=== PATIENT | female | born 1965 | race Caucasian/White ===

== ENCOUNTER → 2016-06-27 | Outpatient (CLI) | payer OTHER ==
--- NOTE | 2016-06-28 11:50 | MM ---
Reason for exam: screening (asymptomatic). Last mammogram was performed 2 years and 4 months ago. History: Patient is postmenopausal. Physical Findings: A clinical breast exam by your physician is recommended on an annual basis and results should be correlated with mammographic findings. MG Screening Mammo w CAD Bilateral CC and MLO view(s) were taken. Prior study comparison: February 18, 2014, left breast MG diagnostic mammo LT w CAD. July 28, 2013, CAD bilateral diagnostic mammogram. There are scattered fibroglandular densities. There is chronic nodularity bilaterally. No significant changes when compared with prior studies. ASSESSMENT: Benign, BI-RAD 2 RECOMMENDATION: Routine screening mammogram of both breasts in 1 year. Manage patient on a clinical basis.
== END | disposition home or self-care (01) ==
LOC: RADMAMWWP 13:27
PROVIDERS: ATTEND Family Medicine
DX: Z12.31 Encounter for screening mammogram for malignant neoplasm of breast (principal)

== ENCOUNTER → 2016-08-14 | Outpatient (CLI) | payer OTHER ==
--- NOTE | 2016-08-16 09:49 | P.ARTDOP ---
Arterial Doppler LOWER EXTREMITY ARTERIAL DOPPLER: DATE OF SERVICE: 08/14/2016 Reason for study: Suspected PVD. Doppler waveforms: Multiphasic bilaterally throughout. Pulse volume recording: Normal configuration. Pressure gradients: None. Ankle-brachial indices: Greater 1 on the right. 0.97 on the left. Toe pressures: 91 on the right, 91 on the left Impression: Normal study.
== END | disposition home or self-care (01) ==
LOC: RADUSWWP 13:19
PROVIDERS: ATTEND Podiatrist Foot & Ankle Surgery
DX: I73.9 Peripheral vascular disease, unspecified (principal)
CPT/HCPCS: 93923

== ENCOUNTER → 2016-08-29 | Outpatient (CLI) | payer OTHER ==
--- NOTE | 2016-08-29 14:10 | MR ---
EXAMINATION TYPE: MR brain wo con DATE OF EXAM: 08/29/2016 2:02 PM COMPARISON: NONE HISTORY: MS per order. TECHNIQUE: Multiplanar, multisequence imaging of the brain and brainstem is performed without IV cont rast. IV contrast could not be given due to inability to obtain venous access despite several attempt s. FINDINGS: Exam is suboptimal due to patient struggling to hold still, communication is also limited due to patient being calf. Motion artifact is noted. Diffusion weighted images demonstrate no evidence of a recent infarct or other diffusion abnormality. There is no worrisome extra-axial fluid collection. There is ventricular prominence out of degree to degree of sulcal effacement and a normal pressure hydrocephalus should be considered. There are nonsp ecific confluent areas of T2 hyperintensity in the periventricular white matter. Exact count of lesio ns is suboptimal due to confluent appearance. Midline structures demonstrate thinning or atrophy of the corpus callosum. The craniocervical junctio n appears within normal limits. Normal vascular flow voids are present. There is mild to moderate muc osal thickening involving ethmoid sinuses bilaterally. Mild mucosal thickening is seen involving fron oralia sinuses. Globes are distorted by motion artifact. Some patchy increased fluid bilateral mastoid a ir cells is present. IMPRESSION: Suboptimal study with suggestion of mild to moderate diffuse hydrocephalus. Comparison wi th old outside studies would be beneficial to assess for interval change. Nonspecific periventricular white matter lesions are present.
== END | disposition home or self-care (01) ==
LOC: RADMRIMAIN 13:23
PROVIDERS: ATTEND Psychiatry & Neurology Neurology
DX: G35 Multiple sclerosis (principal); G91.9 Hydrocephalus, unspecified; R90.82 White matter disease, unspecified
CPT/HCPCS: 70551

== ENCOUNTER 2017-10-03 09:44 | Inpatient (IN) | payer OTHER ==
[2017-10-03] MEDS ORDERED: SODIUM CHLORIDE 0.9% 1,000 ML IV ONE (10:31)
--- NOTE | 2017-10-03 10:58 | ED ---
General Adult HPI - General Chief complaint: Nausea/Vomiting/Diarrhea Stated complaint: Nausea and vomiting Time Seen by Provider: 10/03/17 10:26 Source: family, EMS Mode of arrival: EMS Limitations: altered mental status - History of Present Illness Initial comments: This a 52-year-old female presents to the ER via EMS for altered mental status. Information is initially limited as patient is deaf and cannot provide any information and she is developmentally delayed and has MS. Daughter who is her guardian does provide information stating that she woke up with feces, emesis all over her urine. She states that over the last 3-4 days she's been having worsening weakness primarily lower extremities having more difficulty and bleeding. She states that this time she cannot ambulate at all. She does have MS and a concern for possible MS exacerbation. Patient currently sees Dr. Hernandez for neurology. There has not been any recent changes medication. Daughter reports no recent fever or sick contacts or cold-like symptoms. She does state on a normal basis that she is able to ambulate and somewhat take care of herself. - Related Data Home Medications Medication Instructions Recorded Confirmed Cholecalciferol [Vitamin D3] 5,000 unit PO DAILY 10/03/17 10/03/17 Divalproex ER [Depakote ER] 500 mg PO HS 10/03/17 10/03/17 Escitalopram Oxalate [Lexapro] 20 mg PO DAILY 10/03/17 10/03/17 LORazepam [Ativan] 1 mg PO BID 10/03/17 10/03/17 Magnesium Oxide [Mag-Ox] 400 mg PO DAILY 10/03/17 10/03/17 Previous Rx's Medication Instructions Recorded Potassium Chloride ER [K-Dur 10] 10 meq PO BID tab.er.prt 02/22/16 Allergies Allergy/AdvReac Type Severity Reaction Status Date / Time No Known Allergies Allergy Verified 10/03/17 10:35 Review of Systems ROS Statement: Those systems with pertinent positive or pertinent negative responses have been documented in the HPI. ROS Other: All systems not noted in ROS Statement are negative. Past Medical History Past Medical History: COPD, GERD/Reflux, GI Bleed Additional Past Medical History / Comment(s): MS, hearing impaired, migraines, peptic ulcer disease, developmentally delayed. History of Any Multi-Drug Resistant Organisms: None Reported Past Surgical History: Ear Surgery Additional Past Surgical History / Comment(s): cyst removed from coccyx Past Anesthesia/Blood Transfusion Reactions: No Reported Reaction Past Psychological History: Anxiety, Bipolar, Depression, Schizophrenia Smoking Status: Heavy tobacco smoker Past Alcohol Use History: None Reported Past Drug Use History: None Reported - Past Family History Father Additional Family Medical History / Comment(s): Father at age 70 from myocardial infarction. Mother Additional Family Medical History / Comment(s): Patient's mother is alive at age 70. Patient does not know her medical history. Brother(s) Additional Family Medical History / Comment(s): Patient has 1 brother committed suicide at 48. Sister(s) Additional Family Medical History / Comment(s): Patient has 2 sisters with no major medical problems. General Exam Limitations: altered mental status General appearance: alert, in no apparent distress Head exam: Present: atraumatic, normocephalic, normal inspection Eye exam: Present: normal appearance, PERRL, EOMI. Absent: scleral icterus, conjunctival injection, periorbital swelling ENT exam: Present: mucous membranes moist, TM's normal bilaterally, normal external ear exam. Absent: normal oropharynx (Edentulous) Neck exam: Present: normal inspection, full ROM. Absent: tenderness, meningismus, lymphadenopathy Respiratory exam: Present: normal lung sounds bilaterally. Absent: respiratory distress, wheezes, rales, rhonchi, stridor Cardiovascular Exam: Present: regular rate, normal rhythm, normal heart sounds. Absent: systolic murmur, diastolic murmur, rubs, gallop, clicks GI/Abdominal exam: Present: soft, normal bowel sounds. Absent: distended, tenderness, guarding, rebound, rigid Neurological exam: Present: alert, CN II-XII intact. Absent: oriented X3 Skin exam: Present: warm, dry, intact, normal color. Absent: rash Course Vital Signs 10/03/17 10/03/17 09:46 11:03 Temperature 98.2 F Pulse Rate 89 83 Respiratory 16 16 Rate Blood Pressure 138/75 119/82 O2 Sat by Pulse 98 98 Oximetry Medical Decision Making - Medical Decision Making 52-year-old female presented emergency for altered mental status, weakness nausea vomiting diarrhea. Patient is found to be hyponatremic, hypokalemic, having duration of her MS. Patient be admitted for IV steroids, IV hydration. - Lab Data Result diagrams: 10/03/17 10:09 10/03/17 10:09 Lab Results 10/03/17 10/03/17 10/03/17 Range/Units 10:09 10:09 10:09 WBC (3.8-10.6) k/uL RBC (3.80-5.40) m/uL Hgb (11.4-16.0) gm/dL Hct (34.0-46.0) % MCV (80.0-100.0) fL MCH (25.0-35.0) pg MCHC (31.0-37.0) g/dL RDW (11.5-15.5) % Plt Count (150-450) k/uL Neutrophils % % Lymphocytes % % Monocytes % % Eosinophils % % Basophils % % Neutrophils # (1.3-7.7) k/uL Lymphocytes # (1.0-4.8) k/uL Monocytes # (0-1.0) k/uL Eosinophils # (0-0.7) k/uL Basophils # (0-0.2) k/uL PT (9.0-12.0) sec INR (<1.2) APTT (22.0-30.0) sec Sodium 123 L (137-145) mmol/L Potassium 4.0 (3.5-5.1) mmol/L Chloride 87 L (98-107) mmol/L Carbon Dioxide 23 (22-30) mmol/L Anion Gap 13 mmol/L BUN 3 L (7-17) mg/dL Creatinine 0.40 L (0.52-1.04) mg/dL Est GFR (CKD-EPI)AfAm >90 (>60 ml/min/1.73 sqM) Est GFR (CKD-EPI)NonAf >90 (>60 ml/min/1.73 sqM) Glucose 119 H (74-99) mg/dL POC Glucose (mg/dL) (75-99) mg/dL POC Glu Career Services Director ID Plasma Lactic Acid David 1.2 (0.7-2.0) mmol/L Calcium 8.8 (8.4-10.2) mg/dL Total Bilirubin 0.5 (0.2-1.3) mg/dL AST 15 (14-36) U/L ALT 23 (9-52) U/L Alkaline Phosphatase 70 (38-126) U/L Ammonia 30 H (<30) umol/L Total Creatine Kinase 98 (30-135) U/L CK-MB (CK-2) 1.0 (0.0-2.4) ng/mL CK-MB (CK-2) Rel Index 1.0 Troponin I <0.012 (0.000-0.034) ng/mL Total Protein 6.1 L (6.3-8.2) g/dL Albumin 3.5 (3.5-5.0) g/dL Urine Color Urine Appearance (Clear) Urine pH (5.0-8.0) Ur Specific [place] (1.001-1.035) Urine Protein (Negative) Urine Glucose (UA) (Negative) Urine Ketones (Negative) Urine Blood (Negative) Urine Nitrite (Negative) Urine Bilirubin (Negative) Urine Urobilinogen (<2.0) mg/dL Ur Leukocyte Esterase (Negative) Urine WBC (0-5) /hpf Ur Squamous Epith Cells (0-4) /hpf Amorphous Sediment (None) /hpf Urine Opiates Screen (NotDetected) Ur Oxycodone Screen (NotDetected) Urine Methadone Screen (NotDetected) Ur Propoxyphene Screen (NotDetected) Ur Barbiturates Screen (NotDetected) Valproic Acid 43.6 ug/mL U Tricyclic Antidepress (NotDetected) Ur Phencyclidine Scrn (NotDetected) Ur Amphetamines Screen (NotDetected) U Methamphetamines Scrn (NotDetected) U Benzodiazepines Scrn (NotDetected) Urine Cocaine Screen (NotDetected) U Marijuana (THC) Screen (NotDetected) 10/03/17 10/03/17 10/03/17 Range/Units 10:09 10:09 10:50 WBC 7.6 (3.8-10.6) k/uL RBC 4.04 (3.80-5.40) m/uL Hgb 12.6 (11.4-16.0) gm/dL Hct 35.8 (34.0-46.0) % MCV 88.6 (80.0-100.0) fL MCH 31.1 (25.0-35.0) pg MCHC 35.1 (31.0-37.0) g/dL RDW 12.5 (11.5-15.5) % Plt Count 440 (150-450) k/uL Neutrophils % 83 % Lymphocytes % 9 % Monocytes % 6 % Eosinophils % 0 % Basophils % 0 % Neutrophils # 6.3 (1.3-7.7) k/uL Lymphocytes # 0.7 L (1.0-4.8) k/uL Monocytes # 0.5 (0-1.0) k/uL Eosinophils # 0.0 (0-0.7) k/uL Basophils # 0.0 (0-0.2) k/uL PT 11.1 (9.0-12.0) sec INR 1.1 (<1.2) APTT 26.0 (22.0-30.0) sec Sodium (137-145) mmol/L Potassium (3.5-5.1) mmol/L Chloride (98-107) mmol/L Carbon Dioxide (22-30) mmol/L Anion Gap mmol/L BUN (7-17) mg/dL Creatinine (0.52-1.04) mg/dL Est GFR (CKD-EPI)AfAm (>60 ml/min/1.73 sqM) Est GFR (CKD-EPI)NonAf (>60 ml/min/1.73 sqM) Glucose (74-99) mg/dL POC Glucose (mg/dL) (75-99) mg/dL POC Glu Career Services Director ID Plasma Lactic Acid David (0.7-2.0) mmol/L Calcium (8.4-10.2) mg/dL Total Bilirubin (0.2-1.3) mg/dL AST (14-36) U/L ALT (9-52) U/L Alkaline Phosphatase (38-126) U/L Ammonia (<30) umol/L Total Creatine Kinase (30-135) U/L CK-MB (CK-2) (0.0-2.4) ng/mL CK-MB (CK-2) Rel Index Troponin I (0.000-0.034) ng/mL Total Protein (6.3-8.2) g/dL Albumin (3.5-5.0) g/dL Urine Color Light Yellow Urine Appearance Clear (Clear) Urine pH 7.5 (5.0-8.0) Ur Specific [place] 1.006 (1.001-1.035) Urine Protein Negative (Negative) Urine Glucose (UA) Negative (Negative) Urine Ketones 1+ H (Negative) Urine Blood Negative (Negative) Urine Nitrite Negative (Negative) Urine Bilirubin Negative (Negative) Urine Urobilinogen <2.0 (<2.0) mg/dL Ur Leukocyte Esterase Small H (Negative) Urine WBC 3 (0-5) /hpf Ur Squamous Epith Cells 4 (0-4) /hpf Amorphous Sediment Rare H (None) /hpf Urine Opiates Screen Not Detected (NotDetected) Ur Oxycodone Screen Not Detected (NotDetected) Urine Methadone Screen Not Detected (NotDetected) Ur Propoxyphene Screen Not Detected (NotDetected) Ur Barbiturates Screen Not Detected (NotDetected) Valproic Acid ug/mL U Tricyclic Antidepress Not Detected (NotDetected) Ur Phencyclidine Scrn Not Detected (NotDetected) Ur Amphetamines Screen Not Detected (NotDetected) U Methamphetamines Scrn Not Detected (NotDetected) U Benzodiazepines Scrn Detected H (NotDetected) Urine Cocaine Screen Not Detected (NotDetected) U Marijuana (THC) Screen Detected H (NotDetected) 10/03/17 Range/Units 11:00 WBC (3.8-10.6) k/uL RBC (3.80-5.40) m/uL Hgb (11.4-16.0) gm/dL Hct (34.0-46.0) % MCV (80.0-100.0) fL MCH (25.0-35.0) pg MCHC (31.0-37.0) g/dL RDW (11.5-15.5) % Plt Count (150-450) k/uL Neutrophils % % Lymphocytes % % Monocytes % % Eosinophils % % Basophils % % Neutrophils # (1.3-7.7) k/uL Lymphocytes # (1.0-4.8) k/uL Monocytes # (0-1.0) k/uL Eosinophils # (0-0.7) k/uL Basophils # (0-0.2) k/uL PT (9.0-12.0) sec INR (<1.2) APTT (22.0-30.0) sec Sodium (137-145) mmol/L Potassium (3.5-5.1) mmol/L Chloride (98-107) mmol/L Carbon Dioxide (22-30) mmol/L Anion Gap mmol/L BUN (7-17) mg/dL Creatinine (0.52-1.04) mg/dL Est GFR (CKD-EPI)AfAm (>60 ml/min/1.73 sqM) Est GFR (CKD-EPI)NonAf (>60 ml/min/1.73 sqM) Glucose (74-99) mg/dL POC Glucose (mg/dL) 110 H (75-99) mg/dL POC Glu Career Services Director ID Kemi Denny Plasma Lactic Acid David (0.7-2.0) mmol/L Calcium (8.4-10.2) mg/dL Total Bilirubin (0.2-1.3) mg/dL AST (14-36) U/L ALT (9-52) U/L Alkaline Phosphatase (38-126) U/L Ammonia (<30) umol/L Total Creatine Kinase (30-135) U/L CK-MB (CK-2) (0.0-2.4) ng/mL CK-MB (CK-2) Rel Index Troponin I (0.000-0.034) ng/mL Total Protein (6.3-8.2) g/dL Albumin (3.5-5.0) g/dL Urine Color Urine Appearance (Clear) Urine pH (5.0-8.0) Ur Specific [place] (1.001-1.035) Urine Protein (Negative) Urine Glucose (UA) (Negative) Urine Ketones (Negative) Urine Blood (Negative) Urine Nitrite (Negative) Urine Bilirubin (Negative) Urine Urobilinogen (<2.0) mg/dL Ur Leukocyte Esterase (Negative) Urine WBC (0-5) /hpf Ur Squamous Epith Cells (0-4) /hpf Amorphous Sediment (None) /hpf Urine Opiates Screen (NotDetected) Ur Oxycodone Screen (NotDetected) Urine Methadone Screen (NotDetected) Ur Propoxyphene Screen (NotDetected) Ur Barbiturates Screen (NotDetected) Valproic Acid ug/mL U Tricyclic Antidepress (NotDetected) Ur Phencyclidine Scrn (NotDetected) Ur Amphetamines Screen (NotDetected) U Methamphetamines Scrn (NotDetected) U Benzodiazepines Scrn (NotDetected) Urine Cocaine Screen (NotDetected) U Marijuana (THC) Screen (NotDetected) Disposition Clinical Impression: Hyponatremia, Hyperchloremia, Dehydration, Nausea & vomiting, Exacerbation of multiple sclerosis Disposition: ADMITTED IP TO THIS HOSP Condition: Fair Referrals: None,Stated [Primary Care Provider] - 1-2 days
[2017-10-03 11:09] LABS: Basophils % (A) 0 %; Eosinophils % (A) 0 %; HCT 35.8 % (34.0-46.0); HGB 12.6 gm/dL (11.4-16.0); Lymphocytes # (A) 0.7 k/uL (1.0-4.8); Lymphocytes % (A) 9 %; MCH 31.1 pg (25.0-35.0); MCHC 35.1 g/dL (31.0-37.0); MCV 88.6 fL (80.0-100.0); Mean Platelet Volume 6.4; Monocytes # (A) 0.5 k/uL (0-1.0); Monocytes % (A) 6 %; Neutrophils # (A) 6.3 k/uL (1.3-7.7); Neutrophils % (A) 83 %; Platelet Count 440 k/uL (150-450); RBC 4.04 m/uL (3.80-5.40); RDW 12.5 % (11.5-15.5); WBC 7.6 k/uL (3.8-10.6)
[2017-10-03 11:17] LABS: Lactic Acid, Venous 1.2 mmol/L (0.7-2.0)
[2017-10-03 11:17] LABS: Amorphous Sediment,Urine Rare /hpf; Appearance,Urine Clear (Clear); Bilirubin,Urine Negative (Negative); Blood,Urine Negative (Negative); Color,Urine Light Yellow; Glucose,Urine (UA) Negative (Negative); Ketones,Urine 1+ (Negative); Leukocyte Esterase,Urine Small (Negative); Nitrite,Urine Negative (Negative); PH, Urine 7.5 (5.0-8.0); Protein,Urine Negative (Negative); Specific Gravity,Urine 1.006 (1.001-1.035); Squamous Epithelial Cell,Urine 4 /hpf (0-4); Urobilinogen,Urine <2.0 mg/dL (<2.0); WBC,Urine 3 /hpf (0-5)
[2017-10-03 11:19] LABS: ALT 23 U/L (9-52); AST 15 U/L (14-36); Albumin 3.5 g/dL (3.5-5.0); Alkaline Phosphatase 70 U/L (38-126); Anion Gap 13 mmol/L; Blood Urea Nitrogen 3 mg/dL (7-17); Calcium 8.8 mg/dL (8.4-10.2); Carbon Dioxide 23 mmol/L (22-30); Chloride 87 mmol/L (98-107); Glucose 119 mg/dL (74-99); Sodium 123 mmol/L (137-145); Total Bilirubin 0.5 mg/dL (0.2-1.3); Total Protein 6.1 g/dL (6.3-8.2)
[2017-10-03 11:20] LABS: Amphetamine Screen,Urine Not Detected (NotDetected); Barbiturate Screen,Urine Not Detected (NotDetected); Benzodiazepines Screen,Urine Detected (NotDetected); Cocaine Screen,Urine Not Detected (NotDetected); Methadone Screen, Urine Not Detected (NotDetected); Opiate Screen,Urine Not Detected (NotDetected); Phencyclidine Screen,Urine Not Detected (NotDetected); Tricyclic Antidepressant,Urine Not Detected (NotDetected); Urn Cannabinoid Scrn Detected (NotDetected)
[2017-10-03 11:21] LABS: Oxycodone Screen, Urine Not Detected (NotDetected)
[2017-10-03 11:21] LABS: Glucose,Whole Blood 110 mg/dL (75-99)
[2017-10-03 11:24] LABS: Valproic Acid (Depakene) 43.6 ug/mL
[2017-10-03 11:29] LABS: Creatine Kinase 98 U/L (30-135)
[2017-10-03 11:37] LABS: INR 1.1 (<1.2); Prothrombin Time 11.1 sec (9.0-12.0)
--- NOTE | 2017-10-03 11:37 | CT ---
EXAMINATION TYPE: CT brain wo con DATE OF EXAM: 10/03/2017 COMPARISON: MRI brain 08/29/2016 HISTORY: altered mental changes CT DLP: 1027.2 mGycm Automated exposure control for dose reduction was used. FINDINGS: There again appears to be moderate prominence of the central ventricular system. Differential diagnos is would include hydrocephalus or normal pressure hydrocephalus Diffuse and focal areas of abnormal attenuation the white matter are nonspecific. No midline shift. No acute hemorrhage or mass effect. Previous surgery involving the right mastoid air cells noted correlate for mastoidectomy. Changes of chronic sinusitis noted. Osteoma within the right frontal sinus noted. IMPRESSION: 1. FINDINGS ARE COMPATIBLE WITH MODERATE HYDROCEPHALUS WHICH IS SIMILAR APPEARANCE TO THE PREVIOUS M RI. NONSPECIFIC WHITE MATTER CHANGES MAY BEEN THE BASIS OF SUBEPENDYMOMA EDEMA OR REMOTE ISCHEMIA. DE MYELINATING PROCESS NOT ENTIRELY EXCLUDED. 2. NO ACUTE HEMORRHAGE OR MIDLINE SHIFT..
[2017-10-03 11:43] LABS: Troponin I <0.012 ng/mL (0.000-0.034)
--- NOTE | 2017-10-03 11:49 | XR ---
EXAMINATION TYPE: XR chest 2V DATE OF EXAM: 10/03/2017 COMPARISON: NONE HISTORY: Chest pain TECHNIQUE: Frontal and lateral views of the chest are obtained. FINDINGS: There is no focal air space opacity. No evidence for pneumothorax. No pleural effusion. The cardiac silhouette size is within normal limits. The osseous structures are grossly intact. IMPRESSION: 1. No acute cardiopulmonary process.
[2017-10-03] MEDS ORDERED: methylPREDNISolone SOD SUCCI 250 MG in SODIUM CHLORIDE 0.9% 100 ML IVPB STA (12:12)
[2017-10-03] MEDS ORDERED: SODIUM CHLORIDE 0.9% 1,000 ML IV SCH (12:15)
--- NOTE | 2017-10-03 17:04 | P.HPIM ---
History of Present Illness This is a pleasant 52 years old female with past medical history of MS, are not schizophrenia, mental developmental problem, seizure disorders on no seizure medication for many years as per Daughter , hearing impairment, upper GI bleed, peptic ulcer disease, most of the information is provided by her daughter and guardian Miss Madelyn Vazquez per Drs. patient's woke up this morning and she was covered with feces and urine and generalized weakness and the daughter has to take her to the shower room and then admitted to [facility] and during that time she was feeling very weak and trying to puke herself but nothing came up except last few phlegm Patient has history of MS and she has been daughter she has mental issues she was mentality getting up and down but over the last 2 days was growing weaker and weaker and she was falling all the time She sees a psychiatrist Dr. José The doctors think that's one of her medication has been change recently but not sure what Her baseline she is usually functioning only inside the house she uses a walker and move around the house, she has history of severe paranoid ideation and she don't trust people and to think people trying to hurt her so she doesn't talk to them, her mentality was opened down over the last 3 years as per . Patient usually stays in house and she doesn't currently follows only for appointment about once a month As per Madonna. patient is full code Review of Systems 14 point systemic review were negative except was mentioned in the HPI Past Medical History Past Medical History: COPD, GERD/Reflux, GI Bleed, Seizure Disorder Additional Past Medical History / Comment(s): MS, hearing impaired, seizures when in her 30s, migraines, Upper GI bleed, peptic ulcer disease, developmentally delayed. History of Any Multi-Drug Resistant Organisms: None Reported Past Surgical History: Ear Surgery Additional Past Surgical History / Comment(s): cyst removed from coccyx, multiple bilateral ear surgeries. Past Anesthesia/Blood Transfusion Reactions: No Reported Reaction Smoking Status: Current every day smoker - Past Family History Father Additional Family Medical History / Comment(s): Father at age 70 from myocardial infarction. Mother Additional Family Medical History / Comment(s): Patient's mother is alive at age 70. Patient does not know her medical history. Brother(s) Additional Family Medical History / Comment(s): Patient has 1 brother committed suicide at 48. Sister(s) Additional Family Medical History / Comment(s): Patient has 2 sisters with no major medical problems. Medications and Allergies Home Medications Medication Instructions Recorded Confirmed Type Potassium Chloride ER [K-Dur 10] 10 meq PO BID tab.er.prt 02/22/16 10/03/17 Rx Cholecalciferol [Vitamin D3] 5,000 unit PO DAILY 10/03/17 10/03/17 History Divalproex ER [Depakote ER] 500 mg PO HS 10/03/17 10/03/17 History Escitalopram Oxalate [Lexapro] 20 mg PO DAILY 10/03/17 10/03/17 History LORazepam [Ativan] 1 mg PO BID 10/03/17 10/03/17 History Magnesium Oxide [Mag-Ox] 400 mg PO DAILY 10/03/17 10/03/17 History Allergies Allergy/AdvReac Type Severity Reaction Status Date / Time No Known Allergies Allergy Verified 10/03/17 10:35 Physical Exam Vitals: Vital Signs Temp Pulse Pulse Resp BP BP Pulse Ox 10/03/17 13:37 98.7 F 80 16 112/71 97 10/03/17 12:18 98.2 F 89 18 116/74 96 10/03/17 11:03 83 16 119/82 98 10/03/17 09:46 98.2 F 89 16 138/75 98 Intake and Output 10/03/17 10/03/17 10/03/17 06:59 14:59 22:59 Intake Total 240 Balance 240 Intake: Oral 240 Other: # Voids 800 Weight 63.503 kg Constitutional: One episode patient she knows that she is in the hospital , she did provide me her name, but then she did not cooperate further Eyes: Anicteric sclerae, moist conjunctiva, no lid-lag PERRLA ENMT: NC/AT Oropharynx clear, no erythema, exudates Neck: Supple, FROM, no masses, or JVD No carotid bruits No thyromegaly Lungs: Clear to auscultation Clear to percussion Normal respiratory effort, no accessory muscle use Cardiovascular: Heart regular in rate and rhythm, No murmurs, gallops, or rubs No peripheral edema Abdominal: Soft Nontender, no guarding, rebound or rigidity Abdomen moving with respiration Normoactive bowel sounds No hepatomegaly, No splenomegaly No palpable mass No abdominal wall hernia noted Skin: Normal temperature, tone, texture, turgor No induration No subcutaneous nodules No rash, lesions No ulcers Extremities: No digital cyanosis No clubbing Pedal pulses intact and symmetrical Radial pulses intact and symmetrical Normal gait and station No calf tenderness Psychiatric: defer to psychiatric service NeuroPatient didn't allow the full examination, however she was moving her legs in IN the ear because she wanted to go to the bathroom for urinate and her bowel movements were brisk and symmetrical, Cranial nerves II-XII grossly intact No focal sensory deficits Results CBC & Chem 7: 10/03/17 10:09 10/03/17 10:09 Labs: Abnormal Lab Results - Last 24 Hours (Table) 10/03/17 10/03/17 10/03/17 Range/Units 10:09 10:09 10:09 Lymphocytes # 0.7 L (1.0-4.8) k/uL Sodium 123 L (137-145) mmol/L Chloride 87 L (98-107) mmol/L BUN 3 L (7-17) mg/dL Creatinine 0.40 L (0.52-1.04) mg/dL Glucose 119 H (74-99) mg/dL POC Glucose (mg/dL) (75-99) mg/dL Ammonia 30 H (<30) umol/L Total Protein 6.1 L (6.3-8.2) g/dL Urine Ketones (Negative) Ur Leukocyte Esterase (Negative) Amorphous Sediment (None) /hpf U Benzodiazepines Scrn (NotDetected) U Marijuana (THC) Screen (NotDetected) 10/03/17 10/03/17 Range/Units 10:50 11:00 Lymphocytes # (1.0-4.8) k/uL Sodium (137-145) mmol/L Chloride (98-107) mmol/L BUN (7-17) mg/dL Creatinine (0.52-1.04) mg/dL Glucose (74-99) mg/dL POC Glucose (mg/dL) 110 H (75-99) mg/dL Ammonia (<30) umol/L Total Protein (6.3-8.2) g/dL Urine Ketones 1+ H (Negative) Ur Leukocyte Esterase Small H (Negative) Amorphous Sediment Rare H (None) /hpf U Benzodiazepines Scrn Detected H (NotDetected) U Marijuana (THC) Screen Detected H (NotDetected) Thrombosis Risk Factor Assmnt - Choose All That Apply Any of the Below Risk Factors Present?: Yes Each Factor Represents 1 point: Age 41-60 years Other Risk Factors: No Other congenital or acquired thrombophilia - If yes, enter type in comment: No Thrombosis Risk Factor Assessment Total Risk Factor Score: 1 Thrombosis Risk Factor Assessment Level: Low Risk Assessment and Plan Assessment: Operative mental status and MS Hyponatremia Generalized weakness, Plan: This is a pleasant 52 years old lady with past medical history of MS and severe paranoid schizophrenia on various psychiatric medication presents with generalized weakness and hyponatremia When I saw the patient she was already taking IV normal saline at 75 mL/h and I asked the nurse electric frying pan repairer to stop the fluid, because patient does not look dehydrated for me CT of the head is negative Monitor electrolytes, called transverse abdominal muscle surgeon Patient on steroids for MS, not sure about her baseline, called her neurologist for further evaluation Also last for psychiatric evaluation for her schizophrenia and mental illness full Code as per her daughter which is her guardian DVT prophylaxis SCD Prognosis is guarded given her various comorbidities and severity of her illnesses
--- NOTE | 2017-10-03 19:09 | P.CNNES ---
History of Present Illness Consult date: 10/03/17 History of Present Illness: The patient is a 52-year-old woman with history of MS, epilepsy, and hydrocephalus. She was last seen in the neurology clinic in October 2016. At that time it was felt the patient may have NPH she walked with a wide-based gait which she's had for almost 10 years. And she had an MRI which was suggestive of possible underlying hydrocephalus. She had been referred to [facility] neurosurgery for further evaluation of possible NPH. The patient and her daughter did go to the clinic at [facility]. Apparently the NPH team recommended that the patient be seen by an MS specialist. The patient was seen by an MS specialist and it was felt that the patient should be seen by the NPH team. The patient's daughter reports that this morning her mother was found in urine and feces and vomit. She has been complaining of abdominal pain. The patient normally is able to get up and walk to the bathroom and has been incontinent occasionally of bladder but not feces. The patient's daughter reports that she heard her mother have some a verbal sounds during the night that made her feel she might have had a seizure. The patient is a poor historian. She has multiple of medical problems including schizophrenia. Upper coat 500 mg a day for seizures. There is been no change in her mental status. The primary change his been in her increased a gait disturbance which she's had chronically but recently worsening with some type of apraxia in her legs. At a CAT scan of the brain in the emergency room and there was moderate hydrocephalus which was unchanged compared to MRI done on August 2016. No hemorrhage was seen. Review of Systems ROS unobtainable: due to mental status Past Medical History Past Medical History: COPD, GERD/Reflux, GI Bleed, Seizure Disorder Additional Past Medical History / Comment(s): MS, hearing impaired, seizures when in her 30s, migraines, Upper GI bleed, peptic ulcer disease, developmentally delayed. History of Any Multi-Drug Resistant Organisms: None Reported Past Surgical History: Ear Surgery Additional Past Surgical History / Comment(s): cyst removed from coccyx, multiple bilateral ear surgeries. Past Anesthesia/Blood Transfusion Reactions: No Reported Reaction Smoking Status: Current every day smoker - Past Family History Father Additional Family Medical History / Comment(s): Father at age 70 from myocardial infarction. Mother Additional Family Medical History / Comment(s): Patient's mother is alive at age 70. Patient does not know her medical history. Brother(s) Additional Family Medical History / Comment(s): Patient has 1 brother committed suicide at 48. Sister(s) Additional Family Medical History / Comment(s): Patient has 2 sisters with no major medical problems. Medications and Allergies Home Medications Medication Instructions Recorded Confirmed Type Potassium Chloride ER [K-Dur 10] 10 meq PO BID tab.er.prt 02/22/16 10/03/17 Rx Cholecalciferol [Vitamin D3] 5,000 unit PO DAILY 10/03/17 10/03/17 History Divalproex ER [Depakote ER] 500 mg PO HS 10/03/17 10/03/17 History Escitalopram Oxalate [Lexapro] 20 mg PO DAILY 10/03/17 10/03/17 History LORazepam [Ativan] 1 mg PO BID 10/03/17 10/03/17 History Magnesium Oxide [Mag-Ox] 400 mg PO DAILY 10/03/17 10/03/17 History Allergies Allergy/AdvReac Type Severity Reaction Status Date / Time No Known Allergies Allergy Verified 10/03/17 10:35 Physical Examination - Vital Signs Vital Signs: Vital Signs Temp Pulse Pulse Resp BP BP Pulse Ox 10/03/17 13:37 98.7 F 80 16 112/71 97 10/03/17 12:18 98.2 F 89 18 116/74 96 10/03/17 11:03 83 16 119/82 98 10/03/17 09:46 98.2 F 89 16 138/75 98 Intake and Output 10/03/17 10/03/17 10/03/17 06:59 14:59 22:59 Intake Total 240 Balance 240 Intake: Oral 240 Other: # Voids 800 Weight 63.503 kg - Constitutional General appearance: disheveled - EENT EENT: PERRL, hearing diminished - Respiratory Respiratory: lungs clear - Cardiovascular Cardiovascular: regular rate - Neurologic Neurologic examination mental status: She was awake. She was oriented to person and place. She had moderate cognitive impairment. She has a speech impediment. Next Cranial nerve examination pupils were 2 mm and equal there was no ptosis and no facial asymmetry next Motor examination she moved all 4 extremities Gait was not tested Reflexes: 2+: bicep - Psychiatric Psychiatric: depressed Results - Laboratory Findings CBC and BMP: 10/03/17 10:09 10/03/17 10:09 Abnormal Lab Findings: Abnormal Labs 10/03/17 10/03/17 10/03/17 10:09 10:09 10:09 Lymphocytes # 0.7 L Sodium 123 L Chloride 87 L BUN 3 L Creatinine 0.40 L Glucose 119 H POC Glucose (mg/dL) Ammonia 30 H Total Protein 6.1 L Urine Ketones Ur Leukocyte Esterase Amorphous Sediment U Benzodiazepines Scrn U Marijuana (THC) Screen 10/03/17 10/03/17 10:50 11:00 Lymphocytes # Sodium Chloride BUN Creatinine Glucose POC Glucose (mg/dL) 110 H Ammonia Total Protein Urine Ketones 1+ H Ur Leukocyte Esterase Small H Amorphous Sediment Rare H U Benzodiazepines Scrn Detected H U Marijuana (THC) Screen Detected H Assessment and Plan (1) Hydrocephalus Current Visit: Yes Status: Acute SNOMED Code(s): 357015753 (2) Dehydration Current Visit: Yes Status: Acute SNOMED Code(s): 79500172 (3) Seizure disorder Current Visit: Yes Status: Chronic SNOMED Code(s): 123326516 (4) Abdominal pain Current Visit: Yes Status: Acute SNOMED Code(s): 71501126 Plan: The patient is a 52-year-old woman with history of MS. She was last seen in the neurology clinic outpatient in October 2016. She does have history of wide- based gait and is recently had more trouble difficulty with ambulation. Her CAT scan does show hydrocephalus which is unchanged compared to prior study done about one year ago. She has become increasingly incontinent according to the daughter. Also she is complaining of abdominal pain of unclear etiology. She reports that her psychiatrist's and made some changes in her medications recently. Her daughter reports that she heard some sounds yesterday evening which could've been a seizure. Recommend EEG and check Depakote level. This patient has some difficulty ambulating possibly due to underlying NPH. Also the episode of incontinence today may be related to a seizure occurring yesterday evening. Recommend physical therapy and rehab. outpatient neurosurgical referral will be made possible NPH Abdominal pain is of unclear etiology
[2017-10-03] MEDS: POTASSIUM CHLORIDE ER 10 MEQ TAB.ER.PRT PO SCH (22:19)
[2017-10-03] MEDS: LORazepam 1 MG TAB PO SCH (22:19)
[2017-10-03] MEDS: DIVALPROEX ER 500 MG TAB.ER.24H PO SCH (22:19)
[2017-10-03 23:21] LABS: Anion Gap 12 mmol/L; Blood Urea Nitrogen 8 mg/dL (7-17); Calcium 9.2 mg/dL (8.4-10.2); Carbon Dioxide 23 mmol/L (22-30); Chloride 96 mmol/L (98-107); Glucose 134 mg/dL (74-99); Potassium 4.1 mmol/L (3.5-5.1); Sodium 131 mmol/L (137-145)
[2017-10-04] MEDS: MAGNESIUM OXIDE 400 MG TAB PO SCH (07:50)
[2017-10-04] MEDS: POTASSIUM CHLORIDE ER 10 MEQ TAB.ER.PRT PO SCH (07:50)
[2017-10-04] MEDS: ESCITALOPRAM 20 MG TAB PO SCH (07:50)
[2017-10-04] MEDS: CHOLECALCIFEROL 1,000 UNIT TAB PO SCH (07:50)
[2017-10-04] MEDS: LORazepam 1 MG TAB PO SCH ×2 (07:55→20:41)
[2017-10-04 08:34] LABS: Basophils % (A) 0 %; Eosinophils # (A) 0.1 k/uL (0-0.7); Eosinophils % (A) 0 %; HCT 34.7 % (34.0-46.0); HGB 12.2 gm/dL (11.4-16.0); Lymphocytes # (A) 1.2 k/uL (1.0-4.8); Lymphocytes % (A) 8 %; MCH 31.6 pg (25.0-35.0); MCHC 35.1 g/dL (31.0-37.0); Monocytes # (A) 0.9 k/uL (0-1.0); Monocytes % (A) 6 %; Neutrophils % (A) 85 %; Platelet Count 461 k/uL (150-450); RBC 3.86 m/uL (3.80-5.40); RDW 12.9 % (11.5-15.5); WBC 15.3 k/uL (3.8-10.6)
[2017-10-04 09:49] LABS: Anion Gap 12 mmol/L; Blood Urea Nitrogen 9 mg/dL (7-17); Calcium 9.6 mg/dL (8.4-10.2); Carbon Dioxide 23 mmol/L (22-30); Chloride 98 mmol/L (98-107); Glucose 87 mg/dL (74-99); Potassium 4.1 mmol/L (3.5-5.1); Sodium 133 mmol/L (137-145)
[2017-10-04 11:31] VITALS: BMI 24.0
--- NOTE | 2017-10-04 11:43 | P.CN ---
Psychiatric Consult - . Consult date: 10/04/17 Consult:: 10/04/17 11:23 Identification: Patient is a 52-year-old female who was brought to the emergency room by her daughter after she was found covered in feces and urine and suspected a seizure. Reason for Consult: Depression History of Present Illness: Patient's chart was reviewed, patient was seen and interviewed in her room no family members were present. Patient has a fair to poor historian. Patient states he came to the hospital because she wasn't feeling well, referring to not physically doing well. Patient reports seeing Dr. Hinds at [facility]. Patient reports that she received her last injection of medication last week sometime, patient reports doing well on her current medications. Patient denies that she is hearing voices, no paranoid thoughts, no suicidal thoughts and states she slept fairly well last evening here and is eating. Patient was admitted to this hospital to the psychiatric unit in 2016 and was treated for schizophrenia, complicated bereavement. Patient was unable to tell me if she is been admitted to a psychiatric hospital since that time but thinks that the answer is no. Patient reports that she is doing quite well on her current medications. Patient is seen at [facility] and is currently maintained on Prolixin decanoate 25 mg every 2 weeks, Lexapro 20 mg daily, as well as Ativan 1 mg twice. Patient was unable to give me any other history or information regarding her prior psychiatric treatment. Patient's daughter is her guardian. Past Psychiatric History:Patient was admitted here in 2016 and has a history of paranoid ideation and a diagnosis of schizophrenia. Patient has been tried on the past on Risperdal, Invega, Zyprexa and Seroquel was begun during her admission in 2016. Patient is currently receiving Prolixin long-acting injectable. Patient has also been on Prozac and Pristiq and Remeron in the past and is currently taking Lexapro. Patient's current medications are stated above, she has a diagnosis of schizophrenia and complicated bereavement, secondary to the of her 3 years ago. There is no record or information or history of any developmental disorder. Past Medical/Surgical History:Per the chart the patient has a history of COPD, GERD, seizure disorder, multiple sclerosis and she is hearing impaired. Patient has been evaluated for normal pressure hydrocephalus Family History Unable to obtain from the patient Social History: Patient states she was born and raised in [place], she is currently living with her daughter and her daughter's boyfriend and her 3 grandchildren. She states that she also has a son. Patient was in the past and her 3 years ago. Patient states she did not complete high school. Substance Use History: Patient denied any use of alcohol, the patient does use marijuana she was unable to tell me how frequently and there is no other history of any other drug use. Mental status:Appearance/Attitude: Patient is lying in a hospital bed in no acute distress and makes good eye contact, I needed to sit next to the patient and speak into her ear as she is hard of hearing and she was cooperative. Behavior: Patient did not display any psychomotor agitation or retardation. Speech/Language: Patient responded to questions with brief sentences, she spoke in a normal volume and rhythm and was coherent Thought Process: Patient's responses were brief and non-elaborative, at times she would repeat my question is no evidence of loose association or flight of ideas Thought Content: Patient denied auditory or visual hallucinations and she denied any paranoid or delusional ideation at this time. Patient has per the record had paranoid ideation. Patient states that she was sleeping well and her appetite is good. Suicidal/Homicidal Ideation: Patient denied any current suicidal or homicidal ideation. Sensorium/Cognition: Patient is alert and oriented to person, situation and further cognitive testing was not performed Mood/Affect: Patient's mood was pleasant and her affect was slightly blunted Insight/Judgment: Patient's insight and judgment are limited Assessment:Patient is brought to the emergency room after having had a possible seizure at home, she has been seen at [facility] and was last seen for a medication review on August 28 of this year and has been continued on Prolixin long-acting injectable 25 mg every 2 weeks as well as Lexapro 20 mg daily and Ativan 1 mg twice a day. Patient is currently not expressing any suicidal or homicidal ideation, she denies any auditory or visual hallucinations and is not expressing any paranoid ideation. Patient states that she was not feeling well when she came to the hospital, stating that she felt physically ill. She states that she's feeling better today and has been trying to eat and slept well last evening. Patient is not expressing any complaints of depression at this time. On admission the patient was hyponatremic, she also has been seen for normal pressure hydrocephalus and on her CAT scan this was unchanged from a prior one last year. Diagnosis: Schizophrenia by history Plan: Patient is followed by [facility] and is currently on Lexapro 20 mg daily, Ativan 1 mg twice a day and is receiving long-acting Prolixin decanoate injectable medication 25mg every 2 weeks and she feels that she received her last injection last week. Patient is not expressing any suicidal or homicidal ideation and there is no evidence of any psychotic symptoms or depressive symptoms and I do not see a need for inpatient psychiatric admission. I see no need to adjust the patient's medications, I will sign off the case and the patient should continue to follow up with [facility] after discharge.
--- NOTE | 2017-10-04 12:08 | P.NPCON ---
History of Present Illness - Reason for Consult hyponatremia - History of Present Illness reason for consultation: Hyponatremia History of present illness: Patient is a 52-year-old female seen in renal consultation for hyponatremia. Her sodium level was 123 on admission. She was initially started on normal saline at 75 mL an hour which she received for a few hours and was subsequently discontinued. Her sodium level came up to 131 last night and was 133 this morning. Her oral intake is good. Patient presented with altered mental status. She was found by her daughter covered in feces and urine. She does have history of MS as well as schizophrenia. Patient is not a reliable historian and history was obtained mostly from the chart. Currently she is off all IV fluids. Hemodynamically stable. Creatinine is 0.58.she denies any nausea vomiting or diarrhea. She has been voiding. I do see that she is on Depakote as well as Lexapro as part of her home meds which can cause hyponatremia. I don't see any diuretics. CT of the head revealed no acute abnormalities. Vital signs are stable. General: The patient appeared well nourished and normally developed. HEENT: Head exam is unremarkable. Neck is without jugular venous distension. LUNGS: Lungs are clear to auscultation and percussion. Breath sounds decreased. HEART: Rate and Rhythm are regular. First and second heart sounds normal. No murmurs, rubs or gallops. ABDOMEN: Abdominal exam reveals normal bowel sounds. Non-tender and non- distended. No evidence of peritonitis. EXTREMITITES: No clubbing, cyanosis, or edema. Past Medical History Past Medical History: COPD, GERD/Reflux, GI Bleed, Seizure Disorder Additional Past Medical History / Comment(s): MS, hearing impaired, seizures when in her 30s, migraines, Upper GI bleed, peptic ulcer disease, developmentally delayed. History of Any Multi-Drug Resistant Organisms: None Reported Past Surgical History: Ear Surgery Additional Past Surgical History / Comment(s): cyst removed from coccyx, multiple bilateral ear surgeries. Past Anesthesia/Blood Transfusion Reactions: No Reported Reaction Smoking Status: Current every day smoker - Past Family History Father Additional Family Medical History / Comment(s): Father at age 70 from myocardial infarction. Mother Additional Family Medical History / Comment(s): Patient's mother is alive at age 70. Patient does not know her medical history. Brother(s) Additional Family Medical History / Comment(s): Patient has 1 brother committed suicide at 48. Sister(s) Additional Family Medical History / Comment(s): Patient has 2 sisters with no major medical problems. Medications and Allergies Home Medications Medication Instructions Recorded Confirmed Type Potassium Chloride ER [K-Dur 10] 10 meq PO BID tab.er.prt 02/22/16 10/03/17 Rx Cholecalciferol [Vitamin D3] 5,000 unit PO DAILY 10/03/17 10/03/17 History Divalproex ER [Depakote ER] 500 mg PO HS 10/03/17 10/03/17 History Escitalopram Oxalate [Lexapro] 20 mg PO DAILY 10/03/17 10/03/17 History LORazepam [Ativan] 1 mg PO BID 10/03/17 10/03/17 History Magnesium Oxide [Mag-Ox] 400 mg PO DAILY 10/03/17 10/03/17 History Allergies Allergy/AdvReac Type Severity Reaction Status Date / Time No Known Allergies Allergy Verified 10/03/17 10:35 Physical Exam Vitals: Vital Signs Temp Pulse Pulse Resp BP BP Pulse Ox 10/04/17 07:47 98.7 F 99 16 105/72 95 10/03/17 22:31 98.5 F 10/03/17 21:28 94 L 10/03/17 21:07 99.6 F 80 16 107/58 94 L 10/03/17 13:37 98.7 F 80 16 112/71 97 10/03/17 12:18 98.2 F 89 18 116/74 96 Intake and Output 10/03/17 10/04/17 10/04/17 22:59 06:59 14:59 Other: Voiding Method Toilet Toilet Diaper Diaper # Voids 1 1 Weight 63.503 kg Results - Lab Results Most recent lab results Calcium 9.6 mg/dL (8.4-10.2) 10/04/17 07:31 10/04/17 07:31 10/04/17 07:31 Assessment and Plan Plan: assessment: #1. Hypovolemic hyponatremia improved with IV hydration. Sodium level was 123 on admission and is 133 this morning. #2. History of paranoid schizophrenia. Psychiatry following. #3. Questionable seizure. Plan: Encouraged oral intake. Remains off all IV fluids. Depakote and Lexapro can cause hyponatremia. This will need to be monitored closely outpatient. Thank you for the consultation. I will continue to follow patient with you during her hospital stay.
[2017-10-04 12:24] LABS: Valproic Acid (Depakene) 37.6 ug/mL
[2017-10-04] MEDS: IOPAMIDOL-300 CONTRAST 30 ML VIAL (ORAL USE) PO PRN ×2 (14:53→15:56)
--- NOTE | 2017-10-04 16:41 | CT ---
EXAMINATION TYPE: CT abdomen pelvis wo con DATE OF EXAM: 10/04/2017 COMPARISON: NONE HISTORY: Patient poor historian. Patient complains of abdominal pain and nausea. CT DLP: 247.9 mGycm Automated exposure control for dose reduction was used. TECHNIQUE: Helical acquisition of images was performed from the lung bases through the pelvis. FINDINGS: Exam is limited due to motion artifact and lack of IV contrast. LUNG BASES: No significant abnormality is appreciated. LIVER/GB: No significant abnormality is appreciated. PANCREAS: No significant abnormality is seen. SPLEEN: No significant abnormality is seen. ADRENALS: No significant abnormality is seen. KIDNEYS: No significant abnormality is seen. URINARY BLADDER: No significant abnormality is seen. ADENOPATHY: None visualized. OSSEOUS STRUCTURES: Hypertrophic and degenerative change of the spine. BOWEL: Bowel gas pattern nonspecific.. Small hiatal hernia noted. OTHER: Aorta of normal caliber. IMPRESSION: LIMITED EXAM DUE TO MOTION AND LACK OF IV CONTRAST DEMONSTRATES A NONSPECIFIC ABDOMEN.
[2017-10-04] MEDS: HEPARIN SODIUM,PORCINE 5,000 UNIT/ML 1 ML VIAL SQ SCH ×2 (17:15→20:41)
--- NOTE | 2017-10-04 17:43 | US ---
EXAMINATION TYPE: US venous doppler duplex LE BI DATE OF EXAM: 10/04/2017 4:46 PM COMPARISON: NONE CLINICAL HISTORY: pain at night. Very difficult and limited exam due to patient's mental status. Shannan ent shaking her legs and moving up and down during exam. SIDE PERFORMED: Bilateral TECHNIQUE: The lower extremity deep venous system is examined utilizing real time linear array sonog bandar with graded compression, doppler sonography and color-flow sonography. VESSELS IMAGED: External Iliac Vein (EIV) Common Femoral Vein Deep Femoral Vein Greater Saphenous Vein * Femoral Vein Popliteal Vein Small Saphenous Vein * Proximal Calf Veins (* superficial vessels) Grayscale, color doppler, spectral doppler imaging performed of the deep veins of the lower extremiti es. There is normal flow, compressibility, vascular waveforms. Right Leg: Appears negative for DVT as visualized Left Leg: Appears negative for DVT as visualized IMPRESSION: No sonographic evidence of deep venous thrombosis within either lower extremity.
[2017-10-04] MEDS: DIVALPROEX ER 500 MG TAB.ER.24H PO SCH (20:42)
--- NOTE | 2017-10-04 20:47 | P.PN ---
Subjective Progress Note Date: 10/04/17 The patient is a 52-year-old woman with history of MS, epilepsy, and hydrocephalus. She also has schizophrenia. The patient is a poor historian. The patient had a presumed seizure at home. Her level on admission was 43.6 on the Depakote and today was 37.6. We will adjust Depakote to 750 mg at bedtime. She is admitted with dehydration and abdominal pain. The patient's complains of abdominal pain as well as leg pains. She denies headache. Objective - Vital Signs Vital signs: Vital Signs Temp 97.7 F 10/04/17 15:00 Pulse 73 10/04/17 15:00 Resp 16 10/04/17 15:32 BP 142/69 10/04/17 15:00 Pulse Ox 95 10/04/17 15:59 Intake & Output 10/04/17 10/04/17 10/05/17 06:59 18:59 06:59 Intake Total 690 Output Total 1 Balance 689 Weight 63.503 kg Intake: Oral 690 Output: Stool 1 Other: Voiding Method Toilet Toilet Diaper Diaper # Voids 1 3 - Constitutional General appearance: Present: average body habitus - EENT ENT: Present: hard of hearing, hearing grossly normal - Respiratory Respiratory: bilateral: CTA - Cardiovascular Rhythm: regular - Neurologic Neurologic Comment(s): Neurologic examination: Mental status: She was awake she had moderate cognitive impairment and speech impediment. Next Cranial nerve examination patient does have hearing loss. There was no obvious facial asymmetry pupils were equal and reactive Motor examination she moved all 4 extremities without any focal weakness detected - Labs CBC & Chem 7: 10/04/17 07:31 10/04/17 16:57 Labs: Abnormal Lab Results - Last 24 Hours (Table) 10/03/17 10/04/17 10/04/17 Range/Units 22:18 07:31 07:31 WBC 15.3 H (3.8-10.6) k/uL Plt Count 461 H (150-450) k/uL Neutrophils # 13.0 H (1.3-7.7) k/uL Sodium 131 L 133 L (137-145) mmol/L Chloride 96 L (98-107) mmol/L Glucose 134 H (74-99) mg/dL 10/04/17 Range/Units 16:57 WBC (3.8-10.6) k/uL Plt Count (150-450) k/uL Neutrophils # (1.3-7.7) k/uL Sodium 131 L (137-145) mmol/L Chloride (98-107) mmol/L Glucose (74-99) mg/dL Assessment and Plan (1) Hydrocephalus Current Visit: Yes Status: Acute SNOMED Code(s): 837504348 (2) Dehydration Current Visit: Yes Status: Acute SNOMED Code(s): 12524183 (3) Seizure disorder Current Visit: Yes Status: Chronic SNOMED Code(s): 747215695 (4) Abdominal pain Current Visit: Yes Status: Acute SNOMED Code(s): 62828537 Plan: The patient is a 52-year-old woman with history of MS, epilepsy, and hydrocephalus and schizophrenia. She is admitted to the hospital with presumed breakthrough seizure. She has been on Depakote. Her level was subtherapeutic. We'll increase Depakote to 750 mg at bedtime.
[2017-10-05 07:43] LABS: Basophils % (A) 0 %; Eosinophils # (A) 0.1 k/uL (0-0.7); Eosinophils % (A) 1 %; HCT 37.1 % (34.0-46.0); HGB 12.5 gm/dL (11.4-16.0); Lymphocytes # (A) 3.2 k/uL (1.0-4.8); Lymphocytes % (A) 30 %; MCH 30.8 pg (25.0-35.0); MCHC 33.8 g/dL (31.0-37.0); MCV 91.2 fL (80.0-100.0); Mean Platelet Volume 6.9; Monocytes # (A) 0.6 k/uL (0-1.0); Monocytes % (A) 6 %; Neutrophils # (A) 6.8 k/uL (1.3-7.7); Neutrophils % (A) 63 %; Platelet Count 417 k/uL (150-450); RBC 4.07 m/uL (3.80-5.40); RDW 12.8 % (11.5-15.5); WBC 10.9 k/uL (3.8-10.6)
[2017-10-05 07:52] LABS: Anion Gap 12 mmol/L; Blood Urea Nitrogen 10 mg/dL (7-17); Calcium 9.5 mg/dL (8.4-10.2); Carbon Dioxide 26 mmol/L (22-30); Chloride 94 mmol/L (98-107); Glucose 76 mg/dL (74-99); Potassium 4.3 mmol/L (3.5-5.1); Sodium 132 mmol/L (137-145)
[2017-10-05] MEDS: LORazepam 1 MG TAB PO SCH ×3 (11:02→20:46)
[2017-10-05] MEDS: ESCITALOPRAM 20 MG TAB PO SCH (12:43)
[2017-10-05] MEDS: HEPARIN SODIUM,PORCINE 5,000 UNIT/ML 1 ML VIAL SQ SCH ×2 (12:43→20:46)
[2017-10-05] MEDS: CHOLECALCIFEROL 1,000 UNIT TAB PO SCH (12:44)
[2017-10-05] MEDS: POTASSIUM CHLORIDE ER 10 MEQ TAB.ER.PRT PO SCH ×2 (12:44→20:46)
[2017-10-05] MEDS: MAGNESIUM OXIDE 400 MG TAB PO SCH (12:44)
--- NOTE | 2017-10-05 20:41 | EEG ---
ELECTROENCEPHALOGRAM REPORT DATE OF EE10/05/2017. REFERRING PHYSICIAN: Dr. Walker. INTERPRETING PHYSICIAN: Dr. Andrew Hernandez. INDICATION FOR EXAMINATION: This patient is a 52-year-old female with history of multiple sclerosis and epilepsy. Patient also has underlying history of schizophrenia. The patient admitted with possible seizure at home. AGE: 52. EEG FINDINGS: A routine 21 channel awake digital EEG recording was accomplished utilizing the 10-20 international system with bipolar and referential montages. The background activity in the most alert resting state consists of a low to medium amplitude, fairly well- developed and well-sustained 7-8 Hz activity over the posterior head regions. This posterior rhythm attenuates to eye opening. There is a moderate amount of low amplitude 18-20 Hz beta activity seen in a generalized fashion. There was an excessive amount of muscle and movement artifact seen throughout the entire tracing. Hyperventilation was not performed. Photic stimulation at flash frequencies of 2-30 Hz produced a minimal occipital driving response. No epileptiform discharges were seen. IMPRESSION: This EEG is within normal limits for the patient's age. The EEG failed to reveal any focal, lateralized or epileptiform abnormalities. Clinical correlation is recommended. MMODL / IJN: [id number] /
[2017-10-05] MEDS: DIVALPROEX ER 250 MG TAB.ER.24H PO SCH (20:46)
[2017-10-06 07:53] LABS: Basophils % (A) 1 %; Eosinophils # (A) 0.2 k/uL (0-0.7); Eosinophils % (A) 2 %; HGB 13.7 gm/dL (11.4-16.0); Lymphocytes # (A) 2.2 k/uL (1.0-4.8); Lymphocytes % (A) 28 %; MCH 30.6 pg (25.0-35.0); MCHC 33.3 g/dL (31.0-37.0); MCV 91.8 fL (80.0-100.0); Mean Platelet Volume 6.6; Monocytes # (A) 0.5 k/uL (0-1.0); Monocytes % (A) 7 %; Neutrophils # (A) 4.7 k/uL (1.3-7.7); Neutrophils % (A) 61 %; Platelet Count 431 k/uL (150-450); RBC 4.47 m/uL (3.80-5.40); RDW 12.9 % (11.5-15.5); WBC 7.7 k/uL (3.8-10.6)
[2017-10-06 08:14] LABS: Anion Gap 13 mmol/L; Blood Urea Nitrogen 13 mg/dL (7-17); Calcium 9.7 mg/dL (8.4-10.2); Carbon Dioxide 24 mmol/L (22-30); Chloride 95 mmol/L (98-107); Glucose 77 mg/dL (74-99); Potassium 4.6 mmol/L (3.5-5.1); Sodium 132 mmol/L (137-145)
[2017-10-06] MEDS: HEPARIN SODIUM,PORCINE 5,000 UNIT/ML 1 ML VIAL SQ SCH ×2 (10:03→20:24)
[2017-10-06] MEDS: ESCITALOPRAM 20 MG TAB PO SCH (10:04)
[2017-10-06] MEDS: POTASSIUM CHLORIDE ER 10 MEQ TAB.ER.PRT PO SCH ×2 (10:04→20:24)
[2017-10-06] MEDS: LORazepam 1 MG TAB PO SCH ×2 (10:04→20:24)
[2017-10-06] MEDS: MAGNESIUM OXIDE 400 MG TAB PO SCH (10:04)
[2017-10-06] MEDS: CHOLECALCIFEROL 1,000 UNIT TAB PO SCH (10:05)
--- NOTE | 2017-10-06 16:30 | PN ---
PROGRESS NOTE Patient is seen for followup for hyponatremia. She was initially at 123, serum sodium increased to 131 and has been staying at 131 to 132 for the last 3 to 4 days. Patient is currently not on any IV fluids or diuretics. She is lying in bed comfortably. She is not in any acute distress. Blood pressure this morning was 108/68, heart rate is 72 per minute, patient is afebrile. Examination of the heart, S1, S2. Examination of the lungs, bilateral breath sounds are heard. Abdomen is soft, nontender. Examination of the lower extremities shows no evidence of edema. COAL LOADER exam is grossly intact. LABS: Show serum sodium 132, potassium 4.6, chloride 95, serum creatinine 0.6 mg/dL. ASSESSMENT: 1. Hyponatremia, hypovolemic, improved with IV hydration. Serum sodium staying at about 131 to 132. She is maintained on Depakote and patient is not on any IV fluids, currently. She will have a tendency towards hyponatremia with the use of Depakote. However, at this time, we can continue with it and maintain patient on some degree of fluid restriction. 2. History of paranoid schizophrenia, being followed by Psych. 3. Hypokalemia. Maintained on supplementation. PLAN: Maintain patient on fluid restriction and recommend increased protein intake. May continue with the Depakote for now. MMODL / IJN: [id number] /
--- NOTE | 2017-10-06 17:38 | P.PN ---
Subjective Progress Note Date: 10/05/17 Principal diagnosis: Breakthrough seizures Hypovolemic hyponatremia Schizophrenia The patient is a 52-year-old woman with history of MS, epilepsy, and hydrocephalus. She was last seen in the neurology clinic in October 2016. At that time it was felt the patient may have NPH she walked with a wide-based gait which she's had for almost 10 years. And she had an MRI which was suggestive of possible underlying hydrocephalus. She had been referred to [facility] neurosurgery for further evaluation of possible NPH. The patient and her daughter did go to the clinic at [facility]. Apparently the NPH team recommended that the patient be seen by an MS specialist. The patient was seen by an MS specialist and it was felt that the patient should be seen by the NPH team. The patient's daughter reports that this morning her mother was found in urine and feces and vomit. She has been complaining of abdominal pain. The patient normally is able to get up and walk to the bathroom and has been incontinent occasionally of bladder but not feces. The patient's daughter reports that she heard her mother have some a verbal sounds during the night that made her feel she might have had a seizure. The patient is a poor historian. She has multiple of medical problems including schizophrenia. Upper coat 500 mg a day for seizures. There is been no change in her mental status. The primary change his been in her increased a gait disturbance which she's had chronically but recently worsening with some type of apraxia in her legs. At a CAT scan of the brain in the emergency room and there was moderate hydrocephalus which was unchanged compared to MRI done on August 2016. No hemorrhage was seen. Objective - Vital Signs Vital signs: Vital Signs Temp 97.9 F 10/05/17 15:20 Pulse 64 10/05/17 15:20 Resp 16 10/05/17 15:20 BP 117/78 10/05/17 15:20 Pulse Ox 98 10/05/17 15:20 Intake & Output 10/04/17 10/05/17 10/05/17 18:59 06:59 18:59 Intake Total 690 800 Output Total 1 1 Balance 689 -1 800 Weight 63.503 kg Intake: Oral 690 800 Output: Stool 1 1 Other: Voiding Method Toilet Toilet Toilet Diaper Diaper Diaper # Voids 3 2 3 # Bowel Movements 1 - Exam - Constitutional General appearance: Present: average body habitus, cooperative, no acute distress - EENT Eyes: Present: anicteric sclerae, EOMI, PERRLA, normal appearance ENT: Present: hearing grossly normal, normal oropharynx Ears: bilateral: normal - Neck Neck: Present: normal ROM. Absent: lymphadenopathy, rigidity, thyromegaly Carotids: negative: bruit present Thyroid: bilateral: normal size, negative: enlarged, nodule - Respiratory Respiratory: bilateral: CTA, negative: rales, rhonchi, wheezing - Cardiovascular Rhythm: regular Heart sounds: normal: S1, S2 Abnormal Heart Sounds: Absent: systolic murmur, diastolic murmur - Gastrointestinal General gastrointestinal: Present: normal bowel sounds, soft. Absent: distended , organomegaly, tenderness - Genitourinary Genitourinary Comment(s): deferred - Integumentary Integumentary: Present: normal turgor. Absent: jaundiced, rash, ulcer - Neurologic Neurologic: Present: CNII-XII intact. Absent: focal deficits - Musculoskeletal Musculoskeletal: Present: gait normal, strength equal bilaterally - Psychiatric Psychiatric: Present: A&O x's 3, appropriate affect, intact judgment & insight - Labs CBC & Chem 7: 10/06/17 07:12 10/06/17 07:12 Labs: Abnormal Lab Results - Last 24 Hours (Table) 10/05/17 10/05/17 Range/Units 07:07 07:07 WBC 10.9 H (3.8-10.6) k/uL Sodium 132 L (137-145) mmol/L Chloride 94 L (98-107) mmol/L Assessment and Plan Assessment: 1. Hyponatremia - Patient remains on IV fluids normal saline; continues to have slow improvement in the sodium levels - We will continue to monitor electrolytes closely 2. Exacerbation MS - Patient follows up in neurology clinic as outpatient - Neurology is following; no recommendation for IV steroids 3. Generalized debility versus ambulation difficulties secondary to NPH - Patient does have a history of right based gait with recently worsening difficulty in ambulation possibly secondary to underlying NPH - CT of the head done in ED showed hydrocephalus which is unchanged compared to prior study about a year ago - Patient has been referred to [facility] for evaluation by NPH team 4. Seizure disorder/ possible breakthrough seizure - Patient had episode of incontinence possibly secondary to seizure activity - Neurology is following and recommendations are noted; patient uses Depakote at home and levels were subtherapeutic; Depakote has been increased to 750 mg at bedtime - Patient is recommended to have EEG and close monitoring of Depakote level 5. Paranoid schizophrenia 6. DVT prophylaxis; SCDs CODE STATUS; full code Time with Patient: Greater than 30
--- NOTE | 2017-10-06 17:41 | P.PN ---
Subjective Progress Note Date: 10/06/17 Principal diagnosis: Breakthrough seizures Hypovolemic hyponatremia Schizophrenia The patient is a 52-year-old woman with history of MS, epilepsy, and hydrocephalus. She was last seen in the neurology clinic in October 2016. At that time it was felt the patient may have NPH she walked with a wide-based gait which she's had for almost 10 years. And she had an MRI which was suggestive of possible underlying hydrocephalus. She had been referred to [facility] neurosurgery for further evaluation of possible NPH. The patient and her daughter did go to the clinic at [facility]. Apparently the NPH team recommended that the patient be seen by an MS specialist. The patient was seen by an MS specialist and it was felt that the patient should be seen by the NPH team. The patient's daughter reports that this morning her mother was found in urine and feces and vomit. She has been complaining of abdominal pain. The patient normally is able to get up and walk to the bathroom and has been incontinent occasionally of bladder but not feces. The patient's daughter reports that she heard her mother have some a verbal sounds during the night that made her feel she might have had a seizure. The patient is a poor historian. She has multiple of medical problems including schizophrenia. Upper coat 500 mg a day for seizures. There is been no change in her mental status. The primary change his been in her increased a gait disturbance which she's had chronically but recently worsening with some type of apraxia in her legs. At a CAT scan of the brain in the emergency room and there was moderate hydrocephalus which was unchanged compared to MRI done on August 2016. No hemorrhage was seen. 10/06/2017 Patient seen and evaluated in the room with her daughter at bedside; patient remains somewhat confused and restless; normal EEG results were discussed with daughter; noted does relate that she would be interested in possible discharge to skilled rehab. Objective - Vital Signs Vital signs: Vital Signs Temp 96.2 F L 10/06/17 14:22 Pulse 76 10/06/17 14:22 Resp 18 10/06/17 14:22 BP 105/68 10/06/17 14:22 Pulse Ox 99 10/06/17 14:22 Intake & Output 10/05/17 10/06/17 10/06/17 18:59 06:59 18:59 Intake Total 800 1360 Balance 800 1360 Weight 63.503 kg Intake: Oral 800 1360 Other: Voiding Method Toilet Toilet Toilet Diaper Diaper Diaper # Voids 3 1 2 # Bowel Movements 1 1 - Exam - Constitutional General appearance: Present: average body habitus, cooperative, no acute distress - EENT Eyes: Present: anicteric sclerae, EOMI, PERRLA, normal appearance ENT: Present: hearing grossly normal, normal oropharynx Ears: bilateral: normal - Neck Neck: Present: normal ROM. Absent: lymphadenopathy, rigidity, thyromegaly Carotids: negative: bruit present Thyroid: bilateral: normal size, negative: enlarged, nodule - Respiratory Respiratory: bilateral: CTA, negative: rales, rhonchi, wheezing - Cardiovascular Rhythm: regular Heart sounds: normal: S1, S2 Abnormal Heart Sounds: Absent: systolic murmur, diastolic murmur - Gastrointestinal General gastrointestinal: Present: normal bowel sounds, soft. Absent: distended , organomegaly, tenderness - Genitourinary Genitourinary Comment(s): deferred - Integumentary Integumentary: Present: normal turgor. Absent: jaundiced, rash, ulcer - Neurologic Neurologic: Present: CNII-XII intact. Absent: focal deficits - Musculoskeletal Musculoskeletal: Present: gait normal, strength equal bilaterally - Psychiatric Psychiatric: Present: A&O x's 3, appropriate affect, intact judgment & insight - Labs CBC & Chem 7: 10/06/17 07:12 10/06/17 07:12 Labs: Abnormal Lab Results - Last 24 Hours (Table) 10/06/17 Range/Units 07:12 Sodium 132 L (137-145) mmol/L Chloride 95 L (98-107) mmol/L Assessment and Plan Assessment: 1. Hyponatremia - Patient remains on IV fluids normal saline; continues to have slow improvement in the sodium levels - We will continue to monitor electrolytes closely 2. Exacerbation MS - Patient follows up in neurology clinic as outpatient - Neurology is following; no recommendation for IV steroids 3. Generalized debility versus ambulation difficulties secondary to NPH - Patient does have a history of right based gait with recently worsening difficulty in ambulation possibly secondary to underlying NPH - CT of the head done in ED showed hydrocephalus which is unchanged compared to prior study about a year ago - Patient has been referred to [facility] for evaluation by NPH team 4. Seizure disorder/ possible breakthrough seizure - Patient had episode of incontinence possibly secondary to seizure activity - Neurology is following and recommendations are noted; patient uses Depakote at home and levels were subtherapeutic; Depakote has been increased to 750 mg at bedtime -EEG is done and is negative 5. Paranoid schizophrenia 6. DVT prophylaxis; SCDs CODE STATUS; full code Time with Patient: Greater than 30
[2017-10-06] MEDS: DIVALPROEX ER 250 MG TAB.ER.24H PO SCH (20:24)
[2017-10-07 07:56] LABS: Basophils % (A) 0 %; Eosinophils # (A) 0.3 k/uL (0-0.7); Eosinophils % (A) 3 %; HCT 43.4 % (34.0-46.0); HGB 14.6 gm/dL (11.4-16.0); Lymphocytes # (A) 2.4 k/uL (1.0-4.8); Lymphocytes % (A) 29 %; MCH 30.8 pg (25.0-35.0); MCHC 33.7 g/dL (31.0-37.0); MCV 91.4 fL (80.0-100.0); Mean Platelet Volume 6.8; Monocytes # (A) 0.5 k/uL (0-1.0); Monocytes % (A) 6 %; Neutrophils # (A) 4.9 k/uL (1.3-7.7); Neutrophils % (A) 60 %; Platelet Count 436 k/uL (150-450); RBC 4.74 m/uL (3.80-5.40); RDW 12.9 % (11.5-15.5); WBC 8.2 k/uL (3.8-10.6)
[2017-10-07 08:08] LABS: Anion Gap 10 mmol/L; Blood Urea Nitrogen 17 mg/dL (7-17); Calcium 9.7 mg/dL (8.4-10.2); Carbon Dioxide 27 mmol/L (22-30); Chloride 91 mmol/L (98-107); Glucose 73 mg/dL (74-99); Potassium 4.7 mmol/L (3.5-5.1); Sodium 128 mmol/L (137-145)
[2017-10-07] MEDS: HEPARIN SODIUM,PORCINE 5,000 UNIT/ML 1 ML VIAL SQ SCH ×2 (09:40→20:59)
[2017-10-07] MEDS: LORazepam 1 MG TAB PO SCH ×2 (09:41→20:59)
[2017-10-07] MEDS: POTASSIUM CHLORIDE ER 10 MEQ TAB.ER.PRT PO SCH ×2 (09:41→21:00)
[2017-10-07] MEDS: ESCITALOPRAM 20 MG TAB PO SCH (09:41)
[2017-10-07] MEDS: MAGNESIUM OXIDE 400 MG TAB PO SCH (09:41)
[2017-10-07] MEDS: CHOLECALCIFEROL 1,000 UNIT TAB PO SCH (11:24)
--- NOTE | 2017-10-07 13:07 | PN ---
PROGRESS NOTE DATE OF SERVICE: 10/07/2017. HISTORY: The patient is seen for followup for hyponatremia. His serum sodium had been at about 132 mEq/L. This morning it has dropped down to 128. The patient is resting in bed. She is comfortable. She remains on Depakote. Patient is maintained on fluid restriction. Her blood pressure is not high, in fact it is slightly on the lower side. PHYSICAL EXAMINATION: Blood pressure is 116/65, heart rate 71 per minute, patient is afebrile. Examination of the heart S1, S2. Examination lungs bilateral breath sounds are heard. Abdomen is soft, nontender. Examination lower extremity shows no evidence of edema. PLUGMAN exam is grossly intact. LABS: Sodium 128, potassium 4.7, chloride 91, BUN 17, serum creatinine 0.67, hemoglobin 14.6 g/dL. ASSESSMENT: Hyponatremia, appears to be hypovolemic initially. Serum sodium had improved to 132, it dropped today to 128. The patient remains on fluid restriction. I will give her 1 g sodium chloride tablet twice a day today and she will need to continue with fluid restriction as long as she will continue with Depakote which can predispose hyponatremia. Urine osmolality and urine sodium will be ordered. PLAN: Continue fluid restriction and sodium chloride tablet 1 g twice a day for today and check random urine osmolality and urine sodium. MMODL / IJN: [id number] /
[2017-10-07] MEDS: SODIUM CHLORIDE TAB 1 GM TAB PO SCH ×2 (14:33→21:00)
--- NOTE | 2017-10-07 19:08 | P.PN ---
Subjective Progress Note Date: 10/07/17 Principal diagnosis: Breakthrough seizures Hypovolemic hyponatremia Schizophrenia The patient is a 52-year-old woman with history of MS, epilepsy, and hydrocephalus. She was last seen in the neurology clinic in October 2016. At that time it was felt the patient may have NPH she walked with a wide-based gait which she's had for almost 10 years. And she had an MRI which was suggestive of possible underlying hydrocephalus. She had been referred to [facility] neurosurgery for further evaluation of possible NPH. The patient and her daughter did go to the clinic at [facility]. Apparently the NPH team recommended that the patient be seen by an MS specialist. The patient was seen by an MS specialist and it was felt that the patient should be seen by the NPH team. The patient's daughter reports that this morning her mother was found in urine and feces and vomit. She has been complaining of abdominal pain. The patient normally is able to get up and walk to the bathroom and has been incontinent occasionally of bladder but not feces. The patient's daughter reports that she heard her mother have some a verbal sounds during the night that made her feel she might have had a seizure. The patient is a poor historian. She has multiple of medical problems including schizophrenia. Upper coat 500 mg a day for seizures. There is been no change in her mental status. The primary change his been in her increased a gait disturbance which she's had chronically but recently worsening with some type of apraxia in her legs. At a CAT scan of the brain in the emergency room and there was moderate hydrocephalus which was unchanged compared to MRI done on August 2016. No hemorrhage was seen. 10/06/2017 Patient seen and evaluated in the room with her daughter at bedside; patient remains somewhat confused and restless; normal EEG results were discussed with daughter; noted does relate that she would be interested in possible discharge to skilled rehab. 10/07/2017 Patient is seen and evaluated in the room; remains restless and somewhat confused; daughter remains at bedside; drop in sodium down to 128 was discussed ; nephrology recommendations of fluid restriction was also discussed; patient is started on 1 g of sodium chloride tablet twice daily with a plan to continue fluid restriction as long this patient remains on Depakote due to predisposition of Depakote to cause hyponatremia; urine and serum osmolality and urine sodium has been ordered; nephrology is following Objective - Vital Signs Vital signs: Vital Signs Temp 96.4 F L 10/07/17 14:00 Pulse 79 10/07/17 14:00 Resp 18 10/07/17 14:00 BP 112/61 10/07/17 14:00 Pulse Ox 98 10/07/17 14:00 Intake & Output 10/07/17 10/07/17 10/08/17 06:59 18:59 06:59 Intake Total 600 1251 Output Total 200 Balance 600 1051 Weight 63.503 kg Intake: Oral 600 1251 Output: Urine 200 Other: Voiding Method Toilet Toilet Diaper Diaper # Voids 2 4 - Labs CBC & Chem 7: 10/07/17 07:07 10/07/17 07:07 Labs: Abnormal Lab Results - Last 24 Hours (Table) 10/07/17 Range/Units 07:07 Sodium 128 L (137-145) mmol/L Chloride 91 L (98-107) mmol/L Glucose 73 L (74-99) mg/dL Assessment and Plan Assessment: 1. Hyponatremia -Sodium level has dropped down to 128 this morning; nephrology is following and patient has been started on sodium chloride tablet 1 g twice a day along with strict fluid restriction as long as patient remains on Depakote - We will continue to monitor electrolytes closely 2. Exacerbation MS - Patient follows up in neurology clinic as outpatient - Neurology is following; no recommendation for IV steroids 3. Generalized debility versus ambulation difficulties secondary to NPH - Patient does have a history of right based gait with recently worsening difficulty in ambulation possibly secondary to underlying NPH - CT of the head done in ED showed hydrocephalus which is unchanged compared to prior study about a year ago - Patient has been referred to [facility] for evaluation by NPH team 4. Seizure disorder/ possible breakthrough seizure - Patient had episode of incontinence possibly secondary to seizure activity - Neurology is following and recommendations are noted; patient uses Depakote at home and levels were subtherapeutic; Depakote has been increased to 750 mg at bedtime -EEG is done and is negative 5. Paranoid schizophrenia 6. DVT prophylaxis; SCDs CODE STATUS; full code Time with Patient: Greater than 30
[2017-10-07] MEDS ORDERED: MAGNESIUM HYDROXIDE 2,400 MG/10 ML CUP PO PRN (19:10)
[2017-10-07] MEDS: DOCUSATE 100 MG CAP PO SCH (20:59)
[2017-10-07] MEDS ORDERED: SODIUM CHLORIDE TAB 1 GM TAB PO SCH (21:00)
[2017-10-07] MEDS: DIVALPROEX ER 250 MG TAB.ER.24H PO SCH (21:23)
[2017-10-08 08:22] LABS: Anion Gap 12 mmol/L; Blood Urea Nitrogen 14 mg/dL (7-17); Calcium 9.7 mg/dL (8.4-10.2); Carbon Dioxide 25 mmol/L (22-30); Chloride 92 mmol/L (98-107); Glucose 73 mg/dL (74-99); Potassium 4.8 mmol/L (3.5-5.1); Sodium 129 mmol/L (137-145)
[2017-10-08] MEDS: HEPARIN SODIUM,PORCINE 5,000 UNIT/ML 1 ML VIAL SQ SCH ×2 (08:58→20:58)
[2017-10-08] MEDS: MAGNESIUM OXIDE 400 MG TAB PO SCH (08:59)
[2017-10-08] MEDS: CHOLECALCIFEROL 1,000 UNIT TAB PO SCH (08:59)
[2017-10-08] MEDS: DOCUSATE 100 MG CAP PO SCH ×2 (08:59→20:58)
[2017-10-08] MEDS: LORazepam 1 MG TAB PO SCH ×2 (08:59→20:58)
[2017-10-08] MEDS: SODIUM CHLORIDE TAB 1 GM TAB PO SCH ×2 (08:59→20:58)
[2017-10-08] MEDS: ESCITALOPRAM 20 MG TAB PO SCH (08:59)
[2017-10-08] MEDS: POTASSIUM CHLORIDE ER 10 MEQ TAB.ER.PRT PO SCH ×2 (08:59→20:58)
--- NOTE | 2017-10-08 15:35 | P.PN ---
Subjective Patient is seen and examined by me at bedside Patient complaining of from vague abdominal pain with some nausea, no vomiting, visceral bowel movements, also complains from bilateral lower extremity pain No CP/SOB, no change in urine or bowel habits, no fever Objective - Vital Signs Vital signs: Vital Signs Temp 97.5 F L 10/08/17 14:10 Pulse 82 10/08/17 14:10 Resp 18 10/08/17 14:10 BP 98/60 10/08/17 14:10 Pulse Ox 97 10/08/17 14:10 Intake & Output 10/07/17 10/08/17 10/08/17 18:59 06:59 18:59 Intake Total 1251 540 Output Total 200 Balance 1051 540 Intake: Oral 1251 540 Output: Urine 200 Other: Voiding Method Toilet Toilet Toilet Diaper Diaper Diaper # Voids 4 1 2 - Exam Constitutional: No acute distress, conversant, pleasant Eyes: Anicteric sclerae, moist conjunctiva, no lid-lag PERRLA ENMT: NC/AT Oropharynx clear, no erythema, exudates Neck: Supple, FROM, no masses, or JVD No carotid bruits No thyromegaly Lungs: Clear to auscultation Clear to percussion Normal respiratory effort, no accessory muscle use Cardiovascular: Heart regular in rate and rhythm, No murmurs, gallops, or rubs No peripheral edema Abdominal: Soft Nontender, no guarding, rebound or rigidity Abdomen moving with respiration Normoactive bowel sounds No hepatomegaly, No splenomegaly No palpable mass No abdominal wall hernia noted Skin: Normal temperature, tone, texture, turgor No induration No subcutaneous nodules No rash, lesions No ulcers Extremities: No digital cyanosis No clubbing Pedal pulses intact and symmetrical Radial pulses intact and symmetrical Normal gait and station No calf tenderness Psychiatric: Alert and oriented to person, place and time Appropriate affect Intact judgement Neuro: Muscles Strength 5/5 in all 4 extremities Sensation to light touch grossly present throughout Cranial nerves II-XII grossly intact No focal sensory deficits - Labs CBC & Chem 7: 10/07/17 07:07 10/08/17 06:49 Labs: Abnormal Lab Results - Last 24 Hours (Table) 10/08/17 Range/Units 06:49 Sodium 129 L (137-145) mmol/L Chloride 92 L (98-107) mmol/L Glucose 73 L (74-99) mg/dL Assessment and Plan Assessment: Operative mental status and MS Hyponatremia polydepsia Generalized weakness abd pain r/o NPH Plan: This is a pleasant 52 years old lady with past medical history of MS and severe paranoid schizophrenia on various psychiatric medication presents with generalized weakness and hyponatremia her Na is up to 133, nephrology consult is appreciated , pt and daughter are counseled about fluid restriction to 2L/ days ( as per daughter pt was drinking a lot amount of pepsi and water) -Sodium level has dropped down to 128 this morning; nephrology is following and patient has been started on sodium chloride tablet 1 g twice a day along with strict fluid restriction as long as patient remains on Depakote CT of the head is negative, however as per neurologist pt may have some elements of NPH, recommend Neurosurgical evaluation as outpt. EEG is pending and depakote level: 49 Patient on steroids for MS, not sure about her baseline, neurologist input is appreciated Also last for psychiatric evaluation for her schizophrenia and mental illness and they recommendation no change in her medication and to f/u as outpt pt is complaining from vague abdominal pain , in the view of her leukocytosis , we will do CT abd/pelvis with oral contrast only , f/u WBC pt has b/o LE pain , do US to r/u DVT, CXR is negative from yesterday , UA is unremarkable for infection PT/OT: pt may benefit from short physical rehab, however her daughter wants her to go home full Code as per her daughter who is her guardian DVT prophylaxis heparin Prognosis is guarded given her various comorbidities and severity of her illnesses
[2017-10-08 16:36] LABS: Appearance,Urine Cloudy (Clear); Bacteria,Urine Few /hpf; Bilirubin,Urine Negative (Negative); Blood,Urine Negative (Negative); Color,Urine Yellow; Glucose,Urine (UA) Negative (Negative); Ketones,Urine 1+ (Negative); Leukocyte Esterase,Urine Large (Negative); Mucus,Urine Rare /hpf; Nitrite,Urine Negative (Negative); Protein,Urine Negative (Negative); RBC,Urine 1 /hpf (0-5); Specific Gravity,Urine 1.017 (1.001-1.035); Squamous Epithelial Cell,Urine 7 /hpf (0-4); WBC,Urine 5 /hpf (0-5)
--- NOTE | 2017-10-08 19:56 | PN ---
PROGRESS NOTE Patient is seen for followup for hyponatremia, which appears to be secondary to SIADH. Patient is currently maintained on sodium chloride tablets. Her sodium has improved to 129 from 128 yesterday. Previously, she was at 132. The patient was not on fluid restriction, which was started yesterday. PHYSICAL EXAMINATION: On examination today, patient is comfortable. She is not in any acute distress. Blood pressure is 98/60, heart rate 82 per minute. She is afebrile. Examination of the heart: S1, S2. Examination lungs: Bilateral breath sounds are heard. Abdomen is soft, nontender. Examination lower extremity shows no evidence of edema. PROJECT MANAGER/TEAM COACH exam is grossly intact. LAB: Show sodium 129, potassium 4.8, CO2 is 25, chloride 92. ASSESSMENT: 1. Hyponatremia appears to be secondary to SIADH. The patient is currently maintained on fluid restriction. She was also started on sodium chloride tabs. Her urine osmolality was high at 560. The patient is noted to be drinking multiple cans of pop. She is advised to cut down her intake of fluids. 2. Multiple sclerosis with exacerbation being followed by Neurology. 3. History of paranoid schizophrenia. PLAN: Continue with fluid restriction. Continue with sodium chloride tabs. Repeat sodium in a.m. MMODL / IJN: [id number] /
[2017-10-08 20:40] VITALS: RESP 16
[2017-10-08] MEDS: DIVALPROEX ER 250 MG TAB.ER.24H PO SCH (20:58)
[2017-10-09 07:37] VITALS: BP 113/72; PULSE 69; TEMP 97.9
[2017-10-09] MEDS: HEPARIN SODIUM,PORCINE 5,000 UNIT/ML 1 ML VIAL SQ SCH (08:03)
[2017-10-09] MEDS: LORazepam 1 MG TAB PO SCH (08:04)
[2017-10-09] MEDS: CHOLECALCIFEROL 1,000 UNIT TAB PO SCH (08:04)
[2017-10-09] MEDS: ESCITALOPRAM 20 MG TAB PO SCH (08:04)
[2017-10-09] MEDS: DOCUSATE 100 MG CAP PO SCH (08:04)
[2017-10-09] MEDS: SODIUM CHLORIDE TAB 1 GM TAB PO SCH (08:04)
[2017-10-09] MEDS: MAGNESIUM OXIDE 400 MG TAB PO SCH (08:04)
[2017-10-09] MEDS: POTASSIUM CHLORIDE ER 10 MEQ TAB.ER.PRT PO SCH (08:04)
[2017-10-09] MEDS ORDERED: CEPHALEXIN 500 MG CAP PO SCH (16:00)
--- NOTE | 2017-10-09 17:30 | PN ---
PROGRESS NOTE The patient is seen for followup for hyponatremia. She is started on sodium chloride tabs and her sodium was improved to 134 today. PHYSICAL EXAMINATION: Blood pressure is 113/72, heart rate 69 per minute. Patient is afebrile. She is euvolemic with no evidence of edema bilateral lower extremities. Abdomen is soft, nontender. LABS: Sodium of 134. ASSESSMENT: 1. Hyponatremia, secondary to SIADH versus tea and toast syndrome. Started on sodium chloride tabs. Serum sodium is up to 134 today. 2. Multiple sclerosis. 3. History of paranoid schizophrenia. PLAN: Continue with fluid restriction. Continue with the sodium chloride tabs. The patient will need followup as outpatient. MMODL / IJN: [id number] /
--- NOTE | 2017-10-10 01:55 | P.DS ---
Providers Date of admission: 10/03/17 12:21 Attending physician: Urbano Walker Consults: 10/03/17 12:05 Consult Physician Stat Consulting Provider: Carla Hernandez Consult Reason/Comments: MS exacerbation Do you want consulting provider notified?: Yes 10/03/17 16:25 Consult Physician Routine Consulting Provider: Cortney Dumont Consult Reason/Comments: IV FLUIDS Do you want consulting provider notified?: Yes 10/03/17 16:38 Consult Physician Routine Consulting Provider: Vera Jacobs Consult Reason/Comments: depression Do you want consulting provider notified?: Yes Primary care physician: Stated None Hospital Course: This is a pleasant 52 years old female with past medical history of MS, schizophrenia, mental developmental problem, seizure disorders on depakote, hearing impairment, upper GI bleed, peptic ulcer disease, most of the information is provided by her daughter who is the guardian Miss Joshi , as per Daughter patient's woke covered with feces and urine , she had generalized weakness, pt is suspected to have seizure and she was evaluated by neurologist , he Depakote level was low and her Depakote dose is increased from 500 to 750 mg HS, EEG was normal , however there was suspicion for NPH based on wide ventricle of the brain, possible incontinent of urine and weakness in the legs, no neurosurgeon in the hospital and pt was referred to neurosurgery clinic upon pt request, and appointment is made on 10/18/17 in [place] upon pt daughter request and she agrees to the appointment , pt had lower abd pain,ct of abd/pelvis was unremarkable , it is non specific and mild ( pt will complain only if asked specifically : do you have abd pain?) abd exam was benign and abd was soft , we monitored pt over several days with no worsening in her pain , she complains from dysuria too, pt denies diarrhea, no n/v, UA was suspicious for UTI and pt was started on Keflex and f/u as outpt pt is 52 yo and daughter agree to refer her to GI clinic on admission her Na was 123 and went up to 134 on the day of discharge, pt was seen by value stream coach while in house, pt is discharge on NaCL tab, and fluid restriction to 1500 ml/day ( pt drinks a lot of pepsi and water) and gave prescription with recommendation to recheck her BMP and Na level, pt daughter told me she is going to talk to the clinic and make appointment in one week rehab has been recommended for the pt but pt and daughter did not want to go to [facility] and preferred to go back home, risks including but not limited to risk of fall and/or are explained for the pt and daughter and she verbalized understanding but still refused RENEE pt was evaluated by psychiatry for her psych illness: no change in medication problem list and management plan was discussed with the pt daughter and she verbalized understanding and acceptance pt is found stable and can be discharged but needs f/u as outpt, pt daughter agrees to all appointment made for her except for the pcp she wants to make it by herself prescription is provided for the pt including to check for Na Level (BMP) and asked pt to take it to her doctor to check blood tests and she verbalized understanding and she agrees General: The patient appeared well nourished and smiling (i want to go home ) HEENT: Head exam is unremarkable. Neck is without jugular venous distension. LUNGS: Lungs are clear to auscultation and percussion. no wheezing HEART: s1s2, RRR. No murmurs, rubs or gallops. ABDOMEN: soft ,no tenderness, no distension , positive bowel sounds EXTREMITITES: No clubbing, cyanosis, or edema. Patient Condition at Discharge: Fair Plan - Discharge Summary Discharge Rx Participant: No New Discharge Prescriptions: New Divalproex ER [Depakote ER] 750 mg PO HS #30 tab.er.24h Sodium Chloride Tab 1 gm PO BID #20 tab Cephalexin [Keflex] 500 mg PO TID #15 cap Continue Potassium Chloride ER [K-Dur 10] 10 meq PO BID tab.er.prt Magnesium Oxide [Mag-Ox] 400 mg PO DAILY LORazepam [Ativan] 1 mg PO BID Cholecalciferol [Vitamin D3] 5,000 unit PO DAILY Escitalopram Oxalate [Lexapro] 20 mg PO DAILY Discontinued Divalproex ER [Depakote ER] 500 mg PO HS Discharge Medication List Potassium Chloride ER [K-Dur 10] 10 meq PO BID tab.er.prt 02/22/16 [Rx] Cholecalciferol [Vitamin D3] 5,000 unit PO DAILY 10/03/17 [History] Escitalopram Oxalate [Lexapro] 20 mg PO DAILY 10/03/17 [History] LORazepam [Ativan] 1 mg PO BID 10/03/17 [History] Magnesium Oxide [Mag-Ox] 400 mg PO DAILY 10/03/17 [History] Cephalexin [Keflex] 500 mg PO TID #15 cap 10/09/17 [Rx] Divalproex ER [Depakote ER] 750 mg PO HS #30 tab.er.24h 10/09/17 [Rx] Sodium Chloride Tab 1 gm PO BID #20 tab 10/09/17 [Rx] Follow up Appointment(s)/Referral(s): Ivan Hall MD [STAFF PHYSICIAN] - 10/25/17 5:00 pm (abdominal pain and screening colonscopy ) None,Stated [Primary Care Provider] - 1-2 days ([place] at [facility] in one week. ) Carla Hernandez MD [STAFF PHYSICIAN] - 10/24/17 2:20 pm Ashlee Gilmore MD [REFERRING] - 10/18/17 2:15 pm (for your (Normal Pressure Hydrocephalus) address: [address] [place] [address] phone: [phone] ) Ambulatory/Diagnostic Orders: Complete Blood Count w/diff [LAB.AMB] Location: Determined By Patient Patient Instructions/Handouts: Divalproex (By mouth), Sodium Chloride (By mouth ), Dehydration (DC), Acute Nausea and Vomiting (DC) Activity/Diet/Wound Care/Special Instructions: Diet regular Activity Limited to follow-up. Discharge Disposition: HOME SELF-CARE
== END 2017-10-09 15:40 | disposition home or self-care (01) | DRG 59 ==
LOC: EC 09:44 → EEVIPCON 09:44 → 5MS5E 12:21
PROVIDERS: ADMIT Internal Medicine; ATTEND Internal Medicine
DX: G35 Multiple sclerosis (principal); E22.2 Syndrome of inappropriate secretion of antidiuretic hormone; F20.0 Paranoid schizophrenia; G91.9 Hydrocephalus, unspecified; E87.8 Other disorders of electrolyte and fluid balance, not elsewhere classified; E86.0 Dehydration; E87.6 Hypokalemia; F17.210 Nicotine dependence, cigarettes, uncomplicated; F32.9 Major depressive disorder, single episode, unspecified; G40.909 Epilepsy, unspecified, not intractable, without status epilepticus; H91.90 Unspecified hearing loss, unspecified ear; J44.9 Chronic obstructive pulmonary disease, unspecified; K21.9 Gastro-esophageal reflux disease without esophagitis; F41.9 Anxiety disorder, unspecified; G43.909 Migraine, unspecified, not intractable, without status migrainosus; R10.9 Unspecified abdominal pain; R62.50 Unspecified lack of expected normal physiological development in childhood; R19.7 Diarrhea, unspecified; R32 Unspecified urinary incontinence; R26.9 Unspecified abnormalities of gait and mobility; Z79.899 Other long term (current) drug therapy; Z87.11 Personal history of peptic ulcer disease; Z82.49 Family history of ischemic heart disease and other diseases of the circulatory system
CPT/HCPCS: 36415; 70450; 71046; 74176; 80048; 80053; 80164; 80306; 81001; 82140; 82550; 82553; 83605; 83935; 84295; 84484; 85025; 85610; 85730; 87086; 87502; 93005; 93970; 94760; 95819; 96360; 99285

== ENCOUNTER → 2017-11-19 | Outpatient (CLI) | payer OTHER ==
--- NOTE | 2017-11-19 14:31 | MR ---
EXAMINATION TYPE: MR brain/cspine wo DATE OF EXAM: 11/19/2017 COMPARISON: MRI brain August 29, 2016 HISTORY: MS TECHNIQUE: Multiplanar, multisequence imaging of the cervical spine, brain, and brainstem are all per formed without IV contrast. Postcontrast imaging was not performed as patient refused. FINDINGS: Exam is noted suboptimal as patient follow sleep and upon wakening did not want to complet e entire ordered study. BRAIN: Suboptimal study in dedicated demyelinating disease sequences were not performed as well as ax ial FLAIR sequence is not acquired Diffusion weighted images demonstrate no evidence of a recent infarct or other diffusion abnormality. There is no worrisome fluid collection. There is persistent ventricular and sulcal prominence. There are persistent foci T2 hyperintensity seen throughout the deep and periventricular white matter. No o bvious change from prior suboptimal brain MRI. Midline structures demonstrate normal morphology. There is fairly marked atrophy of the corpus callos um redemonstrated . The craniocervical junction appears within normal limits. Normal vascular flow vo ids are present. The visualized sinuses are clear and the globes are intact. Increased fluid signal b ilateral mastoid air cells remains present. IMPRESSION: Suboptimal study with fairly moderate diffuse cerebral atrophy and nonspecific moderate [place] park matter changes redemonstrated. No significant change from prior. C-SPINE: Motion artifact degradation is present making evaluation suboptimal. FINDINGS: Sagittal images of the cervical spine show the craniocervical junction to appear within nor mal limits. The cervical and upper thoracic spinal cord is normal in course, caliber, and signal. V ertebral alignment is anatomic. The vertebral body and intravertebral disk heights are normal. Small posterior disc herniations are seen at C3-C4, C5-C6, and C6-C7 levels effacing anterior thecal sac o n sagittal images. The bone marrow signal intensity is within normal limits. Axial images are degraded by artifact likely related to patient motion making evaluation suboptimal. Axial images show the C2-C3 level to appear within normal limits. Axial images at C3-C4 level show broad-based right paracentral disc protrusion effacing anterior thec al sac, bilateral neural foramina are patent. Axial images at C4-C5 level are felt to appear within normal limits. Axial images at C5-C6 level show broad-based right paracentral disc protrusion effacing anterolateral thecal sac, bilateral neural foramina are patent. Axial images at C6-C7 level show central broad-based disc protrusion effacing anterior thecal sac and causing [id number] bilateral neural foraminal narrowing. Axial images at C7-T1 level are felt within normal limits. IMPRESSION: Suboptimal study, multilevel degenerative changes in the cervical spine at C3-C4, C5-C6 a nd C6-C7 level are noted. No convincing evidence for demyelinating disease involvement in the cervica l spinal cord.
== END ==
LOC: RADMRIMAIN 12:56
PROVIDERS: ATTEND Psychiatry & Neurology Neurology
DX: M47.812 Spondylosis without myelopathy or radiculopathy, cervical region (principal)
CPT/HCPCS: 70551; 72141

== ENCOUNTER 2018-01-02 18:22 | Inpatient (IN) | payer OTHER ==
--- NOTE | 2018-01-02 20:01 | ED ---
General Adult HPI - General Source: patient Mode of arrival: wheelchair Limitations: no limitations <Carolyne Rebolledo - Last Filed: 01/02/18 23:40> <Pati Knapp - Last Filed: 01/13/18 22:26> - General Chief complaint: Recheck/Abnormal Lab/Rx Stated complaint: poss low sodium Time Seen by Provider: 01/02/18 19:42 - History of Present Illness Initial comments: 52-year-old female patient with past medical history significant for multiple sclerosis, developmental delay, and hyponatremia presents to the emergency department today for evaluation of increased dizziness, frequent falls, and complaints of chest pain. Patient was told recently that her serum sodium level was below which she does have a history of however was not low enough to admit to the hospital, tests were performed at [facility]. Worker from [facility] [employer] is present and provides most of history. She states that she seems to be going downhill. States that she seems more confused than normal and has been falling frequently. States that she generally uses a walker. States that she does not currently receive treatment for multiple sclerosis. Patient denies any recent rash, fever, chills, abdominal pain, nausea, vomiting, diarrhea, constipation, back pain, numbness, tingling, hematuria, dysuria, urinary urgency, urinary frequency, visual changes , or any other complaints. (Carolyne Rebolledo) - Related Data Home Medications Medication Instructions Recorded Confirmed Cholecalciferol [Vitamin D3] 5,000 unit PO MOWEFR 10/03/17 01/02/18 Escitalopram Oxalate [Lexapro] 20 mg PO DAILY 10/03/17 01/02/18 Magnesium Oxide [Mag-Ox] 400 mg PO DAILY 10/03/17 01/02/18 Budesonide/Formoterol Fumarate 2 puff INHALATION RT-BID 01/02/18 01/02/18 [Symbicort 160-4.5 Mcg Inhaler] Potassium Chloride ER [K-Dur 10] 10 meq PO DAILY 01/02/18 01/02/18 fluPHENAZine DECANOATE [Prolixin 25 mg IM Q28D 01/02/18 01/02/18 Decanoate] Previous Rx's Medication Instructions Recorded Divalproex ER [Depakote ER] 750 mg PO HS #30 tab.er.24h 10/09/17 Sodium Chloride Tab 1 gm PO BID #20 tab 10/09/17 Acetaminophen Tab [Tylenol] 650 mg PO Q6HR PRN tab 01/09/18 LORazepam [Ativan] 1 mg PO BID PRN #6 tab 01/09/18 predniSONE 10 mg PO DIRECTED #21 tab 01/09/18 Allergies Allergy/AdvReac Type Severity Reaction Status Date / Time No Known Allergies Allergy Verified 01/02/18 19:44 Review of Systems ROS Other: All systems not noted in ROS Statement are negative. <Carolyne Rebolledo - Last Filed: 01/02/18 23:40> ROS Other: All systems not noted in ROS Statement are negative. <Pati Knapp - Last Filed: 01/13/18 22:26> ROS Statement: Those systems with pertinent positive or pertinent negative responses have been documented in the HPI. Past Medical History Past Medical History: COPD, GERD/Reflux, GI Bleed, Seizure Disorder Additional Past Medical History / Comment(s): MS, hearing impaired, seizures when in her 30s, migraines, Upper GI bleed, peptic ulcer disease, developmentally delayed, hypotension History of Any Multi-Drug Resistant Organisms: None Reported Past Surgical History: Ear Surgery Additional Past Surgical History / Comment(s): cyst removed from coccyx, multiple bilateral ear surgeries. Past Anesthesia/Blood Transfusion Reactions: No Reported Reaction Past Psychological History: Anxiety, Bipolar, Depression, Schizophrenia Smoking Status: Current every day smoker Past Alcohol Use History: None Reported Past Drug Use History: None Reported - Past Family History Father Additional Family Medical History / Comment(s): Father at age 70 from myocardial infarction. Mother Additional Family Medical History / Comment(s): Patient's mother is alive at age 70. Patient does not know her medical history. Brother(s) Additional Family Medical History / Comment(s): Patient has 1 brother committed suicide at 48. Sister(s) Additional Family Medical History / Comment(s): Patient has 2 sisters with no major medical problems. <Carolyne Rebolledo - Last Filed: 01/02/18 23:40> General Exam Limitations: no limitations General appearance: alert, in no apparent distress, other (This is a well- developed, thin appearing adult female patient in no acute distress. Vital signs upon presentation are temperature 98.2F, pulse 94, respirations 20, blood pressure 91/61, pulse ox 99% on room air.) Eye exam: Present: normal appearance, PERRL, EOMI. Absent: scleral icterus, conjunctival injection, periorbital swelling ENT exam: Present: normal exam, normal oropharynx, mucous membranes moist Respiratory exam: Present: normal lung sounds bilaterally. Absent: respiratory distress, wheezes, rales, rhonchi, stridor Cardiovascular Exam: Present: regular rate, normal rhythm, normal heart sounds. Absent: systolic murmur, diastolic murmur, rubs, gallop, clicks Neurological exam: Present: alert, oriented X3, CN II-XII intact Psychiatric exam: Present: normal affect, normal mood Skin exam: Present: warm, dry, intact, normal color. Absent: rash <Carolyne Rebolledo - Last Filed: 01/02/18 23:40> Vital Signs 01/02/18 01/02/18 01/02/18 18:28 21:00 22:48 Temperature 98.0 F 97.5 F L Pulse Rate 94 56 L Respiratory 20 18 18 Rate Blood Pressure 91/61 142/62 O2 Sat by Pulse 99 99 Oximetry EKG Findings - EKG Comments: EKG Findings:: EKG obtained at 2024 shows normal sinus rhythm with ventricular rate of 62, MT interval 184, QRS duration 84, QTC 436, QTc 442. No evidence of ST elevation or depression. <Carolyne Rebolledo - Last Filed: 01/02/18 23:40> Medical Decision Making - Lab Data Result diagrams: 01/02/18 20:34 01/02/18 20:34 - Radiology Data Radiology results: report reviewed, image reviewed <Carolyne Rebolledo - Last Filed: 01/02/18 23:40> - Lab Data Result diagrams: 01/10/18 07:39 01/10/18 07:39 <Pati Knapp - Last Filed: 01/13/18 22:26> - Medical Decision Making 52-year-old female patient presented to the emergency department today for evaluation of 52-year-old female patient with past medical history significant for developmental delay, hearing impairment, MS, and hyponatremia presented today for evaluation of worsening dizziness, increased falls, and weakness. Physical examination was relatively unremarkable. Patient did report some chest pain. Labs reviewed and showed a sodium of 125, initial cardiac labs were negative. Given patient's history of MS and with a low sodium we will admit to hospital for neurologic evaluation. There is concern for MS exacerbation. She'll be admitted to Dr. Walker, neurology will be consulted. (Carolyne Rebolledo) I personally saw and examined the patient. I reviewed and agree with the mid- level provider findings including all diagnostic interpretations and treatment plans as written unless otherwise stated. I was present for mayberry portions of any procedures performed. She care was discussed with the admitting team who agree with plan for admission and a consult to neurology. (Pati Knapp) - Lab Data Lab Results 01/02/18 01/02/18 01/02/18 Range/Units 20:34 20:34 20:34 WBC 4.9 (3.8-10.6) k/uL RBC 4.16 (3.80-5.40) m/uL Hgb 12.6 (11.4-16.0) gm/dL Hct 37.8 (34.0-46.0) % MCV 90.9 (80.0-100.0) fL MCH 30.4 (25.0-35.0) pg MCHC 33.4 (31.0-37.0) g/dL RDW 13.7 (11.5-15.5) % Plt Count 305 (150-450) k/uL Neutrophils % 57 % Lymphocytes % 26 % Monocytes % 11 % Eosinophils % 3 % Basophils % 0 % Neutrophils # 2.8 (1.3-7.7) k/uL Lymphocytes # 1.3 (1.0-4.8) k/uL Monocytes # 0.5 (0-1.0) k/uL Eosinophils # 0.1 (0-0.7) k/uL Basophils # 0.0 (0-0.2) k/uL PT (9.0-12.0) sec INR (<1.2) APTT (22.0-30.0) sec Sodium 125 L (137-145) mmol/L Potassium 4.2 (3.5-5.1) mmol/L Chloride 90 L (98-107) mmol/L Carbon Dioxide 26 (22-30) mmol/L Anion Gap 9 mmol/L BUN 7 (7-17) mg/dL Creatinine 0.66 (0.52-1.04) mg/dL Est GFR (CKD-EPI)AfAm >90 (>60 ml/min/1.73 sqM) Est GFR (CKD-EPI)NonAf >90 (>60 ml/min/1.73 sqM) Glucose 86 (74-99) mg/dL Osmolality 259 L (280-301) mosm/kg Calcium 8.9 (8.4-10.2) mg/dL Total Bilirubin 0.2 (0.2-1.3) mg/dL AST 25 (14-36) U/L ALT 33 (9-52) U/L Alkaline Phosphatase 58 (38-126) U/L Total Creatine Kinase 78 (30-135) U/L CK-MB (CK-2) 0.9 (0.0-2.4) ng/mL CK-MB (CK-2) Rel Index 1.2 Total Protein 6.2 L (6.3-8.2) g/dL Albumin 3.6 (3.5-5.0) g/dL Urine Color Urine Appearance (Clear) Urine pH (5.0-8.0) Ur Specific [place] (1.001-1.035) Urine Protein (Negative) Urine Glucose (UA) (Negative) Urine Ketones (Negative) Urine Blood (Negative) Urine Nitrite (Negative) Urine Bilirubin (Negative) Urine Urobilinogen (<2.0) mg/dL Ur Leukocyte Esterase (Negative) Urine RBC (0-5) /hpf Urine WBC (0-5) /hpf Ur Squamous Epith Cells (0-4) /hpf Urine Mucus (None) /hpf 01/02/18 01/02/18 Range/Units 20:34 21:21 WBC (3.8-10.6) k/uL RBC (3.80-5.40) m/uL Hgb (11.4-16.0) gm/dL Hct (34.0-46.0) % MCV (80.0-100.0) fL MCH (25.0-35.0) pg MCHC (31.0-37.0) g/dL RDW (11.5-15.5) % Plt Count (150-450) k/uL Neutrophils % % Lymphocytes % % Monocytes % % Eosinophils % % Basophils % % Neutrophils # (1.3-7.7) k/uL Lymphocytes # (1.0-4.8) k/uL Monocytes # (0-1.0) k/uL Eosinophils # (0-0.7) k/uL Basophils # (0-0.2) k/uL PT 10.8 (9.0-12.0) sec INR 1.1 (<1.2) APTT 27.1 (22.0-30.0) sec Sodium (137-145) mmol/L Potassium (3.5-5.1) mmol/L Chloride (98-107) mmol/L Carbon Dioxide (22-30) mmol/L Anion Gap mmol/L BUN (7-17) mg/dL Creatinine (0.52-1.04) mg/dL Est GFR (CKD-EPI)AfAm (>60 ml/min/1.73 sqM) Est GFR (CKD-EPI)NonAf (>60 ml/min/1.73 sqM) Glucose (74-99) mg/dL Osmolality (280-301) mosm/kg Calcium (8.4-10.2) mg/dL Total Bilirubin (0.2-1.3) mg/dL AST (14-36) U/L ALT (9-52) U/L Alkaline Phosphatase (38-126) U/L Total Creatine Kinase (30-135) U/L CK-MB (CK-2) (0.0-2.4) ng/mL CK-MB (CK-2) Rel Index Total Protein (6.3-8.2) g/dL Albumin (3.5-5.0) g/dL Urine Color Colorless Urine Appearance Cloudy H (Clear) Urine pH 7.5 (5.0-8.0) Ur Specific [place] 1.005 (1.001-1.035) Urine Protein Negative (Negative) Urine Glucose (UA) Negative (Negative) Urine Ketones Negative (Negative) Urine Blood Negative (Negative) Urine Nitrite Negative (Negative) Urine Bilirubin Negative (Negative) Urine Urobilinogen <2.0 (<2.0) mg/dL Ur Leukocyte Esterase Small H (Negative) Urine RBC 1 (0-5) /hpf Urine WBC 9 H (0-5) /hpf Ur Squamous Epith Cells 17 H (0-4) /hpf Urine Mucus Rare H (None) /hpf - Radiology Data 2 view x-ray of the chest is obtained. Report was reviewed in its entirety. Impression by Dr. Anayeli Mckeon shows no acute process. (Carolyne Rebolledo) Disposition Decision to Admit Reason: Admit from EC Decision Date: 01/02/18 Decision Time: 22:30 <Carolyne Rebolledo - Last Filed: 01/02/18 23:40> <Pati Knapp - Last Filed: 01/13/18 22:26> Clinical Impression: Hyponatremia, Gait disturbance, Dizziness Narrative: Possible MS exacerbation (Carolyne Rebolledo) Disposition: ADMITTED IP TO THIS [facility] Condition: Stable
[2018-01-02 20:52] LABS: Basophils % (A) 0 %; Eosinophils # (A) 0.1 k/uL (0-0.7); Eosinophils % (A) 3 %; HCT 37.8 % (34.0-46.0); HGB 12.6 gm/dL (11.4-16.0); Lymphocytes # (A) 1.3 k/uL (1.0-4.8); Lymphocytes % (A) 26 %; MCH 30.4 pg (25.0-35.0); MCHC 33.4 g/dL (31.0-37.0); MCV 90.9 fL (80.0-100.0); Mean Platelet Volume 6.4; Monocytes # (A) 0.5 k/uL (0-1.0); Monocytes % (A) 11 %; Neutrophils # (A) 2.8 k/uL (1.3-7.7); Neutrophils % (A) 57 %; Platelet Count 305 k/uL (150-450); RBC 4.16 m/uL (3.80-5.40); RDW 13.7 % (11.5-15.5); WBC 4.9 k/uL (3.8-10.6)
[2018-01-02 21:04] LABS: INR 1.1 (<1.2); Partial Thromboplastin Time 27.1 sec (22.0-30.0); Prothrombin Time 10.8 sec (9.0-12.0)
[2018-01-02 21:05] LABS: ALT 33 U/L (9-52); AST 25 U/L (14-36); Albumin 3.6 g/dL (3.5-5.0); Alkaline Phosphatase 58 U/L (38-126); Anion Gap 9 mmol/L; Blood Urea Nitrogen 7 mg/dL (7-17); Calcium 8.9 mg/dL (8.4-10.2); Carbon Dioxide 26 mmol/L (22-30); Chloride 90 mmol/L (98-107); Glucose 86 mg/dL (74-99); Potassium 4.2 mmol/L (3.5-5.1); Sodium 125 mmol/L (137-145); Total Bilirubin 0.2 mg/dL (0.2-1.3); Total Protein 6.2 g/dL (6.3-8.2)
[2018-01-02 21:13] LABS: Creatine Kinase MB 0.9 ng/mL (0.0-2.4)
[2018-01-02 21:32] LABS: Appearance,Urine Cloudy (Clear); Bilirubin,Urine Negative (Negative); Blood,Urine Negative (Negative); Color,Urine Colorless; Glucose,Urine (UA) Negative (Negative); Ketones,Urine Negative (Negative); Leukocyte Esterase,Urine Small (Negative); Mucus,Urine Rare /hpf; Nitrite,Urine Negative (Negative); PH, Urine 7.5 (5.0-8.0); Protein,Urine Negative (Negative); RBC,Urine 1 /hpf (0-5); Specific Gravity,Urine 1.005 (1.001-1.035); Squamous Epithelial Cell,Urine 17 /hpf (0-4); Urobilinogen,Urine <2.0 mg/dL (<2.0); WBC,Urine 9 /hpf (0-5)
--- NOTE | 2018-01-02 21:39 | XR ---
EXAMINATION: XR chest 2V DATE AND TIME: 01/02/2018 8:57 PM ORDERING PROVIDER: Carolyne Rebolledo CLINICAL INDICATION: Pain TECHNIQUE: PA and lateral COMPARISON: 10/03/2017 DESCRIPTION: RPO rotated frontal radiograph. The lungs are clear. The pleural spaces are negative. The cardiac silhouette is not enlarged. The mediastinal and pleural silhouettes are unremarkable. The skeletal structures are intact without focal findings. The soft tissues are unremarkable. IMPRESSION: NO ACUTE PROCESS.
[2018-01-02] MEDS ORDERED: NALOXONE 0.4 MG/ML 1 ML VIAL IV PRN (22:25)
[2018-01-02] MEDS ORDERED: SODIUM CHLORIDE 0.9% 1,000 ML IV SCH (22:30)
[2018-01-02] MEDS ORDERED: fluPHENAZine DECANOATE 25 MG/ML 5ML MDV IM SCH (23:30)
[2018-01-03] MEDS ORDERED: LORazepam 1 MG TAB PO STA (00:46)
[2018-01-03] MEDS ORDERED: SODIUM CHLORIDE TAB 1 GM TAB PO STA (00:47)
[2018-01-03] MEDS: DIVALPROEX ER 250 MG TAB.ER.24H PO SCH ×2 (01:22→20:12)
[2018-01-03] MEDS: SYMBICORT 160-4.5 MCG INHALER INHALATION SCH ×2 (07:28→20:02)
[2018-01-03] MEDS: MAGNESIUM OXIDE 400 MG TAB PO SCH (08:10)
[2018-01-03] MEDS: SODIUM CHLORIDE TAB 1 GM TAB PO SCH ×2 (08:10→20:12)
[2018-01-03] MEDS: LORazepam 1 MG TAB PO SCH ×2 (08:10→20:12)
[2018-01-03] MEDS: POTASSIUM CHLORIDE ER 10 MEQ TAB.ER.PRT PO SCH (08:10)
[2018-01-03] MEDS: ESCITALOPRAM 20 MG TAB PO SCH (08:11)
[2018-01-03 08:12] LABS: Basophils % (A) 1 %; Eosinophils # (A) 0.2 k/uL (0-0.7); Eosinophils % (A) 5 %; HCT 40.6 % (34.0-46.0); HGB 12.9 gm/dL (11.4-16.0); Lymphocytes # (A) 1.1 k/uL (1.0-4.8); Lymphocytes % (A) 33 %; MCH 29.4 pg (25.0-35.0); MCHC 31.8 g/dL (31.0-37.0); MCV 92.5 fL (80.0-100.0); Mean Platelet Volume 6.3; Monocytes # (A) 0.4 k/uL (0-1.0); Monocytes % (A) 12 %; Neutrophils # (A) 1.6 k/uL (1.3-7.7); Neutrophils % (A) 46 %; Platelet Count 311 k/uL (150-450); RDW 13.5 % (11.5-15.5); WBC 3.4 k/uL (3.8-10.6)
[2018-01-03 08:21] LABS: Anion Gap 9 mmol/L; Blood Urea Nitrogen 5 mg/dL (7-17); Carbon Dioxide 22 mmol/L (22-30); Chloride 100 mmol/L (98-107); Glucose 67 mg/dL (74-99); Potassium 4.4 mmol/L (3.5-5.1); Sodium 131 mmol/L (137-145)
[2018-01-03] MEDS: SODIUM CHLORIDE 0.9% 1,000 ML IV SCH (15:49)
--- NOTE | 2018-01-03 16:16 | P.HPIM ---
History of Present Illness 52-year-old female patient with past medical history significant for multiple sclerosis, developmental delay, and hyponatremia presents to the emergency department today for evaluation of increased dizziness, frequent falls, and complaints of chest pain. Patient was told recently that her serum sodium level was below , patient in the past was treated for hypervolemic hyponatremia as well as a SIADH. Patient was on salt tablets. Patient here was given IV fluids gentle hydration with improvement in serum sodium. Patient's a syndromes underwent a from my 120-125. Patient does not have any significant focal weakness but does have generalized weakness. Considering her multiple sclerosis history, neurology was consulted. Patient is hypovolemic continue with IV fluids increase the rate to 100 mL per hour. Review of Systems All other review of systems are negative except for those mentioned above patient is a poor historian Past Medical History Past Medical History: COPD, GERD/Reflux, GI Bleed, Seizure Disorder Additional Past Medical History / Comment(s): MS, hearing impaired, seizures when in her 30s, migraines, Upper GI bleed, peptic ulcer disease, developmentally delayed, hypotension History of Any Multi-Drug Resistant Organisms: None Reported Past Surgical History: Ear Surgery Additional Past Surgical History / Comment(s): cyst removed from coccyx, multiple bilateral ear surgeries. Past Anesthesia/Blood Transfusion Reactions: No Reported Reaction Past Psychological History: Anxiety, Bipolar, Depression, Schizophrenia Additional Psychological History / Comment(s): Pt resides with her noemiMadelyn who is also her legal guardian. Pt lately has been ambulating with her walker all the time. She does not drive, Madelyn is her millwright supervisor and takes her to [employer] or they use a service for rides. She goes to [facility]. Smoking Status: Current every day smoker Past Alcohol Use History: None Reported Additional Past Alcohol Use History / Comment(s): Patient is a smoker of cigarettes 1 pack per day since she was 17 years of age. Past Drug Use History: None Reported Additional Drug Use History / Comment(s): Pt smokes marijuana on occasion. - Past Family History Father Additional Family Medical History / Comment(s): Father at age 70 from myocardial infarction. Mother Additional Family Medical History / Comment(s): Patient's mother is alive at age 70. Patient does not know her medical history. Brother(s) Additional Family Medical History / Comment(s): Patient has 1 brother committed suicide at 48. Sister(s) Additional Family Medical History / Comment(s): Patient has 2 sisters with no major medical problems. Medications and Allergies Home Medications Medication Instructions Recorded Confirmed Type Cholecalciferol [Vitamin D3] 5,000 unit PO MOWEFR 10/03/17 01/02/18 History Escitalopram Oxalate [Lexapro] 20 mg PO DAILY 10/03/17 01/02/18 History LORazepam [Ativan] 1 mg PO BID 10/03/17 01/02/18 History Magnesium Oxide [Mag-Ox] 400 mg PO DAILY 10/03/17 01/02/18 History Divalproex ER [Depakote ER] 750 mg PO HS #30 tab.er.24h 10/09/17 01/02/18 Rx Sodium Chloride Tab 1 gm PO BID #20 tab 10/09/17 01/02/18 Rx Budesonide/Formoterol Fumarate 2 puff INHALATION RT-BID 01/02/18 01/02/18 History [Symbicort 160-4.5 Mcg Inhaler] Potassium Chloride ER [K-Dur 10] 10 meq PO DAILY 01/02/18 01/02/18 History fluPHENAZine DECANOATE [Prolixin 25 mg IM Q28D 01/02/18 01/02/18 History Decanoate] Allergies Allergy/AdvReac Type Severity Reaction Status Date / Time No Known Allergies Allergy Verified 01/02/18 19:44 Physical Exam Vitals: Vital Signs Temp Pulse Pulse Resp BP BP Pulse Ox 01/03/18 15:00 97.4 F L 62 16 97/69 98 01/03/18 07:00 98.2 F 64 16 93/59 93 L 01/02/18 23:51 97.5 F L 64 16 108/74 98 01/02/18 22:48 97.5 F L 56 L 18 142/62 99 01/02/18 21:00 18 01/02/18 18:28 98.0 F 94 20 91/61 99 Intake and Output 01/03/18 01/03/18 01/03/18 06:59 14:59 22:59 Intake Total 100 800 Balance 100 800 Intake: Oral 100 800 Other: Voiding Method Diaper # Voids 2 3 # Bowel Movements 0 PHYSICAL EXAMINATION: GENERAL: The patient is alert and unable to assess her orientation patient appears tired and weak HEENT: Pupils are round and equally reacting to light. EOMI. No scleral icterus. No conjunctival pallor. Normocephalic, atraumatic. No pharyngeal erythema. No thyromegaly. CARDIOVASCULAR: S1 and S2 present. No murmurs, rubs, or gallops. PULMONARY: Chest is clear to auscultation, no wheezing or crackles. ABDOMEN: Soft, nontender, nondistended, normoactive bowel sounds. No palpable organomegaly. MUSCULOSKELETAL: No joint swelling or deformity. EXTREMITIES: No cyanosis, clubbing, or pedal edema. NEUROLOGICAL: Gross neurological examination did not reveal any focal deficits. But does have significant generalized weakness SKIN: No rashes. Results CBC & Chem 7: 01/03/18 07:34 01/03/18 07:34 Labs: Abnormal Lab Results - Last 24 Hours (Table) 01/02/18 01/02/18 01/03/18 Range/Units 20:34 21:21 07:34 WBC 3.4 L (3.8-10.6) k/uL Sodium 125 L (137-145) mmol/L Chloride 90 L (98-107) mmol/L BUN (7-17) mg/dL Glucose (74-99) mg/dL Osmolality 259 L (280-301) mosm/kg Total Protein 6.2 L (6.3-8.2) g/dL Urine Appearance Cloudy H (Clear) Ur Leukocyte Esterase Small H (Negative) Urine WBC 9 H (0-5) /hpf Ur Squamous Epith Cells 17 H (0-4) /hpf Urine Mucus Rare H (None) /hpf 01/03/18 Range/Units 07:34 WBC (3.8-10.6) k/uL Sodium 131 L (137-145) mmol/L Chloride (98-107) mmol/L BUN 5 L (7-17) mg/dL Glucose 67 L (74-99) mg/dL Osmolality (280-301) mosm/kg Total Protein (6.3-8.2) g/dL Urine Appearance (Clear) Ur Leukocyte Esterase (Negative) Urine WBC (0-5) /hpf Ur Squamous Epith Cells (0-4) /hpf Urine Mucus (None) /hpf Thrombosis Risk Factor Assmnt - Choose All That Apply Any of the Below Risk Factors Present?: Yes Each Factor Represents 1 point: Abnormal pulmonary function (COPD), Age 41-60 years Other Risk Factors: No Other congenital or acquired thrombophilia - If yes, enter type in comment: No Thrombosis Risk Factor Assessment Total Risk Factor Score: 2 Thrombosis Risk Factor Assessment Level: Low Risk Assessment and Plan Plan: -Generalized weakness, hyponatremia: Hypovolemic hyponatremia, secondary to severe intravascular well and the patient patient is hypotensive as well patient will be continued on IV normal saline. Repeat Avapro lites tomorrow continue with the sodium pills for her previously diagnosed SIADH. -Severe generalized deconditioning: PT or no to consultation -History of multiple sclerosis for which patient will undergo evaluation by neurology although my suspicion is low that patient has MS exacerbation -COPD without any acute exacerbation -Seizure disorder -Gastroesophageal reflux disease
--- NOTE | 2018-01-04 00:01 | CONS ---
CONSULTATION DATE OF CONSULTATION: 01/03/2018 CHIEF COMPLAINT: Weakness and history of multiple sclerosis. HISTORY OF PRESENT ILLNESS: The patient is a 52-year-old female who has been evaluated by the neurology service per the request of Dr. Walker for some weakness and recurrent falls. The patient was brought into [facility] Emergency Room with a complaint of recurrent falls and generalized weakness. The patient is a poor historian and has history of multiple psychiatric disorders. She does follow up with [facility] and one of the social insurance analyst mentions in the note that she seems to be more confused than normal. The patient has history of chronic severe hearing loss. The patient does have a history of multiple sclerosis, but she is not taking any of the disease modifying therapies. When asked about this, she states that she does not know why she is not on any medications. In the emergency room, her laboratory workup showed a normal CBC. Her comprehensive metabolic profile showed significant hyponatremia at 125. The patient has a previous history of hyponatremia, but she does not know if she has been worked up for this. Her urinalysis showed 9 WBCs with small leukocyte esterase. The patient was started on IV hydration and admitted for further workup and management. At the time of my evaluation, she is lying in her bed and appears to be in no acute distress. PAST MEDICAL HISTORY: Multiple sclerosis, bipolar disorder, chronic obstructive pulmonary disease, gastroesophageal reflux disease, seizure disorder, history of GI bleeding, hearing impairment, migraine headaches, developmental delay, history of ear surgeries, depression, schizophrenia, anxiety disorder, bipolar disorder. SOCIAL HISTORY: The patient is a current every day smoker. She denies any tobacco or drug use. FAMILY HISTORY: Positive for heart disease and psychiatric disorders. HOME MEDICATIONS: Reviewed in the chart. ALLERGIES: No known drug allergies. REVIEW OF SYSTEM: Difficult to obtain due to hearing loss. PHYSICAL EXAM: Vital signs show temperature of 98.2, pulse 64, respirations 16, blood pressure 93/59. GENERAL APPEARANCE: The patient is a well-developed female who appears to be in no acute distress. HEENT: Normocephalic, atraumatic. The patient has significant hearing loss. NECK: Supple with no masses felt. CARDIOVASCULAR: Regular rate and rhythm. ABDOMEN: Nontender, nondistended. Extremities showed no edema or clubbing. NEUROLOGICAL: The patient is awake and oriented to person and place. She could not recall the year. Strength is 4/5 on the right lower extremity and 5-/5 on the right upper extremity and left upper and lower extremities. Sensory was normal to light touch in all 4 extremities. No facial asymmetry is seen on cranial nerve testing. She does have significant hearing loss, as mentioned above. IMPRESSION: 1. Right lower extremity weakness. 2. Possible multiple sclerosis exacerbation. 3. Frequent falls. 4. Altered mental status. 5. Hyponatremia. 6. History of seizures. RECOMMENDATION: The patient continues to have weakness involving her right lower extremity which is likely contributing to her recurrent falls. As mentioned above, she does have history of multiple sclerosis and may have an exacerbation at this time. I will order an MRI of the brain with and without contrast. If her MRI does show any evidence of demyelinating disease, I would recommend IV Solu-Medrol therapy only if this is cleared by Psychiatry. Physical Therapy will be consulted. As for her altered mental status, this is likely secondary to her hyponatremia and urinary tract infection. I do recommend management and workup for this. Continue neuro checks. I will continue to follow with you. Further recommendations to follow. Thank you for allowing me to participate in the care of your patient. If you have any questions, please feel free to contact me. LALITA / CHRISTINA: [phone] /
[2018-01-04] MEDS: SODIUM CHLORIDE 0.9% 1,000 ML IV SCH ×2 (05:44→09:33)
[2018-01-04] MEDS: SYMBICORT 160-4.5 MCG INHALER INHALATION SCH ×2 (07:49→19:13)
[2018-01-04 08:44] LABS: Anion Gap 6 mmol/L; Blood Urea Nitrogen 9 mg/dL (7-17); Calcium 8.5 mg/dL (8.4-10.2); Carbon Dioxide 23 mmol/L (22-30); Chloride 100 mmol/L (98-107); Glucose 70 mg/dL (74-99); Potassium 4.5 mmol/L (3.5-5.1); Sodium 129 mmol/L (137-145)
--- NOTE | 2018-01-04 09:22 | MR ---
EXAMINATION TYPE: MR brain wo/w con DATE OF EXAM: 01/04/2018 COMPARISON: Recent MRI brain November 19, 2017 and older studies back to August 29, 2016 HISTORY: Right weakness, Hx of MS TECHNIQUE: Multiplanar, multisequence images of the brain and brainstem is performed without and with IV contras t, utilizing 5.5 mL intravenous Gadavist gadolinium contrast is administered intravenously. Demyelin ating disease protocol with additional Sagittal Flair sequence performed. FINDINGS: Current exam is suboptimal as degraded by motion artifact. T2 Lesions Present : Yes Approximate Number of Lesions: Difficult to accurately count due to confluent periventricular appeara nce. Locations Identified : Predominantly deep and periventricular lesions Size of Reference Lesion(s): 1. 1.4 x 0.9 x 0.6 cm right frontal parietal lesion axial image 18 and sagittal image 27 likely stabl e from August 29, 2016 axial image 20. Enhancing Lesion(s) Present: No T1 Hypointense Lesion(s) Present: Yes Change from Prior: Suboptimal but Likely stable. Diffusion weighted images demonstrate no evidence of a recent infarct or other diffusion abnormality. There is no worrisome extra-axial fluid collection. There is persistent ventricular and sulcal prom inence including prominent fourth ventricle. Degree of ventricular dilatation is out of proportion to degree of sulcal effacement but there is no significant change from prior studies. Midline structures demonstrate normal morphology. The craniocervical junction appears within normal limits. Post contrast images demonstrate no abnormal enhancement. The dural venous sinuses appear pa tent. Mild mucosal thickening bilateral ethmoid sinuses remains present. Increased signal right front al sinus correlates with osteoma on CT. There is evidence of prior surgery at level of mastoid air ce lls with some retained fluid remaining present. IMPRESSION: 1. Stable fairly moderate nonspecific white matter changes. No obvious enhancing lesions seen. Motion artifact degradation is noted. 2. Stable ventricular prominence worrisome for mild to moderate hydrocephalus.
[2018-01-04] MEDS: CHOLECALCIFEROL 1,000 UNIT TAB PO SCH (09:32)
[2018-01-04] MEDS: ESCITALOPRAM 20 MG TAB PO SCH (09:32)
[2018-01-04] MEDS: SODIUM CHLORIDE TAB 1 GM TAB PO SCH ×2 (09:32→22:20)
[2018-01-04] MEDS: POTASSIUM CHLORIDE ER 10 MEQ TAB.ER.PRT PO SCH (09:32)
[2018-01-04] MEDS: MAGNESIUM OXIDE 400 MG TAB PO SCH (09:32)
[2018-01-04] MEDS: LORazepam 1 MG TAB PO SCH ×2 (09:40→22:20)
--- NOTE | 2018-01-04 14:27 | P.DS ---
Providers Date of admission: 01/02/18 22:30 Attending physician: Urbano Walker Consults: 01/02/18 22:26 Consult Physician Routine Consulting Provider: Richie Bedoya Consult Reason/Comments: Disturbed gait; Dizziness; Possible MS exacerbation Do you want consulting provider notified?: Yes Primary care physician: [facility] Course: Patient is admitted for dizziness secondary to intravascular depletion received IV fluids hyponatremia improved patient's hyponatremia is multifactorial #1 initial hypovolemic hyponatremia number to SIADH because of which I discontinued IV fluids patient the will need to be on salt tablets and fluid restriction. Patient had an MRI which did not show any new lesions regarding her Multiple sclerosis and optic or any systemic steroids but may require immunomodulators agents accommodation of which will be left to neurology. PHYSICAL EXAMINATION: GENERAL: The patient is alert and unable to assess her orientation HEENT: Pupils are round and equally reacting to light. EOMI. No scleral icterus. No conjunctival pallor. Normocephalic, atraumatic. No pharyngeal erythema. No thyromegaly. CARDIOVASCULAR: S1 and S2 present. No murmurs, rubs, or gallops. PULMONARY: Chest is clear to auscultation, no wheezing or crackles. ABDOMEN: Soft, nontender, nondistended, normoactive bowel sounds. No palpable organomegaly. MUSCULOSKELETAL: No joint swelling or deformity. EXTREMITIES: No cyanosis, clubbing, or pedal edema. NEUROLOGICAL: Gross neurological examination did not reveal any focal deficits. But does have significant generalized weakness SKIN: No rashes. Assessment and Plan Plan: -Generalized weakness, hyponatremia: Hypovolemic hyponatremia, initially and then syndrome of inappropriate SIADH. Patient has chronic hyponatremia patient sodium presently is 129. -Severe generalized deconditioning: PT or no to consultation -History of multiple sclerosis for which patient will undergo evaluation by neurology although my suspicion is low that patient has MS exacerbation -COPD without any acute exacerbation -Seizure disorder -Gastroesophageal reflux disease Patient Condition at Discharge: Serious Plan - Discharge Summary Discharge Rx Participant: No New Discharge Prescriptions: Continue Magnesium Oxide [Mag-Ox] 400 mg PO DAILY LORazepam [Ativan] 1 mg PO BID Cholecalciferol [Vitamin D3] 5,000 unit PO MOWEFR Escitalopram Oxalate [Lexapro] 20 mg PO DAILY Divalproex ER [Depakote ER] 750 mg PO HS #30 tab.er.24h Sodium Chloride Tab 1 gm PO BID #20 tab Budesonide/Formoterol Fumarate [Symbicort 160-4.5 Mcg Inhaler] 2 puff INHALATION RT-BID fluPHENAZine DECANOATE [Prolixin Decanoate] 25 mg IM Q28D Potassium Chloride ER [K-Dur 10] 10 meq PO DAILY Discharge Medication List Cholecalciferol [Vitamin D3] 5,000 unit PO MOWEFR 10/03/17 [History] Escitalopram Oxalate [Lexapro] 20 mg PO DAILY 10/03/17 [History] LORazepam [Ativan] 1 mg PO BID 10/03/17 [History] Magnesium Oxide [Mag-Ox] 400 mg PO DAILY 10/03/17 [History] Divalproex ER [Depakote ER] 750 mg PO HS #30 tab.er.24h 10/09/17 [Rx] Sodium Chloride Tab 1 gm PO BID #20 tab 10/09/17 [Rx] Budesonide/Formoterol Fumarate [Symbicort 160-4.5 Mcg Inhaler] 2 puff INHALATION RT-BID 01/02/18 [History] Potassium Chloride ER [K-Dur 10] 10 meq PO DAILY 01/02/18 [History] fluPHENAZine DECANOATE [Prolixin Decanoate] 25 mg IM Q28D 01/02/18 [History] Follow up Appointment(s)/Referral(s): Shannan Montanez MD [Primary Care Provider] - 3 Days Ambulatory/Diagnostic Orders: Basic Metabolic Panel [LAB.AMB] Location: None Selected Patient Instructions/Handouts: Hyponatremia (DC) Activity/Diet/Wound Care/Special Instructions: Fluid restriction to 1500 cc/day Activity as tolerated, fall precautions. No smoker, cessation information provided. Discharge Disposition: TRANSFER TO SNF/ECF
--- NOTE | 2018-01-04 14:50 | P.PN ---
Subjective Progress Note Date: 01/04/18 Patient is a 52-year-old female who is being followed by the neurology service for weakness and recurrent falls. Patient lives with her daughter and is a poor historian. Reportedly, patient has history of multiple psychiatric disorders and developmental delay. Patient was brought to [facility] with recurrent falls and generalized weakness. Patient does have history of chronic severe hearing loss. Apparently, patient does have history of multiple sclerosis, but she is not taking any disease modifying therapies at this time. At the time of my evaluation, patient is resting comfortably in bed and appears to be in no acute distress. Objective - Vital Signs Vital signs: Vital Signs Temp 98.1 F 01/04/18 06:17 Pulse 97 01/04/18 06:17 Resp 15 01/04/18 06:17 BP 93/55 01/04/18 06:17 Pulse Ox 96 01/04/18 06:17 Intake & Output 01/03/18 01/04/18 01/04/18 18:59 06:59 18:59 Intake Total 800 240 Balance 800 240 Weight 53.524 kg Intake: Oral 800 240 Other: Voiding Method Bedpan Bedside Commode Bedside Commode Diaper Incontinent Incontinent # Voids 3 0 2 # Bowel Movements 0 - Exam PHYSICAL EXAM: GENERAL APPEARANCE: Patient is a well-developed, thin female who appears to be in no acute distress. HEENT: Normocephalic, atraumatic, no facial asymmetry is seen. Neck is supple with no masses felt. CARDIOVASCULAR: Regular rate and rhythm. ABDOMEN: Nontender, nondistended. EXTREMITIES: Show no edema or clubbing. NEUROLOGICAL EXAM: Patient is awake, alert, and oriented to person and place. Patient is hard of hearing. She states the year is 1917. Strength is 5-/5 in all 4 extremities. Sensory exam is normal to light touch in all 4 extremities. No facial asymmetry seen on cranial nerve testing. No tremors or seizure- like activity noted. - Labs CBC & Chem 7: 01/03/18 07:34 01/04/18 07:48 Labs: Abnormal Lab Results - Last 24 Hours (Table) 01/04/18 Range/Units 07:48 Sodium 129 L (137-145) mmol/L Glucose 70 L (74-99) mg/dL Assessment and Plan Plan: Impression: 1. Right lower extremity weakness, improved 2. Possible multiple sclerosis exacerbation 3. Frequent falls 4. Altered mental status 5. Hyponatremia 6. History of seizures Recommendations: The patient continues to have weakness of her right lower extremity, however, this is much improved. Patient does have history of multiple sclerosis and this may be exacerbation. MRI of the brain was done and compared to MRI of the brain done 08/29/2016. Patient does have white matter lesions in periventricular region and right frontal parietal region. MRI was read as suboptimal but likely stable as compared to previous. No enhancing lesions were noted. MRI did reveal stable ventricular prominence itches worrisome for mild to moderate hydrocephalus. Further workup for hydrocephalus can be done as an outpatient. As for her white matter changes on the MRI, I would recommend IV Solu-Medrol 250 mg every 8 hours with before meals and at bedtime Accu-Cheks with sliding scale insulin. If patient goes to rehab, I would switch to an oral taper of prednisone. I do recommend patient go to inpatient rehab for short stay. Continue physical therapy and occupational therapy. Continue neurological checks. I will continue to follow with you. Further recommendations to follow. I performed an examination of the patient and discussed the management with the BELLMAKER. I have reviewed the BELLMAKER notes and agree with the findings and plan of care.
[2018-01-04 17:30] LABS: Glucose,Whole Blood 89 mg/dL (75-99)
[2018-01-04] MEDS: INSULIN ASPART 100 UNIT/ML 1 ML 10 ML VIAL SQ SCH ×2 (17:40→22:20)
[2018-01-04 20:45] LABS: Hemoglobin A1C 5.3 % (4.0-6.0)
[2018-01-04 20:52] LABS: Glucose,Whole Blood 153 mg/dL (75-99)
[2018-01-04] MEDS: DIVALPROEX ER 250 MG TAB.ER.24H PO SCH (22:20)
[2018-01-05 06:59] LABS: Glucose,Whole Blood 146 mg/dL (75-99)
[2018-01-05] MEDS: SYMBICORT 160-4.5 MCG INHALER INHALATION SCH ×2 (07:25→19:50)
[2018-01-05] MEDS: LORazepam 1 MG TAB PO SCH (08:16)
[2018-01-05] MEDS: SODIUM CHLORIDE TAB 1 GM TAB PO SCH ×2 (08:16→21:34)
[2018-01-05] MEDS: POTASSIUM CHLORIDE ER 10 MEQ TAB.ER.PRT PO SCH (08:16)
[2018-01-05] MEDS: MAGNESIUM OXIDE 400 MG TAB PO SCH (08:16)
[2018-01-05] MEDS: INSULIN ASPART 100 UNIT/ML 1 ML 10 ML VIAL SQ SCH ×4 (08:16→21:35)
[2018-01-05] MEDS: ESCITALOPRAM 20 MG TAB PO SCH (08:16)
[2018-01-05 08:17] LABS: Anion Gap 11 mmol/L; Blood Urea Nitrogen 11 mg/dL (7-17); Calcium 9.6 mg/dL (8.4-10.2); Carbon Dioxide 23 mmol/L (22-30); Chloride 95 mmol/L (98-107); Glucose 145 mg/dL (74-99); Potassium 4.4 mmol/L (3.5-5.1); Sodium 129 mmol/L (137-145)
[2018-01-05 11:47] LABS: Glucose,Whole Blood 165 mg/dL (75-99)
--- NOTE | 2018-01-05 13:18 | P.PN ---
Subjective Patient is admitted for dizziness secondary to intravascular depletion received IV fluids hyponatremia improved patient's hyponatremia is multifactorial #1 initial hypovolemic hyponatremia number to SIADH because of which I discontinued IV fluids patient the will need to be on salt tablets and fluid restriction. Patient had an MRI which did not show any new lesions regarding her Multiple sclerosis and optic or any systemic steroids but may require immunomodulators agents accommodation of which will be left to neurology. 01/05/2018 Patient was started on systemic steroids by neurology, patient's sodium remains stable at 129 continue with fluid restriction. Objective - Vital Signs Vital signs: Vital Signs Temp 97.8 F 01/05/18 06:18 Pulse 69 01/05/18 06:18 Resp 17 01/05/18 06:18 BP 114/69 01/05/18 06:18 Pulse Ox 96 01/05/18 06:18 Intake & Output 01/04/18 01/05/18 01/05/18 18:59 06:59 18:59 Intake Total 1500 Balance 1500 Intake: Oral 1500 Other: Voiding Method Bedside Commode Bedside Commode Incontinent Incontinent # Voids 4 2 2 - Exam PHYSICAL EXAMINATION: GENERAL: The patient is alert and unable to assess her orientation HEENT: Pupils are round and equally reacting to light. EOMI. No scleral icterus. No conjunctival pallor. Normocephalic, atraumatic. No pharyngeal erythema. No thyromegaly. CARDIOVASCULAR: S1 and S2 present. No murmurs, rubs, or gallops. PULMONARY: Chest is clear to auscultation, no wheezing or crackles. ABDOMEN: Soft, nontender, nondistended, normoactive bowel sounds. No palpable organomegaly. MUSCULOSKELETAL: No joint swelling or deformity. EXTREMITIES: No cyanosis, clubbing, or pedal edema. NEUROLOGICAL: Gross neurological examination did not reveal any focal deficits. But does have significant generalized weakness SKIN: No rashes. - Labs CBC & Chem 7: 01/03/18 07:34 01/05/18 07:56 Labs: Abnormal Lab Results - Last 24 Hours (Table) 01/04/18 01/05/18 01/05/18 Range/Units 20:51 06:56 07:56 Sodium 129 L (137-145) mmol/L Chloride 95 L (98-107) mmol/L Glucose 145 H (74-99) mg/dL POC Glucose (mg/dL) 153 H 146 H (75-99) mg/dL 01/05/18 Range/Units 11:40 Sodium (137-145) mmol/L Chloride (98-107) mmol/L Glucose (74-99) mg/dL POC Glucose (mg/dL) 165 H (75-99) mg/dL Assessment and Plan Plan: Assessment and Plan Plan: -Generalized weakness, hyponatremia: Hypovolemic hyponatremia, initially and then syndrome of inappropriate SIADH. Patient has chronic hyponatremia patient sodium presently is 129. -Severe generalized deconditioning: PT or no to consultation -History of multiple sclerosis for which patient will undergo evaluation by neurology although my suspicion is low that patient has MS exacerbation patient was started on systemic steroids per neurology. -COPD without any acute exacerbation -Seizure disorder -Gastroesophageal reflux diseas
[2018-01-05] MEDS: predniSONE 20 MG TAB PO SCH (13:39)
[2018-01-05 17:06] LABS: Glucose,Whole Blood 169 mg/dL (75-99)
--- NOTE | 2018-01-05 17:16 | P.PN ---
Subjective Progress Note Date: 01/05/18 Patient is a 52-year-old female who is being followed by the neurology service for weakness and recurrent falls. Patient lives with her daughter and is a poor historian. Reportedly, patient has history of multiple psychiatric disorders and developmental delay. Patient was brought to [facility] with recurrent falls and generalized weakness. Patient does have history of chronic severe hearing loss. Apparently, patient does have history of multiple sclerosis, but she is not taking any disease modifying therapies at this time. At the time of my evaluation, patient is resting comfortably in bed and appears to be in no acute distress. 01/05/2018 Patient is a 52-year-old female who is being followed by the neurology service for gait disturbance and dizziness. Patient is more alert and conversant today. Patient does have history of developmental delay. She continues to be treated for hyponatremia. Patient had an MRI which showed white matter lesions consistent with history of MS. Patient was started on IV steroids to decrease inflammation should this be an exacerbation of MS. It is likely however dizziness is due to patient's hyponatremia and hypokalemia. Patient pulled her IV out and IV steroids were switched to an oral taper. Patient is awaiting placement for rehab. At the time of my evaluation patient is sitting up in the chair and appears to be in no acute distress. Objective - Vital Signs Vital signs: Vital Signs Temp 98.2 F 01/05/18 14:50 Pulse 81 01/05/18 14:50 Resp 16 01/05/18 14:50 BP 112/74 01/05/18 14:50 Pulse Ox 100 01/05/18 14:50 Intake & Output 01/04/18 01/05/18 01/05/18 18:59 06:59 18:59 Intake Total 1500 Balance 1500 Intake: Oral 1500 Other: Voiding Method Bedside Commode Bedside Commode Bedside Commode Incontinent Incontinent Incontinent # Voids 4 2 4 - Exam PHYSICAL EXAM: GENERAL APPEARANCE: Patient is a well-developed, thin female who appears to be in no acute distress. HEENT: Normocephalic, atraumatic, no facial asymmetry is seen. Neck is supple with no masses felt. CARDIOVASCULAR: Regular rate and rhythm. ABDOMEN: Nontender, nondistended. EXTREMITIES: Show no edema or clubbing. NEUROLOGICAL EXAM: Patient is awake, alert, and oriented to person and place. Patient is hard of hearing. Strength is 5-/5 in all 4 extremities. Sensory exam is normal to light touch in all 4 extremities. No facial asymmetry seen on cranial nerve testing. No tremors or seizure-like activity noted. - Labs CBC & Chem 7: 01/03/18 07:34 01/05/18 07:56 Labs: Abnormal Lab Results - Last 24 Hours (Table) 01/04/18 01/05/18 01/05/18 Range/Units 20:51 06:56 07:56 Sodium 129 L (137-145) mmol/L Chloride 95 L (98-107) mmol/L Glucose 145 H (74-99) mg/dL POC Glucose (mg/dL) 153 H 146 H (75-99) mg/dL 01/05/18 01/05/18 Range/Units 11:40 17:02 Sodium (137-145) mmol/L Chloride (98-107) mmol/L Glucose (74-99) mg/dL POC Glucose (mg/dL) 165 H 169 H (75-99) mg/dL Assessment and Plan Plan: Impression: 1. Right lower extremity weakness, improved 2. Possible multiple sclerosis exacerbation 3. Frequent falls 4. Altered mental status 5. Hyponatremia 6. History of seizures Recommendations: The patient continues to have weakness of her right lower extremity, however, this is much improved. Patient does have history of multiple sclerosis and this may be exacerbation, however, more likely due to hyponatremia and hypokalemia. MRI of the brain was done and compared to MRI of the brain done 08/29/2016. Patient does have white matter lesions in periventricular region and right frontal parietal region. MRI was read as suboptimal but likely stable as compared to previous. No enhancing lesions were noted. MRI did reveal stable ventricular prominence itches worrisome for mild to moderate hydrocephalus. Further workup for hydrocephalus can be done as an outpatient. As for her white matter changes on the MRI, this can be further addressed in the outpatient setting. If patient goes to rehab, she may continue oral taper of prednisone. I do recommend patient go to inpatient rehab for short stay. Continue physical therapy and occupational therapy. Continue neurological checks. No further neurological workup is needed at this time. I will continue to follow with you on an as-needed basis. Feel free to call with any questions or concerns. I performed an examination of the patient and discussed the management with the SCRAP SEPARATOR. I have reviewed the SCRAP SEPARATOR notes and agree with the findings and plan of care.
[2018-01-05] MEDS: ACETAMINOPHEN TAB 325 MG TAB PO PRN (20:38)
[2018-01-05 20:48] LABS: Glucose,Whole Blood 140 mg/dL (75-99)
[2018-01-05] MEDS: DIVALPROEX ER 250 MG TAB.ER.24H PO SCH (21:34)
[2018-01-05] MEDS: LORazepam 1 MG TAB PO PRN (21:35)
[2018-01-06 07:30] LABS: Glucose,Whole Blood 109 mg/dL (75-99)
[2018-01-06] MEDS: SYMBICORT 160-4.5 MCG INHALER INHALATION SCH ×2 (07:43→20:21)
[2018-01-06] MEDS: INSULIN ASPART 100 UNIT/ML 1 ML 10 ML VIAL SQ SCH ×4 (07:47→21:55)
[2018-01-06] MEDS: LORazepam 1 MG TAB PO PRN (08:06)
[2018-01-06] MEDS: predniSONE 20 MG TAB PO SCH (08:06)
[2018-01-06] MEDS: MAGNESIUM OXIDE 400 MG TAB PO SCH (08:07)
[2018-01-06] MEDS: ESCITALOPRAM 20 MG TAB PO SCH (08:07)
[2018-01-06] MEDS: POTASSIUM CHLORIDE ER 10 MEQ TAB.ER.PRT PO SCH (08:07)
[2018-01-06] MEDS: SODIUM CHLORIDE TAB 1 GM TAB PO SCH ×2 (08:07→20:22)
[2018-01-06 08:31] LABS: Anion Gap 10 mmol/L; Blood Urea Nitrogen 12 mg/dL (7-17); Calcium 9.6 mg/dL (8.4-10.2); Carbon Dioxide 26 mmol/L (22-30); Chloride 92 mmol/L (98-107); Glucose 90 mg/dL (74-99); Potassium 4.6 mmol/L (3.5-5.1); Sodium 128 mmol/L (137-145)
--- NOTE | 2018-01-06 12:27 | P.PN ---
Subjective Patient is admitted for dizziness secondary to intravascular depletion received IV fluids hyponatremia improved patient's hyponatremia is multifactorial #1 initial hypovolemic hyponatremia number to SIADH because of which I discontinued IV fluids patient the will need to be on salt tablets and fluid restriction. Patient had an MRI which did not show any new lesions regarding her Multiple sclerosis and optic or any systemic steroids but may require immunomodulators agents accommodation of which will be left to neurology. 01/05/2018 Patient was started on systemic steroids by neurology, patient's sodium remains stable at 129 continue with fluid restriction. 01/06/2018 Patient is on oral steroids now patient's sodium is 128 fairly stable will consult the nephrology for their opinion regarding hyponatremia Objective - Vital Signs Vital signs: Vital Signs Temp 98.0 F 01/06/18 06:22 Pulse 68 01/06/18 06:22 Resp 17 01/06/18 06:22 BP 113/71 01/06/18 06:22 Pulse Ox 97 01/06/18 06:22 Intake & Output 01/05/18 01/06/18 01/06/18 18:59 06:59 18:59 Other: Voiding Method Bedside Commode Bedside Commode Bedside Commode Incontinent Incontinent Incontinent # Voids 4 2 - Exam PHYSICAL EXAMINATION: GENERAL: The patient is alert and unable to assess her orientation HEENT: Pupils are round and equally reacting to light. EOMI. No scleral icterus. No conjunctival pallor. Normocephalic, atraumatic. No pharyngeal erythema. No thyromegaly. CARDIOVASCULAR: S1 and S2 present. No murmurs, rubs, or gallops. PULMONARY: Chest is clear to auscultation, no wheezing or crackles. ABDOMEN: Soft, nontender, nondistended, normoactive bowel sounds. No palpable organomegaly. MUSCULOSKELETAL: No joint swelling or deformity. EXTREMITIES: No cyanosis, clubbing, or pedal edema. NEUROLOGICAL: Gross neurological examination did not reveal any focal deficits. But does have significant generalized weakness SKIN: No rashes. 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 Patient has chronic hyponatremia patient sodium presently is 128. -Severe generalized deconditioning: PT or no to consultation -History of multiple sclerosis for which patient will undergo evaluation by neurology although my suspicion is low that patient has MS exacerbation patient was started on systemic steroids per neurology. -COPD without any acute exacerbation -Seizure disorder -Gastroesophageal reflux diseas
[2018-01-06 12:53] LABS: Glucose,Whole Blood 112 mg/dL (75-99)
[2018-01-06] MEDS: ACETAMINOPHEN TAB 325 MG TAB PO PRN ×2 (15:47→21:50)
[2018-01-06 17:07] LABS: Glucose,Whole Blood 165 mg/dL (75-99)
[2018-01-06] MEDS: DIVALPROEX ER 250 MG TAB.ER.24H PO SCH (20:22)
[2018-01-06 21:21] LABS: Glucose,Whole Blood 101 mg/dL (75-99)
[2018-01-07] MEDS: LORazepam 1 MG TAB PO PRN ×3 (00:28→21:25)
[2018-01-07] MEDS: SYMBICORT 160-4.5 MCG INHALER INHALATION SCH ×2 (07:48→19:41)
[2018-01-07 08:08] LABS: Glucose,Whole Blood 84 mg/dL (75-99)
[2018-01-07] MEDS: INSULIN ASPART 100 UNIT/ML 1 ML 10 ML VIAL SQ SCH ×4 (08:28→21:59)
[2018-01-07 08:31] LABS: Anion Gap 8 mmol/L; Blood Urea Nitrogen 11 mg/dL (7-17); Calcium 9.1 mg/dL (8.4-10.2); Carbon Dioxide 25 mmol/L (22-30); Chloride 91 mmol/L (98-107); Glucose 74 mg/dL (74-99); Potassium 4.2 mmol/L (3.5-5.1); Sodium 124 mmol/L (137-145)
[2018-01-07] MEDS: CHOLECALCIFEROL 1,000 UNIT TAB PO SCH (10:15)
[2018-01-07] MEDS: predniSONE 20 MG TAB PO SCH (10:16)
[2018-01-07] MEDS: POTASSIUM CHLORIDE ER 10 MEQ TAB.ER.PRT PO SCH (10:16)
[2018-01-07] MEDS: ESCITALOPRAM 20 MG TAB PO SCH (10:16)
[2018-01-07] MEDS: SODIUM CHLORIDE TAB 1 GM TAB PO SCH ×2 (10:16→21:25)
[2018-01-07] MEDS: MAGNESIUM OXIDE 400 MG TAB PO SCH (10:16)
[2018-01-07] MEDS: ACETAMINOPHEN TAB 325 MG TAB PO PRN (11:55)
--- NOTE | 2018-01-07 12:38 | PN ---
PROGRESS NOTE DATE OF SERVICE: 01/07/2018 This 52-year-old woman was admitted with generalized weakness also had significant hyponatremia also. The brain MRI showed stable changes. Neurology is following the patient closely. Sodium is 124. Nephrology is also being consulted. No chest pain. No palpitations. No fever. EXAM: Pulse 68, blood pressure 120/82, respirations 17, temperature 97.1, pulse ox 97% on room air. HEENT: Conjunctivae normal. NECK: No jugular venous distention. CARDIOVASCULAR: S1, S2. RESPIRATORY: Breath sounds diminished in the bases. No rhonchi, no crackles. ABDOMEN: Soft, nontender. LEGS: No edema. NERVOUS SYSTEM: Diffusely weak. LABS: Sodium 124, potassium 4.2. ASSESSMENT: 1. Generalized weakness and possibly hyponatremia. 2. Hypovolemic hyponatremia, rule out SIADH. 3. History of multiple sclerosis with no acute changes in the MRI. 4. Chronic obstructive pulmonary disease. 5. Seizure disorder. 6. Gastroesophageal reflux disease. 7. Gait dysfunction. 8. History of gastrointestinal bleed. 9. History of anxiety, bipolar, depression, schizophrenia. RECOMMENDATIONS AND DISCUSSION: In this 52-year-old woman who presented with multiple complex medical issues, will monitor the patient closely. Continue the current management and symptomatic treatment. I recommend follow the patient closely and repeat labs. I would also recommend PT, OT evaluation also. Nephrology evaluation noted. ECF rehab is also a possibility. The patient qualifies. Otherwise we will continue to monitor. Prognosis guarded because of multiple complex medical issues. Further recommendations to follow. MMODL / IJN: [id number] /
[2018-01-07 12:57] LABS: Glucose,Whole Blood 129 mg/dL (75-99)
[2018-01-07 17:23] LABS: Glucose,Whole Blood 139 mg/dL (75-99)
[2018-01-07] MEDS: Acetaminophen-Codeine 300-30mg TAB PO PRN (18:23)
[2018-01-07 20:40] LABS: Glucose,Whole Blood 142 mg/dL (75-99)
[2018-01-07] MEDS: DIVALPROEX ER 250 MG TAB.ER.24H PO SCH (21:25)
--- NOTE | 2018-01-08 02:17 | CONS ---
CONSULTATION DATE OF SERVICE: 01/07/2018. REASON FOR CONSULT: Hyponatremia. HISTORY OF PRESENT ILLNESS: The patient is a 52-year-old female who was admitted to the hospital on 01/02/2018 for low sodium. She has an underlying history of multiple sclerosis and developmental delay. Serum sodium was 125 on initial admission, on January 02. The patient was started on IV fluids. Next morning, her sodium was 131 and subsequently it started to drop to 129 and 128 and this morning it was down to 124 mEq/L. The patient was maintained on normal saline which was subsequently discontinued. Blood pressure had been slightly on the lower side with systolic in the 90s and patient was started on sodium chloride tabs yesterday. Mentation seems to be at baseline and review of previous labs did show a low sodium in October as well; however, the lowest reading was at 128 am. Currently, patient seems to be drinking large amounts of water and diet pop. PAST MEDICAL HISTORY: Significant for multiple sclerosis, seizure disorder, GI bleed, COPD, depression, schizophrenia, anxiety, bipolar disorder. SOCIAL HISTORY: Positive for smoking. No history of drug abuse or alcohol abuse. MEDICATIONS: Prior to admission include: 1. Sodium chloride tabs. 2. Potassium. 3. Depakote. 4. Magnesium. 5. Ativan. 6. Vitamin D3. 7. Lexapro. ALLERGIES: None. REVIEW OF SYSTEMS: As per HPI. Other systems negative. EXAMINATION: Patient is comfortable, awake. She is not in any acute distress. Blood pressure this morning 99/60, heart rate of 68 per minute. She is afebrile. Examination of the heart S1, S2. Examination lungs bilateral breath sounds are heard. Abdomen is soft, nontender. Examination of lower extremity shows no evidence of edema. TILESETTER exam shows patient is moving all 4 extremities. LABS: This morning, sodium 124, potassium 4.2, serum creatinine 0.5 mg/dL. ASSESSMENT: 1. Hyponatremia, possibly hypovolemic, initially improved with within normal saline. However, with continued saline, the serum sodium worsened significantly suggesting underlying component of low urine osmol. I will order urine osmolality. We will also check the cap cortisol level as blood pressure is on the lower side, along with TSH. The patient should be maintained on fluid restriction. I will continue with the sodium chloride tabs. We will repeat labs in a.m. We will repeat a serum sodium this evening. 2. Bipolar disorder. 3. History of multiple sclerosis. 4. Chronic obstructive pulmonary disease. PLAN: Maintain patient on fluid restriction. Continue with sodium chloride tabs. Follow up on the result of cortisol, TSH, and urine osmolality. Increase protein in her diet as well. Thank you for this consultation. We will continue to follow the patient with you during her hospitalization. MMODL / IJN: [id number] /
[2018-01-08 07:39] LABS: Glucose,Whole Blood 77 mg/dL (75-99)
[2018-01-08 07:50] LABS: Basophils % (A) 0 %; Eosinophils # (A) 0.1 k/uL (0-0.7); Eosinophils % (A) 1 %; HGB 12.2 gm/dL (11.4-16.0); Lymphocytes # (A) 2.6 k/uL (1.0-4.8); Lymphocytes % (A) 28 %; MCH 29.6 pg (25.0-35.0); MCV 89.9 fL (80.0-100.0); Mean Platelet Volume 6.3; Monocytes # (A) 0.5 k/uL (0-1.0); Monocytes % (A) 6 %; Neutrophils # (A) 5.9 k/uL (1.3-7.7); Neutrophils % (A) 64 %; Platelet Count 323 k/uL (150-450); RBC 4.12 m/uL (3.80-5.40); RDW 13.5 % (11.5-15.5); WBC 9.2 k/uL (3.8-10.6)
[2018-01-08] MEDS: INSULIN ASPART 100 UNIT/ML 1 ML 10 ML VIAL SQ SCH ×4 (08:15→21:47)
[2018-01-08 08:23] LABS: Anion Gap 7 mmol/L; Blood Urea Nitrogen 12 mg/dL (7-17); Calcium 9.3 mg/dL (8.4-10.2); Carbon Dioxide 28 mmol/L (22-30); Chloride 92 mmol/L (98-107); Glucose 75 mg/dL (74-99); Potassium 4.1 mmol/L (3.5-5.1); Sodium 127 mmol/L (137-145)
[2018-01-08] MEDS: SYMBICORT 160-4.5 MCG INHALER INHALATION SCH ×2 (08:56→19:22)
[2018-01-08] MEDS: SODIUM CHLORIDE TAB 1 GM TAB PO SCH ×2 (09:27→21:46)
[2018-01-08] MEDS: POTASSIUM CHLORIDE ER 10 MEQ TAB.ER.PRT PO SCH (09:27)
[2018-01-08] MEDS: predniSONE 20 MG TAB PO SCH (09:28)
[2018-01-08] MEDS: MAGNESIUM OXIDE 400 MG TAB PO SCH (09:28)
[2018-01-08] MEDS: ESCITALOPRAM 20 MG TAB PO SCH (09:28)
[2018-01-08] MEDS: Acetaminophen-Codeine 300-30mg TAB PO PRN ×2 (09:34→20:19)
[2018-01-08] MEDS: LORazepam 1 MG TAB PO PRN ×2 (09:34→21:46)
[2018-01-08 13:02] LABS: Glucose,Whole Blood 104 mg/dL (75-99)
--- NOTE | 2018-01-08 13:56 | P.PN ---
Subjective Progress Note Date: 01/08/18 Progress note being dictated for Dr. Lowe Interval history: Patient is admitted for dizziness secondary to intravascular depletion received IV fluids hyponatremia improved patient's hyponatremia is multifactorial #1 initial hypovolemic hyponatremia number to SIADH because of which I discontinued IV fluids patient the will need to be on salt tablets and fluid restriction. Patient had an MRI which did not show any new lesions regarding her Multiple sclerosis and optic or any systemic steroids but may require immunomodulators agents accommodation of which will be left to neurology. 01/05/2018 Patient was started on systemic steroids by neurology, patient's sodium remains stable at 129 continue with fluid restriction. 01/06/2018 Patient is on oral steroids now patient's sodium is 128 fairly stable will consult the nephrology for their opinion regarding hyponatremia 01/08/18 maintained on fluid restrictions, oral sodium chloride with sodium up to 127. Systolic blood pressure in the high 90s to 110s. Diet advanced to high protein as per nephrology. Gait dysfunction, one person assist.Evaluated by PT/ OT with subacute rehab recommended at discharge. Consumed 100% of lunch with no nausea vomiting or abdominal pain. Denies chest pain, palpitations. Afebrile. Objective - Vital Signs Vital signs: Vital Signs Temp 97.8 F 01/08/18 07:00 Pulse 59 L 01/08/18 07:00 Resp 16 01/08/18 07:00 BP 99/67 01/08/18 07:00 Pulse Ox 98 01/08/18 07:00 Intake & Output 01/07/18 01/08/18 01/08/18 18:59 06:59 18:59 Intake Total 480 Balance 480 Intake: Oral 480 Other: # Voids 3 1 # Bowel Movements 3 0 - Exam GENERAL: The patient is alert and oriented 2, slow to respond, no acute distress HEENT: Pupils are round and equally reacting to light. EOMI. No scleral icterus. No conjunctival pallor. Normocephalic, atraumatic. No pharyngeal erythema. No thyromegaly. CARDIOVASCULAR: S1 and S2 present. No murmurs, rubs, or gallops. PULMONARY: Chest is clear to auscultation, bilateral bases diminished, no rhonchi, wheezing or crackles. ABDOMEN: Soft, nontender, nondistended, normoactive bowel sounds. No palpable organomegaly. MUSCULOSKELETAL: No joint swelling or deformity. EXTREMITIES: No cyanosis, clubbing, or pedal edema. NEUROLOGICAL: Gross neurological examination did not reveal any focal deficits. But does have significant generalized weakness - Labs CBC & Chem 7: 01/08/18 07:29 01/08/18 07:29 Labs: Abnormal Lab Results - Last 24 Hours (Table) 01/07/18 01/07/18 01/07/18 Range/Units 17:09 19:44 20:35 Sodium 125 L (137-145) mmol/L Chloride (98-107) mmol/L POC Glucose (mg/dL) 139 H 142 H (75-99) mg/dL 01/08/18 01/08/18 Range/Units 07:29 12:45 Sodium 127 L (137-145) mmol/L Chloride 92 L (98-107) mmol/L POC Glucose (mg/dL) 104 H (75-99) mg/dL Assessment and Plan Assessment: -Generalized weakness, hyponatremia: Hypovolemic hyponatremia, rule out SIADH. -History of multiple sclerosis with no acute changes reported per MRI -COPD without any acute exacerbation -Seizure disorder -Gastroesophageal reflux diseas Plan: Continue on current medication regime ,monitoring and symptomatic treatment. Continue fluid restrictions, oral sodium. Close monitoring of sodium with repeat labs ordered in a.m. Discharge planning in progress for subacute rehab., tomorrow, pending nephrology clearance. The impression and plan of care has been dictated as directed. : I performed a history and examination of this patient, discussed the same with the dictator. I agree with the dictator's note ,documented as a scribe. Any additional findings or plans will be noted.
[2018-01-08 14:11] VITALS: BMI 21.5
[2018-01-08 17:01] LABS: Glucose,Whole Blood 147 mg/dL (75-99)
[2018-01-08 21:15] LABS: Glucose,Whole Blood 130 mg/dL (75-99)
[2018-01-08] MEDS: DIVALPROEX ER 250 MG TAB.ER.24H PO SCH (21:47)
--- NOTE | 2018-01-08 22:57 | PN ---
PROGRESS NOTE Patient is seen for followup for hyponatremia. Her sodium this morning was 127. Review of labs shows serum cortisol level to be only 1 suggesting underlying adrenal insufficiency. But this was drawn while pt was on prednisone. Therefore, it is inaccurately low. Blood pressure has been staying on the lower side as well. PHYSICAL EXAMINATION: Blood pressure was 99/67, heart rate 59 per minute. She is afebrile. Examination of the heart S1, S2. Examination of the lungs bilateral breath sounds are heard. Abdomen is soft, nontender. Examination of lower extremities shows no evidence of edema. SUPERVISOR ENGINE REPAIR exam is grossly intact. LAB: Show sodium 127, potassium 4.1, hemoglobin 12.2 g/dL. ASSESSMENT: 1. Hyponatremia with significantly low cortisol level suggesting possible underlying adrenal insufficiency. The patient is maintained on salt tablets, which I will continue. 2. Multiple sclerosis. 3. Chronic obstructive pulmonary disease with no exacerbation. 4. Seizure disorder. PLAN: Continue with salt tablets. Cortisol is low because of prednisone on board. MMODL / IJN: [id number] / [facility]
[2018-01-09 07:23] LABS: Glucose,Whole Blood 80 mg/dL (75-99)
[2018-01-09] MEDS: SYMBICORT 160-4.5 MCG INHALER INHALATION SCH ×2 (08:08→20:13)
[2018-01-09] MEDS: LORazepam 1 MG TAB PO PRN ×2 (08:10→21:18)
[2018-01-09] MEDS: INSULIN ASPART 100 UNIT/ML 1 ML 10 ML VIAL SQ SCH ×4 (08:10→21:18)
[2018-01-09] MEDS: CHOLECALCIFEROL 1,000 UNIT TAB PO SCH (08:10)
[2018-01-09] MEDS: MAGNESIUM OXIDE 400 MG TAB PO SCH (08:11)
[2018-01-09] MEDS: POTASSIUM CHLORIDE ER 10 MEQ TAB.ER.PRT PO SCH (08:11)
[2018-01-09] MEDS: ESCITALOPRAM 20 MG TAB PO SCH (08:11)
[2018-01-09] MEDS: predniSONE 20 MG TAB PO SCH (08:11)
[2018-01-09] MEDS: SODIUM CHLORIDE TAB 1 GM TAB PO SCH ×2 (08:11→21:18)
[2018-01-09 08:16] LABS: Basophils % (A) 0 %; Eosinophils # (A) 0.2 k/uL (0-0.7); Eosinophils % (A) 1 %; HGB 13.2 gm/dL (11.4-16.0); Lymphocytes % (A) 24 %; MCH 30.4 pg (25.0-35.0); MCV 91.9 fL (80.0-100.0); Monocytes # (A) 0.7 k/uL (0-1.0); Monocytes % (A) 5 %; Neutrophils # (A) 8.5 k/uL (1.3-7.7); Neutrophils % (A) 68 %; Platelet Count 314 k/uL (150-450); RBC 4.36 m/uL (3.80-5.40); RDW 13.4 % (11.5-15.5); WBC 12.5 k/uL (3.8-10.6)
[2018-01-09 08:43] LABS: Anion Gap 10 mmol/L; Blood Urea Nitrogen 17 mg/dL (7-17); Calcium 9.4 mg/dL (8.4-10.2); Carbon Dioxide 25 mmol/L (22-30); Chloride 94 mmol/L (98-107); Glucose 71 mg/dL (74-99); Potassium 4.4 mmol/L (3.5-5.1); Sodium 129 mmol/L (137-145)
--- NOTE | 2018-01-09 10:52 | P.DS ---
Providers Date of admission: 01/02/18 22:30 Expected date of discharge: 01/09/18 Attending physician: Ubrano Lowe Consults: 01/02/18 22:26 Consult Physician Routine Consulting Provider: Richie Bedoya Consult Reason/Comments: Disturbed gait; Dizziness; Possible MS exacerbation Do you want consulting provider notified?: Yes 01/06/18 10:36 Consult Physician Routine Consulting Provider: Cortney Dumont Consult Reason/Comments: hyponatremia Do you want consulting provider notified?: Yes Primary care physician: Shannan [place] Hospital Course: Final Diagnoses: -Generalized weakness, hyponatremia: Hypovolemic hyponatremia, rule out SIADH. POssible underlying adrenal insufficiency; inaccurate low cortisol level- drawn while patient on steroids. -History of multiple sclerosis with no acute changes reported per MRI. Stable ventricular prominence- possible mild to moderate hydrocephalus, further OP work up with neurology. -COPD without any acute exacerbation -Seizure disorder -Gastroesophageal reflux diseas Hospital Course:Patient is admitted for dizziness secondary to intravascular depletion received IV fluids hyponatremia improved patient's hyponatremia is multifactorial #1 initial hypovolemic hyponatremia number to SIADH because of which I discontinued IV fluids patient the will need to be on salt tablets and fluid restriction. Patient had an MRI which did not show any new lesions regarding her Multiple sclerosis and optic or any systemic steroids but may require immunomodulators agents accommodation of which will be left to neurology. 01/05/2018 Patient was started on systemic steroids by neurology, patient's sodium remains stable at 129 continue with fluid restriction. 01/06/2018 Patient is on oral steroids now patient's sodium is 128 fairly stable will consult the nephrology for their opinion regarding hyponatremia 01/08/18 maintained on fluid restrictions, oral sodium chloride with sodium up to 127. Systolic blood pressure in the high 90s to 110s. Diet advanced to high protein as per nephrology. Gait dysfunction, one person assist.Evaluated by PT/ OT with subacute rehab recommended at discharge. Consumed 100% of lunch with no nausea vomiting or abdominal pain. Denies chest pain, palpitations. Afebrile. Soium currently 129,Systolic blood pressure in the high 90s to 110s. Stable moderate nonspecific white matter changes, ventricular prominence- possible mild to moderate hydrocephalus, further OP work up with neurology.Significant clinical improvement. Per Neurology, CLeared by both nephrology and neurology for discharge.Patient is being discharged to [facility] acute rehab. in a stable condition with guarded prognosis. - Exam GENERAL: The patient is alert and oriented 2, no acute distress CARDIOVASCULAR: S1 and S2 present. No murmurs, rubs, or gallops. PULMONARY: Chest is clear to auscultation, bilateral bases diminished, no rhonchi, wheezing or crackles. ABDOMEN: Soft, nontender, nondistended, normoactive bowel sounds. No palpable organomegaly. NEUROLOGICAL: Gross neurological examination did not reveal any focal deficits. But does have significant generalized weakness The impression and plan of care has been dictated as directed. : I performed a history and examination of this patient, discussed the same with the dictator. I agree with the dictator's note ,documented as a scribe. Any additional findings or plans will be noted. Time taken: 35 min. Patient Condition at Discharge: Stable Plan - Discharge Summary Discharge Rx Participant: No New Discharge Prescriptions: New Acetaminophen Tab [Tylenol] 650 mg PO Q6HR PRN tab PRN Reason: Fever And/ Or Pain LORazepam [Ativan] 1 mg PO BID PRN #6 tab PRN Reason: Anxiety predniSONE 10 mg PO DIRECTED #21 tab Continue Magnesium Oxide [Mag-Ox] 400 mg PO DAILY Cholecalciferol [Vitamin D3] 5,000 unit PO MOWEFR Escitalopram Oxalate [Lexapro] 20 mg PO DAILY Divalproex ER [Depakote ER] 750 mg PO HS #30 tab.er.24h Sodium Chloride Tab 1 gm PO BID #20 tab Budesonide/Formoterol Fumarate [Symbicort 160-4.5 Mcg Inhaler] 2 puff INHALATION RT-BID fluPHENAZine DECANOATE [Prolixin Decanoate] 25 mg IM Q28D Potassium Chloride ER [K-Dur 10] 10 meq PO DAILY Discontinued LORazepam [Ativan] 1 mg PO BID Discharge Medication List Cholecalciferol [Vitamin D3] 5,000 unit PO MOWEFR 10/03/17 [History] Escitalopram Oxalate [Lexapro] 20 mg PO DAILY 10/03/17 [History] Magnesium Oxide [Mag-Ox] 400 mg PO DAILY 10/03/17 [History] Divalproex ER [Depakote ER] 750 mg PO HS #30 tab.er.24h 10/09/17 [Rx] Sodium Chloride Tab 1 gm PO BID #20 tab 10/09/17 [Rx] Budesonide/Formoterol Fumarate [Symbicort 160-4.5 Mcg Inhaler] 2 puff INHALATION RT-BID 01/02/18 [History] Potassium Chloride ER [K-Dur 10] 10 meq PO DAILY 01/02/18 [History] fluPHENAZine DECANOATE [Prolixin Decanoate] 25 mg IM Q28D 01/02/18 [History] Acetaminophen Tab [Tylenol] 650 mg PO Q6HR PRN tab 01/09/18 [Rx] LORazepam [Ativan] 1 mg PO BID PRN #6 tab 01/09/18 [Rx] predniSONE 10 mg PO DIRECTED #21 tab 01/09/18 [Rx] Follow up Appointment(s)/Referral(s): Richie Bedoya MD [STAFF PHYSICIAN] - 3 Weeks (Please call the office to set up follow up appt.) Shannan Montanez MD [Primary Care Provider] - 1 Week (after dc from ECF) Oswald Fonseca MD [STAFF PHYSICIAN] - 3 Days (while at [facility]) Ambulatory/Diagnostic Orders: Basic Metabolic Panel [LAB.AMB] Location: None Selected Patient Instructions/Handouts: Hyponatremia (DC) Activity/Diet/Wound Care/Special Instructions: Pending nephrology clearance/dc rec. Diet High Protein/Fluid restriction to 1200 cc/day Activity as tolerated, fall precautions. No smoker, cessation information provided. Discharge Disposition: TRANSFER TO SNF/ECF
[2018-01-09 12:28] LABS: Glucose,Whole Blood 177 mg/dL (75-99)
[2018-01-09 16:57] LABS: Glucose,Whole Blood 122 mg/dL (75-99)
[2018-01-09] MEDS: ACETAMINOPHEN TAB 325 MG TAB PO PRN (18:32)
[2018-01-09 20:54] LABS: Glucose,Whole Blood 157 mg/dL (75-99)
[2018-01-09] MEDS: DIVALPROEX ER 250 MG TAB.ER.24H PO SCH (21:18)
[2018-01-09 22:42] VITALS: RESP 17
[2018-01-10 06:09] VITALS: BP 123/80; PULSE 72; TEMP 96.1
[2018-01-10 07:24] LABS: Glucose,Whole Blood 85 mg/dL (75-99)
[2018-01-10] MEDS: SYMBICORT 160-4.5 MCG INHALER INHALATION SCH (07:26)
[2018-01-10] MEDS: INSULIN ASPART 100 UNIT/ML 1 ML 10 ML VIAL SQ SCH (07:49)
[2018-01-10 08:15] LABS: Anion Gap 9 mmol/L; Blood Urea Nitrogen 15 mg/dL (7-17); Calcium 9.3 mg/dL (8.4-10.2); Carbon Dioxide 25 mmol/L (22-30); Chloride 95 mmol/L (98-107); Glucose 76 mg/dL (74-99); Potassium 4.3 mmol/L (3.5-5.1); Sodium 129 mmol/L (137-145)
[2018-01-10 08:30] LABS: Basophils % (A) 0 %; Eosinophils % (A) 0 %; HCT 39.3 % (34.0-46.0); HGB 13.3 gm/dL (11.4-16.0); Lymphocytes % (A) 26 %; MCH 30.5 pg (25.0-35.0); MCHC 33.8 g/dL (31.0-37.0); MCV 90.2 fL (80.0-100.0); Mean Platelet Volume 6.5; Monocytes # (A) 0.5 k/uL (0-1.0); Monocytes % (A) 4 %; Neutrophils % (A) 69 %; Platelet Count 349 k/uL (150-450); RBC 4.36 m/uL (3.80-5.40); RDW 13.3 % (11.5-15.5); WBC 11.6 k/uL (3.8-10.6)
[2018-01-10] MEDS: ESCITALOPRAM 20 MG TAB PO SCH (09:03)
[2018-01-10] MEDS: MAGNESIUM OXIDE 400 MG TAB PO SCH (09:03)
[2018-01-10] MEDS: SODIUM CHLORIDE TAB 1 GM TAB PO SCH (09:03)
[2018-01-10] MEDS: POTASSIUM CHLORIDE ER 10 MEQ TAB.ER.PRT PO SCH (09:03)
[2018-01-10] MEDS: predniSONE 20 MG TAB PO SCH (09:03)
[2018-01-10] MEDS: LORazepam 1 MG TAB PO PRN (09:04)
--- NOTE | 2018-01-10 10:38 | P.PN ---
Subjective Progress Note Date: 01/09/18 Progress note being dictated for Dr. Lowe Interval history: Patient is admitted for dizziness secondary to intravascular depletion received IV fluids hyponatremia improved patient's hyponatremia is multifactorial #1 initial hypovolemic hyponatremia number to SIADH because of which I discontinued IV fluids patient the will need to be on salt tablets and fluid restriction. Patient had an MRI which did not show any new lesions regarding her Multiple sclerosis and optic or any systemic steroids but may require immunomodulators agents accommodation of which will be left to neurology. 01/05/2018 Patient was started on systemic steroids by neurology, patient's sodium remains stable at 129 continue with fluid restriction. 01/06/2018 Patient is on oral steroids now patient's sodium is 128 fairly stable will consult the nephrology for their opinion regarding hyponatremia 01/08/18 maintained on fluid restrictions, oral sodium chloride with sodium up to 127. Systolic blood pressure in the high 90s to 110s. Diet advanced to high protein as per nephrology. Gait dysfunction, one person assist.Evaluated by PT/ OT with subacute rehab recommended at discharge. Consumed 100% of lunch with no nausea vomiting or abdominal pain. Denies chest pain, palpitations. Afebrile. 01/09/18 Significant clinical improvement, Sodium 129. Good diet intake, no N/V. Denies chest pain, palpitations. No light headedness, no focal deficits. Awaiting authorization for sub acute rehab. Objective - Vital Signs Vital signs: Vital Signs Temp 96.1 F L 01/10/18 06:08 Pulse 72 01/10/18 06:08 Resp 17 01/10/18 06:08 BP 123/80 01/10/18 06:08 Pulse Ox 98 01/10/18 06:08 Intake & Output 01/09/18 01/10/18 01/10/18 18:59 06:59 18:59 Other: Voiding Method Bedside Commode Incontinent # Voids 1 2 01/09/19 T 96.8, HR 58,RR 16, BP 119/69, O2 Sat 94% on RA - Exam GENERAL: The patient is alert and oriented 2, no acute distress HEENT: Pupils are round and equally reacting to light. EOMI. No scleral icterus. No conjunctival pallor. Normocephalic, atraumatic. CARDIOVASCULAR: S1 and S2 present. No murmurs, rubs, or gallops. PULMONARY: Chest is clear to auscultation, bilateral bases diminished, no rhonchi, wheezing or crackles. ABDOMEN: Soft, nontender, nondistended, normoactive bowel sounds. No palpable organomegaly. MUSCULOSKELETAL: No joint swelling or deformity. EXTREMITIES: No cyanosis, clubbing, or pedal edema. NEUROLOGICAL: Gross neurological examination did not reveal any focal deficits. But does have significant generalized weakness - Labs CBC & Chem 7: 01/10/18 07:39 01/10/18 07:39 Labs: Abnormal Lab Results - Last 24 Hours (Table) 01/09/18 01/09/18 01/09/18 Range/Units 12:26 16:55 20:53 WBC (3.8-10.6) k/uL Neutrophils # (1.3-7.7) k/uL Sodium (137-145) mmol/L Chloride (98-107) mmol/L POC Glucose (mg/dL) 177 H 122 H 157 H (75-99) mg/dL 01/10/18 01/10/18 Range/Units 07:39 07:39 WBC 11.6 H (3.8-10.6) k/uL Neutrophils # 8.0 H (1.3-7.7) k/uL Sodium 129 L (137-145) mmol/L Chloride 95 L (98-107) mmol/L POC Glucose (mg/dL) (75-99) mg/dL Assessment and Plan Assessment: -Generalized weakness, hyponatremia: Hypovolemic hyponatremia, rule out SIADH. -History of multiple sclerosis with no acute changes reported per MRI -COPD without any acute exacerbation -Seizure disorder -Gastroesophageal reflux diseas Plan: Continue on current medication regime ,monitoring and symptomatic treatment. Maintain fluid restrictions, oral sodium tablets. Close monitoring of sodium with repeat labs ordered in a.m. Discharge planning in progress for subacute rehab., pending pre authorization. The impression and plan of care has been dictated as directed. : I performed a history and examination of this patient, discussed the same with the dictator. I agree with the dictator's note ,documented as a scribe. Any additional findings or plans will be noted.
[2018-01-10 12:17] LABS: Glucose,Whole Blood 119 mg/dL (75-99)
--- NOTE | 2018-01-10 18:35 | PN ---
PROGRESS NOTE The patient is seen for followup for hyponatremia which has improved with sodium chloride tablets. The patient is maintained on fluid restriction. Her sodium is up to 129. The workup was negative. The patient was on prednisone. Therefore, her cortisol was low, which was inaccurate. PHYSICAL EXAMINATION: On examination today, blood pressure was 123/80, heart rate is 72 per minute. She is afebrile. Examination of the heart: S1, S2. Examination of the lungs: Bilateral breath sounds are heard. Abdomen is soft, nontender. Examination lower extremity shows no evidence of edema. LEAF SORTER exam is grossly intact. LABS: Show serum sodium of 129 today, hemoglobin 13.3. ASSESSMENT: 1. Hypervolemic, hyponatremia initially initially improved with saline, however, subsequently, serum sodium had worsened. Therefore, saline was discontinued. She has underlying low urinary osmoles from decreased oral intake and the patient was started on sodium chloride tabs. Her sodium continues to improve. She is at 129. The patient is stable for discharge from Nephrology standpoint. 2. Bipolar disorder. 3. Hypokalemia, status post replacement. PLAN: Continue with sodium chloride tabs. Monitor sodium as outpatient. Patient is stable for discharge from Nephrology standpoint. MMODL / IJN: [id number] /
== END 2018-01-10 14:07 | DRG 645 ==
LOC: EC 18:22 → 4MS4W 22:30
PROVIDERS: ADMIT Internal Medicine; ATTEND Internal Medicine
DX: E22.2 Syndrome of inappropriate secretion of antidiuretic hormone (principal); E87.70 Fluid overload, unspecified; F20.9 Schizophrenia, unspecified; G35 Multiple sclerosis; E87.6 Hypokalemia; E86.1 Hypovolemia; J44.9 Chronic obstructive pulmonary disease, unspecified; G40.909 Epilepsy, unspecified, not intractable, without status epilepticus; H91.90 Unspecified hearing loss, unspecified ear; G43.909 Migraine, unspecified, not intractable, without status migrainosus; K21.9 Gastro-esophageal reflux disease without esophagitis; F41.9 Anxiety disorder, unspecified; R32 Unspecified urinary incontinence; F31.9 Bipolar disorder, unspecified; F89 Unspecified disorder of psychological development; R29.6 Repeated falls; F17.210 Nicotine dependence, cigarettes, uncomplicated; Z71.6 Tobacco abuse counseling; Z79.51 Long term (current) use of inhaled steroids; Z79.899 Other long term (current) drug therapy; Z87.11 Personal history of peptic ulcer disease; Z82.49 Family history of ischemic heart disease and other diseases of the circulatory system; Z81.8 Family history of other mental and behavioral disorders
CPT/HCPCS: 36415; 70553; 71046; 80048; 80053; 80164; 81001; 82533; 82550; 82553; 83036; 83930; 83935; 84295; 84300; 84443; 85025; 85610; 85730; 93005; 94640; 99284

== ENCOUNTER → 2018-02-07 | Outpatient (CLI) | payer OTHER ==
--- NOTE | 2018-02-07 17:33 | XR ---
EXAMINATION TYPE: XR humerus LT DATE OF EXAM: 02/07/2018 COMPARISON: NONE HISTORY: 52 year-old female left upper arm pain after fall one week ago TECHNIQUE: 2 views FINDINGS: No acute fracture is identified. The shoulder and elbow articulations appear grossly intact. IMPRESSION: No acute osseous abnormality seen.
== END | disposition home or self-care (01) ==
LOC: RADXRMAIN 13:09
PROVIDERS: ATTEND Internal Medicine
DX: M79.622 Pain in left upper arm (principal)

== ENCOUNTER → 2018-02-26 | Outpatient (CLI) | payer OTHER ==
[2018-02-26 15:10] LABS: Anion Gap 9 mmol/L; Blood Urea Nitrogen 10 mg/dL (7-17); Calcium 9.6 mg/dL (8.4-10.2); Carbon Dioxide 21 mmol/L (22-30); Chloride 105 mmol/L (98-107); Glucose 85 mg/dL (74-99); Potassium 4.6 mmol/L (3.5-5.1); Sodium 135 mmol/L (137-145)
== END | disposition home or self-care (01) ==
LOC: LABWHC1 13:19
PROVIDERS: ATTEND Physician Assistant Medical
DX: E87.1 Hypo-osmolality and hyponatremia (principal)
CPT/HCPCS: 36416; 80048

== ENCOUNTER 2019-04-04 11:51 | Inpatient (IN) | payer MEDICARE, OTHER ==
[2019-04-04] MEDS ORDERED: PANTOPRAZOLE 40 MG/10 ML VIAL IVP STA (12:21)
[2019-04-04] MEDS ORDERED: SODIUM CHLORIDE 0.9% 1,000 ML IV STA ×2 (12:21→13:51)
--- NOTE | 2019-04-04 12:28 | ED ---
General Adult HPI - General Chief complaint: GI Bleed Stated complaint: Vomiting blood Time Seen by Provider: 04/04/19 12:03 Source: family, RN notes reviewed Mode of arrival: wheelchair Limitations: no limitations - History of Present Illness Initial comments: Patient is a pleasant 53-year-old female presenting to the emergency department for an episode of vomiting blood. Emesis was black. Onset of symptoms was earlier this morning. Patient is less active than normal per care program resident. Patient does have history of ulcer. Patient has had some minimal vomiting the last couple of days however no blood was noticed. Patient has been less active than normal. Patient is less talkative. Patient does have history of schizophrenia as well as is deaf. Patient also has MS. Cloth Tearer states patient is somewhat more generally weak than normal. She is also noticed some blood in the urine. Patient has had some urinary incontinence however this has happened occasionally in the past related with her MS as well as her medications. Patient is not speaking much and history is provided by family/care program resident. Left small finger was caught in a door yesterday around 2 or 2:30. - Related Data Home Medications Medication Instructions Recorded Confirmed Cholecalciferol [Vitamin D3 (25 5,000 unit PO MOWEFR 10/03/17 01/02/18 Mcg = 1000 Iu)] Escitalopram Oxalate [Lexapro] 20 mg PO DAILY 10/03/17 01/02/18 Magnesium Oxide [Mag-Ox] 400 mg PO DAILY 10/03/17 01/02/18 Budesonide/Formoterol Fumarate 2 puff INHALATION RT-BID 01/02/18 01/02/18 [Symbicort 160-4.5 Mcg Inhaler] Potassium Chloride ER [K-Dur 10] 10 meq PO DAILY 01/02/18 01/02/18 fluPHENAZine DECANOATE [Prolixin 25 mg IM Q28D 01/02/18 01/02/18 Decanoate] Previous Rx's Medication Instructions Recorded Divalproex ER [Depakote ER] 750 mg PO HS #30 tab.er.24h 10/09/17 Sodium Chloride Tab 1 gm PO BID #20 tab 10/09/17 Acetaminophen Tab [Tylenol] 650 mg PO Q6HR PRN tab 01/09/18 LORazepam [Ativan] 1 mg PO BID PRN #6 tab 08/08/18 predniSONE 10 mg PO DIRECTED #21 tab 01/09/18 Allergies Allergy/AdvReac Type Severity Reaction Status Date / Time No Known Allergies Allergy Verified 04/04/19 12:00 Review of Systems ROS Statement: Those systems with pertinent positive or pertinent negative responses have been documented in the HPI. ROS Other: All systems not noted in ROS Statement are negative. Gastrointestinal: Reports: vomiting Genitourinary: Reports: as per HPI, hematuria Past Medical History Past Medical History: COPD, GERD/Reflux, GI Bleed, Seizure Disorder Additional Past Medical History / Comment(s): MS, hearing impaired, seizures when in her 30s, migraines, Upper GI bleed, peptic ulcer disease, developmentally delayed, hypotension History of Any Multi-Drug Resistant Organisms: None Reported Past Surgical History: Ear Surgery Additional Past Surgical History / Comment(s): cyst removed from coccyx, multiple bilateral ear surgeries. Past Anesthesia/Blood Transfusion Reactions: No Reported Reaction Past Psychological History: Anxiety, Bipolar, Depression, Schizophrenia Smoking Status: Current every day smoker Past Alcohol Use History: None Reported Past Drug Use History: None Reported - Past Family History Father Additional Family Medical History / Comment(s): Father at age 70 from myocardial infarction. Mother Additional Family Medical History / Comment(s): Patient's mother is alive at age 70. Patient does not know her medical history. Brother(s) Additional Family Medical History / Comment(s): Patient has 1 brother committed suicide at 48. Sister(s) Additional Family Medical History / Comment(s): Patient has 2 sisters with no major medical problems. General Exam Limitations: no limitations General appearance: alert, in no apparent distress Head exam: Present: normocephalic Eye exam: Present: normal appearance, PERRL ENT exam: Present: normal oropharynx Neck exam: Present: normal inspection Respiratory exam: Present: normal lung sounds bilaterally Cardiovascular Exam: Present: tachycardia GI/Abdominal exam: Present: soft. Absent: distended, tenderness Extremities exam: Present: normal inspection, other (Left small finger with laceration and swelling. Laceration approximate 1.5 cm.) Neurological exam: Present: alert. Absent: motor sensory deficit Expanded Motor strength exam: RUE: 5, LUE: 5, RLE: 5, LLE: 5 Psychiatric exam: Present: normal affect, normal mood Skin exam: Present: normal color Course Vital Signs 04/04/19 04/04/19 04/04/19 12:00 12:15 12:30 Temperature 97.9 F Pulse Rate 146 H 133 H Pulse Rate [ 131 H Lock Corner Machine Operator ] Respiratory 20 18 Rate Blood Pressure 85/77 106/88 106/88 O2 Sat by Pulse 99 Oximetry 04/04/19 04/04/19 13:00 13:30 Temperature Pulse Rate 128 H 125 H Pulse Rate [ Lock Corner Machine Operator ] Respiratory 15 16 Rate Blood Pressure 100/80 104/70 O2 Sat by Pulse Oximetry EKG Findings - EKG Comments: EKG Findings:: Sinus tachycardia 135. NJ 136. QRS 72. QT 294. QTC 441. Normal axis. Atrial enlargement. Normal QRS. No acute ST change. Medical Decision Making - Medical Decision Making Patient reevaluated. Heart rate has improved. Patient and family updated on results and plan. Dr. Lehman has been paged for admission. Secondary to injury occurring yesterday of the finger suturing will not be done at this time. Orthopedics will need to evaluate. Patient will be covered with antibiotics. - Lab Data Result diagrams: 04/04/19 12:30 04/04/19 12:30 Lab Results 04/04/19 04/04/19 04/04/19 Range/Units 12:30 12:30 12:30 WBC 18.2 H (3.8-10.6) k/uL RBC 4.35 (3.80-5.40) m/uL Hgb 13.4 (11.4-16.0) gm/dL Hct 38.8 (34.0-46.0) % MCV 89.3 (80.0-100.0) fL MCH 30.9 (25.0-35.0) pg MCHC 34.6 (31.0-37.0) g/dL RDW 12.9 (11.5-15.5) % Plt Count 750 H (150-450) k/uL Neutrophils % 91 % Lymphocytes % 2 % Monocytes % 4 % Eosinophils % 1 % Basophils % 2 % Neutrophils # 16.6 H (1.3-7.7) k/uL Lymphocytes # 0.3 L (1.0-4.8) k/uL Monocytes # 0.7 (0-1.0) k/uL Eosinophils # 0.2 (0-0.7) k/uL Basophils # 0.4 H (0-0.2) k/uL PT 11.0 (9.0-12.0) sec INR 1.0 (<1.2) APTT 22.8 (22.0-30.0) sec Sodium 129 L (137-145) mmol/L Potassium 3.6 (3.5-5.1) mmol/L Chloride 86 L (98-107) mmol/L Carbon Dioxide 30 (22-30) mmol/L Anion Gap 13 mmol/L BUN 17 (7-17) mg/dL Creatinine 0.66 (0.52-1.04) mg/dL Est GFR (CKD-EPI)AfAm >90 (>60 ml/min/1.73 sqM) Est GFR (CKD-EPI)NonAf >90 (>60 ml/min/1.73 sqM) Glucose 131 H (74-99) mg/dL Calcium 9.4 (8.4-10.2) mg/dL Total Bilirubin 0.7 (0.2-1.3) mg/dL AST 17 (14-36) U/L ALT 15 (9-52) U/L Alkaline Phosphatase 86 (38-126) U/L Total Protein 6.8 (6.3-8.2) g/dL Albumin 3.7 (3.5-5.0) g/dL Blood Type Blood Type Recheck Bld Type Recheck Status Antibody Screen Spec Expiration Date 04/04/19 Range/Units 12:30 WBC (3.8-10.6) k/uL RBC (3.80-5.40) m/uL Hgb (11.4-16.0) gm/dL Hct (34.0-46.0) % MCV (80.0-100.0) fL MCH (25.0-35.0) pg MCHC (31.0-37.0) g/dL RDW (11.5-15.5) % Plt Count (150-450) k/uL Neutrophils % % Lymphocytes % % Monocytes % % Eosinophils % % Basophils % % Neutrophils # (1.3-7.7) k/uL Lymphocytes # (1.0-4.8) k/uL Monocytes # (0-1.0) k/uL Eosinophils # (0-0.7) k/uL Basophils # (0-0.2) k/uL PT (9.0-12.0) sec INR (<1.2) APTT (22.0-30.0) sec Sodium (137-145) mmol/L Potassium (3.5-5.1) mmol/L Chloride (98-107) mmol/L Carbon Dioxide (22-30) mmol/L Anion Gap mmol/L BUN (7-17) mg/dL Creatinine (0.52-1.04) mg/dL Est GFR (CKD-EPI)AfAm (>60 ml/min/1.73 sqM) Est GFR (CKD-EPI)NonAf (>60 ml/min/1.73 sqM) Glucose (74-99) mg/dL Calcium (8.4-10.2) mg/dL Total Bilirubin (0.2-1.3) mg/dL AST (14-36) U/L ALT (9-52) U/L Alkaline Phosphatase (38-126) U/L Total Protein (6.3-8.2) g/dL Albumin (3.5-5.0) g/dL Blood Type A Positive Blood Type Recheck No Previous Record Bld Type Recheck Status CABO Indicated Antibody Screen POSITIVE Spec Expiration Date 04/07/2019 - 4449 - Radiology Data Radiology results: image reviewed (Chest x-ray shows no acute process. X-ray l eft hand does show fracture of the left distal phalanx.) Disposition Clinical Impression: Upper GI hemorrhage Disposition: ADMITTED IP TO THIS [facility] Condition: Serious Is patient prescribed a controlled substance at d/c from ED?: No Referrals: [facility] [Primary Care Provider] - 1-2 days Decision Time: 14:08
[2019-04-04 12:46] LABS: Basophils # (A) 0.4 k/uL (0-0.2); Basophils % (A) 2 %; Eosinophils # (A) 0.2 k/uL (0-0.7); Eosinophils % (A) 1 %; HCT 38.8 % (34.0-46.0); HGB 13.4 gm/dL (11.4-16.0); Lymphocytes # (A) 0.3 k/uL (1.0-4.8); Lymphocytes % (A) 2 %; MCH 30.9 pg (25.0-35.0); MCHC 34.6 g/dL (31.0-37.0); MCV 89.3 fL (80.0-100.0); Mean Platelet Volume 5.6; Monocytes # (A) 0.7 k/uL (0-1.0); Monocytes % (A) 4 %; Neutrophils # (A) 16.6 k/uL (1.3-7.7); Neutrophils % (A) 91 %; Platelet Count 750 k/uL (150-450); RBC 4.35 m/uL (3.80-5.40); RDW 12.9 % (11.5-15.5); WBC 18.2 k/uL (3.8-10.6)
--- NOTE | 2019-04-04 12:48 | XR ---
EXAMINATION TYPE: XR chest 2V DATE OF EXAM: 04/04/2019 COMPARISON: 01/21/2018 HISTORY: Weakness TECHNIQUE: Frontal and lateral views of the chest are obtained. FINDINGS: There is no focal air space opacity, pleural effusion, or pneumothorax seen. Pulmonary hyp erinflation and flattening of the diaphragms on the lateral view suggests underlying COPD. The cardia c silhouette size is within normal limits. The osseous structures are intact. Mild multilevel degen erative changes of the spine. IMPRESSION: No acute cardiopulmonary process. Findings suggesting underlying COPD, not prior.
--- NOTE | 2019-04-04 12:49 | XR ---
EXAMINATION TYPE: XR hand complete LT DATE OF EXAM: 04/04/2019 COMPARISON: NONE HISTORY: Pain TECHNIQUE: Three views are submitted. FINDINGS: There is a comminuted fracture with laceration distal margin distal phalanx fifth digit. Mild diffuse osteopenia. The joint spaces are preserved and there is no acute fracture or dislocation. Middle ph alanx fifth digit on the lateral view demonstrates a lucency through the volar plate. IMPRESSION: 1. Displaced fracture tuft distal phalanx fifth digit with soft tissue laceration. 2. There is a deformity along the volar plate of the middle phalanx fifth digit. Findings suggestive of a mildly displaced fracture.
[2019-04-04 12:53] LABS: Partial Thromboplastin Time 22.8 sec (22.0-30.0)
[2019-04-04 12:59] LABS: ALT 15 U/L (9-52); AST 17 U/L (14-36); African American GFR (CKD) >90 (>60 ml/min/1.73 sqM); Albumin 3.7 g/dL (3.5-5.0); Alkaline Phosphatase 86 U/L (38-126); Anion Gap 13 mmol/L; Blood Urea Nitrogen 17 mg/dL (7-17); Calcium 9.4 mg/dL (8.4-10.2); Carbon Dioxide 30 mmol/L (22-30); Chloride 86 mmol/L (98-107); Glucose 131 mg/dL (74-99); Sodium 129 mmol/L (137-145); Total Bilirubin 0.7 mg/dL (0.2-1.3); Total Protein 6.8 g/dL (6.3-8.2)
[2019-04-04 13:16] LABS: Potassium 3.6 mmol/L (3.5-5.1)
[2019-04-04] MEDS ORDERED: SODIUM CHLORIDE 0.9% 500 ML 500 ML IV STA (13:51)
[2019-04-04] MEDS ORDERED: NALOXONE 0.4 MG/ML 1 ML VIAL IV PRN (14:08)
[2019-04-04] MEDS ORDERED: DIPH,PERTUS(ACELL)TETVAC-LF 0.5 ML VIAL IM ONE (14:12)
[2019-04-04] MEDS ORDERED: SODIUM CHLORIDE 0.9% 1,000 ML IV SCH (14:15)
[2019-04-04] MEDS: PANTOPRAZOLE 40 MG/10 ML VIAL IV SCH (15:26)
[2019-04-04 15:34] LABS: Appearance,Urine Clear (Clear); Bilirubin,Urine Negative (Negative); Blood,Urine Negative (Negative); Color,Urine Yellow; Glucose,Urine (UA) Negative (Negative); Ketones,Urine 1+ (Negative); Leukocyte Esterase,Urine Negative (Negative); Nitrite,Urine Negative (Negative); Protein,Urine Trace (Negative); Specific Gravity,Urine 1.019 (1.001-1.035)
--- NOTE | 2019-04-04 16:51 | XR ---
EXAMINATION TYPE: XR abdomen 2V DATE OF EXAM: 04/04/2019 COMPARISON: None INDICATION: GI hemorrhage TECHNIQUE: Abdomen is examined in the upright and supine views. FINDINGS: There is a normal bowel gas pattern. No free air is evident. No suspicious differential air-fluid lev els are evident. No mass effect is evident. Psoas margins are normal. No organomegaly is present. IMPRESSION: 1. Unremarkable Abdomen
--- NOTE | 2019-04-04 18:00 | P.CNOR ---
History of Present Illness - [facility] Consult reason: fracture (Left fifth digit distal phalanx tuft fracture) History of present illness: Patient is a very pleasant female who is seen and examined at bedside for further evaluation of her left pinky finger. Patient states yesterday her gwen hernandez closed a door in which her finger got caught in a doorway. At that time she sustained an injury to her left pinky finger. She did not seek further evaluation at that time. She states she wrapped the finger up with a Band-Aid. She presented to the emergency department today after vomiting blood. While in the emergency department for evaluation, evaluation of her left pinky finger was also performed. X-rays of the left hand were taken which did show evidence of displaced tuft fracture at the distal phalanx of the fifth digit with soft tissue laceration. Consultation with orthopedics in place at that time. Patient does have a significant medical history which includes seizure disorder, multiple sclerosis, hearing impaired, and schizophrenia. Patient originally presented to the emergency bursa today with an episode of vomiting blood. The emesis was black. Multiple providers have been consulted including neurology, trauma, gastroenterology, and medicine. Past Medical History Past Medical History: COPD, GERD/Reflux, GI Bleed, Seizure Disorder Additional Past Medical History / Comment(s): MS, hearing impaired, seizures when in her 30s last 2yrs ago, migraines, Upper GI bleed, peptic ulcer disease, developmentally delayed, hypotension History of Any Multi-Drug Resistant Organisms: None Reported Past Surgical History: Ear Surgery Additional Past Surgical History / Comment(s): cyst removed from coccyx, multiple bilateral ear surgeries. Past Anesthesia/Blood Transfusion Reactions: No Reported Reaction Past Psychological History: Anxiety, Bipolar, Depression, Schizophrenia Additional Psychological History / Comment(s): Pt resides with her noemiMadelyn who is also her legal guardian. Pt lately has been ambulating with her walker all the time. She does not drive, Madelyn is her museum registrar and takes her to [employer] or they use a service for rides. She goes to [facility]. Smoking Status: Current every day smoker Past Alcohol Use History: None Reported Additional Past Alcohol Use History / Comment(s): Patient is a smoker of cigarettes 1 pack per day since she was 17 years of age. Past Drug Use History: None Reported Additional Drug Use History / Comment(s): Pt smokes marijuana on occasion. - Past Family History Father Additional Family Medical History / Comment(s): Father at age 70 from myocardial infarction. Mother Additional Family Medical History / Comment(s): Patient's mother is alive at age 70. Patient does not know her medical history. Brother(s) Additional Family Medical History / Comment(s): Patient has 1 brother committed suicide at 48. Sister(s) Additional Family Medical History / Comment(s): Patient has 2 sisters with no major medical problems. Medications and Allergies Home Medications Medication Instructions Recorded Confirmed Type Cholecalciferol [Vitamin D3 (25 5,000 unit PO MOWEFR 10/03/17 04/04/19 History Mcg = 1000 Iu)] Magnesium Oxide [Mag-Ox] 400 mg PO DAILY 10/03/17 04/04/19 History LORazepam [Ativan] 1 mg PO BID 04/04/19 04/04/19 History Mirtazapine [Remeron] 15 mg PO HS 04/04/19 04/04/19 History OLANZapine 20 mg PO HS 04/04/19 04/04/19 History Paliperidone [Paliperidone ER] 3 mg PO DAILY 04/04/19 04/04/19 History Allergies Allergy/AdvReac Type Severity Reaction Status Date / Time No Known Allergies Allergy Verified 04/04/19 14:50 Physical Examination Physical Exam: Patient is awake, alert, and oriented 3 Vital signs stable Good chest excursion with deep inspiration and expiration Dressing is removed over the left distal phalanx of the pinky finger Evidence of open wound over the padding of the distal phalanx of the pinky finger extending laterally towards the nail without extending into the nailbed Evidence of visible attched flap at the wound site Distal phalanx of the left finger remains neurovascularly intact while attached skin flap has some pallor Pain with palpation over the wound site of the left pinky distal phalanx No pain with palpation of the middle or proximal phalanx of the left pinky finger No active bleeding from the wound site of the left pinky finger Results Pertinent studies: X-rays of the left hand taken on 04/04/2019: Displaced tuft fracture at the distal phalanx of the fifth digit with soft tissue laceration; deformity along the volar plate of the middle phalanx fifth digit - Labs Labs: Abnormal Lab Results - Last 24 Hours (Table) 04/04/19 04/04/19 04/04/19 Range/Units 12:30 12:30 15:12 WBC 18.2 H (3.8-10.6) k/uL Plt Count 750 H (150-450) k/uL Neutrophils # 16.6 H (1.3-7.7) k/uL Lymphocytes # 0.3 L (1.0-4.8) k/uL Basophils # 0.4 H (0-0.2) k/uL Sodium 129 L (137-145) mmol/L Chloride 86 L (98-107) mmol/L Glucose 131 H (74-99) mg/dL Urine Protein Trace H (Negative) Urine Ketones 1+ H (Negative) H & H 04/04/19 Range/Units 12:30 Hgb 13.4 (11.4-16.0) gm/dL Hct 38.8 (34.0-46.0) % Coagulation 04/04/19 Range/Units 12:30 INR 1.0 (<1.2) Result Diagrams: 04/04/19 12:30 04/04/19 12:30 Assessment and Plan Assessment: Assessment: Displaced tuft fracture at the distal phalanx of the fifth digit Soft tissue laceration of the left fifth digit Left fifth digit finger pain Injury due to finger closed in door Hematemesis History of multiple sclerosis, seizure disorder, hearing loss and schizophrenia (1) Open fracture of distal phalangeal tuft with routine healing Current Visit: Yes Status: Acute Code(s): IJV6371 - SNOMED Code(s): 895273267 (2) Finger pain, left Current Visit: Yes Status: Acute Code(s): M79.645 - PAIN IN LEFT FINGER(S) SNOMED Code(s): 46239089 (3) Finger laceration Current Visit: Yes Status: Acute Code(s): S61.219A - LACERATION W/O FB OF UNSP FINGER W/O DAMAGE TO NAIL, INIT SNOMED Code(s): 658029662 (4) Hematemesis Current Visit: Yes Status: Acute Code(s): K92.0 - HEMATEMESIS SNOMED Code(s): 6762218 (5) History of schizophrenia Current Visit: Yes Status: Acute Code(s): Z86.59 - PERSONAL HISTORY OF OTHER MENTAL AND BEHAVIORAL DISORDERS SNOMED Code(s): 778805881 (6) History of multiple sclerosis Current Visit: Yes Status: Acute Code(s): Z86.69 - PERSONAL HISTORY OF DIS OF THE NERVOUS SYS AND SENSE ORGANS SNOMED Code(s): 759214545 (7) History of seizure disorder Current Visit: Yes Status: Acute Code(s): Z86.69 - PERSONAL HISTORY OF DIS OF THE NERVOUS SYS AND SENSE ORGANS SNOMED Code(s): 590303151 (8) Hearing loss Current Visit: Yes Status: Acute Code(s): H91.90 - UNSPECIFIED HEARING LOSS, UNSPECIFIED EAR SNOMED Code(s): 32986458 Plan: Plan: 1. Dressing was removed during physical examination and wound was irrigated with normal saline. Dressing was reapplied with Adaptic, 4 x 4's, and tape. Left pinky finger was anup taped to the left ring finger. Patient has been discussed in detail with Dr. Jeff Alfaro. We will plan for bedside digital block with irrigation and debridement and placement of suture for tomorrow, 04/05/2019. Dressing over the left pinky finger will remain clean, dry, and intact. We discussed avoiding excessive use of the left hand. We will continue to follow patient closely. 2. Patient will continue to be seen and examined by medicine other medical providers on consult for her other medical diagnoses Time with Patient: Greater than 30 (Including obtaining history, physical examination, reviewing of imaging, and dictation.)
[2019-04-04] MEDS ORDERED: LIDOCAINE 1% INJ 10MG/ML (20 ML MDV) SQ ONE (18:22)
[2019-04-04] MEDS: LORazepam 1 MG TAB PO SCH (20:03)
[2019-04-04] MEDS: OLANZapine 10 MG TAB PO SCH (20:03)
[2019-04-04] MEDS: MIRTAZAPINE 15 MG TAB PO SCH (20:03)
--- NOTE | 2019-04-04 20:41 | HP ---
HISTORY AND PHYSICAL CHIEF COMPLAINT: Upper GI bleed. HISTORY OF PRESENT ILLNESS: This lady's history is difficult to obtain because she is schizophrenic. She was brought to the emergency room because she was coughing up coffee-grounds emesis. The family gives a history that she has had ulcer disease in the past. She also apparently had her finger slammed in a door where she has a laceration to the left fifth finger. One x-ray revealed a fracture. Review of systems could not be obtained due to lack of cooperation and understanding. LABORATORY STUDIES: White count is 18,200, but her hemoglobin 13.4. PT and INR were normal. Platelet count was 750,000. Past medical history reveals that SHE IS NOT ALLERGIC TO ANY MEDICATION. MEDICATIONS: Her medications include: 1. Vitamin D. 2. Magnesium. 3. Ativan 1 mg b.i.d. 4. Mirtazapine 15 mg at bedtime. 5. Olanzapine 20 mg at bedtime. 6. Paliperidone 3 mg once a day. PHYSICAL EXAMINATION: Temperature 97.9 with a pulse of 146, blood pressure 85/77, respirations 20. In general, she appeared to be slightly tanned and somnolent. She did not answer questions readily. Head, ears, eyes, nose, mouth and throat were normal. Carotids were normal. Chest was clear to auscultation and percussion. Cardiac exam demonstrated sinus tachycardia. Abdomen was soft and nontender without any masses or visceromegaly. She complained of back pain, but there was no abnormality on back exam sitting in bed. Extremities were normal except for the left fifth finger which is dressed and has been seen by Orthopedics. Neurologically she seemed to be intact. IMPRESSION: 1. Upper gastrointestinal hemorrhage. 2. Crush injury to the end of the left fifth finger. 3. Schizophrenia. PLAN: 1. Bed rest. 2. IV fluids. 3. N.p.o. 4. Monitor vital signs and hemoglobin closely. 5. GI consult. 6. Continue her medication. 7. Orthopedic consult for the left fifth finger. MMODL / IJN: [id number] /
[2019-04-04 21:11] LABS: Basophils # (A) 0.1 k/uL (0-0.2); Basophils % (A) 1 %; Eosinophils % (A) 0 %; HCT 30.1 % (34.0-46.0); Lymphocytes # (A) 1.2 k/uL (1.0-4.8); Lymphocytes % (A) 10 %; MCH 31.4 pg (25.0-35.0); MCHC 34.6 g/dL (31.0-37.0); MCV 90.6 fL (80.0-100.0); Mean Platelet Volume 5.7; Monocytes # (A) 0.7 k/uL (0-1.0); Monocytes % (A) 6 %; Neutrophils # (A) 9.8 k/uL (1.3-7.7); Neutrophils % (A) 82 %; Platelet Count 586 k/uL (150-450); RBC 3.32 m/uL (3.80-5.40); RDW 13.1 % (11.5-15.5); WBC 11.9 k/uL (3.8-10.6)
[2019-04-04 21:12] LABS: HGB 10.4 gm/dL (11.4-16.0)
[2019-04-04] MEDS: SODIUM CHLORIDE 0.9% 1,000 ML IV SCH (22:22)
[2019-04-05] MEDS: SODIUM CHLORIDE 0.9% 1,000 ML IV SCH ×4 (03:03→20:20)
[2019-04-05 03:34] LABS: Basophils % (A) 1 %; Eosinophils # (A) 0.1 k/uL (0-0.7); Eosinophils % (A) 1 %; HCT 27.9 % (34.0-46.0); HGB 9.6 gm/dL (11.4-16.0); Lymphocytes # (A) 1.5 k/uL (1.0-4.8); Lymphocytes % (A) 16 %; MCHC 34.3 g/dL (31.0-37.0); MCV 90.4 fL (80.0-100.0); Mean Platelet Volume 5.2; Monocytes # (A) 0.5 k/uL (0-1.0); Monocytes % (A) 6 %; Neutrophils # (A) 6.9 k/uL (1.3-7.7); Neutrophils % (A) 75 %; Platelet Count 512 k/uL (150-450); RBC 3.08 m/uL (3.80-5.40); RDW 13.1 % (11.5-15.5); WBC 9.3 k/uL (3.8-10.6)
[2019-04-05 03:49] LABS: ALT 14 U/L (9-52); AST 12 U/L (14-36); African American GFR (CKD) >90 (>60 ml/min/1.73 sqM); Albumin 2.5 g/dL (3.5-5.0); Alkaline Phosphatase 58 U/L (38-126); Anion Gap 5 mmol/L; Blood Urea Nitrogen 10 mg/dL (7-17); Calcium 8.1 mg/dL (8.4-10.2); Carbon Dioxide 26 mmol/L (22-30); Chloride 99 mmol/L (98-107); Glucose 83 mg/dL (74-99); Potassium 3.3 mmol/L (3.5-5.1); Sodium 130 mmol/L (137-145); Total Bilirubin 0.5 mg/dL (0.2-1.3); Total Protein 4.9 g/dL (6.3-8.2)
[2019-04-05] MEDS: LORazepam 1 MG TAB PO SCH ×2 (09:38→20:20)
--- NOTE | 2019-04-05 10:19 | P.GSCN ---
History of Present Illness Consult date: 04/05/19 History of present illness: 53-year-old female presented to the emergency department by her family due to black-colored emesis. She lives with her daughter and grandson is noted to have multiple medical comorbidities including MS, schizophrenia and difficulty hearing. Her initial hemoglobin was noted to be 13. Incidentally, on her workup she was found to have an injury to the left pinky finger. She states that her hand was closed in door approximately 24 hours prior to arrival to the emergency department. She was not seeking medical attention for this. Curre ntly, the patient has not had any further emesis episodes. She has had a bowel movement that did not appear to have any bright red blood or dark blood. She denies abdominal pain at this time. GI consult and orthopedic consult has been placed. Review of Systems ROS unobtainable: due to mental status Past Medical History Past Medical History: COPD, GERD/Reflux, GI Bleed, Seizure Disorder Additional Past Medical History / Comment(s): MS, hearing impaired, seizures when in her 30s last 2yrs ago, migraines, Upper GI bleed, peptic ulcer disease, developmentally delayed, hypotension History of Any Multi-Drug Resistant Organisms: None Reported Past Surgical History: Ear Surgery Additional Past Surgical History / Comment(s): cyst removed from coccyx, multiple bilateral ear surgeries. Past Anesthesia/Blood Transfusion Reactions: No Reported Reaction Past Psychological History: Anxiety, Bipolar, Depression, Schizophrenia Additional Psychological History / Comment(s): Pt resides with her noemiMadelyn who is also her legal guardian. Pt lately has been ambulating with her walker all the time. She does not drive, Madelyn is her caterer helper and takes her to [employer] or they use a service for rides. She goes to [facility]. Smoking Status: Current every day smoker Past Alcohol Use History: None Reported Additional Past Alcohol Use History / Comment(s): Patient is a smoker of cigarettes 1 pack per day since she was 17 years of age. Past Drug Use History: None Reported Additional Drug Use History / Comment(s): Pt smokes marijuana on occasion. - Past Family History Father Additional Family Medical History / Comment(s): Father at age 70 from myocardial infarction. Mother Additional Family Medical History / Comment(s): Patient's mother is alive at age 70. Patient does not know her medical history. Brother(s) Additional Family Medical History / Comment(s): Patient has 1 brother committed suicide at 48. Sister(s) Additional Family Medical History / Comment(s): Patient has 2 sisters with no major medical problems. Medications and Allergies Home Medications Medication Instructions Recorded Confirmed Type Cholecalciferol [Vitamin D3 (25 5,000 unit PO MOWEFR 10/03/17 04/04/19 History Mcg = 1000 Iu)] Magnesium Oxide [Mag-Ox] 400 mg PO DAILY 10/03/17 04/04/19 History LORazepam [Ativan] 1 mg PO BID 04/04/19 04/04/19 History Mirtazapine [Remeron] 15 mg PO HS 04/04/19 04/04/19 History OLANZapine 20 mg PO HS 04/04/19 04/04/19 History Paliperidone [Paliperidone ER] 3 mg PO DAILY 04/04/19 04/04/19 History Allergies Allergy/AdvReac Type Severity Reaction Status Date / Time No Known Allergies Allergy Verified 04/04/19 14:50 Surgical - Exam Osteopathic Statement: *. No significant issues noted on an osteopathic struc tural exam other than those noted in the History and Physical/Consult. Vital Signs Temp Pulse Resp BP Pulse Ox 97.9 F 146 H 20 85/77 99 04/04/19 12:00 04/04/19 12:00 04/04/19 12:00 04/04/19 12:00 04/04/19 12:00 - General no distress - Eyes PERRL - ENT decreased hearing - Neck trachea midline - Respiratory No difficulty with respiration - Abdomen Soft, nontender, nondistended, no rebound, no guarding - Integumentary Open wound over the padding of the distal phalanx of the pinky finger extending laterally Results - Labs 04/05/19 03:08 04/05/19 03:08 Abnormal Lab Results - Last 24 Hours (Table) 04/04/19 04/04/19 04/04/19 Range/Units 12:30 12:30 12:30 WBC 18.2 H (3.8-10.6) k/uL RBC (3.80-5.40) m/uL Hgb (11.4-16.0) gm/dL Hct (34.0-46.0) % Plt Count 750 H (150-450) k/uL Neutrophils # 16.6 H (1.3-7.7) k/uL Lymphocytes # 0.3 L (1.0-4.8) k/uL Basophils # 0.4 H (0-0.2) k/uL Sodium 129 L (137-145) mmol/L Potassium (3.5-5.1) mmol/L Chloride 86 L (98-107) mmol/L Creatinine (0.52-1.04) mg/dL Glucose 131 H (74-99) mg/dL Plasma Lactic Acid David 2.7 H* (0.7-2.0) mmol/L Calcium (8.4-10.2) mg/dL AST (14-36) U/L Total Protein (6.3-8.2) g/dL Albumin (3.5-5.0) g/dL Urine Protein (Negative) Urine Ketones (Negative) 04/04/19 04/04/19 04/05/19 Range/Units 15:12 19:39 03:08 WBC 11.9 H (3.8-10.6) k/uL RBC 3.32 L 3.08 L (3.80-5.40) m/uL Hgb 10.4 L D 9.6 L (11.4-16.0) gm/dL Hct 30.1 L 27.9 L (34.0-46.0) % Plt Count 586 H 512 H (150-450) k/uL Neutrophils # 9.8 H (1.3-7.7) k/uL Lymphocytes # (1.0-4.8) k/uL Basophils # (0-0.2) k/uL Sodium (137-145) mmol/L Potassium (3.5-5.1) mmol/L Chloride (98-107) mmol/L Creatinine (0.52-1.04) mg/dL Glucose (74-99) mg/dL Plasma Lactic Acid David (0.7-2.0) mmol/L Calcium (8.4-10.2) mg/dL AST (14-36) U/L Total Protein (6.3-8.2) g/dL Albumin (3.5-5.0) g/dL Urine Protein Trace H (Negative) Urine Ketones 1+ H (Negative) 04/05/19 Range/Units 03:08 WBC (3.8-10.6) k/uL RBC (3.80-5.40) m/uL Hgb (11.4-16.0) gm/dL Hct (34.0-46.0) % Plt Count (150-450) k/uL Neutrophils # (1.3-7.7) k/uL Lymphocytes # (1.0-4.8) k/uL Basophils # (0-0.2) k/uL Sodium 130 L (137-145) mmol/L Potassium 3.3 L (3.5-5.1) mmol/L Chloride (98-107) mmol/L Creatinine 0.51 L (0.52-1.04) mg/dL Glucose (74-99) mg/dL Plasma Lactic Acid David (0.7-2.0) mmol/L Calcium 8.1 L (8.4-10.2) mg/dL AST 12 L (14-36) U/L Total Protein 4.9 L (6.3-8.2) g/dL Albumin 2.5 L (3.5-5.0) g/dL Urine Protein (Negative) Urine Ketones (Negative) Diabetes panel 04/04/19 04/05/19 Range/Units 12:30 03:08 Sodium 129 L 130 L (137-145) mmol/L Potassium 3.6 3.3 L (3.5-5.1) mmol/L Chloride 86 L 99 (98-107) mmol/L Carbon Dioxide 30 26 (22-30) mmol/L BUN 17 10 (7-17) mg/dL Creatinine 0.66 0.51 L (0.52-1.04) mg/dL Glucose 131 H 83 (74-99) mg/dL Calcium 9.4 8.1 L (8.4-10.2) mg/dL AST 17 12 L (14-36) U/L ALT 15 14 (9-52) U/L Alkaline Phosphatase 86 58 (38-126) U/L Total Protein 6.8 4.9 L (6.3-8.2) g/dL Albumin 3.7 2.5 L (3.5-5.0) g/dL Calcium panel 04/04/19 04/05/19 Range/Units 12:30 03:08 Calcium 9.4 8.1 L (8.4-10.2) mg/dL Albumin 3.7 2.5 L (3.5-5.0) g/dL Pituitary panel 04/04/19 04/05/19 Range/Units 12:30 03:08 Sodium 129 L 130 L (137-145) mmol/L Potassium 3.6 3.3 L (3.5-5.1) mmol/L Chloride 86 L 99 (98-107) mmol/L Carbon Dioxide 30 26 (22-30) mmol/L BUN 17 10 (7-17) mg/dL Creatinine 0.66 0.51 L (0.52-1.04) mg/dL Glucose 131 H 83 (74-99) mg/dL Calcium 9.4 8.1 L (8.4-10.2) mg/dL Adrenal panel 04/04/19 04/05/19 Range/Units 12:30 03:08 Sodium 129 L 130 L (137-145) mmol/L Potassium 3.6 3.3 L (3.5-5.1) mmol/L Chloride 86 L 99 (98-107) mmol/L Carbon Dioxide 30 26 (22-30) mmol/L BUN 17 10 (7-17) mg/dL Creatinine 0.66 0.51 L (0.52-1.04) mg/dL Glucose 131 H 83 (74-99) mg/dL Calcium 9.4 8.1 L (8.4-10.2) mg/dL Total Bilirubin 0.7 0.5 (0.2-1.3) mg/dL AST 17 12 L (14-36) U/L ALT 15 14 (9-52) U/L Alkaline Phosphatase 86 58 (38-126) U/L Total Protein 6.8 4.9 L (6.3-8.2) g/dL Albumin 3.7 2.5 L (3.5-5.0) g/dL Assessment and Plan (1) Upper GI hemorrhage Narrative/Plan: GI evaluation is tending for possible endoscopy. We will continue to monitor hemoglobin has has been a decrease of hemoglobin from 13 down to 9. Currently, there does not appear to be an active GI bleed. We'll also continue to monitor vital signs for signs of any hemorrhagic shock. Current Visit: Yes Status: Acute Code(s): K92.2 - GASTROINTESTINAL HEMORRHAGE, UNSPECIFIED SNOMED Code(s): 62563287 (2) Finger laceration Narrative/Plan: Incidental finding of finger laceration. Orthopedic consultation has been placed with plan for digital block and suture at bedside today. Current Visit: Yes Status: Acute Code(s): S61.219A - LACERATION W/O FB OF UNSP FINGER W/O DAMAGE TO NAIL, INIT SNOMED Code(s): 033256471
--- NOTE | 2019-04-05 12:11 | P.CNOR ---
History of Present Illness - [facility] Consult date: 04/05/19 Consult reason: other History of present illness: Left small finger distal tuft open fracture that happened 2 days ago when her finger slammed in a door Patient has been admitted in regards to upper GI bleed Review of Systems Patient is very hard of hearing and has history of mental illness. She is cooperative during the exam and in no acute distress in regards to her hand and fingers. Her daughter is with her bedside as is her sister. Apparently she never had any problems with her hands in the past. It had slammed the door and she had other issues with her upper GI bleed and presented and we're counseled in regard to her finger Past Medical History Past Medical History: COPD, GERD/Reflux, GI Bleed, Seizure Disorder Additional Past Medical History / Comment(s): MS, hearing impaired, seizures when in her 30s last 2yrs ago, migraines, Upper GI bleed, peptic ulcer disease, developmentally delayed, hypotension History of Any Multi-Drug Resistant Organisms: None Reported Past Surgical History: Ear Surgery Additional Past Surgical History / Comment(s): cyst removed from coccyx, multiple bilateral ear surgeries. Past Anesthesia/Blood Transfusion Reactions: No Reported Reaction Past Psychological History: Anxiety, Bipolar, Depression, Schizophrenia Additional Psychological History / Comment(s): Pt resides with her noemiMadelyn who is also her legal guardian. Pt lately has been ambulating with her walker all the time. She does not drive, Madelyn is her heel edge inker machine and takes her to appts or they use a service for rides. She goes to [facility]. Smoking Status: Current every day smoker Past Alcohol Use History: None Reported Additional Past Alcohol Use History / Comment(s): Patient is a smoker of cigarettes 1 pack per day since she was 17 years of age. Past Drug Use History: None Reported Additional Drug Use History / Comment(s): Pt smokes marijuana on occasion. - Past Family History Father Additional Family Medical History / Comment(s): Father at age 70 from myoca rdial infarction. Mother Additional Family Medical History / Comment(s): Patient's mother is alive at age 70. Patient does not know her medical history. Brother(s) Additional Family Medical History / Comment(s): Patient has 1 brother committed suicide at 48. Sister(s) Additional Family Medical History / Comment(s): Patient has 2 sisters with no major medical problems. Medications and Allergies Home Medications Medication Instructions Recorded Confirmed Type Cholecalciferol [Vitamin D3 (25 5,000 unit PO MOWEFR 10/03/17 04/04/19 History Mcg = 1000 Iu)] Magnesium Oxide [Mag-Ox] 400 mg PO DAILY 10/03/17 04/04/19 History LORazepam [Ativan] 1 mg PO BID 04/04/19 04/04/19 History Mirtazapine [Remeron] 15 mg PO HS 04/04/19 04/04/19 History OLANZapine 20 mg PO HS 04/04/19 04/04/19 History Paliperidone [Paliperidone ER] 3 mg PO DAILY 04/04/19 04/04/19 History Allergies Allergy/AdvReac Type Severity Reaction Status Date / Time No Known Allergies Allergy Verified 04/04/19 14:50 Physical Examination Osteopathic Statement: *. No significant issues noted on an osteopathic structural exam other than those noted in the History and Physical/Consult. Results X-rays of her left hand and finger reviewed that shows a distal tuft fracture or soft tissue injury there is no involvement in the joint at the DIP. - Labs Labs: Abnormal Lab Results - Last 24 Hours (Table) 04/04/19 04/04/19 04/04/19 Range/Units 12:30 12:30 12:30 WBC 18.2 H (3.8-10.6) k/uL RBC (3.80-5.40) m/uL Hgb (11.4-16.0) gm/dL Hct (34.0-46.0) % Plt Count 750 H (150-450) k/uL Neutrophils # 16.6 H (1.3-7.7) k/uL Lymphocytes # 0.3 L (1.0-4.8) k/uL Basophils # 0.4 H (0-0.2) k/uL Sodium 129 L (137-145) mmol/L Potassium (3.5-5.1) mmol/L Chloride 86 L (98-107) mmol/L Creatinine (0.52-1.04) mg/dL Glucose 131 H (74-99) mg/dL Plasma Lactic Acid David 2.7 H* (0.7-2.0) mmol/L Calcium (8.4-10.2) mg/dL AST (14-36) U/L Total Protein (6.3-8.2) g/dL Albumin (3.5-5.0) g/dL Urine Protein (Negative) Urine Ketones (Negative) 04/04/19 04/04/19 04/05/19 Range/Units 15:12 19:39 03:08 WBC 11.9 H (3.8-10.6) k/uL RBC 3.32 L 3.08 L (3.80-5.40) m/uL Hgb 10.4 L D 9.6 L (11.4-16.0) gm/dL Hct 30.1 L 27.9 L (34.0-46.0) % Plt Count 586 H 512 H (150-450) k/uL Neutrophils # 9.8 H (1.3-7.7) k/uL Lymphocytes # (1.0-4.8) k/uL Basophils # (0-0.2) k/uL Sodium (137-145) mmol/L Potassium (3.5-5.1) mmol/L Chloride (98-107) mmol/L Creatinine (0.52-1.04) mg/dL Glucose (74-99) mg/dL Plasma Lactic Acid David (0.7-2.0) mmol/L Calcium (8.4-10.2) mg/dL AST (14-36) U/L Total Protein (6.3-8.2) g/dL Albumin (3.5-5.0) g/dL Urine Protein Trace H (Negative) Urine Ketones 1+ H (Negative) 04/05/19 Range/Units 03:08 WBC (3.8-10.6) k/uL RBC (3.80-5.40) m/uL Hgb (11.4-16.0) gm/dL Hct (34.0-46.0) % Plt Count (150-450) k/uL Neutrophils # (1.3-7.7) k/uL Lymphocytes # (1.0-4.8) k/uL Basophils # (0-0.2) k/uL Sodium 130 L (137-145) mmol/L Potassium 3.3 L (3.5-5.1) mmol/L Chloride (98-107) mmol/L Creatinine 0.51 L (0.52-1.04) mg/dL Glucose (74-99) mg/dL Plasma Lactic Acid David (0.7-2.0) mmol/L Calcium 8.1 L (8.4-10.2) mg/dL AST 12 L (14-36) U/L Total Protein 4.9 L (6.3-8.2) g/dL Albumin 2.5 L (3.5-5.0) g/dL Urine Protein (Negative) Urine Ketones (Negative) H & H 04/04/19 04/04/19 04/05/19 Range/Units 12:30 19:39 03:08 Hgb 13.4 10.4 L D 9.6 L (11.4-16.0) gm/dL Hct 38.8 30.1 L 27.9 L (34.0-46.0) % Coagulation 04/04/19 Range/Units 12:30 INR 1.0 (<1.2) Result Diagrams: 04/05/19 03:08 04/05/19 03:08 Assessment and Plan Assessment: Distal tuff left small finger open fracture 2 days out. Upper GI bleed Plan: The patient has been receiving local wound care regards to her distal soft small finger fracture. There is a decent sized base at the soft tissue defect volarly and there appears to be adequate blood supply to allow the soft tissue heal adequately. It does not involve significant portion of the nailbed and the nail is intact. There is a margin of approximately 3 mm along the radial aspect of the injury that is pale with limited blood supply. There seems be adequate soft tissue underneath that area to allow healing. The flap itself has a decent base and does not appear to be overly loose. I think that this can continue to heal appropriately with expectant and conservative management with local wound care. I do not think it would place new stitches in the area today as it seems to be adhering adequately in reasonable approximation. There is no bony exposure and the soft tissue envelope should maintain adequate coverage as this continues to heal. It will likely take several weeks or even months for it to heal fully. The patient is a smoker and I tried to explain them that she does have increased risk because of her smoking. At this point I do not plan a specific revision amputation or alternate wound coverage. She should continue with local wound care with nonadherent dressing or antibiotic ointment and dressing. We will obtain a stack splint for her for some protection for her small finger as this continues to heal. I will place new stack splint on her finger tomorrow and then it'll be okay for her to be followed up from orthopedic standpoint on an outpatient basis.
[2019-04-05] MEDS: PANTOPRAZOLE 40 MG/10 ML VIAL IV SCH (12:29)
[2019-04-05] MEDS: PALIPERIDONE 3 MG TAB.ER.24 PO SCH (12:35)
[2019-04-05 12:43] VITALS: BMI 18.5
--- NOTE | 2019-04-05 15:56 | PN ---
PROGRESS NOTE CHIEF COMPLAINT: GI bleed and cirrhosis. HISTORY OF PRESENT ILLNESS: This lady seems to be doing fairly well. She seems a little bit more alert. There has been no further evidence of any hematemesis. PHYSICAL EXAMINATION: Chest is clear. Cardiac exam is normal. Abdomen is soft and nontender. Hematoma in the back of scalp seems to be going down. IMPRESSION: 1. Upper gastrointestinal hemorrhage. 2. Cirrhosis. 3. Occipital hematoma along with multiple other contusions and ecchymoses. PLAN: Continue to progress activity and follow labs. Assuming that nothing further will be required while she is in the hospital, she probably will be able to go home the first of the week. MMODL / IJN: [id number] /
--- NOTE | 2019-04-05 16:35 | PN ---
PROGRESS NOTE CHIEF COMPLAINT: Upper GI hemorrhage. HISTORY OF PRESENT ILLNESS: This lady seems to be stable and there has been no more reported vomiting, hematemesis, or melena. REVIEW OF SYSTEMS: She is not being communicative today. PHYSICAL EXAM: Chest is clear. Cardiac exam is normal. Abdomen is soft, nontender. IMPRESSION: 1. Upper gastrointestinal bleed. 2. Schizophrenia. PLAN: 1. Repeat labs. 2. She is being followed by Gastroenterology as well. MMODL / IJN: [id number] /
--- NOTE | 2019-04-05 17:03 | P.HP ---
Psychiatric H&P - . H&P Date: 04/05/19 History & Physical: Allergies Allergy/AdvReac Type Severity Reaction Status Date / Time No Known Allergies Allergy Verified 04/04/19 14:50 Vital Signs Temp 98.2 F 04/05/19 02:46 Pulse 107 H 04/05/19 12:00 Resp 19 04/05/19 12:00 BP 124/78 04/05/19 12:00 Pulse Ox 99 04/05/19 12:00 Intake & Output 04/04/19 04/05/19 04/05/19 18:59 06:59 18:59 Intake Total 1500 Output Total 25 1600 Balance -25 -100 Weight 52.163 kg 47.5 kg 47.5 kg Intake: Intake, IV Titration 1500 Amount Sodium Chloride 0.9% 1, 1500 000 ml @ 150 mls/hr IV . Q6H40M [facility] Rx#:[id number] Output: Urine 25 1600 Straight 25 800 Other: # Voids 0 Laboratory Last Values WBC 9.3 k/uL (3.8-10.6) 04/05/19 03:08 RBC 3.08 m/uL (3.80-5.40) L 04/05/19 03:08 Hgb 9.6 gm/dL (11.4-16.0) L 04/05/19 03:08 Hct 27.9 % (34.0-46.0) L 04/05/19 03:08 MCV 90.4 fL (80.0-100.0) 04/05/19 03:08 MCH 31.0 pg (25.0-35.0) 04/05/19 03:08 MCHC 34.3 g/dL (31.0-37.0) 04/05/19 03:08 RDW 13.1 % (11.5-15.5) 04/05/19 03:08 Plt Count 512 k/uL (150-450) H 04/05/19 03:08 Neutrophils % 75 % 04/05/19 03:08 Lymphocytes % 16 % 04/05/19 03:08 Monocytes % 6 % 04/05/19 03:08 Eosinophils % 1 % 04/05/19 03:08 Basophils % 1 % 04/05/19 03:08 Neutrophils # 6.9 k/uL (1.3-7.7) 04/05/19 03:08 Lymphocytes # 1.5 k/uL (1.0-4.8) 04/05/19 03:08 Monocytes # 0.5 k/uL (0-1.0) 04/05/19 03:08 Eosinophils # 0.1 k/uL (0-0.7) 04/05/19 03:08 Basophils # 0.0 k/uL (0-0.2) 04/05/19 03:08 PT 11.0 sec (9.0-12.0) 04/04/19 12:30 INR 1.0 (<1.2) 04/04/19 12:30 APTT 22.8 sec (22.0-30.0) 04/04/19 12:30 Sodium 130 mmol/L (137-145) L 04/05/19 03:08 Potassium 3.3 mmol/L (3.5-5.1) L 04/05/19 03:08 Chloride 99 mmol/L (98-107) 04/05/19 03:08 Carbon Dioxide 26 mmol/L (22-30) 04/05/19 03:08 Anion Gap 5 mmol/L 04/05/19 03:08 BUN 10 mg/dL (7-17) 04/05/19 03:08 Creatinine 0.51 mg/dL (0.52-1.04) L 04/05/19 03:08 Est GFR (CKD-EPI)AfAm >90 (>60 ml/min/1.73 sqM) 04/05/19 03:08 Est GFR (CKD-EPI)NonAf >90 (>60 ml/min/1.73 sqM) 04/05/19 03:08 Glucose 83 mg/dL (74-99) 04/05/19 03:08 Lactic Ac Sepsis Rflx Y 04/04/19 20:23 Plasma Lactic Acid David 0.8 mmol/L (0.7-2.0) 04/05/19 03:08 Calcium 8.1 mg/dL (8.4-10.2) L 04/05/19 03:08 Total Bilirubin 0.5 mg/dL (0.2-1.3) 04/05/19 03:08 AST 12 U/L (14-36) L 04/05/19 03:08 ALT 14 U/L (9-52) 04/05/19 03:08 Alkaline Phosphatase 58 U/L (38-126) 04/05/19 03:08 Total Protein 4.9 g/dL (6.3-8.2) L 04/05/19 03:08 Albumin 2.5 g/dL (3.5-5.0) L 04/05/19 03:08 Urine Color Yellow 04/04/19 15:12 Urine Appearance Clear (Clear) 04/04/19 15:12 Urine pH 8.0 (5.0-8.0) 04/04/19 15:12 Ur Specific [place] 1.019 (1.001-1.035) 04/04/19 15:12 Urine Protein Trace (Negative) H 04/04/19 15:12 Urine Glucose (UA) Negative (Negative) 04/04/19 15:12 Urine Ketones 1+ (Negative) H 04/04/19 15:12 Urine Blood Negative (Negative) 04/04/19 15:12 Urine Nitrite Negative (Negative) 04/04/19 15:12 Urine Bilirubin Negative (Negative) 04/04/19 15:12 Urine Urobilinogen 8.0 mg/dL (<2.0) 04/04/19 15:12 Ur Leukocyte Esterase Negative (Negative) 04/04/19 15:12 Blood Type A Positive 04/04/19 15:06 Blood Type Confirm A Positive 04/04/19 12:25 Blood Type Recheck A Pos 04/04/19 15:06 Bld Type Recheck Status No 04/04/19 15:06 Antibody Screen POSITIVE 04/04/19 15:06 Antibody Identification Anti-K 04/04/19 15:06 Direct Antiglob Test Negative 04/04/19 15:06 Spec Expiration Date 04/07/2019230504/04/19 15:06 04/05/19 17:01 Chief complaint My daughter brought me to the hospital, because I was throwing up blood. History of presenting illness Patient is deaf and is unable to answer questions due to not being able to hear well. Most of the information was obtained through written questions. Reportedly her daughter Madelyn ([phone]) is her guardian. Miss Joshi was contacted and left her voice mail to call back to get collateral information. Miss Joshi called back. Per Miss Joshi her mother has been living with her for the past four years. She says her mother was diagnosed with Schizophrenia in 1997 and has been hospitalized three times and her last admission was an year ago. She also stated her mother follows up with Dr. Vigil at [facility] who is presc ribing her remreon 15mg po qhs, zyprexa 20mg po qhs and says invega was added two months ago as her mother has been having sporadic episodes ove r the past one year where she becomes irate, angry, yelling, accusing her and her family of poisoning her. She says her mother will be perfectly fine one day and next she will be yelling and angry. Patient reports being diagnosed with Schizophrenia an year ago and claims ot have been taking medications for it. She does not know the names of the medications and the name of the doctor who diagnosed her. She denies current auditory or visual hallucinations. She denies denies paranoid ideations. She denies current symptoms of depression. She denies current suicidal or homicidal ideations. She is alert and oriented x 4. She knows she in the hospital and knows it is Novemebr 2018. She repeatedly stated she is hungry. Per nursing staff she is currently she is on liquid diet only due to her medical condition/vomiting blood. Patient was repeatedly saying she is hungry. Her speech was difficult to understand. Patients daughter says she is calm currently due to not being well. Past psychiatric history She reports being diagnosed with Schizophrenia an year ago but unable to give details of her treatment saying she doesnt know. Substance use history Paients daughter says patient smokes marijuana one joint a day and last smokes 2 days ago, Smokes pack of cigarettes /day. Medical history COPD, GERD/Reflux, GI Bleed, MS, hearing impaired, seizures when in her 30s, migraines, Upper GI bleed, peptic ulcer disease, developmentally delayed, hypotension Social history Patient lives with her daughter Madelyn who is also her guardian. Mental status exam She is 53 year old women. Very thin and poorly nourished. She was lying on her bed, and asking for food saying she is hungry. She has been coughing frequently and sits up when ever she coughs. She is deaf and is unable to answer questions due to her inability to hear. Most of the answers were obtained through written questions. Her speech was difficult to understand and per staff her speech has been garbled. She denies current auditory or visual hallucinations. She denies p aranoid ideations. She denies current suicidal or homicidal ideations. She is alert and oriented to time, place, person and situation. Diagnosis Schizophrenia diagnosed in 1997. Cannabis abuse and cannabis induced paranoia. Plan 53-year-old female admitted through emergency department to medical floor due to hemoptysis. Psychiatry was consulted to evaluate this patient. Continue her home medications remeron 15mg po qhs, zyprexa 20mg po qhs and invega 3mg po qday. Ranjith recommend haldol 0.5mg po qhs for her sporadic episodes of getting angry, paranoid Patient does not need psychiatric admission She should follow up with Dr. Vigil through her CM. Thank you for the psychiatry consult and psychiatry can be reached any time with any questions or concerns 04/05/19 17:02
[2019-04-05 17:06] LABS: Basophils # (A) 0.1 k/uL (0-0.2); Basophils % (A) 1 %; Eosinophils % (A) 0 %; HCT 28.8 % (34.0-46.0); HGB 9.9 gm/dL (11.4-16.0); Lymphocytes # (A) 1.7 k/uL (1.0-4.8); Lymphocytes % (A) 20 %; MCH 32.1 pg (25.0-35.0); MCHC 34.5 g/dL (31.0-37.0); MCV 93.2 fL (80.0-100.0); Mean Platelet Volume 5.1; Monocytes # (A) 0.3 k/uL (0-1.0); Monocytes % (A) 4 %; Neutrophils # (A) 6.4 k/uL (1.3-7.7); Neutrophils % (A) 74 %; Platelet Count 481 k/uL (150-450); RBC 3.09 m/uL (3.80-5.40); WBC 8.7 k/uL (3.8-10.6)
[2019-04-05 17:16] LABS: ALT 19 U/L (9-52); AST 16 U/L (14-36); African American GFR (CKD) >90 (>60 ml/min/1.73 sqM); Albumin 2.7 g/dL (3.5-5.0); Alkaline Phosphatase 67 U/L (38-126); Anion Gap 8 mmol/L; Blood Urea Nitrogen 10 mg/dL (7-17); Calcium 8.1 mg/dL (8.4-10.2); Carbon Dioxide 22 mmol/L (22-30); Chloride 97 mmol/L (98-107); Glucose 92 mg/dL (74-99); Potassium 3.2 mmol/L (3.5-5.1); Sodium 127 mmol/L (137-145); Total Bilirubin 0.4 mg/dL (0.2-1.3); Total Protein 5.3 g/dL (6.3-8.2)
[2019-04-05] MEDS: OLANZapine 10 MG TAB PO SCH (20:20)
[2019-04-05] MEDS: MIRTAZAPINE 15 MG TAB PO SCH (20:20)
--- NOTE | 2019-04-05 21:21 | P.CONS ---
History of Present Illness - Reason for Consult Consult date: 04/05/19 GI bleed Requesting physician: Wayne Lehman - Chief Complaint Nausea and vomiting, hematemesis - History of Present Illness 53-year-old patient with a medical history significant for schizophrenia, hearing impairment and multiple sclerosis who presented to the hospital due to complaints of nausea, vomiting and hematemesis. Of note history is been taking conversation with the patient as well as her daughter who is sitting bedside. The patient's daughter reports that over the past 3 weeks the patient has been vomiting intermittently. Prior to presentation she had a large dark vomitus. Patient's daughter had noticed her mother talking less with decreased activity and patient was brought to the hospital for further evaluation. The report a history of previous peptic ulcer disease diagnosed many years ago at which time they believe the patient underwent EGD. At that time the patient was using large amounts of Excedrin which she no longer takes. However she was so frequently take Motrin. No bowel movements or further vomiting since presentation to the hospital. Hemoglobin was found to be 9.6 today down from 13.4 on admission. Review of Systems REVIEW OF SYSTEMS: CONSTITUTIONAL: Denies any fevers, chills, weight change. CARDIOVASCULAR: Denies any chest pain, palpitations high or low blood pressures RESPIRATORY: Denies any shortness of breath, hemoptysis or cough. GENITOURINARY: No dysuria or hematuria. MUSCULOSKELETAL: No weakness reported. SKIN: Denies any new rashes or lesions, jaundice or pallor. PSYCHIATRIC: Patient has a history of schizophrenia. NEUROLOGY: Denies any new focal deficits. EARS/NOSE/THROAT: No recent hearing change, but does have a history of hearing impairment at baseline, congestion, nasal discharge or sore throat. EYES: No pain in eyes, discharge or change in vision. GASTROINTESTINAL: As per HPI. Past Medical History Past Medical History: COPD, GERD/Reflux, GI Bleed, Seizure Disorder Additional Past Medical History / Comment(s): MS, hearing impaired, seizures when in her 30s last 2yrs ago, migraines, Upper GI bleed, peptic ulcer disease, developmentally delayed, hypotension History of Any Multi-Drug Resistant Organisms: None Reported Past Surgical History: Ear Surgery Additional Past Surgical History / Comment(s): cyst removed from coccyx, multiple bilateral ear surgeries. Past Anesthesia/Blood Transfusion Reactions: No Reported Reaction Past Psychological History: Anxiety, Bipolar, Depression, Schizophrenia Additional Psychological History / Comment(s): Pt resides with her noemi, Madeyln who is also her legal guardian. Pt lately has been ambulating with her walker all the time. She does not drive, Madelyn is her can filler and takes her to [employer] or they use a service for rides. She goes to [facility]. Smoking Status: Current every day smoker Past Alcohol Use History: None Reported Additional Past Alcohol Use History / Comment(s): Patient is a smoker of cigarettes 1 pack per day since she was 17 years of age. Past Drug Use History: None Reported Additional Drug Use History / Comment(s): Pt smokes marijuana on occasion. - Past Family History Father Additional Family Medical History / Comment(s): Father at age 70 from danny cardial infarction. Mother Additional Family Medical History / Comment(s): Patient's mother is alive at age 70. Patient does not know her medical history. Brother(s) Additional Family Medical History / Comment(s): Patient has 1 brother committed suicide at 48. Sister(s) Additional Family Medical History / Comment(s): Patient has 2 sisters with no major medical problems. Medications and Allergies Home Medications Medication Instructions Recorded Confirmed Type Cholecalciferol [Vitamin D3 (25 5,000 unit PO MOWEFR 10/03/17 04/04/19 History Mcg = 1000 Iu)] Magnesium Oxide [Mag-Ox] 400 mg PO DAILY 10/03/17 04/04/19 History LORazepam [Ativan] 1 mg PO BID 04/04/19 04/04/19 History Mirtazapine [Remeron] 15 mg PO HS 04/04/19 04/04/19 History OLANZapine 20 mg PO HS 04/04/19 04/04/19 History Paliperidone [Paliperidone ER] 3 mg PO DAILY 04/04/19 04/04/19 History Allergies Allergy/AdvReac Type Severity Reaction Status Date / Time No Known Allergies Allergy Verified 04/04/19 14:50 Physical Exam Vitals: Vital Signs Temp Pulse Pulse Pulse Resp BP BP 04/05/19 08:00 101 H 14 95/62 04/05/19 02:46 98.2 F 100 19 101/69 04/04/19 22:59 98.1 F 89 18 88/61 04/04/19 20:00 99.3 F 115 H 19 108/70 04/04/19 15:45 98.8 F 114 H 16 110/76 04/04/19 15:30 114 H 16 04/04/19 15:20 98.0 F 109 H 18 118/87 04/04/19 15:00 116 H 18 120/79 04/04/19 14:30 129 H 20 112/85 04/04/19 14:00 124 H 15 107/84 04/04/19 13:30 125 H 16 104/70 04/04/19 13:00 128 H 15 100/80 04/04/19 12:30 133 H 18 106/88 04/04/19 12:15 131 H 106/88 04/04/19 12:00 97.9 F 146 H 20 85/77 Pulse Ox 04/05/19 08:00 97 04/05/19 02:46 96 04/04/19 22:59 90 L 04/04/19 20:00 98 04/04/19 15:45 98 04/04/19 15:30 04/04/19 15:20 98 04/04/19 15:00 04/04/19 14:30 04/04/19 14:00 04/04/19 13:30 04/04/19 13:00 04/04/19 12:30 04/04/19 12:15 04/04/19 12:00 99 Intake and Output 04/04/19 04/05/19 04/05/19 22:59 06:59 14:59 Intake Total 1500 Output Total 25 1600 Balance -25 -100 Intake: Intake, IV Titration 1500 Amount Sodium Chloride 0.9% 1, 1500 000 ml @ 150 mls/hr IV . Q6H40M [facility] Rx#:[id number] Output: Urine 25 1600 Straight 25 800 Other: # Voids 0 0 Weight 47.5 kg On physical examination, patient appears comfortable in no apparent distress. HEAD: Normocephalic, atraumatic. EYES: No scleral icterus. No conjunctival injection. MOUTH: No lesions, tongue midline. NECK: Trachea midline, no gross abnormalities. CHEST: Clear to auscultation with no wheezing or rhonchi appreciated. HEART: Regular rate and rhythm. ABDOMEN: Soft. Bowel sounds are positive. No organomegaly. No guarding or rigidity. EXTREMITIES: No pedal edema. SKIN: No rashes, no jaundice. NEUROLOGIC: Alert and oriented. Results CBC & Chem 7: 04/05/19 16:49 04/05/19 16:49 Labs: Abnormal Lab Results - Last 24 Hours (Table) 04/04/19 04/04/19 04/04/19 Range/Units 12:30 12:30 12:30 WBC 18.2 H (3.8-10.6) k/uL RBC (3.80-5.40) m/uL Hgb (11.4-16.0) gm/dL Hct (34.0-46.0) % Plt Count 750 H (150-450) k/uL Neutrophils # 16.6 H (1.3-7.7) k/uL Lymphocytes # 0.3 L (1.0-4.8) k/uL Basophils # 0.4 H (0-0.2) k/uL Sodium 129 L (137-145) mmol/L Potassium (3.5-5.1) mmol/L Chloride 86 L (98-107) mmol/L Creatinine (0.52-1.04) mg/dL Glucose 131 H (74-99) mg/dL Plasma Lactic Acid David 2.7 H* (0.7-2.0) mmol/L Calcium (8.4-10.2) mg/dL AST (14-36) U/L Total Protein (6.3-8.2) g/dL Albumin (3.5-5.0) g/dL Urine Protein (Negative) Urine Ketones (Negative) 04/04/19 04/04/19 04/05/19 Range/Units 15:12 19:39 03:08 WBC 11.9 H (3.8-10.6) k/uL RBC 3.32 L 3.08 L (3.80-5.40) m/uL Hgb 10.4 L D 9.6 L (11.4-16.0) gm/dL Hct 30.1 L 27.9 L (34.0-46.0) % Plt Count 586 H 512 H (150-450) k/uL Neutrophils # 9.8 H (1.3-7.7) k/uL Lymphocytes # (1.0-4.8) k/uL Basophils # (0-0.2) k/uL Sodium (137-145) mmol/L Potassium (3.5-5.1) mmol/L Chloride (98-107) mmol/L Creatinine (0.52-1.04) mg/dL Glucose (74-99) mg/dL Plasma Lactic Acid David (0.7-2.0) mmol/L Calcium (8.4-10.2) mg/dL AST (14-36) U/L Total Protein (6.3-8.2) g/dL Albumin (3.5-5.0) g/dL Urine Protein Trace H (Negative) Urine Ketones 1+ H (Negative) 04/05/19 Range/Units 03:08 WBC (3.8-10.6) k/uL RBC (3.80-5.40) m/uL Hgb (11.4-16.0) gm/dL Hct (34.0-46.0) % Plt Count (150-450) k/uL Neutrophils # (1.3-7.7) k/uL Lymphocytes # (1.0-4.8) k/uL Basophils # (0-0.2) k/uL Sodium 130 L (137-145) mmol/L Potassium 3.3 L (3.5-5.1) mmol/L Chloride (98-107) mmol/L Creatinine 0.51 L (0.52-1.04) mg/dL Glucose (74-99) mg/dL Plasma Lactic Acid David (0.7-2.0) mmol/L Calcium 8.1 L (8.4-10.2) mg/dL AST 12 L (14-36) U/L Total Protein 4.9 L (6.3-8.2) g/dL Albumin 2.5 L (3.5-5.0) g/dL Urine Protein (Negative) Urine Ketones (Negative) Abdominal x-ray: report reviewed (No acute findings on abdominal x-ray) Assessment and Plan (1) Hematemesis Narrative/Plan: 53-year-old female with multiple medical comorbidities including a reported past history of peptic ulcer disease who presented to the hospital due to evaluation of coffee-ground emesis/hematemesis. The patient is had intermittent nausea and vomiting over the past few weeks and presented for further evaluation after having a large dark emesis. Previously in the remote past patient has required EGD with findings of peptic ulcer disease per history from the patient's daughter which at that time was felt to be secondary to abuse of NSAID medications with the patient's daughter reporting she would take excessive amounts of Excedrin. Currently she is using Motrin frequently. No bowel movements reported. Hemoglobin was found to fall from 13.4 on presentation to 9.6. Unknown etiology with differential including esophagitis, gastritis, peptic ulcer disease, or other etiology. Current Visit: Yes Status: Acute Code(s): K92.0 - HEMATEMESIS SNOMED Code(s): 0248354 (2) Anemia associated with acute blood loss Current Visit: Yes Status: Acute Code(s): D62 - ACUTE POSTHEMORRHAGIC ANEMIA SNOMED Code(s): 494857606 Plan: Supportive care Clear liquid diet Nothing by mouth after midnight Protonix 40 mg twice daily initiated Continue to monitor hemoglobin and hematocrit and transfuse as needed Avoid NSAID therapy Plan for EGD tomorrow for further evaluation Thank you for allowing us to participate in the care of the patient, we will continue to follow
[2019-04-05] MEDS: POTASSIUM CHLORIDE ER 20 MEQ TAB.ER PO SCH ×2 (21:27→21:58)
[2019-04-06] MEDS: SODIUM CHLORIDE 0.9% 1,000 ML IV SCH ×5 (06:23→20:22)
[2019-04-06 07:17] LABS: ALT 20 U/L (9-52); AST 14 U/L (14-36); African American GFR (CKD) >90 (>60 ml/min/1.73 sqM); Albumin 2.4 g/dL (3.5-5.0); Alkaline Phosphatase 56 U/L (38-126); Anion Gap 6 mmol/L; Blood Urea Nitrogen 6 mg/dL (7-17); Calcium 8.1 mg/dL (8.4-10.2); Carbon Dioxide 22 mmol/L (22-30); Chloride 105 mmol/L (98-107); Glucose 72 mg/dL (74-99); Magnesium 1.6 mg/dL (1.6-2.3); Potassium 4.4 mmol/L (3.5-5.1); Sodium 133 mmol/L (137-145); Total Bilirubin 0.3 mg/dL (0.2-1.3); Total Protein 4.9 g/dL (6.3-8.2)
[2019-04-06] MEDS ORDERED: PANTOPRAZOLE 40 MG/10 ML VIAL IV SCH (09:00)
[2019-04-06] MEDS ORDERED: LIDOCAINE 1% INJ 10MG/ML (20 ML MDV) ONE (09:00)
[2019-04-06] MEDS ORDERED: PROPOFOL 10 MG/ML 20 ML VIAL IV ONE (09:00)
[2019-04-06] MEDS ORDERED: IV FLUID CONTINUATION 1,000 ML IV ONE (09:10)
--- NOTE | 2019-04-06 09:31 | P.PCN ---
Date of Procedure: 04/06/19 Description of Procedure: BRIEF HISTORY: 53-year-old patient with a medical history significant for schizophrenia, hearing impairment and multiple sclerosis who presented to the hospital due to complaints of nausea, vomiting and hematemesis. Of note history is been taking conversation with the patient as well as her daughter who is sitting bedside. The patient's daughter reports that over the past 3 weeks the patient has been vomiting intermittently. Prior to presentation she had a large dark vomitus. Patient's daughter had noticed her mother talking less with decreased activity and patient was brought to the hospital for further evaluation. The report a history of previous peptic ulcer disease diagnosed many years ago at which time they believe the patient underwent EGD. At that time the patient was using large amounts of Excedrin which she no longer takes. However she was so frequently take Motrin. No bowel movements or further vomiting since presentation to the hospital. Hemoglobin was found to be 9.6 yesterday down from 13.4 on admission. PROCEDURE PERFORMED: Esophagogastroduodenoscopy with biopsy. PREOPERATIVE DIAGNOSIS: Anemia of acute blood loss, GI bleed, hematemesis. ESTIMATED BLOOD LOSS: Minimal. IV sedation per anesthesia. PROCEDURE: After informed consent was obtained, the patient was brought into the endoscopy unit. IV sedation was administered by Anesthesia under continuous monitoring. Initially the Olympus GIF-190 video endoscope was inserted into the mouth. Esophagus intubated without any difficulty. It was gradually advanced into the stomach and duodenum and carefully examined. The bulb and the second part of the duodenum appeared normal, with biopsies taken. The scope at this time was withdrawn to the stomach, adequately insufflated with air, and upon careful examination, mucosa of the antrum, body, cardia and the fundus appeared normal, with biopsies taken. The scope was then withdrawn into the esophagus. The GE junction was located at 35 cm from the incisors, with a 4 cm moderately sized hiatal hernia noted. The esophagus was significant for a 1.5 cm cratered distal esophageal ulcer just proximal to the GE junction without any active bleeding or high risk stigmata for bleeding which was biopsied. The esophagus otherwise appeared normal. The patient tolerated the procedure well. IMPRESSION: 1. Large cratered distal esophageal ulcer, biopsied. 2. Moderate sized hiatal hernia. 3. Biopsies of the antrum and body, in the duodenum. RECOMMENDATIONS: The findings of this examination were discussed with the patient in the medical team. Jared to resume full liquid diet, with plans to advance to a soft diet as tolerated. Protonix 40 mg twice daily and Carafate 3 times a day added. Avoid NSAID use. If patient remains stable both clinically and labs okay for discharge from gastricenterology standpoint.
--- NOTE | 2019-04-06 10:04 | P.PN ---
Subjective Progress Note Date: 04/06/19 Patient seen and examined at bedside. States she is still having some mild abdominal pain. No additional emesis episodes. Hemoglobin has stabilized in the 9s. Objective - Vital Signs Vital signs: Vital Signs Temp 97.8 F 04/06/19 03:42 Pulse 84 04/06/19 03:42 Resp 18 04/06/19 03:42 BP 122/84 04/06/19 03:42 Pulse Ox 97 04/06/19 03:42 Intake & Output 04/05/19 04/06/19 04/06/19 19:59 06:59 18:59 Intake Total 50 Balance 50 Weight Intake: IV 50 Intake, IV Titration Amount Sodium Chloride 0.9% 1, 000 ml @ 150 mls/hr IV . Q6H40M [facility] Rx#:[id number] Other: # Voids - Constitutional General appearance: Present: cooperative, no acute distress - Gastrointestinal Gastrointestinal Comment(s): Soft, nontender, nondistended, no rebound, no guarding - Labs CBC & Chem 7: 04/05/19 16:49 04/06/19 06:10 Labs: Abnormal Lab Results - Last 24 Hours (Table) 04/05/19 04/05/19 04/06/19 Range/Units 16:49 16:49 06:10 RBC 3.09 L (3.80-5.40) m/uL Hgb 9.9 L (11.4-16.0) gm/dL Hct 28.8 L (34.0-46.0) % Plt Count 481 H (150-450) k/uL Sodium 127 L 133 L (137-145) mmol/L Potassium 3.2 L (3.5-5.1) mmol/L Chloride 97 L (98-107) mmol/L BUN 6 L (7-17) mg/dL Creatinine 0.50 L 0.50 L (0.52-1.04) mg/dL Glucose 72 L (74-99) mg/dL Calcium 8.1 L 8.1 L (8.4-10.2) mg/dL Total Protein 5.3 L 4.9 L (6.3-8.2) g/dL Albumin 2.7 L 2.4 L (3.5-5.0) g/dL Assessment and Plan (1) Upper GI hemorrhage Narrative/Plan: Endoscopy was performed by GI today. No evidence of active bleeding. There is notable esophageal ulceration. GI the plan treatment regimen. No plan for surgical intervention at this time. Current Visit: Yes Status: Acute Code(s): K92.2 - GASTROINTESTINAL HEMORRHAGE, UNSPECIFIED SNOMED Code(s): 45940898 (2) Finger laceration Narrative/Plan: Incidental finding of finger laceration. Laceration was sutured yesterday. Ortho recommendations on continued treatment. Current Visit: Yes Status: Acute Code(s): S61.219A - LACERATION W/O FB OF UNSP FINGER W/O DAMAGE TO NAIL, INIT SNOMED Code(s): 851351631
[2019-04-06] MEDS: LORazepam 1 MG TAB PO SCH ×2 (10:11→20:12)
[2019-04-06] MEDS: PALIPERIDONE 3 MG TAB.ER.24 PO SCH (10:12)
[2019-04-06] MEDS: SUCRALFATE 1 GM TAB PO SCH ×2 (12:41→17:37)
[2019-04-06] MEDS: PANTOPRAZOLE 40 MG TABLET PO SCH ×2 (12:41→18:34)
--- NOTE | 2019-04-06 13:14 | P.PN ---
Progress Note - Text Progress Note Date: 04/06/19 Patient is again seen and examined at bedside. I changed her dressing and her small finger. She denies any new complaints or changes. At her small finger there is no erythema there is no active drainage. The skin flap appears to be healing appropriately was somewhat marginal edges. It does not appear to be infected. Distal tuft small finger fracture which is healing appropriately. We then placed her new bandage over the area with antibiotic ointment and small dressing. I applied a plastic stack splint intact to give her some protection of her small finger as this continues to heal. She should continue daily dressing changes with him back ointment and small bandage with the stack splint intact. It is okay from a orthopedic standpoint for her to be discharged with follow-up in approximately 1 week's time for recheck evaluation of her finger.
--- NOTE | 2019-04-06 14:16 | PN ---
PROGRESS NOTE CHIEF COMPLAINT: Upper GI bleed. HISTORY OF PRESENT ILLNESS: This lady has been fairly stable. Apparently there has been no further bleeding. At the present time, she is very upset. This is related to her psychiatric issues. PHYSICAL EXAMINATION: Color is good. Chest is clear and cardiac exam is normal. The abdomen is flat and soft and nontender. IMPRESSION: 1. Gastrointestinal blood loss. 2. Crush injury, left 5th finger. 3. Schizophrenia. PLAN: If she remains stable, she could probably go home in the next day or 2. MMODL / IJN: [id number] /
[2019-04-06] MEDS: MIRTAZAPINE 15 MG TAB PO SCH (20:12)
[2019-04-06] MEDS: OLANZapine 10 MG TAB PO SCH (20:13)
[2019-04-06] MEDS ORDERED: HALOPERIDOL LACTATE 5 MG/ML 1 ML VIAL IM PRN (21:00)
[2019-04-07] MEDS: LORazepam 1 MG TAB PO SCH (06:25)
[2019-04-07] MEDS: SUCRALFATE 1 GM TAB PO SCH (06:25)
[2019-04-07] MEDS: PANTOPRAZOLE 40 MG TABLET PO SCH (06:25)
[2019-04-07] MEDS: PALIPERIDONE 3 MG TAB.ER.24 PO SCH (06:25)
[2019-04-07 08:47] VITALS: BP 134/83; PULSE 108; RESP 20; TEMP 98
--- NOTE | 2019-04-07 08:57 | P.PN ---
Progress Note - Text Progress Note Date: 04/07/19 Orthopedics: History of present illness: Patient is a very pleasant female who is seen and examined at bedside for follow-up evaluation of her left pinky finger. Patient states on 04/03/2019 her grandson closed a door in which her finger got caught in a doorway. At that time she sustained an injury to her left pinky finger. She did not seek further evaluation at that time. She states she wrapped the finger up with a Band-Aid. She presented to the emergency department today after vomiting blood. While in the emergency department for evaluation, evaluation of her left pinky finger was also performed. X-rays of the left hand were taken which did show evidence of displaced tuft fracture at the distal phalanx of the fifth digit with soft tissue laceration. Consultation with orthopedics in place at that time. She has continued with conservative treatment regards to her left pinky finger. Nonadherent dressing and stack splint has been placed over the left. He finger. She feels her symptoms of pain at the left pinky finger have been better controlled since that time. She's been avoid excessive activities with the left hand. Patient does have a significant medical history which includes seizure disorder, multiple sclerosis, hearing impaired, and schizophrenia. Patient originally presented to the emergency department with an episode of vomiting blood. She has had some improvement of nausea and vomiting since her ad mittance. Nursing states patient may be discharged today. Physical Exam: Patient is awake, alert, and oriented 3 Vital signs stable Good chest excursion with deep inspiration and expiration Dressing remains intact with nonadherent dressing and stack splint over the left pinky finger No significant pain with palpation of the left pinky finger around the stack splint No pain with palpation of the middle or proximal phalanx of the left pinky finger No active bleeding from the wound site of the left pinky finger Pertinent studies: X-rays of the left hand taken on 04/04/2019: Displaced tuft fracture at the distal phalanx of the fifth digit with soft tissue laceration; deformity along the volar plate of the middle phalanx fifth digit Assessment: Displaced tuft fracture at the distal phalanx of the fifth digit Soft tissue laceration of the left fifth digit Left fifth digit finger pain Injury due to finger closed in door Hematemesis History of multiple sclerosis, seizure disorder, hearing loss and schizophrenia Plan: 1. Patient will continue conservative treatment at this time in regards to her left distal tuft open fracture at the left pinky finger. We're not currently planning for surgical intervention in her left pinky finger. She currently has dressing intact with nonadherent dressing and stack splint. She feels her pain has been well-controlled since that time. We will continue to keep this stack splint in place with nonadherent dressing. Patient may be planned for discharge earlier this week. We discussed patient is cleared for discharge from an orthopedic standpoint. We will plan have her follow up in the office this coming 04/11/2019, for further evaluation. Following discharge, she should keep her dressing and stack splint over the left pinky finger clean, dry and intact. She should avoid excessive activities with her left hand and pinky finger. Following discharge, patient may follow-up with Dr. Jeff Alfaro at [facility] on 04/11/2019. 2. Patient will continue to be seeing him but other medical providers for her other medical diagnoses
--- NOTE | 2019-04-08 09:00 | DS ---
DISCHARGE SUMMARY CHIEF COMPLAINT: Upper gastrointestinal hemorrhage. HISTORY OF PRESENT ILLNESS AND PHYSICAL EXAM: Details of this patient's history and physical can be found in the initial workup. LABORATORY STUDIES: While she was in a hospital she had laboratory studies, details of which can be found in the laboratory section of her chart. COURSE IN HOSPITAL: After admission, she was placed on bedrest and started on intravenous fluids. Bleeding stopped as soon as she was admitted. She was seen by Gastroenterology and they eventually took her for endoscopy where she was found to have gastric ulcer disease by report. She was stable and not having any further problems and it was felt that she could be discharged. She will go home on her usual diet and activity as well as medication for her ulcer disease and will be followed as an outpatient. FINAL DIAGNOSES: 1. Upper gastrointestinal hemorrhage. 2. Gastric ulcerations. 3. Schizophrenia. 4. Crush injury to the left fifth finger. OPERATIONS: Upper GI endoscopy. CONSULTATIONS: Orthopedics and Gastroenterology. She is improved. MMMAYNOR / CHRISTINA: [id number] /
== END 2019-04-07 11:09 | disposition home or self-care (01) | DRG 378 ==
LOC: EC 11:51 → 3SCARD 14:13 → OBSVTOIN 04-05 10:44
PROVIDERS: ADMIT Family Medicine; ATTEND Family Medicine
PROC: 0DB98ZX Excision of Duodenum, Via Natural or Artificial Opening Endoscopic, Diagnostic (ICD-10-PCS; principal; 2019-04-06 10:25)
PROC: 0DB68ZX Excision of Stomach, Via Natural or Artificial Opening Endoscopic, Diagnostic (ICD-10-PCS; principal; 2019-04-06 10:25)
DX: K25.4 Chronic or unspecified gastric ulcer with hemorrhage (principal); S62.607B Fracture of unspecified phalanx of left little finger, initial encounter for open fracture; D62 Acute posthemorrhagic anemia; K22.11 Ulcer of esophagus with bleeding; K44.9 Diaphragmatic hernia without obstruction or gangrene; J44.9 Chronic obstructive pulmonary disease, unspecified; H91.90 Unspecified hearing loss, unspecified ear; G40.909 Epilepsy, unspecified, not intractable, without status epilepticus; G35 Multiple sclerosis; S67.197A Crushing injury of left little finger, initial encounter; W23.0XXA Caught, crushed, jammed, or pinched between moving objects, initial encounter; F31.9 Bipolar disorder, unspecified; F17.200 Nicotine dependence, unspecified, uncomplicated; F20.9 Schizophrenia, unspecified; Z79.51 Long term (current) use of inhaled steroids; Z79.899 Other long term (current) drug therapy; Z81.8 Family history of other mental and behavioral disorders; Z82.49 Family history of ischemic heart disease and other diseases of the circulatory system; Z87.11 Personal history of peptic ulcer disease
CPT/HCPCS: 36415; 43239; 71046; 74019; 80053; 81003; 83605; 83735; 85025; 85610; 85730; 86850; 86870; 86880; 86900; 86901; 86902; 88305; 90471; 90715; 93005; 96361; 96374; 99285

== ENCOUNTER 2019-10-26 07:22 | Inpatient (IN) | payer MEDICARE ==
[2019-10-26] MEDS ORDERED: LORazepam 1 MG TAB PO STA ×3 (08:02→19:10)
--- NOTE | 2019-10-26 08:09 | ED ---
Psych HPI - General Chief Complaint: Psychiatric Symptoms Stated Complaint: Mental Health Time Seen by Provider: 10/26/19 07:30 Source: EMS Mode of arrival: EMS Limitations: altered mental status - History of Present Illness Initial Comments: Patient is a 54-year-old female past history of schizophrenia presents to the emergency department after her daughter called EMS for abnormal behavior. She states that her mother has been decompensating over the past several weeks in regards to her mood. She reports to demonstrating aggression towards her daug hter who is her guardian. She demonstrated bizarre behavior including turning the stove on during the middle the night while everyone is sleeping in the house. She hasn't been eating, drinking or taking her medications. Daughter states she has not slept in 48 hours. She has been hospitalized multiple times for mental health. Last of which was greater than one year ago. History cannot be obtained from the patient as she is agitated and moaning in the room. Speech is nonsensical. The remainder of the HPI is limited due to this. - Related Data Home Medications Medication Instructions Recorded Confirmed Cholecalciferol [Vitamin D3 (25 5,000 unit PO MOWEFR 10/03/17 10/27/19 Mcg = 1000 Iu)] Magnesium Oxide [Mag-Ox] 400 mg PO DAILY 10/03/17 10/27/19 LORazepam [Ativan] 1 mg PO BID 04/04/19 10/27/19 Mirtazapine [Remeron] 15 mg PO HS 04/04/19 10/27/19 OLANZapine 20 mg PO HS 04/04/19 10/27/19 Paliperidone [Paliperidone ER] 3 mg PO DAILY 04/04/19 10/27/19 Previous Rx's Medication Instructions Recorded Pantoprazole [Protonix] 40 mg PO AC-BID #60 tablet. 04/07/19 Sucralfate [Carafate] 1 gm PO AC-TID #90 tab 04/07/19 Allergies Allergy/AdvReac Type Severity Reaction Status Date / Time No Known Allergies Allergy Verified 04/04/19 14:50 Review of Systems ROS Statement: Those systems with pertinent positive or pertinent negative responses have been documented in the HPI. ROS Other: All systems not noted in ROS Statement are negative. Past Medical History Past Medical History: COPD, GERD/Reflux, GI Bleed, Seizure Disorder Additional Past Medical History / Comment(s): MS, hearing impaired, seizures when in her 30s last 2yrs ago, migraines, Upper GI bleed, peptic ulcer disease, developmentally delayed, hypotension History of Any Multi-Drug Resistant Organisms: None Reported Past Surgical History: Ear Surgery Additional Past Surgical History / Comment(s): cyst removed from coccyx, multiple bilateral ear surgeries. Past Anesthesia/Blood Transfusion Reactions: No Reported Reaction Past Psychological History: Anxiety, Bipolar, Depression, Schizophrenia Smoking Status: Current every day smoker Past Alcohol Use History: None Reported Past Drug Use History: None Reported - Past Family History Father Additional Family Medical History / Comment(s): Father at age 70 from myocardial infarction. Mother Additional Family Medical History / Comment(s): Patient's mother is alive at age 70. Patient does not know her medical history. Brother(s) Additional Family Medical History / Comment(s): Patient has 1 brother committed suicide at 48. Sister(s) Additional Family Medical History / Comment(s): Patient has 2 sisters with no major medical problems. General Exam Limitations: language barrier, altered mental status General appearance: alert, other (moaning, nonsensical speech) Eye exam: Present: normal appearance, PERRL, EOMI. Absent: scleral icterus, conjunctival injection, periorbital swelling Respiratory exam: Present: normal lung sounds bilaterally. Absent: respiratory distress, wheezes, rales, rhonchi, stridor Cardiovascular Exam: Present: normal rhythm, tachycardia Psychiatric exam: Present: anxious, manic Skin exam: Present: warm, dry, intact, normal color. Absent: rash Course Vital Signs 10/26/19 10/26/19 10/26/19 07:27 07:33 09:00 Temperature 98.3 F Pulse Rate 117 H Respiratory 20 20 20 Rate Blood Pressure 136/95 O2 Sat by Pulse 95 Oximetry 10/26/19 10/26/19 10/26/19 10:00 11:00 12:00 Temperature Pulse Rate 107 H Respiratory 20 20 20 Rate Blood Pressure 128/91 O2 Sat by Pulse 97 Oximetry 10/26/19 10/26/19 10/26/19 13:00 14:00 15:00 Temperature Pulse Rate 99 Respiratory 20 20 20 Rate Blood Pressure 138/92 O2 Sat by Pulse 96 Oximetry 10/26/19 10/26/19 10/26/19 16:00 17:00 18:00 Temperature Pulse Rate 99 99 Respiratory 20 20 20 Rate Blood Pressure 138/92 138/92 O2 Sat by Pulse 96 96 96 Oximetry 10/27/19 10/27/19 00:45 12:22 Temperature 97.4 F L Pulse Rate 89 102 H Respiratory 19 18 Rate Blood Pressure 156/72 141/94 O2 Sat by Pulse 97 98 Oximetry Medical Decision Making - Medical Decision Making Upon arrival patient is placed in room 13. Thorough history and physical exam is performed. The patient does have a history of urinary tract infections and hyponatremia. Because of this laboratory studies were conducted and a urine sample was obtained. CMP shows a sodium of 135. Urinalysis is negative for infection. Positive for THC use. I did request EPS to evaluate the patient for placement. We are currently awaiting their recommendations - Lab Data Result diagrams: 10/26/19 08:03 10/26/19 08:03 Lab Results 10/26/19 10/26/19 10/26/19 Range/Units 08:03 08:03 08:03 WBC 10.2 (3.8-10.6) k/uL RBC 5.14 (3.80-5.40) m/uL Hgb 15.3 (11.4-16.0) gm/dL Hct 46.6 H (34.0-46.0) % MCV 90.7 (80.0-100.0) fL MCH 29.8 (25.0-35.0) pg MCHC 32.9 (31.0-37.0) g/dL RDW 13.3 (11.5-15.5) % Plt Count 461 H (150-450) k/uL Neutrophils % 77 % Lymphocytes % 14 % Monocytes % 6 % Eosinophils % 2 % Basophils % 0 % Neutrophils # 7.8 H (1.3-7.7) k/uL Lymphocytes # 1.4 (1.0-4.8) k/uL Monocytes # 0.6 (0-1.0) k/uL Eosinophils # 0.2 (0-0.7) k/uL Basophils # 0.0 (0-0.2) k/uL Sodium 135 L (137-145) mmol/L Potassium 3.9 (3.5-5.1) mmol/L Chloride 100 (98-107) mmol/L Carbon Dioxide 20 L (22-30) mmol/L Anion Gap 15 mmol/L BUN 8 (7-17) mg/dL Creatinine 0.58 (0.52-1.04) mg/dL Est GFR (CKD-EPI)AfAm >90 (>60 ml/min/1.73 sqM) Est GFR (CKD-EPI)NonAf >90 (>60 ml/min/1.73 sqM) Glucose 119 H (74-99) mg/dL Estimated Ave Glu mg/dL 105 Hemoglobin A1c 5.3 (4.0-6.0) % Calcium 10.0 (8.4-10.2) mg/dL Total Bilirubin 0.4 (0.2-1.3) mg/dL AST 21 (14-36) U/L ALT 15 (4-34) U/L Alkaline Phosphatase 94 (38-126) U/L Total Protein 7.7 (6.3-8.2) g/dL Albumin 4.5 (3.5-5.0) g/dL Triglycerides (<150) mg/dL Cholesterol (<200) mg/dL LDL Cholesterol, Calc (0-99) mg/dL HDL Cholesterol (40-60) mg/dL Urine Color Urine Appearance (Clear) Urine pH (5.0-8.0) Ur Specific [place] (1.001-1.035) Urine Protein (Negative) Urine Glucose (UA) (Negative) Urine Ketones (Negative) Urine Blood (Negative) Urine Nitrite (Negative) Urine Bilirubin (Negative) Urine Urobilinogen (<2.0) mg/dL Ur Leukocyte Esterase (Negative) Urine Opiates Screen (NotDetected) Ur Oxycodone Screen (NotDetected) Urine Methadone Screen (NotDetected) Ur Propoxyphene Screen (NotDetected) Ur Barbiturates Screen (NotDetected) U Tricyclic Antidepress (NotDetected) Ur Phencyclidine Scrn (NotDetected) Ur Amphetamines Screen (NotDetected) U Methamphetamines Scrn (NotDetected) U Benzodiazepines Scrn (NotDetected) Urine Cocaine Screen (NotDetected) U Marijuana (THC) Screen (NotDetected) 10/26/19 10/26/19 Range/Units 08:03 08:20 WBC (3.8-10.6) k/uL RBC (3.80-5.40) m/uL Hgb (11.4-16.0) gm/dL Hct (34.0-46.0) % MCV (80.0-100.0) fL MCH (25.0-35.0) pg MCHC (31.0-37.0) g/dL RDW (11.5-15.5) % Plt Count (150-450) k/uL Neutrophils % % Lymphocytes % % Monocytes % % Eosinophils % % Basophils % % Neutrophils # (1.3-7.7) k/uL Lymphocytes # (1.0-4.8) k/uL Monocytes # (0-1.0) k/uL Eosinophils # (0-0.7) k/uL Basophils # (0-0.2) k/uL Sodium (137-145) mmol/L Potassium (3.5-5.1) mmol/L Chloride (98-107) mmol/L Carbon Dioxide (22-30) mmol/L Anion Gap mmol/L BUN (7-17) mg/dL Creatinine (0.52-1.04) mg/dL Est GFR (CKD-EPI)AfAm (>60 ml/min/1.73 sqM) Est GFR (CKD-EPI)NonAf (>60 ml/min/1.73 sqM) Glucose (74-99) mg/dL Estimated Ave Glu mg/dL Hemoglobin A1c (4.0-6.0) % Calcium (8.4-10.2) mg/dL Total Bilirubin (0.2-1.3) mg/dL AST (14-36) U/L ALT (4-34) U/L Alkaline Phosphatase (38-126) U/L Total Protein (6.3-8.2) g/dL Albumin (3.5-5.0) g/dL Triglycerides 110 (<150) mg/dL Cholesterol 223 H (<200) mg/dL LDL Cholesterol, Calc 137 H (0-99) mg/dL HDL Cholesterol 64 H (40-60) mg/dL Urine Color Light Yellow Urine Appearance Clear (Clear) Urine pH 6.5 (5.0-8.0) Ur Specific [place] 1.002 (1.001-1.035) Urine Protein Negative (Negative) Urine Glucose (UA) Negative (Negative) Urine Ketones Negative (Negative) Urine Blood Negative (Negative) Urine Nitrite Negative (Negative) Urine Bilirubin Negative (Negative) Urine Urobilinogen <2.0 (<2.0) mg/dL Ur Leukocyte Esterase Negative (Negative) Urine Opiates Screen Not Detected (NotDetected) Ur Oxycodone Screen Not Detected (NotDetected) Urine Methadone Screen Not Detected (NotDetected) Ur Propoxyphene Screen Not Detected (NotDetected) Ur Barbiturates Screen Not Detected (NotDetected) U Tricyclic Antidepress Not Detected (NotDetected) Ur Phencyclidine Scrn Not Detected (NotDetected) Ur Amphetamines Screen Not Detected (NotDetected) U Methamphetamines Scrn Not Detected (NotDetected) U Benzodiazepines Scrn Not Detected (NotDetected) Urine Cocaine Screen Not Detected (NotDetected) U Marijuana (THC) Screen Detected H (NotDetected) Disposition Clinical Impression: Schizophrenia, Psychosis Disposition: ADMITTED IP TO THIS [facility] Condition: Stable Is patient prescribed a controlled substance at d/c from ED?: No
[2019-10-26 08:15] LABS: Basophils % (A) 0 %; Eosinophils # (A) 0.2 k/uL (0-0.7); Eosinophils % (A) 2 %; HCT 46.6 % (34.0-46.0); HGB 15.3 gm/dL (11.4-16.0); Lymphocytes # (A) 1.4 k/uL (1.0-4.8); Lymphocytes % (A) 14 %; MCH 29.8 pg (25.0-35.0); MCHC 32.9 g/dL (31.0-37.0); MCV 90.7 fL (80.0-100.0); Mean Platelet Volume 7.6; Monocytes # (A) 0.6 k/uL (0-1.0); Monocytes % (A) 6 %; Neutrophils # (A) 7.8 k/uL (1.3-7.7); Neutrophils % (A) 77 %; Platelet Count 461 k/uL (150-450); RBC 5.14 m/uL (3.80-5.40); RDW 13.3 % (11.5-15.5); WBC 10.2 k/uL (3.8-10.6)
[2019-10-26 08:27] LABS: ALT 15 U/L (4-34); AST 21 U/L (14-36); African American GFR (CKD) >90 (>60 ml/min/1.73 sqM); Albumin 4.5 g/dL (3.5-5.0); Alkaline Phosphatase 94 U/L (38-126); Anion Gap 15 mmol/L; Blood Urea Nitrogen 8 mg/dL (7-17); Carbon Dioxide 20 mmol/L (22-30); Chloride 100 mmol/L (98-107); Glucose 119 mg/dL (74-99); Non-African American GFR(CKD) >90 (>60 ml/min/1.73 sqM); Potassium 3.9 mmol/L (3.5-5.1); Sodium 135 mmol/L (137-145); Total Bilirubin 0.4 mg/dL (0.2-1.3); Total Protein 7.7 g/dL (6.3-8.2)
[2019-10-26 08:35] LABS: Appearance,Urine Clear (Clear); Bilirubin,Urine Negative (Negative); Blood,Urine Negative (Negative); Color,Urine Light Yellow; Glucose,Urine (UA) Negative (Negative); Ketones,Urine Negative (Negative); Leukocyte Esterase,Urine Negative (Negative); Nitrite,Urine Negative (Negative); PH, Urine 6.5 (5.0-8.0); Protein,Urine Negative (Negative); Specific Gravity,Urine 1.002 (1.001-1.035); Urobilinogen,Urine <2.0 mg/dL (<2.0)
[2019-10-26 08:46] LABS: Amphetamine Screen,Urine Not Detected (NotDetected); Barbiturate Screen,Urine Not Detected (NotDetected); Benzodiazepines Screen,Urine Not Detected (NotDetected); Cocaine Screen,Urine Not Detected (NotDetected); Methadone Screen, Urine Not Detected (NotDetected); Opiate Screen,Urine Not Detected (NotDetected); Oxycodone Screen, Urine Not Detected (NotDetected); Phencyclidine Screen,Urine Not Detected (NotDetected); Tricyclic Antidepressant,Urine Not Detected (NotDetected); Urn Cannabinoid Scrn Detected (NotDetected)
[2019-10-26] MEDS: ARIPiprazole 10 MG TAB PO SCH (18:32)
[2019-10-27] MEDS ORDERED: LORazepam 2 MG/ML INJ IM STA (11:25)
[2019-10-27] MEDS: ARIPiprazole 10 MG TAB PO SCH (11:46)
[2019-10-27] MEDS ORDERED: MAGNESIUM HYDROXIDE 2,400 MG/10 ML CUP PO PRN (13:35)
[2019-10-27] MEDS ORDERED: MAG HYDROX/AL HYDROX/SIMETH 30 ML CUP PO PRN (13:35)
[2019-10-27] MEDS: NICOTINE 14MG/24HR PATCH TRANSDERM SCH (16:22)
[2019-10-27] MEDS: CHOLECALCIFEROL 1,000 UNIT TAB PO SCH (17:11)
[2019-10-27] MEDS: PANTOPRAZOLE 40 MG TABLET PO SCH (17:12)
[2019-10-27] MEDS: SUCRALFATE 1 GM TAB PO SCH (17:12)
--- NOTE | 2019-10-27 17:18 | P.PN ---
Progress Note - Text Progress Note Date: 10/27/19 Patient is a 54-year-old female with PMH of COPD, GERD, seizure disorder, impaired hearing, developmental delay that presented to the ED after EMS was called by her daughter who is her guardian for abnormal behavior that has been getting worse over the past several weeks. She has been admitted to mental health unit for further workup and observation. [facility] was consulted for medical management of this patient. Patient is refusing history and physical. Nursing was present during this encounter. When asked if she was willing to see me and answer some questions, she turned her face away from both of us. When asked if she was willing to allow me to listen to her heart and lungs, she turned her face away from both of us. Please call [facility] if patient is willing to be seen at a later time.
[2019-10-27] MEDS: MIRTAZAPINE 15 MG TAB PO SCH (21:11)
[2019-10-27] MEDS: LORazepam 1 MG TAB PO SCH (21:11)
[2019-10-27] MEDS: OLANZapine 10 MG TAB PO SCH (21:12)
[2019-10-28] MEDS: ACETAMINOPHEN TAB 325 MG TAB PO PRN ×2 (02:07→10:21)
[2019-10-28 04:58] LABS: Cholesterol 223 mg/dL (<200); HDL Cholesterol 64 mg/dL (40-60); LDL Cholesterol,Calculated 137 mg/dL (0-99); Triglycerides 110 mg/dL (<150)
[2019-10-28] MEDS ORDERED: PALIPERIDONE 3 MG TAB.ER.24 PO SCH (09:00)
[2019-10-28] MEDS: PALIPERIDONE 3 MG TAB.ER.24 PO SCH (10:08)
[2019-10-28] MEDS: MAGNESIUM OXIDE 400 MG TAB PO SCH (10:08)
[2019-10-28] MEDS: NICOTINE 14MG/24HR PATCH TRANSDERM SCH (10:08)
[2019-10-28] MEDS: SUCRALFATE 1 GM TAB PO SCH ×3 (10:08→17:13)
[2019-10-28] MEDS: PANTOPRAZOLE 40 MG TABLET PO SCH ×2 (10:08→17:13)
[2019-10-28] MEDS: LORazepam 1 MG TAB PO SCH ×2 (10:09→20:43)
--- NOTE | 2019-10-28 11:04 | P.HP ---
Psychiatric H&P - . History & Physical: Allergies Allergy/AdvReac Type Severity Reaction Status Date / Time No Known Allergies Allergy Verified 04/04/19 14:50 Vital Signs Temp 98.9 F 10/28/19 02:10 Pulse 110 H 10/28/19 02:10 Resp 15 10/28/19 02:10 BP 117/76 10/28/19 02:10 Pulse Ox 98 10/27/19 13:05 Intake & Output 10/27/19 10/28/19 10/28/19 18:59 06:59 18:59 Weight 56.699 kg Laboratory Last Values WBC 10.2 k/uL (3.8-10.6) 10/26/19 08:03 RBC 5.14 m/uL (3.80-5.40) 10/26/19 08:03 Hgb 15.3 gm/dL (11.4-16.0) 10/26/19 08:03 Hct 46.6 % (34.0-46.0) H 10/26/19 08:03 MCV 90.7 fL (80.0-100.0) 10/26/19 08:03 MCH 29.8 pg (25.0-35.0) 10/26/19 08:03 MCHC 32.9 g/dL (31.0-37.0) 10/26/19 08:03 RDW 13.3 % (11.5-15.5) 10/26/19 08:03 Plt Count 461 k/uL (150-450) H 10/26/19 08:03 Neutrophils % 77 % 10/26/19 08:03 Lymphocytes % 14 % 10/26/19 08:03 Monocytes % 6 % 10/26/19 08:03 Eosinophils % 2 % 10/26/19 08:03 Basophils % 0 % 10/26/19 08:03 Neutrophils # 7.8 k/uL (1.3-7.7) H 10/26/19 08:03 Lymphocytes # 1.4 k/uL (1.0-4.8) 10/26/19 08:03 Monocytes # 0.6 k/uL (0-1.0) 10/26/19 08:03 Eosinophils # 0.2 k/uL (0-0.7) 10/26/19 08:03 Basophils # 0.0 k/uL (0-0.2) 10/26/19 08:03 Sodium 135 mmol/L (137-145) L 10/26/19 08:03 Potassium 3.9 mmol/L (3.5-5.1) 10/26/19 08:03 Chloride 100 mmol/L (98-107) 10/26/19 08:03 Carbon Dioxide 20 mmol/L (22-30) L 10/26/19 08:03 Anion Gap 15 mmol/L 10/26/19 08:03 BUN 8 mg/dL (7-17) 10/26/19 08:03 Creatinine 0.58 mg/dL (0.52-1.04) 10/26/19 08:03 Est GFR (CKD-EPI)AfAm >90 (>60 ml/min/1.73 sqM) 10/26/19 08:03 Est GFR (CKD-EPI)NonAf >90 (>60 ml/min/1.73 sqM) 10/26/19 08:03 Glucose 119 mg/dL (74-99) H 10/26/19 08:03 Calcium 10.0 mg/dL (8.4-10.2) 10/26/19 08:03 Total Bilirubin 0.4 mg/dL (0.2-1.3) 10/26/19 08:03 AST 21 U/L (14-36) 10/26/19 08:03 ALT 15 U/L (4-34) 10/26/19 08:03 Alkaline Phosphatase 94 U/L (38-126) 10/26/19 08:03 Total Protein 7.7 g/dL (6.3-8.2) 10/26/19 08:03 Albumin 4.5 g/dL (3.5-5.0) 10/26/19 08:03 Triglycerides 110 mg/dL (<150) 10/26/19 08:03 Cholesterol 223 mg/dL (<200) H 10/26/19 08:03 LDL Cholesterol, Calc 137 mg/dL (0-99) H 10/26/19 08:03 HDL Cholesterol 64 mg/dL (40-60) H 10/26/19 08:03 Urine Color Light Yellow 10/26/19 08:20 Urine Appearance Clear (Clear) 10/26/19 08:20 Urine pH 6.5 (5.0-8.0) 10/26/19 08:20 Ur Specific [place] 1.002 (1.001-1.035) 10/26/19 08:20 Urine Protein Negative (Negative) 10/26/19 08:20 Urine Glucose (UA) Negative (Negative) 10/26/19 08:20 Urine Ketones Negative (Negative) 10/26/19 08:20 Urine Blood Negative (Negative) 10/26/19 08:20 Urine Nitrite Negative (Negative) 10/26/19 08:20 Urine Bilirubin Negative (Negative) 10/26/19 08:20 Urine Urobilinogen <2.0 mg/dL (<2.0) 10/26/19 08:20 Ur Leukocyte Esterase Negative (Negative) 10/26/19 08:20 Urine Opiates Screen Not Detected (NotDetected) 10/26/19 08:20 Ur Oxycodone Screen Not Detected (NotDetected) 10/26/19 08:20 Urine Methadone Screen Not Detected (NotDetected) 10/26/19 08:20 Ur Propoxyphene Screen Not Detected (NotDetected) 10/26/19 08:20 Ur Barbiturates Screen Not Detected (NotDetected) 10/26/19 08:20 U Tricyclic Antidepress Not Detected (NotDetected) 10/26/19 08:20 Ur Phencyclidine Scrn Not Detected (NotDetected) 10/26/19 08:20 Ur Amphetamines Screen Not Detected (NotDetected) 10/26/19 08:20 U Methamphetamines Scrn Not Detected (NotDetected) 10/26/19 08:20 U Benzodiazepines Scrn Not Detected (NotDetected) 10/26/19 08:20 Urine Cocaine Screen Not Detected (NotDetected) 10/26/19 08:20 U Marijuana (THC) Screen Detected (NotDetected) H 10/26/19 08:20 10/28/19 10:53 IDENTIFYING DATA: This patient is a 54-year-old who was admitted to the mental health unit on the petition and clinical certificate reporting acute symptoms of psychosis. HPI: The patient is noted on the petition to be experiencing acute symptoms of psychosis refusing psychiatric medication and participating in dangerous behavior such as turning the stove on in the middle the night. The patient does have a history of schizoaffective disorder and is cared for by clinicians at [facility]. The patient is found in her room to attempts were made to speak with her. The first attempt there was no response with the second attempt she did turn and make eye contact. I was informed that she has a significant hearing impairment but is able to lip read. She indicated she did not want to speak with me and started to become agitated. Staff report that so far the patient has been isolating in her room. At this point it appears that her symptoms of psychosis have worsened due to her noncompliance with medications which reportedly has been going on for approximately 2 weeks. The emergency room nurse documentation also includes that the patient's appetite is been decreased she has not been sleeping. Reportedly she made statements that her daughter was poisoning her. PAST PSYCHIATRIC HISTORY: The patient has had a prior admission to the mental health unit most recently February 2016, there is documentation that she had thoughts of hanging herself. She sees Dr. Vigil at [facility] it appears that she is on both Zyprexa and invega in terms of psychotropic medication. In the past she has been on Prozac Remeron and Klonopin Pristiq Seroquel. PMH: Congenital hearing impairment with subsequent speech impediment, previously she reported having multiple sclerosis ALLERGIES: NO KNOWN DRUG ALLERGIES MEDICATIONS: Refer to [facility] EPENDENCY HISTORY: [ urine drug screen is positive for marijuana no recent history available, she has never been placed in residential treatment for chemical dependency reasons] FAMILY PSYCHIATRIC HISTORY: [no suicides in the family ] FAMILY CHEMICAL DEPENDENCY HISTORY: [ a brother was known to be alcohol and illicit drug dependent he denied via an overdose presumed to be accidental] SOCIAL HISTORY: [ the patient is 54 years old she is her suddenly of an aneurysm they were 20 years the patient resides with her daughter who is her legal guardian. The patient does have a son. She is unemployed she has less than a high school education. ] MENTAL STATUS EXAM: [ THE PATIENT IS AN ALERT FEMALE APPEARING HER STATED AGE SHE IS DRESSED IN HOSPITAL ATTIRE SHE IS LYING IN BED. UPON APPROACH SHE APPEARS PREOCCUPIED SHE IS STARING AT HER HANDS AND MAKING ODD GESTURES WITH THEM. SHE IS KNOWN TO HAVE A SIGNIFICANT HEARING IMPAIRMENT AND SPEECH IMPEDIMENT. HISTORICALLY SHE IS KNOWN TO LIP READ. SHE WAS UNCOOPERATIVE WITH TRYING TO DIRECT HER TO AN INTERVIEW ROOM TO SPEAK. SHE DID NOT ANSWER ANY QUESTIONS, SHE BECAME AGITATED AND ROLLED OVER IN BED. SHE APPEARS TO BE IN NO PHYSICAL DISTRESS. HYGIENE GROOMING APPEAR IMPAIRED IT APPEARS SHE HAS NOT SHOWERED LATELY. INSIGHT AND JUDGMENT ARE IMPAIRED. NO COGNITIVE TESTING PERFORMED.. ] STRENGTHS/WEAKNESSES: [ strengths: Housing, she has a guardian, care at [facility], weaknesses: Noncompliance with psychotropic medication ] INTELLECTUAL FUNCTIONING: [ previously known to be average ] IMPRESSIONS: [] 1. Schizoaffective disorder, cannabis use disorder 2. Hearing and speech deficits PLAN: [The patient has been admitted to the mental health unit on a petition and clinical certificate. She is refusing medications and she was not cooperative with participating in the psychiatric evaluation. I completed a second clinical certificate. She is being offered the Zyprexa 20 mg at bedtime and invega 3 mg daily. We verified that these were her outpatient psychiatric medications. We will verify with her daughter that the patient does not require an golf course ranger. She will be seen by internal medicine for routine history and physical exam. Social work will attempt to meet with her to complete a psychosocial assessment. We will involve the patient's daught er in treatment and discharge planning as the legal guardian. The patient will be encouraged to participate in the milieu we will provide reality orientation when possible. We'll monitor her for safety.
[2019-10-28 14:00] LABS: Hemoglobin A1C 5.3 % (4.0-6.0)
[2019-10-28] MEDS: MIRTAZAPINE 15 MG TAB PO SCH (20:43)
[2019-10-28] MEDS: OLANZapine 10 MG TAB PO SCH (20:43)
[2019-10-29] MEDS: SUCRALFATE 1 GM TAB PO SCH ×4 (09:27→16:04)
[2019-10-29] MEDS: PANTOPRAZOLE 40 MG TABLET PO SCH ×2 (09:27→16:05)
[2019-10-29] MEDS: MAGNESIUM OXIDE 400 MG TAB PO SCH (09:27)
[2019-10-29] MEDS: NICOTINE 14MG/24HR PATCH TRANSDERM SCH (09:27)
[2019-10-29] MEDS: PALIPERIDONE 3 MG TAB.ER.24 PO SCH (09:27)
[2019-10-29] MEDS: LORazepam 1 MG TAB PO SCH ×2 (09:28→21:52)
--- NOTE | 2019-10-29 13:25 | P.PN ---
Progress Note - Text Progress Note Date: 10/29/19 Clinical Problems: Schizoaffective disorder, cannabis use disorder, hearing and speech deficits Interim history: I reviewed the medical record and interviewed the patient. She is a 54-year-old female who presented to the psychiatric unit involuntarily. According to record, she was refusing psychotropic medications, displaying increased psychotic symptoms and engaging in dangerous dangerous behavior such as turning the stove on in the middle night. She has a history of schizoaffective disorder and is engaged with [facility]. I attempted to interview her. She would not come out of the room and would not look at me. She sat on the edge the bed and perseverative about going home. She repeated over and over that she "wanted to go home." She is been compliant with her psychotropic medications-mirtazapine 15 mg at bedtime, olanzapine 20 mg at bedtime, lorazepam 1 mg twice a day and paliperidone 3 mg daily. She has had no episodes of behavioral dyscontrol. She has not attended therapeutic groups and activities. She slept 5 hours last night. Mental status exam: She presented as a restless and disheveled [id number]-[id number]-lpn female who did not make eye contact. She had no distinguishing features or prominent physical abnormalities. She had a distressed facial expression. She was agitated and restless but did not display any apparent abnormal involuntary movements. Her speech was spontaneous, dysarthric, loud. Her affect was irritable and inappropriate. She did not express suicidal ideation, wishes homicidal ideation. She did not express depressive cognitions. As mentioned above, she ruminated about discharge and returning home. She did not express clear ideas reference, paranoid ideation or delusions. Her thinking was very concrete and associations were not coherent, logical goal-directed. She did not appear to be responding to internal stimuli. Assessment: She remains markedly agitated, restless and perseverative. She has no insight or understanding of her mental illness or need for treatment. However, she's been compliant with prescribed psychotropic medications. Plan: Continue inpatient treatment. Safety precautions. Continue prescribed psychotropic medications. Probate hearing for involuntary hospitalization is pending. Medical consult appreciated. Evaluate clinical status response to treatment daily basis.
[2019-10-29] MEDS: ZIPRASIDONE 20 MG VIAL IM PRN (15:47)
[2019-10-29] MEDS: CHOLECALCIFEROL 1,000 UNIT TAB PO SCH (16:02)
[2019-10-29] MEDS: ACETAMINOPHEN TAB 325 MG TAB PO PRN (21:53)
[2019-10-29] MEDS: MIRTAZAPINE 15 MG TAB PO SCH (21:56)
[2019-10-29] MEDS: OLANZapine 10 MG TAB PO SCH (21:56)
[2019-10-30] MEDS: NICOTINE 14MG/24HR PATCH TRANSDERM SCH ×2 (08:29→08:31)
[2019-10-30] MEDS: PANTOPRAZOLE 40 MG TABLET PO SCH ×2 (08:29→17:30)
[2019-10-30] MEDS: PALIPERIDONE 3 MG TAB.ER.24 PO SCH (08:29)
[2019-10-30] MEDS: MAGNESIUM OXIDE 400 MG TAB PO SCH (08:29)
[2019-10-30] MEDS: SUCRALFATE 1 GM TAB PO SCH ×3 (08:29→17:30)
[2019-10-30] MEDS: LORazepam 1 MG TAB PO SCH ×2 (08:30→20:58)
[2019-10-30 10:37] LABS: Basophils # (A) 0.1 k/uL (0-0.2); Basophils % (A) 1 %; Eosinophils # (A) 0.1 k/uL (0-0.7); Eosinophils % (A) 1 %; HCT 41.7 % (34.0-46.0); HGB 13.5 gm/dL (11.4-16.0); Lymphocytes # (A) 1.2 k/uL (1.0-4.8); Lymphocytes % (A) 14 %; MCH 29.6 pg (25.0-35.0); MCHC 32.4 g/dL (31.0-37.0); MCV 91.5 fL (80.0-100.0); Mean Platelet Volume 6.9; Monocytes # (A) 0.6 k/uL (0-1.0); Monocytes % (A) 7 %; Neutrophils # (A) 6.7 k/uL (1.3-7.7); Neutrophils % (A) 75 %; Platelet Count 392 k/uL (150-450); RBC 4.56 m/uL (3.80-5.40); RDW 13.3 % (11.5-15.5); WBC 8.9 k/uL (3.8-10.6)
[2019-10-30 10:55] LABS: African American GFR (CKD) >90 (>60 ml/min/1.73 sqM); Anion Gap 13 mmol/L; Blood Urea Nitrogen 6 mg/dL (7-17); Calcium 9.5 mg/dL (8.4-10.2); Carbon Dioxide 22 mmol/L (22-30); Chloride 90 mmol/L (98-107); Glucose 88 mg/dL (74-99); Non-African American GFR(CKD) >90 (>60 ml/min/1.73 sqM); Sodium 125 mmol/L (137-145)
[2019-10-30] MEDS: ZIPRASIDONE 20 MG VIAL IM PRN (13:38)
--- NOTE | 2019-10-30 13:43 | P.PN ---
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 She remains labile, restless and agitated. She is in her room frequently loudly talking to herself. She has had periods of agitation necessitating administration of Geodon 20 mg IM. She did not take mirtazapine or Geodon last night but took the morning dose of Invega. When I spoke with her she let she took all her medication and denied that she is prescribed olanzapine or mirtazapine. Her serum sodium dropped from 135 at admission to 125. The medical scribe and diagnosed hyponatremia due to excessive water intoxication. We met and discussed her treatment plan and agreed to water restrictions on the unit, one-to-one if nursing staff was unable to maintain water restrictions and possible transfer to the medicine unit for treatment of hyponatremia. Mental status exam: She presented as a restless and disheveled [id number] female who did not make eye contact. . She had a distressed facial expression. She was agitated and restless but did not display any apparent abnormal involuntary movements. Her gait was wide-based and unstable. Her speech was spontaneous, dysarthric, and loud. Her affect was irritable and inappropriate. She did not express suicidal ideation, wishes homicidal ideation. She did not express depressive cognitions. As mentioned above, she ruminated about discharge and returning home. She did not express clear ideas reference, paranoid ideation or delusions. Her thinking was very concrete and associations were not coherent, logical goal-directed. She denied experiencing auditory hallucinations but can be observed talking to herself as though she were responding to internal stimuli. Assessment: She remains markedly agitated, restless and perseverative. She has no insight or understanding of her mental illness or need for treatment. She is not fully compliant with prescribed psychotropic medications. She is drinking water excessively and is now hyponatremic. Plan: Continue inpatient treatment. Safety precautions. Following her probate hearing administer Geodon IM if she refuses the oral dose. Water restriction per medical scribe. Consider one-to-one if nursing staff is unable to restrict her water intake. Probate hearing for involuntary hospitalization is pending. Evaluate clinical status response to treatment daily basis.
[2019-10-30] MEDS ORDERED: OLANZapine 10 MG VIAL IM PRN (14:22)
[2019-10-30 14:27] LABS: African American GFR (CKD) >90 (>60 ml/min/1.73 sqM); Anion Gap 13 mmol/L; Blood Urea Nitrogen 5 mg/dL (7-17); Carbon Dioxide 22 mmol/L (22-30); Chloride 91 mmol/L (98-107); Glucose 112 mg/dL (74-99); Non-African American GFR(CKD) >90 (>60 ml/min/1.73 sqM); Potassium 4.3 mmol/L (3.5-5.1); Sodium 126 mmol/L (137-145)
--- NOTE | 2019-10-30 15:46 | P.HPMEDMHU ---
History of Present Illness H&P Date: 10/30/19 Chief Complaint: low sodium Patient is a 54-year-old female with a history of GERD, MS, seizures, migraine headaches, prior GI bleed, developmental delay, and hearing impairment who has been admitted to the mental health unit. Initially we tried to see her on 01/26 however she refused evaluation. Today we are called because the mental health unit noted that she was having excessive thirst. They performed a laboratory analysis and noted a sodium of 125. Patient seen and examined with nursing present. Initially she refuses my exam. She is upset that her pop has been taken away. She keeps repeating that she wants to talk to her daughter. She repeats that she is fine and she needs to be discharged home, and again attempts to head for the door. Patient was given some time to hold down and then did tell me she feels fine. She denied lightheadedness, dizziness, or chest pain and states she is well. She been going on on to perseverate about her pop, however her is normal and is always been normal. She continues to moan and yellow. She will not sit still or or stop walking. She is not comprehending the need for physical examination. All information is obtained from review of medical record including admission from 04/05/19 through 04/07/19, and admission from 01/02/18 through 01/10/18. Case was also discussed extensively of mental health nursing and Dr. Peralta. Review of Systems Unable to obtain full review of systems as patient is not cooperative with exam and is psychotic. ROS unobtainable: due to mental status Past Medical History Past Medical History: COPD, GERD/Reflux, GI Bleed, Seizure Disorder Additional Past Medical History / Comment(s): MS, hearing impaired, seizures when in her 30s last 2yrs ago, migraines, Upper GI bleed, peptic ulcer disease, developmentally delayed, hypotension History of Any Multi-Drug Resistant Organisms: None Reported Past Surgical History: Ear Surgery Additional Past Surgical History / Comment(s): cyst removed from coccyx, multiple bilateral ear surgeries. Past Anesthesia/Blood Transfusion Reactions: No Reported Reaction Past Psychological History: Anxiety, Bipolar, Depression, Schizophrenia Smoking Status: Current every day smoker Past Alcohol Use History: None Reported Past Drug Use History: None Reported - Past Family History Father Additional Family Medical History / Comment(s): Father at age 70 from m yocardial infarction. Mother Additional Family Medical History / Comment(s): Patient's mother is alive at age 70. Patient does not know her medical history. Brother(s) Additional Family Medical History / Comment(s): Patient has 1 brother committed suicide at 48. Sister(s) Additional Family Medical History / Comment(s): Patient has 2 sisters with no major medical problems. Medications and Allergies Home Medications Medication Instructions Recorded Confirmed Type Cholecalciferol [Vitamin D3 (25 5,000 unit PO MOWEFR 10/03/17 10/27/19 History Mcg = 1000 Iu)] Magnesium Oxide [Mag-Ox] 400 mg PO DAILY 10/03/17 10/27/19 History LORazepam [Ativan] 1 mg PO BID 04/04/19 10/27/19 History Mirtazapine [Remeron] 15 mg PO HS 04/04/19 10/27/19 History OLANZapine 20 mg PO HS 04/04/19 10/27/19 History Paliperidone [Paliperidone ER] 3 mg PO DAILY 04/04/19 10/27/19 History Pantoprazole [Protonix] 40 mg PO AC-BID #60 tablet.dr 04/07/19 10/27/19 Rx Sucralfate [Carafate] 1 gm PO AC-TID #90 tab 04/07/19 10/27/19 Rx Allergies Allergy/AdvReac Type Severity Reaction Status Date / Time No Known Allergies Allergy Verified 04/04/19 14:50 Physical Exam Osteopathic Statement: *. No significant issues noted on an osteopathic structural exam other than those noted in the History and Physical/Consult. Vitals: Vital Signs Temp Pulse Resp BP Pulse Ox 10/30/19 12:10 97.9 F 10/30/19 06:48 98.0 F 82 16 124/86 98 10/29/19 23:26 98.6 F 10/29/19 19:40 98.4 F - Constitutional General appearance: average body habitus, no cooperative, disheveled, no acute distress - EENT Eyes: EOMI, poor dentition, no scleral icterus, normal appearance ENT: hard of hearing - Respiratory no accessory muscle use, no conversation dyspnea Respiratory: bilateral: CTA, negative: rales, rhonchi, wheezing - Cardiovascular Rhythm: other (tachycardiac) Heart sounds: normal: S1, S2 Abnormal Heart Sounds: no systolic murmur, no diastolic murmur leg Peripheral Edema: bilateral: None - Neurologic heard of hearing, moving all 4 extremities independently, shuffling gait with slight drag of her Right foot. Neurologic: CNII-XII intact - Psychiatric Alert to self, poor judgment and insight, wandering off possible and then perseverates on pop. Cranial Nerve Examination - Cranial Nerves Cranial Nerve II- Optic: Intact Cranial Nerve III- Oculomotor: Intact Cranial Nerve IV- Trochlear: Intact Cranial Nerve V- Trigeminal: Intact Cranial Nerve - Abducens: Intact Cranial Nerve VII- Facial: Intact Cranial Nerve VIII- Auditory: Intact Cranial Nerve IX- Glossopharyngeal: Intact Cranial Nerve X- Vagus: Intact Cranial Nerve XI- Accessory: Intact Cranial Nerve XII- Hypoglossal: Intact Results CBC & Chem 7: 10/30/19 10:14 10/30/19 13:55 Labs: Abnormal Lab Results - Last 24 Hours (Table) 10/30/19 10/30/19 Range/Units 10:14 13:55 Sodium 125 L 126 L (137-145) mmol/L Chloride 90 L 91 L (98-107) mmol/L BUN 6 L 5 L (7-17) mg/dL Glucose 112 H (74-99) mg/dL Thrombosis Risk Factor Assmnt - DVT/VTE Prophylaxis DVT/VTE Prophylaxis: Low risk, early ambulation encouraged Assessment and Plan Assessment: Euvolemic hyponatremia with excessive water intake 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 Peralta of psychiatry. We'll attempt to keep the patient on the mental health unit as we feel as though she will do better in this environment. However if we are not able to maintain fluid restriction and can not adequately assess and draw labs on the patient we will not hesitate to transfer to the medical unit. At this time taking into account the entire picture of the patient it is in her best interest to stay on the mental health u nit. Peptic ulcer disease with HX of GI bleed - continue with protonix - carafate Multiple sclerosis - down not appear to be on chronic supressive therapy Tobacco abuse - cessation - nicotine replacement Schizoaffective disorder with agitation/psychosis - Your psych mangement Hard of hearing We will follow this evening lab draw and follow in the morning.
[2019-10-30 20:05] LABS: African American GFR (CKD) >90 (>60 ml/min/1.73 sqM); Anion Gap 7 mmol/L; Blood Urea Nitrogen 7 mg/dL (7-17); Calcium 9.8 mg/dL (8.4-10.2); Carbon Dioxide 26 mmol/L (22-30); Chloride 99 mmol/L (98-107); Glucose 91 mg/dL (74-99); Non-African American GFR(CKD) >90 (>60 ml/min/1.73 sqM); Potassium 4.5 mmol/L (3.5-5.1); Sodium 132 mmol/L (137-145)
[2019-10-30] MEDS: MIRTAZAPINE 15 MG TAB PO SCH (20:59)
[2019-10-30] MEDS: OLANZapine 10 MG TAB PO SCH (20:59)
[2019-10-31] MEDS: NICOTINE 14MG/24HR PATCH TRANSDERM SCH (08:58)
[2019-10-31] MEDS: LORazepam 1 MG TAB PO SCH ×3 (08:58→22:49)
[2019-10-31] MEDS: PALIPERIDONE 3 MG TAB.ER.24 PO SCH (08:58)
[2019-10-31] MEDS: MAGNESIUM OXIDE 400 MG TAB PO SCH (08:58)
[2019-10-31] MEDS: SUCRALFATE 1 GM TAB PO SCH ×3 (08:59→16:58)
[2019-10-31] MEDS: PANTOPRAZOLE 40 MG TABLET PO SCH ×3 (08:59→22:47)
[2019-10-31 12:25] LABS: African American GFR (CKD) >90 (>60 ml/min/1.73 sqM); Anion Gap 10 mmol/L; Blood Urea Nitrogen 7 mg/dL (7-17); Carbon Dioxide 26 mmol/L (22-30); Chloride 97 mmol/L (98-107); Glucose 92 mg/dL (74-99); Non-African American GFR(CKD) >90 (>60 ml/min/1.73 sqM); Potassium 4.8 mmol/L (3.5-5.1); Sodium 133 mmol/L (137-145)
--- NOTE | 2019-10-31 13:07 | CT ---
EXAMINATION TYPE: CT brain wo con DATE OF EXAM: 10/31/2019 COMPARISON: 10/03/2017 HISTORY: altered mental status CT DLP: 875.5 mGycm Automated exposure control for dose reduction was used. FINDINGS: There is a degree of atrophy involving the midbrain. A moderate generalized supratentorial changes ar e noted there is diffuse low-attenuation the white matter most suggestive of remote microvascular isc hemia. No definite sulcal effacement. No acute hemorrhage. More localized area of low attenuation in the deep white matter in the right is stable from the prior exam most suggestive of an area of previo us infarct. Calvarium intact. Changes of chronic mastoiditis are suggested. An osteoma in the right f rontal sinus is suspected. IMPRESSION: 1. Extensive degenerative and nonspecific white matter changes most typical remote microvascular isch emia. Atrophic change and wallerian degeneration involving the lucas and lower margin of the midbrain suspected. 2. Chronic mastoiditis. Soft tissue attenuation on the left correlate for acute mastoiditis. 3. No acute hemorrhage.
--- NOTE | 2019-10-31 14:04 | P.PN ---
Subjective Progress Note Date: 10/31/19 (delayed charting seen at 1130) Principal diagnosis: excessive thirst Patient being followed for hyponatremia Patient seen and examined at bedside. No chest pain, SOB, or nausea. Still feeling thirsty and wanting water Objective - Vital Signs Vital signs: Vital Signs Temp 98.4 F 10/31/19 06:35 Pulse 100 10/31/19 06:35 Resp 17 10/31/19 06:35 BP 123/60 10/31/19 06:35 Pulse Ox 97 10/31/19 06:35 Intake & Output 10/30/19 10/31/19 10/31/19 18:59 06:59 18:59 Intake Total 1190 Balance 1190 Intake: Oral 1190 - Constitutional General appearance: Present: average body habitus, cooperative, disheveled. Absent: no acute distress - EENT Eyes: Present: EOMI, normal appearance. Absent: scleral icterus ENT: Present: hard of hearing - Respiratory Respiratory: right: CTA (no accessory muslce use, no ) - Cardiovascular Rhythm: regular Heart sounds: normal: S1, S2 - Peripheral edema ankle Peripheral Edema: bilateral: None - Neurologic Neurologic: Present: CNII-XII intact - Musculoskeletal Musculoskeletal: Absent: gait normal - Psychiatric Psychiatric: Absent: A&O x's 3, appropriate affect, intact judgment & insight - Labs CBC & Chem 7: 10/30/19 10:14 10/31/19 11:35 Labs: Abnormal Lab Results - Last 24 Hours (Table) 10/30/19 10/30/19 10/30/19 Range/Units 13:55 19:30 19:30 Sodium 126 L 132 L (137-145) mmol/L Chloride 91 L (98-107) mmol/L BUN 5 L (7-17) mg/dL Glucose 112 H (74-99) mg/dL Osmolality 277 L (280-301) mosm/kg 10/31/19 Range/Units 11:35 Sodium 133 L (137-145) mmol/L Chloride 97 L (98-107) mmol/L BUN (7-17) mg/dL Glucose (74-99) mg/dL Osmolality (280-301) mosm/kg Assessment and Plan Assessment: Euvolemic hyponatremia with excessive water intake 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
--- NOTE | 2019-10-31 14:19 | P.PN ---
Progress Note - Text Progress Note Date: 10/31/19 Clinical Problems: Schizoaffective disorder, rule out major neurocognitive disorder with behavioral disturbances,hyponatremia secondary to polydipsia, cannabis use disorder, hearing and speech deficits Reviewed the medical record, interviewed the patient, and discussed her treatment and treatment plan during team meeting. She continues to have periods of restlessness and agitation. This morning she received 10 mg of olanzapine IM for agitation. She came to the nurses test several times preoccupied with obtaining more water. She is now compliant with prescribed medications. I reviewed her record and she had an MRI in January 2018 that was read as "stable ventricular prominences worrisome for mild to moderate hydrocephalus." Considering her dysarthria, agitation and impaired gait is concerned about progression of hydrocephalus. Her repeat CAT scan without contrastshowed extensive degenerative and nonspecific white matter changes most difficult remote microvascular ischemia. Atopic changes and Wallerian degeneration involving the lucas and lower portion of the midbrain suspected. She did not sleep last night. A repeat serum sodium this morning improved to 133. The muffler installer appreciated. Mental status exam: She presented as a restless and disheveled usunapsel-nstz-lyf female who made eye contact. She had a distressed facial expression. She was agitated and restless but did not display any apparent abnormal involuntary movements. Her gait was wide-based and unstable. Her speech was spontaneous, dysarthric, and loud. Her affect was irritable and inappropriate. She did not express suicidal ideation, wishes homicidal ideation. She did not express depressive cognitions. She did not express clear ideas reference, paranoid ideation or delusions. Her thinking was very concrete and associations were not coherent, logical goal-directed. She denied experiencing auditory hallucinations but can be observed talking to herself as though she were responding to internal stimuli. Assessment: She remains markedly agitated, restless and perseverative. She has no insight or understanding of her mental illness or need for treatment. Her repeat computed tomography scan is suggestive of a major neurocognitive disorder. Plan: Continue inpatient treatment. Safety precautions. Following her probate hearing administer Geodon IM if she refuses the oral dose. Water restriction per medical manager. Consider one-to-one if nursing staff is unable to restrict her water intake. Probate hearing for involuntary hospitalization is pending. Evaluate clinical status response to treatment daily basis.
[2019-10-31] MEDS: ACETAMINOPHEN TAB 325 MG TAB PO PRN ×2 (14:44→22:51)
[2019-10-31] MEDS: CHOLECALCIFEROL 1,000 UNIT TAB PO SCH (16:58)
[2019-10-31] MEDS: OLANZapine 10 MG TAB PO SCH ×2 (20:48→22:49)
[2019-10-31] MEDS: MIRTAZAPINE 15 MG TAB PO SCH ×2 (20:48→22:49)
[2019-11-01 08:16] LABS: African American GFR (CKD) >90 (>60 ml/min/1.73 sqM); Anion Gap 10 mmol/L; Blood Urea Nitrogen 9 mg/dL (7-17); Calcium 9.9 mg/dL (8.4-10.2); Carbon Dioxide 26 mmol/L (22-30); Chloride 99 mmol/L (98-107); Glucose 79 mg/dL (74-99); Non-African American GFR(CKD) >90 (>60 ml/min/1.73 sqM); Potassium 4.7 mmol/L (3.5-5.1); Sodium 135 mmol/L (137-145)
[2019-11-01] MEDS: PANTOPRAZOLE 40 MG TABLET PO SCH ×2 (10:40→17:00)
[2019-11-01] MEDS: PALIPERIDONE 3 MG TAB.ER.24 PO SCH (10:40)
[2019-11-01] MEDS: MAGNESIUM OXIDE 400 MG TAB PO SCH (10:40)
[2019-11-01] MEDS: SUCRALFATE 1 GM TAB PO SCH ×3 (10:40→17:00)
[2019-11-01] MEDS: NICOTINE 14MG/24HR PATCH TRANSDERM SCH (10:40)
[2019-11-01] MEDS: LORazepam 1 MG TAB PO SCH ×2 (10:40→21:58)
[2019-11-01] MEDS: ACETAMINOPHEN TAB 325 MG TAB PO PRN (17:00)
--- NOTE | 2019-11-01 19:38 | P.PN ---
Progress Note - Text Progress Note Date: 11/01/19 Interval history: Patient is seen in cross coverage today. She was found in her room lying in bed. She was not responding several times to me when I would call her name, female staff went in with me to assist, patient refused to meet with me and said several times "go away." Mental status exam: Patient was found in her room lying in bed. Patient was not agreeable to meet with me saying several times "go away." She did display some irritability. Plan: Patient will be maintained on current psychotropic medication regimen. Continue to monitor for any medication side effects and monitor her ongoing response to treatment.
[2019-11-01] MEDS: OLANZapine 10 MG TAB PO SCH (21:58)
[2019-11-01] MEDS: MIRTAZAPINE 15 MG TAB PO SCH (21:58)
[2019-11-02] MEDS: SUCRALFATE 1 GM TAB PO SCH ×3 (10:14→18:23)
[2019-11-02] MEDS: PALIPERIDONE 3 MG TAB.ER.24 PO SCH (10:14)
[2019-11-02] MEDS: LORazepam 1 MG TAB PO SCH ×2 (10:15→21:47)
[2019-11-02] MEDS: MAGNESIUM OXIDE 400 MG TAB PO SCH (10:15)
[2019-11-02] MEDS: PANTOPRAZOLE 40 MG TABLET PO SCH ×2 (10:15→18:23)
[2019-11-02] MEDS: NICOTINE 14MG/24HR PATCH TRANSDERM SCH (10:19)
[2019-11-02] MEDS: ACETAMINOPHEN TAB 325 MG TAB PO PRN (12:56)
--- NOTE | 2019-11-02 16:15 | P.PN ---
Progress Note - Text Progress Note Date: 11/02/19 Interval history: Patient is seen in cross coverage again today. She is found in her room lying in bed. She says "what do you want from me." She relays that she is weak and is not cooperative with the interview today. Mental status exam: Patient is found in her room. She is not cooperative with meeting with me today. She relays "what do you want from me?" And then relays that she is weak. Plan: We'll maintain current psychotropic medication regimen. Continue to monitor for any medication side effects and monitor her ongoing response to treatment.
[2019-11-02] MEDS: MIRTAZAPINE 15 MG TAB PO SCH (21:46)
[2019-11-02] MEDS: OLANZapine 10 MG TAB PO SCH (21:46)
[2019-11-03] MEDS: ACETAMINOPHEN TAB 325 MG TAB PO PRN (01:35)
[2019-11-03] MEDS: NICOTINE 14MG/24HR PATCH TRANSDERM SCH (11:48)
[2019-11-03] MEDS: SUCRALFATE 1 GM TAB PO SCH ×4 (11:48→19:28)
[2019-11-03] MEDS: PANTOPRAZOLE 40 MG TABLET PO SCH ×2 (11:48→19:28)
[2019-11-03] MEDS: PALIPERIDONE 3 MG TAB.ER.24 PO SCH ×2 (11:48→13:40)
[2019-11-03] MEDS: MAGNESIUM OXIDE 400 MG TAB PO SCH ×2 (11:48→13:40)
[2019-11-03] MEDS: LORazepam 1 MG TAB PO SCH ×2 (11:48→20:45)
--- NOTE | 2019-11-03 14:56 | P.PN ---
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 She has had no major episodes of behavioral dyscontrol over the weekend. She is complying with water restrictions without protest. Her serum sodium on 11/01/2019 was 135. I attempted to speak with her in her room. She did not want to talk or answer questions. I observe her periodically pacing on the unit but she spends most for time alone in her room. This morning, she refused the morning dose of Invega. Otherwise she's been compliant with prescribed psychotropic medications. Mental status exam: She presented as a disheveled [id number]-kuiv-tfz female who made eye contact. She had a blunted facial expression. She was not restless or agitated and did not display any apparent abnormal involuntary movements. Her gait was wide-based and unstable. She spoke little and herspeech was dysarthric. Her affect was blunted but appropriate. She did not express suicidal ideation, wishes homicidal ideation. She did not express depressive cognitions. She did not express clear ideas reference, paranoid ideation or delusions. I cannot fully evaluate her thought content to the paucity of speech. She denied experiencing auditory hallucinations but can be observed talking to herself as though she were responding to internal stimuli. Assessment: She is much less agitated, impulsive, restless and irritable. She has no insight or understanding of her mental illness or need for treatment. Her repeat computed tomography scan is consistent with a major neurocognitive disorder. Plan: Continue inpatient treatment. Safety precautions. Following her probate hearing administer Geodon IM if she refuses the oral dose. Water restriction per expert medical writer. Consider one-to-one if nursing staff is unable to restrict her water intake. Continue current psychotropic medications. Probate hearing for involuntary hospitalization is pending. Evaluate clinical status response to treatment daily basis.
[2019-11-03] MEDS: OLANZapine 10 MG TAB PO SCH (20:45)
[2019-11-03] MEDS: MIRTAZAPINE 15 MG TAB PO SCH (20:45)
[2019-11-04] MEDS: SUCRALFATE 1 GM TAB PO SCH ×3 (09:24→16:50)
[2019-11-04] MEDS: PANTOPRAZOLE 40 MG TABLET PO SCH ×2 (09:24→16:50)
[2019-11-04] MEDS: NICOTINE 14MG/24HR PATCH TRANSDERM SCH (09:24)
[2019-11-04] MEDS: PALIPERIDONE 3 MG TAB.ER.24 PO SCH (09:41)
[2019-11-04] MEDS: MAGNESIUM OXIDE 400 MG TAB PO SCH (09:41)
[2019-11-04] MEDS: LORazepam 1 MG TAB PO SCH ×2 (09:42→21:13)
--- NOTE | 2019-11-04 11:58 | P.PN ---
Progress Note - Text Interval history: The patient is found in her room she was verbally arousable. Again she refuses to follow me to an interview room. She indicates that she does not want to talk and she just wants to sleep. At that point she disengaged from the interaction. Staff report that last week she was loud and yelling that behavior reportedly has improved. She did receive Geodon injections several days ago but none recently. She did not defer and is scheduled to have a court hearing tomorrow morning. The patient was refusing some medications it appears that in the last day she has been starting to comply with the antipsychotic. She is noted to have hyponatremia she is on a fluid restriction as she has been trying to consume an inappropriate amount of water. Mental status exam: The patient is lying in bed she is alert eye contact is brief. She indicates she does not wish to participate in interview and refuses to go to an interview room. She answers no questions. She appears to be no physical distress she demonstrates no verbal or physical aggressiveness. She has a disheveled appearance she is covered with a blanket. Insight and judgment are impaired. Plan: The patient will be offered her psychotropic medication as written. We will monitor for safety. We'll continue to monitor her sodium level. She has court scheduled for tomorrow. We're informed that she does not utilize ASL and primarily lip reads. Vital signs reviewed.
[2019-11-04] MEDS: ACETAMINOPHEN TAB 325 MG TAB PO PRN (19:16)
[2019-11-04] MEDS: OLANZapine 10 MG TAB PO SCH (21:13)
[2019-11-04] MEDS: MIRTAZAPINE 15 MG TAB PO SCH (21:14)
[2019-11-04] MEDS: CHOLECALCIFEROL 1,000 UNIT TAB PO SCH (22:40)
[2019-11-05] MEDS: LORazepam 1 MG TAB PO SCH ×2 (08:11→22:25)
[2019-11-05] MEDS: PALIPERIDONE 3 MG TAB.ER.24 PO SCH (08:11)
[2019-11-05] MEDS: MAGNESIUM OXIDE 400 MG TAB PO SCH (08:11)
[2019-11-05] MEDS: SUCRALFATE 1 GM TAB PO SCH ×3 (08:11→17:10)
[2019-11-05] MEDS: PANTOPRAZOLE 40 MG TABLET PO SCH ×2 (08:11→17:11)
[2019-11-05] MEDS: NICOTINE 14MG/24HR PATCH TRANSDERM SCH (08:11)
[2019-11-05 09:00] LABS: African American GFR (CKD) >90 (>60 ml/min/1.73 sqM); Anion Gap 10 mmol/L; Blood Urea Nitrogen 12 mg/dL (7-17); Calcium 9.5 mg/dL (8.4-10.2); Carbon Dioxide 17 mmol/L (22-30); Chloride 106 mmol/L (98-107); Glucose 80 mg/dL (74-99); Non-African American GFR(CKD) >90 (>60 ml/min/1.73 sqM); Potassium 4.9 mmol/L (3.5-5.1); Sodium 133 mmol/L (137-145)
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
[2019-11-05] MEDS: CHOLECALCIFEROL 1,000 UNIT TAB PO SCH (17:10)
[2019-11-05] MEDS: OLANZapine 10 MG TAB PO SCH (22:25)
[2019-11-05] MEDS: MIRTAZAPINE 15 MG TAB PO SCH (22:25)
[2019-11-06] MEDS: SUCRALFATE 1 GM TAB PO SCH ×3 (10:28→16:43)
[2019-11-06] MEDS: PALIPERIDONE 3 MG TAB.ER.24 PO SCH ×2 (10:28→12:44)
[2019-11-06] MEDS: NICOTINE 14MG/24HR PATCH TRANSDERM SCH (10:28)
[2019-11-06] MEDS: MAGNESIUM OXIDE 400 MG TAB PO SCH ×2 (10:28→12:44)
[2019-11-06] MEDS: LORazepam 1 MG TAB PO SCH ×3 (10:28→21:55)
[2019-11-06] MEDS: PANTOPRAZOLE 40 MG TABLET PO SCH ×3 (10:28→16:43)
--- NOTE | 2019-11-06 11:10 | P.PN ---
Progress Note - Text Interval history: The patient is found in her room she is lying in bed on her right side. She does make brief eye contact. She refuses to follow me to an interview room. She states several times "I want to go home" and refuses to answer any questions today. Staff report that she has been isolating her room today. She has been demonstrating some yelling behavior but it has been quieter than several days ago. She has complied with the Zyprexa appears she has not complied with the invega dose this morning. Again her court hearing has been postponed until Sunday. Mental status exam: The patient is alert she is resting in bed there is no evidence of any physical distress. 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 We are able to communicate if I speak with a loud tone and if she is able to lip read. She is dismissive today and does not wish to participate in an interview. She provides no answers to any of my questions and simply states "I want to go home". Insight and judgment are impaired. She demonstrated no verbal or physical aggressiveness during the interaction. Plan: The patient will continue on her current psychotropic medication. We will monitor compliance with her medications. She has not been cooperating with vital signs. We will provide reality orientation when possible. She requires continued psychiatric hospitalization.
[2019-11-06] MEDS: ACETAMINOPHEN TAB 325 MG TAB PO PRN ×2 (12:44→21:54)
[2019-11-06 15:25] VITALS: BMI 22.6
[2019-11-06] MEDS: MIRTAZAPINE 15 MG TAB PO SCH (21:53)
[2019-11-06] MEDS: OLANZapine 10 MG TAB PO SCH (21:53)
--- NOTE | 2019-11-07 11:11 | P.PN ---
Progress Note - Text Interval history: The patient's found in her room she is resting in bed demonstrating no distress. She makes brief eye contact she again refuses to interact for an interview. She continues to state "I want to go home". She has been sleeping throughout the night I reviewed her intakes she is eating at least 50% of her meals. She remains on a water restriction. No reports of any loud or aggressive behavior. There was some yelling I was informed but quieter than earlier in the week. For the most part she has been staying in her room other than for meals. Mental status exam: The patient is alert she is a disheveled appearance hygiene to impaired eye contact is poor. She has a known hearing deficit. She very briefly interacts during this session. She continues to state "I want to go home". She appears to be in no acute distress. No evidence of any involuntary repetitive movements. Insight and judgment remain impaired. Plan: The patient will continue on her current medications. Our strategy so far has just been too restart her on the psychotropic medications that she was not taking prior to the admission. We are still awaiting her court hearing which will occur Sunday. It appears that she will refuse medications at times but later in the day she will accept them. No vital signs available to review. We will encourage her to participate in the milieu we will provide reality orientation when possible.
[2019-11-07] MEDS: SUCRALFATE 1 GM TAB PO SCH ×4 (11:41→17:01)
[2019-11-07] MEDS: PANTOPRAZOLE 40 MG TABLET PO SCH ×3 (11:41→17:01)
[2019-11-07] MEDS: LORazepam 1 MG TAB PO SCH ×2 (11:42→21:29)
[2019-11-07] MEDS: NICOTINE 14MG/24HR PATCH TRANSDERM SCH (11:42)
[2019-11-07] MEDS: PALIPERIDONE 3 MG TAB.ER.24 PO SCH (11:42)
[2019-11-07] MEDS: MAGNESIUM OXIDE 400 MG TAB PO SCH (11:42)
[2019-11-07] MEDS: CHOLECALCIFEROL 1,000 UNIT TAB PO SCH ×2 (16:55→17:01)
[2019-11-07] MEDS: MIRTAZAPINE 15 MG TAB PO SCH (21:22)
[2019-11-07] MEDS: OLANZapine 10 MG TAB PO SCH (21:22)
[2019-11-07] MEDS: ACETAMINOPHEN TAB 325 MG TAB PO PRN (23:38)
[2019-11-08] MEDS: SUCRALFATE 1 GM TAB PO SCH ×3 (11:56→17:00)
[2019-11-08] MEDS: LORazepam 1 MG TAB PO SCH ×2 (11:56→19:34)
[2019-11-08] MEDS: PANTOPRAZOLE 40 MG TABLET PO SCH ×2 (11:56→17:00)
[2019-11-08] MEDS: PALIPERIDONE 3 MG TAB.ER.24 PO SCH (11:57)
[2019-11-08] MEDS: MAGNESIUM OXIDE 400 MG TAB PO SCH (11:57)
[2019-11-08] MEDS: NICOTINE 14MG/24HR PATCH TRANSDERM SCH (11:59)
[2019-11-08] MEDS: OLANZapine 10 MG TAB PO SCH (19:34)
[2019-11-08] MEDS: MIRTAZAPINE 15 MG TAB PO SCH (19:34)
[2019-11-08] MEDS: ACETAMINOPHEN TAB 325 MG TAB PO PRN (21:09)
--- NOTE | 2019-11-09 10:23 | P.PN ---
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 She is laying in bed and rocking back and forth. She again repeated that she "wants to go home". After I left the room I could hear her wailing that she "wants to go home." Mental status exam: She presented as a disheveled [id number] female who made eye contact. She had a distressed facial expression. She was not restless or agitated and did not display any apparent abnormal involuntary movements. Her gait was wide-based and unstable. Her speech was dysarthric. Her affect was labile. She did not express suicidal ideation, wishes homicidal ideation. She did not express depressive cognitions. She did not express clear ideas reference, paranoid ideation or delusions. She did not appear to be responding to internal stimuli. Assessment: She is much less agitated, impulsive, restless and irritable than on admission. She has no insight or understanding of her mental illness or need for treatment. Plan: Continue inpatient treatment. Safety precautions. Water restriction per medical lab tech instructor. Consider one-to-one if nursing staff is unable to restrict her water intake. Continue current psychotropic medications. Evaluate clinical status response to treatment daily basis.
[2019-11-09] MEDS: PANTOPRAZOLE 40 MG TABLET PO SCH ×2 (11:35→17:35)
[2019-11-09] MEDS: PALIPERIDONE 3 MG TAB.ER.24 PO SCH (11:36)
[2019-11-09] MEDS: NICOTINE 14MG/24HR PATCH TRANSDERM SCH (11:36)
[2019-11-09] MEDS: LORazepam 1 MG TAB PO SCH ×2 (11:36→20:50)
[2019-11-09] MEDS: MAGNESIUM OXIDE 400 MG TAB PO SCH (11:36)
[2019-11-09] MEDS: SUCRALFATE 1 GM TAB PO SCH ×3 (11:36→17:35)
[2019-11-09 17:29] LABS: African American GFR (CKD) >90 (>60 ml/min/1.73 sqM); Anion Gap 7 mmol/L; Blood Urea Nitrogen 11 mg/dL (7-17); Calcium 9.4 mg/dL (8.4-10.2); Carbon Dioxide 24 mmol/L (22-30); Chloride 100 mmol/L (98-107); Glucose 101 mg/dL (74-99); Non-African American GFR(CKD) >90 (>60 ml/min/1.73 sqM); Potassium 4.5 mmol/L (3.5-5.1); Sodium 131 mmol/L (137-145)
[2019-11-09] MEDS: MIRTAZAPINE 15 MG TAB PO SCH (20:49)
[2019-11-09] MEDS: OLANZapine 10 MG TAB PO SCH (20:50)
[2019-11-10] MEDS ORDERED: MELATONIN 5 MG TABLET PO ONE (01:00)
[2019-11-10] MEDS: PALIPERIDONE 3 MG TAB.ER.24 PO SCH (09:24)
[2019-11-10] MEDS: LORazepam 1 MG TAB PO SCH ×2 (09:24→23:18)
[2019-11-10] MEDS: MAGNESIUM OXIDE 400 MG TAB PO SCH (09:24)
[2019-11-10] MEDS: SUCRALFATE 1 GM TAB PO SCH ×3 (09:24→17:09)
[2019-11-10] MEDS: PANTOPRAZOLE 40 MG TABLET PO SCH ×2 (09:24→17:09)
[2019-11-10] MEDS: NICOTINE 14MG/24HR PATCH TRANSDERM SCH (09:27)
--- NOTE | 2019-11-10 11:18 | P.PN ---
Progress Note - Text Interval history: The patient is found in the [facility] watching TV she follows me to an interview room. As we walked to the interview room she states numerous times "I want to go home". She did this as well throughout our interaction. Staff report that the patient's behavior is improving. There is much less yelling she is coming out of her room more often. She has been complying with the medication. Mental status exam: The patient is alert she is a disheveled appearance she is dressed in the hospital gowns. Eye contact is appropriate speech is dysarthric but understandable. She continues to state "I want to go home" numerous times. She does have a significant hearing deficit but we are able to communicate when I speak loudly and she is able to lip read. She is reporting no suicidal or homicidal ideation intent or plan. She is reporting no auditory or visual hallucinations. She does still have some paranoid thinking. She feels that she could be in danger from people hurting her while she sleeps. Insight and judgment slowly improving although it appears to be chronically impaired. Plan: Continue psychiatric medications as written. We will monitor her for safety and encourage full participation in the milieu. Vital signs reviewed. We are awaiting her full court hearing on Sunday. If she is clinically appropriate we may be able to discharge her following that hearing.
[2019-11-10] MEDS: CHOLECALCIFEROL 1,000 UNIT TAB PO SCH (17:09)
[2019-11-10] MEDS: MIRTAZAPINE 15 MG TAB PO SCH (23:19)
[2019-11-10] MEDS: OLANZapine 10 MG TAB PO SCH (23:19)
[2019-11-11] MEDS: SUCRALFATE 1 GM TAB PO SCH ×3 (10:51→17:15)
[2019-11-11] MEDS: NICOTINE 14MG/24HR PATCH TRANSDERM SCH (10:51)
[2019-11-11] MEDS: PANTOPRAZOLE 40 MG TABLET PO SCH ×3 (11:09→17:15)
[2019-11-11] MEDS: LORazepam 1 MG TAB PO SCH ×3 (11:09→21:30)
[2019-11-11] MEDS: PALIPERIDONE 3 MG TAB.ER.24 PO SCH ×2 (11:09→11:27)
[2019-11-11] MEDS: MAGNESIUM OXIDE 400 MG TAB PO SCH ×2 (11:09→11:26)
--- NOTE | 2019-11-11 11:34 | P.PN ---
Progress Note - Text Interval history: The patient is found in her room upon approach she makes eye contact. She states "go away". She remains frustrated that she has not been discharge. He continues to request discharge. Staff report that she continues to slowly improve. There have been less reports of behavioral disturbance. fast foods worker will call the patient's daughter to discuss the patient's current presentation compared to her known baseline function. The patient has been compliant with medications. We're awaiting the court hearing tomorrow. Mental status exam: The patient's found in her room seated upright in bed facing the window. She makes brief eye contact she directs me to leave. She does not participate in the conversation any further. She demonstrates no verbal or physical aggressiveness she demonstrates no involuntary repetitive movements. She appears to be in no physical distress. Insight and judgment limited and I suspect it is chronically limited. She provided no further responses to questions. Plan: The patient will continue on her current psychotropic medications we will monitor her for safety we are awaiting a court hearing tomorrow. We will consider discharging her tomorrow after we receive input from the patient's daughter. We will continue to monitor her for safety and encourage participation in the milieu.
[2019-11-11] MEDS: OLANZapine 10 MG TAB PO SCH (21:30)
[2019-11-11] MEDS: MIRTAZAPINE 15 MG TAB PO SCH (21:30)
[2019-11-12] MEDS: SUCRALFATE 1 GM TAB PO SCH ×3 (10:49→17:13)
[2019-11-12] MEDS: PANTOPRAZOLE 40 MG TABLET PO SCH ×2 (10:51→17:14)
[2019-11-12] MEDS: LORazepam 1 MG TAB PO SCH ×2 (10:51→20:14)
--- NOTE | 2019-11-12 10:51 | P.PN ---
Progress Note - Text Interval history: The patient is found in her room. She does interact with me today. She indicates that she does not wish to go to court. She states that she doesn't feel well. Arrangements have been made for her to be transported to Court at 2 PM. Staff report that the patient has refused some medication yesterday. She has been getting out of her room more there has been less behavioral disturbance. The patient has no questions or concerns regarding her medications. Mental status exam: The patient is alert she seated upright in bed eye contact is improved she is more interactive. She has a significant hearing impairment with dysarthria of speech. We are able to communicate however. She is reporting no thoughts of self-harm or harm to others. She continues to repeat that she wants to go home. She expresses concern about having to go to court but does not specify a reason. Insight and judgment chronically limited. She demonstrates no verbal or physical aggressiveness. She demonstrates no involuntary repetitive movements. She is dressed in hospital attire hygiene grooming are impaired. Plan: The patient will continue on her current medications. She is encouraged to comply with them. She is encouraged to attend to her hygiene. She will participate in the court hearing today. We will delay the discharge as we want to be sure that she is compliant with medication and attending to her basic hygiene needs We will continue to monitor her for safety. She is encouraged to participate in the milieu.
[2019-11-12] MEDS: NICOTINE 14MG/24HR PATCH TRANSDERM SCH (10:52)
[2019-11-12] MEDS: MAGNESIUM OXIDE 400 MG TAB PO SCH (10:52)
[2019-11-12] MEDS: PALIPERIDONE 3 MG TAB.ER.24 PO SCH (10:52)
[2019-11-12] MEDS: ACETAMINOPHEN TAB 325 MG TAB PO PRN (17:13)
[2019-11-12] MEDS: CHOLECALCIFEROL 1,000 UNIT TAB PO SCH (17:13)
[2019-11-12] MEDS: MIRTAZAPINE 15 MG TAB PO SCH (20:14)
[2019-11-12] MEDS: OLANZapine 10 MG TAB PO SCH (20:14)
[2019-11-13] MEDS: SUCRALFATE 1 GM TAB PO SCH ×3 (09:33→19:39)
[2019-11-13] MEDS: NICOTINE 14MG/24HR PATCH TRANSDERM SCH (09:33)
[2019-11-13] MEDS: PALIPERIDONE 3 MG TAB.ER.24 PO SCH (09:59)
[2019-11-13] MEDS: MAGNESIUM OXIDE 400 MG TAB PO SCH (09:59)
[2019-11-13] MEDS: LORazepam 1 MG TAB PO SCH ×2 (09:59→22:55)
[2019-11-13] MEDS: PANTOPRAZOLE 40 MG TABLET PO SCH ×2 (09:59→19:39)
--- NOTE | 2019-11-13 10:48 | P.PN ---
Progress Note - Text Interval history: The patient is found in her room. Again she indicates she would like to go home. We did get a full treatment order for her issued by the court. The patient has been compliant with medication yesterday and this morning so far. She continues to isolate in her room. She has no questions or concerns regarding her medication. Mental status exam: The patient is alert she makes some eye contact she states she would like to go home. She demonstrates no verbal or physical aggressiveness no yelling behavior. She is reporting no thoughts of harming herself or others. She again keeps the interaction brief period insight and judgment chronically impaired. She is reporting no hallucinations. There may be some residual paranoid thinking. Plan: The patient will continue on her current psychotropic medications. If we see that she is compliant with them another day we will consider discharging her tomorrow. We will continue to monitor her for safety and encourage full participation in the milieu. Social work has contacted the patient's daughter who was willing to receive the patient home again.
[2019-11-13 18:28] LABS: Calcium 9.7 mg/dL (8.4-10.2); Potassium 4.4 mmol/L (3.5-5.1)
[2019-11-13] MEDS: MIRTAZAPINE 15 MG TAB PO SCH (22:56)
[2019-11-13] MEDS: OLANZapine 10 MG TAB PO SCH (22:56)
[2019-11-14] MEDS: LORazepam 1 MG TAB PO SCH ×2 (06:01→20:09)
[2019-11-14] MEDS: SUCRALFATE 1 GM TAB PO SCH ×3 (09:20→17:45)
[2019-11-14] MEDS: MAGNESIUM OXIDE 400 MG TAB PO SCH (09:20)
[2019-11-14] MEDS: PALIPERIDONE 3 MG TAB.ER.24 PO SCH (09:20)
[2019-11-14] MEDS: NICOTINE 14MG/24HR PATCH TRANSDERM SCH (09:21)
[2019-11-14] MEDS: PANTOPRAZOLE 40 MG TABLET PO SCH ×2 (09:21→17:45)
[2019-11-14] MEDS ORDERED: ZIPRASIDONE 20 MG VIAL IM PRN (10:51)
--- NOTE | 2019-11-14 10:55 | P.PN ---
Progress Note - Text Interval history: The patient is found in her room she seated upright in bed. Nursing staff indicated that the patient refused the Zyprexa and Remeron last evening. We discussed instituting an order that she will receive a Geodon injection if she refuses any further oral medication. For compliance with oral medication was a condition of her being discharged today which she did not meet. Also her sodium level was reportedly 128 which is decreased. We need to continue to assist in her fluid restriction. The patient states that she has taken her medications. Numerous times she states she wants to go home. Mental status exam: The patient is alert she seated upright in bed hygiene grooming impaired eye contact is intermittent she reports her mood is "okay". We discussed her noncompliance with her medication she became agitated and stated that she has been taking it. She reports no suicidal or homicidal thoughts. Insight and judgment are chronically impaired. She demonstrates no verbal or physical aggressiveness she demonstrates no involuntary repetitive movements. She is a chronic significant hearing deficit she is dysarthric in terms of speech but understandable. She is in no apparent physical distress. He Plan: The patient will be continued on her current psychotropic medications in order is written that she will receive Geodon 10 mg IM if she refuses the oral doses of her psychotropic medications. We will further monitor her her water intake and enforce the water restriction is much as possible. She is encouraged to participate in the milieu we will monitor her for safety. We will have to delay her discharge further and reassess on Sunday.
[2019-11-14] MEDS: CHOLECALCIFEROL 1,000 UNIT TAB PO SCH (17:44)
[2019-11-14] MEDS: ACETAMINOPHEN TAB 325 MG TAB PO PRN (20:09)
[2019-11-14] MEDS: OLANZapine 10 MG TAB PO SCH (20:09)
[2019-11-14] MEDS: MIRTAZAPINE 15 MG TAB PO SCH (20:09)
[2019-11-15] MEDS: LORazepam 1 MG TAB PO SCH ×2 (08:25→20:32)
[2019-11-15] MEDS: PANTOPRAZOLE 40 MG TABLET PO SCH ×2 (08:25→16:50)
[2019-11-15] MEDS: PALIPERIDONE 3 MG TAB.ER.24 PO SCH (08:25)
[2019-11-15] MEDS: MAGNESIUM OXIDE 400 MG TAB PO SCH (08:25)
[2019-11-15] MEDS: SUCRALFATE 1 GM TAB PO SCH ×3 (08:25→16:50)
[2019-11-15] MEDS: NICOTINE 14MG/24HR PATCH TRANSDERM SCH (08:26)
--- NOTE | 2019-11-15 11:02 | P.PN ---
Progress Note - Text Progress Note Date: 11/15/19 Interval history: Patient was seen laying down in her bed this morning however initially was re luctant to speak to short story writer and did not want to leave her room. Patient was hard of hearing and asked several times for questions to be repeated back to her. She did not offer any complaints overnight and states that she slept well. She denied any problems with her medications and states that she's been taking them regularly. She claims that she did not go to group today however has been eating her meals. At this time patient denies any suicidal or homicidal ideations intent or plan. Denies any Auditory or visual hallucinations. Patient denies any side effects from the medications and has been compliant with meds. Mental status exam: General Appearance: Patient appears to be stated age is alert, directable, with poor hygiene and grooming wearing hospital gown Behavior: No agitated behavior. Patient is calm and directable Speech: Patient's speech is fluent and nonpressured. Mood/Affect: Mood is "okay", affect is congruent and constricted. Suicidality/Homicidality: Patient denies having any suicidal or homicidal ideation intent or plan. Perceptions: Patient denies any auditory or visual hallucinations. Though content/process: [place], logical. Poverty of content Memory and concentration: AOX3, grossly intact for the purposes of this session Judgment and insight: improving mildly Assessment/Plan: Continue with current diagnosis. Patient continues to meet criteria for inpatient psychiatric admission for symptom stabilization and safety.Patient will be maintained on current psychotropic medication regimen. Monitor for medication compliance and for any psychotropic medication side effects. Will continue to monitor ongoing response to treatment. Encouraged participation in milieu.
[2019-11-15] MEDS: MIRTAZAPINE 15 MG TAB PO SCH (20:32)
[2019-11-15] MEDS: OLANZapine 10 MG TAB PO SCH (20:32)
[2019-11-15] MEDS: ACETAMINOPHEN TAB 325 MG TAB PO PRN (23:33)
[2019-11-16 07:03] VITALS: PULSE 61
[2019-11-16 07:41] LABS: ALT 19 U/L (4-34); AST 20 U/L (14-36); African American GFR (CKD) >90 (>60 ml/min/1.73 sqM); Albumin 3.7 g/dL (3.5-5.0); Alkaline Phosphatase 65 U/L (38-126); Anion Gap 6 mmol/L; Blood Urea Nitrogen 12 mg/dL (7-17); Calcium 9.4 mg/dL (8.4-10.2); Carbon Dioxide 26 mmol/L (22-30); Chloride 101 mmol/L (98-107); Glucose 85 mg/dL (74-99); Non-African American GFR(CKD) >90 (>60 ml/min/1.73 sqM); Sodium 133 mmol/L (137-145); Total Bilirubin 0.4 mg/dL (0.2-1.3); Total Protein 6.6 g/dL (6.3-8.2)
[2019-11-16] MEDS: LORazepam 1 MG TAB PO SCH ×4 (08:33→22:35)
[2019-11-16] MEDS: PALIPERIDONE 3 MG TAB.ER.24 PO SCH (08:33)
[2019-11-16] MEDS: MAGNESIUM OXIDE 400 MG TAB PO SCH (08:33)
[2019-11-16] MEDS: PANTOPRAZOLE 40 MG TABLET PO SCH ×2 (08:33→17:31)
[2019-11-16] MEDS: ACETAMINOPHEN TAB 325 MG TAB PO PRN ×2 (08:33→17:36)
[2019-11-16] MEDS: SUCRALFATE 1 GM TAB PO SCH ×3 (08:33→17:31)
[2019-11-16] MEDS: NICOTINE 14MG/24HR PATCH TRANSDERM SCH (08:33)
--- NOTE | 2019-11-16 10:46 | P.PN ---
Progress Note - Text Progress Note Date: 11/16/19 Interval history: Patient was seen wandering the hallways this morning and was directable and a greeable to speak to field underwriter. Patient did have a difficult time communicating due to her hearing impairment. She did not offer any complaints and perseverated on discharge. She spoke about her family that she misses and wants to see. She did not offer any complaints with regards to her medications and claims that she is taking them. She states that she was going to group later on today. She admitted to fair sleep last night and improving mood. At this time patient denies any suicidal or homicidal ideations intent or plan. Denies any Auditory or visual hallucinations. Patient denies any side effects from the medications and has been compliant with meds. Mental status exam: General Appearance: Patient appears to be stated age is alert, directable, with improving hygiene and grooming wearing hospital gown Behavior: No agitated behavior. Patient is calm and directable Speech: Patient's speech is fluent and nonpressured. Mood/Affect: Mood is "ok", affect is congruent and constricted. Suicidality/Homicidality: Patient denies having any suicidal or homicidal ideation intent or plan. Perceptions: Patient denies any auditory or visual hallucinations. Though content/process: [place], logical. Poverty of content Memory and concentration: AOX3, grossly intact for the purposes of this session Judgment and insight: improving mildly Assessment/Plan: Continue with current diagnosis. Patient continues to meet criteria for inpatient psychiatric admission for symptom stabilization and safety.Patient will be maintained on current psychotropic medication regimen. Monitor for medication compliance and for any psychotropic medication side effects. Will continue to monitor ongoing response to treatment. Encouraged participation in milieu.
[2019-11-16] MEDS: MIRTAZAPINE 15 MG TAB PO SCH ×3 (20:11→22:35)
[2019-11-16] MEDS: OLANZapine 10 MG TAB PO SCH ×3 (20:11→22:35)
[2019-11-16] MEDS ORDERED: ZIPRASIDONE 20 MG VIAL IM PRN (20:24)
[2019-11-17 06:29] VITALS: BP 111/56; RESP 16
[2019-11-17] MEDS: SUCRALFATE 1 GM TAB PO SCH ×3 (10:33→16:55)
[2019-11-17] MEDS: PANTOPRAZOLE 40 MG TABLET PO SCH ×2 (10:33→16:55)
[2019-11-17] MEDS: PALIPERIDONE 3 MG TAB.ER.24 PO SCH (10:33)
[2019-11-17] MEDS: MAGNESIUM OXIDE 400 MG TAB PO SCH (10:33)
[2019-11-17] MEDS: NICOTINE 14MG/24HR PATCH TRANSDERM SCH (10:33)
[2019-11-17] MEDS: LORazepam 1 MG TAB PO SCH (10:34)
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
[2019-11-17] MEDS: ACETAMINOPHEN TAB 325 MG TAB PO PRN (15:12)
[2019-11-17] MEDS: CHOLECALCIFEROL 1,000 UNIT TAB PO SCH (16:55)
[2019-11-17 17:29] VITALS: TEMP 98.4
== END 2019-11-17 17:01 | disposition home or self-care (01) | DRG 885 ==
LOC: EC 07:22 → 3MHU 10-27 12:09
PROVIDERS: ADMIT Psychiatry & Neurology Psychiatry; ATTEND Psychiatry & Neurology Psychiatry
DX: F25.9 Schizoaffective disorder, unspecified (principal); E87.1 Hypo-osmolality and hyponatremia; G91.9 Hydrocephalus, unspecified; F01.50 Vascular dementia, unspecified severity, without behavioral disturbance, psychotic disturbance, mood disturbance, and anxiety; G40.909 Epilepsy, unspecified, not intractable, without status epilepticus; J44.9 Chronic obstructive pulmonary disease, unspecified; G35 Multiple sclerosis; Z91.128 Patient's intentional underdosing of medication regimen for other reason; F12.10 Cannabis abuse, uncomplicated; T50.906A Underdosing of unspecified drugs, medicaments and biological substances, initial encounter; K21.9 Gastro-esophageal reflux disease without esophagitis; H91.90 Unspecified hearing loss, unspecified ear; R62.50 Unspecified lack of expected normal physiological development in childhood; G43.909 Migraine, unspecified, not intractable, without status migrainosus; E87.79 Other fluid overload; R47.1 Dysarthria and anarthria; F17.200 Nicotine dependence, unspecified, uncomplicated; Z71.6 Tobacco abuse counseling; Z79.899 Other long term (current) drug therapy; Z87.11 Personal history of peptic ulcer disease; Z87.19 Personal history of other diseases of the digestive system; Z87.440 Personal history of urinary (tract) infections; Z98.890 Other specified postprocedural states; Y63.6 Underdosing and nonadministration of necessary drug, medicament or biological substance; Z82.49 Family history of ischemic heart disease and other diseases of the circulatory system; Z81.8 Family history of other mental and behavioral disorders
CPT/HCPCS: 36415; 70450; 80048; 80053; 80061; 80306; 81003; 82075; 83036; 83930; 83935; 84300; 84443; 85025; 99285

== ENCOUNTER 2020-11-03 10:46 | Inpatient (IN) | payer MEDICARE, MEDICAID ==
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
[2020-11-03] MEDS ORDERED: LORazepam 2 MG/ML INJ IM STA (13:35)
[2020-11-03] MEDS ORDERED: HALOPERIDOL LACTATE 5 MG/ML 1 ML VIAL IM STA (13:35)
[2020-11-03] MEDS ORDERED: MAGNESIUM HYDROXIDE 2,400 MG/10 ML CUP PO PRN (16:34)
[2020-11-03] MEDS ORDERED: MAG HYDROX/AL HYDROX/SIMETH 30 ML CUP PO PRN (16:34)
[2020-11-03] MEDS ORDERED: ACETAMINOPHEN TAB 325 MG TAB PO PRN (16:34)
[2020-11-03] MEDS ORDERED: haloperidoL 5 MG TAB PO PRN (16:42)
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
[2020-11-03] MEDS ORDERED: IPRATROPIUM-ALBUTEROL 3 ML NEB INHALATION PRN (20:56)
[2020-11-03] MEDS ORDERED: MIRTAZAPINE 15 MG TAB PO SCH (21:00)
[2020-11-03] MEDS: PALIPERIDONE 3 MG TAB.ER.24 PO SCH (21:01)
[2020-11-04 13:53] VITALS: BMI 20.4
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
[2020-11-04] MEDS: LORazepam 2 MG/ML INJ IM PRN (16:06)
[2020-11-04] MEDS: PALIPERIDONE 3 MG TAB.ER.24 PO SCH (20:54)
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
[2020-11-05] MEDS: PALIPERIDONE 6 MG TAB.ER.24 PO SCH (21:57)
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
[2020-11-06] MEDS: PALIPERIDONE 6 MG TAB.ER.24 PO SCH (20:45)
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
[2020-11-07] MEDS: PALIPERIDONE 6 MG TAB.ER.24 PO SCH (22:09)
--- NOTE | 2020-11-08 09:50 | P.PN ---
Progress Note - Text Progress Note Date: 11/08/20 Interval History: Patient was seen lying in her bed this morning with her sheets covering her he ad. Patient was difficult to awaken however once she awoke and she turned around to look at development writer and then smiled and then quickly turned around again pretending that she was back to sleep. She did not respond to any questions at all and did not follow any commands. She has been refusing her medications. Mental Status Exam: General Appearance: Patient appears to be impuslive, stated age is alert, uncooperative. Patient appears to have poor hygiene and grooming. Behavior: Patient is laying in her bed and is uncooperative. Speech: Patient's speech is fluent and nonpressured. Mood/Affect: Unable to assess Suicidality/Homicidality: Unable to assess Perceptions: Unable to assess Though content/process: unable to asses Memory and concentration: unable to asses Judgment and insight: poor Assessment Schizophrenia Cannabis use disorder Plan: -Patient continues to meet criteria for inpatient psychiatric admission for symptom stabilization and safety. Patient has not signed adult voluntary form and medication consent and was placed in patient's chart. -Medications: Continue with paliperidone 3 mg daily at bedtime for psychosis. Patient will likely need to be transitioned onto Invega Sustenna to insure compliance. -When necessary Ativan and Haldol for agitation/aggression. -NRT - not needed as patient does not smoke -SW on board for discharge planning. Encouraged the patient to participate in milieu. Currently awaiting deferral with upper and bottom lacer hand and court date.
[2020-11-08] MEDS: PALIPERIDONE 6 MG TAB.ER.24 PO SCH (21:50)
--- NOTE | 2020-11-09 10:37 | P.PN ---
Progress Note - Text Progress Note Date: 11/09/20 Interval History: Patient was seen near the nurse's desk this morning and was asking for a refill on her water. Patient continues to appear to be disheveled in appearance and did not respond to auto service writer initially. Patient did look at auto service writer when auto service writer approached patient and the hallway to speak however patient was not directable and ignored auto service writer the first time. She turned her head and when auto service writer asked her a question about how she was doing and if she is experiencing any hallucinations, patient states "no" and then begins laughing loudly and inappropriately. She turned her head once again and then refused to answer any other questions. She has been refusing her medications. Mental Status Exam: General Appearance: Patient appears to be impuslive, stated age is alert, uncooperative. Patient appears to have poor hygiene and grooming. Behavior: Patient is laying in her bed and is uncooperative. inappropriately laughing. Speech: Patient's speech is fluent and nonpressured. Mood/Affect: Unable to assess Suicidality/Homicidality: Unable to assess Perceptions: Denies hearing any voices or visual hallucinations. Though content/process: unable to asses Memory and concentration: unable to asses Judgment and insight: poor Assessment Schizophrenia Cannabis use disorder Plan: -Patient continues to meet criteria for inpatient psychiatric admission for symptom stabilization and safety. Patient has not signed adult voluntary form and medication consent and was placed in patient's chart. -Medications: Continue with paliperidone 3 mg daily at bedtime for psychosis. Patient will likely need to be transitioned onto Invega Sustenna to ensure compliance. -When necessary Ativan and Haldol for agitation/aggression. -NRT - not needed as patient does not smoke -SW on board for discharge planning. Encouraged the patient to participate in milieu. Patient has her court hearing tomorrow at 9:30am.
[2020-11-09] MEDS: PALIPERIDONE 6 MG TAB.ER.24 PO SCH (21:09)
--- NOTE | 2020-11-10 11:17 | P.PN ---
Progress Note - Text Progress Note Date: 11/10/20 Interval History: Patient was seen near the nurse's desk this morning and was repeatedly asking for "pop". She continues to have a disheveled appearance and continues to appear to be responding to internal stimuli. She looked at sign writer letterer or painter when he approached her in the hallway however patient was not directable and answered inappropriately several times to sign writer letterer or painter's questions. She continues to have very poor insight and judgment. She ended the interview by walking away and not following any commands. Mental Status Exam: General Appearance: Patient appears to be impuslive, stated age is alert, uncooperative. Patient appears to have poor hygiene and grooming. Behavior: Patient is laying in her bed and is uncooperative. inappropriately laughing. Speech: Patient's speech is fluent and nonpressured. Mood/Affect: Unable to assess Suicidality/Homicidality: Unable to assess Perceptions: Denies hearing any voices or visual hallucinations. Though content/process: unable to asses Memory and concentration: unable to asses Judgment and insight: poor Assessment Schizophrenia Cannabis use disorder Plan: -Patient continues to meet criteria for inpatient psychiatric admission for symptom stabilization and safety. Patient has not signed adult voluntary form and medication consent and was placed in patient's chart. -Medications: Continue with paliperidone 3 mg daily at bedtime for psychosis. Patient will likely need to be transitioned onto Invega Sustenna to ensure compliance. -When necessary Ativan and Haldol for agitation/aggression. -NRT - not needed as patient does not smoke -SW on board for discharge planning. Encouraged the patient to participate in milieu. Patient's court hearing today was adjourned due to patient not being able to hear the tree cutter. Will await another court hearing and patient will be attending court in person.
[2020-11-10] MEDS: PALIPERIDONE 6 MG TAB.ER.24 PO SCH (22:14)
--- NOTE | 2020-11-11 12:39 | P.PN ---
Progress Note - Text Progress Note Date: 11/11/20 Interval History: Patient was seen near the nurse's desk this morning and was repeatedly asking for water. She continues to have a disheveled appearance and continues to appear to be responding to internal stimuli. Patient continues to not be taking her medications. She initially ignored her teletypewriter operator on teletypewriter operator was speaking to her in the hallway and patient refused to speak with him turned away her head and states "I need water" and then turned away. She walked away shortly after this refusing to speak with teletypewriter operator. Mental Status Exam: General Appearance: Patient appears to be impuslive, stated age is alert, uncooperative. Patient appears to have poor hygiene and grooming. Behavior: Patient is laying in her bed and is uncooperative. inappropriately laughing. Speech: Patient's speech is fluent and nonpressured. Mood/Affect: Unable to assess Suicidality/Homicidality: Unable to assess Perceptions: Denies hearing any voices or visual hallucinations. Though content/process: unable to asses Memory and concentration: unable to asses Judgment and insight: poor Assessment Schizophrenia Cannabis use disorder Plan: -Patient continues to meet criteria for inpatient psychiatric admission for symptom stabilization and safety. Patient has not signed adult voluntary form and medication consent and was placed in patient's chart. -Medications: Continue with paliperidone 3 mg daily at bedtime for psychosis. Patient will likely need to be transitioned onto Invega Sustenna to ensure co mpliance. He is refusing medications. -When necessary Ativan and Haldol for agitation/aggression. -NRT - not needed as patient does not smoke -SW on board for discharge planning. Encouraged the patient to participate in milieu. Patient's court hearing today was adjourned due to patient not being able to hear the weight engineer. Will await another court hearing and patient will be attending court in person.
[2020-11-11] MEDS: PALIPERIDONE 6 MG TAB.ER.24 PO SCH (21:09)
--- NOTE | 2020-11-12 12:03 | P.PN ---
Progress Note - Text Progress Note Date: 11/12/20 Interval History: Patient was seen sitting in the hallway near the activity room this morning and was approached by engineering writer to speak with her. She continues to have a disheveled appearance and continues to appear to be responding to internal stimuli. She was laughing at times inappropriately. Patient continues to not be taking her medications. She initially ignored her engineering writer on engineering writer was speaking to her in the hallway and patient refused to speak with him turned away her head. She did state however "I'm not psycho" and turned away. She walked away shortly after this refusing to speak with engineering writer. Mental Status Exam: General Appearance: Patient appears to be impuslive, stated age is alert, uncooperative. Patient appears to have poor hygiene and grooming. Behavior: Patient is laying in her bed and is uncooperative. inappropriately laughing. Speech: Patient's speech is fluent and nonpressured. Mood/Affect: Unable to assess Suicidality/Homicidality: Unable to assess Perceptions: Denies hearing any voices or visual hallucinations. Though content/process: unable to asses Memory and concentration: unable to asses Judgment and insight: poor Assessment Schizophrenia Cannabis use disorder Plan: -Patient continues to meet criteria for inpatient psychiatric admission for sym ptom stabilization and safety. Patient has not signed adult voluntary form and medication consent and was placed in patient's chart. -Medications: Continue with paliperidone 3 mg daily at bedtime for psychosis. Patient will likely need to be transitioned onto Invega Sustenna to ensure compliance. sHe is refusing medications. -When necessary Ativan and Haldol for agitation/aggression. -NRT - not needed as patient does not smoke -SW on board for discharge planning. Encouraged the patient to participate in milieu. Patient's court hearing today was adjourned due to patient not being able to hear the sound recording technician. Will await another court hearing and patient will be attending court in person.
[2020-11-12] MEDS: PALIPERIDONE 6 MG TAB.ER.24 PO SCH ×2 (21:19→21:22)
[2020-11-13 15:32] LABS: Basophils % (A) 0 %; Eosinophils # (A) 0.1 k/uL (0-0.7); Eosinophils % (A) 1 %; HCT 43.4 % (34.0-46.0); HGB 14.4 gm/dL (11.4-16.0); Lymphocytes % (A) 14 %; MCH 29.5 pg (25.0-35.0); MCHC 33.2 g/dL (31.0-37.0); MCV 88.9 fL (80.0-100.0); Mean Platelet Volume 6.6; Monocytes # (A) 0.4 k/uL (0-1.0); Monocytes % (A) 5 %; Neutrophils % (A) 78 %; Platelet Count 461 k/uL (150-450); RBC 4.89 m/uL (3.80-5.40); WBC 7.6 k/uL (3.8-10.6)
[2020-11-13 15:45] LABS: ALT 14 U/L (4-34); AST 21 U/L (14-36); African American GFR (CKD) >90 (>60 ml/min/1.73 sqM); Alkaline Phosphatase 63 U/L (38-126); Anion Gap 11 mmol/L; Blood Urea Nitrogen 9 mg/dL (7-17); Calcium 9.8 mg/dL (8.4-10.2); Carbon Dioxide 25 mmol/L (22-30); Chloride 97 mmol/L (98-107); Glucose 162 mg/dL (74-99); Non-African American GFR(CKD) >90 (>60 ml/min/1.73 sqM); Potassium 3.9 mmol/L (3.5-5.1); Sodium 133 mmol/L (137-145); Total Bilirubin 0.3 mg/dL (0.2-1.3); Total Protein 6.6 g/dL (6.3-8.2)
[2020-11-13 17:11] LABS: ALT 15 U/L (4-34); AST 22 U/L (14-36); African American GFR (CKD) >90 (>60 ml/min/1.73 sqM); Albumin 4.4 g/dL (3.5-5.0); Alkaline Phosphatase 69 U/L (38-126); Anion Gap 11 mmol/L; Blood Urea Nitrogen 10 mg/dL (7-17); Calcium 9.8 mg/dL (8.4-10.2); Carbon Dioxide 21 mmol/L (22-30); Chloride 99 mmol/L (98-107); Glucose 95 mg/dL (74-99); Non-African American GFR(CKD) >90 (>60 ml/min/1.73 sqM); Potassium 4.5 mmol/L (3.5-5.1); Sodium 131 mmol/L (137-145); Total Bilirubin 0.6 mg/dL (0.2-1.3); Total Protein 7.2 g/dL (6.3-8.2)
[2020-11-13] MEDS: PALIPERIDONE 6 MG TAB.ER.24 PO SCH (21:48)
--- NOTE | 2020-11-13 22:13 | P.PN ---
Progress Note - Text Progress Note Date: 11/13/20 Subjective: Patient was seen today as a cross coverage for Dr. Braxton. The patient was evaluated, chart reviewed, case discussed with the treatment team. Patient reports fair sleep last night, and appetite was reported as "good". Patient has not been going to groups and other unit activities. The patient is not compliant with medications and denies any adverse reactions. The patient is deaf and was able to communicate when I wrote her questions and she answered them. She denies feeling hopeless or suicidal and denies any hallucinations. Denies any PI. Pt might present bizarre with disorganized thoughts but not sure if that related to psychotic disorder or because of her communication challenges with others or probably having intellectual limitation. The nursing staff report the patient has history of schizophrenia with poor compliance with treatment and using marijuana. She has history of severe hyponatremia and she agreed today to have lab work which was ordered. Objective: Vitals has been reviewed. Mental status examination; Appearance: The patient appears older than stated age, adequately groomed and dressed, no specific features. Gait/posture: Normal gait, Normal arm swinging: No abnormal movements. Attitude and behavior: not engaged, not fully cooperative, intermittent eye contact. Motor activity: Normal psychomotor activity Speech: few words, slow rate, abnormal tone. Mood: Anxious Affect: Constricted Thought form: Poverty of thoughts Thought content: Non-delusional, denies suicidal thoughts, denies homicidal thoughts, denies intentions or plans. Perception: Denies any auditory or visual hallucinations Attention: No impairment. Orientation: Patient patient was fully oriented to time place person and situation. Insight: Patient has limited insight about her psychiatric disorder. Judgment: Patient has limited judgment about her psychiatric treatment. Assessment: Schizophrenia Cannabis use disorder Plan: Continue inpatient level of care due to need for further monitoring and stabilization. Precautions: Continue 15 minutes check for safety. Consider medical consultation if any acute medical issues arise. Provide the patient individual, group therapy, substance use disorder counseling to give better insight and learn coping skills. Medications: Invega for psychotic symptoms. Pt continues to refuse taking the medication. Primary team plan to switch the patient to Long acting injectable. Continue as needed medications for psychiatric emergencies including psychosis, agitation and anxiety. Continue non-psychiatric medications for medical conditions as recommended by the medical team. CMP was ordered. Discharge patient to OUTPATIENT services upon a stabilization
[2020-11-14] MEDS: PALIPERIDONE 6 MG TAB.ER.24 PO SCH (20:54)
[2020-11-14] MEDS: LORazepam 1 MG TAB PO PRN (20:55)
[2020-11-14] MEDS ORDERED: diphenhydrAMINE 50 MG/ML 1 ML VIAL IM ONE (21:56)
[2020-11-14] MEDS: HALOPERIDOL LACTATE 5 MG/ML 1 ML VIAL IM PRN (21:57)
--- NOTE | 2020-11-15 00:43 | P.PN ---
Progress Note - Text Progress Note Date: 11/14/20 Subjective: Patient was seen today as a cross coverage for Dr. Braxton. The patient was evaluated, chart reviewed, case discussed with the treatment team. Patient was communicating only by writing her questions and she was able to answer with very short statement or few words. She denies feeling depressed or suicidal. Denies any hallucinations, paranoid ideation, or delusions. Reports having sleep problems but denies any appetite problems. Ambrosio Mendoza continues to be fully compliant with her medications that she refuses taking Invega. Continues to isolate herself and rarely interact with others. Labs obtained and shows hyponatremia so medical team was consulted. Objective: Vitals has been reviewed. Mental status examination; Appearance: The patient appears older than stated age, adequately groomed and dressed, no specific features. Gait/posture: Normal gait, Normal arm swinging: No abnormal movements. Attitude and behavior: not engaged, not fully cooperative, intermittent eye contact. Motor activity: Normal psychomotor activity Speech: few words, slow rate, abnormal tone. Mood: Anxious Affect: Constricted Thought form: Poverty of thoughts Thought content: Non-delusional, denies suicidal thoughts, denies homicidal thoughts, denies intentions or plans. Perception: Denies any auditory or visual hallucinations Attention: No impairment. Orientation: Patient patient was fully oriented to time place person and situation. Insight: Patient has limited insight about her psychiatric disorder. Judgment: Patient has limited judgment about her psychiatric treatment. Assessment: Schizophrenia Cannabis use disorder Plan: Continue inpatient level of care due to need for further monitoring and stabilization. Precautions: Continue 15 minutes check for safety. Medical consultation for hyponatremia-nursing communication. Provide the patient individual, group therapy, substance use disorder counseling to give better insight and learn coping skills. Medications: Invega for psychotic symptoms. Pt continues to refuse taking the medication. Primary team plan to switch the patient to Long acting injectable. Continue as needed medications for psychiatric emergencies including psychosis, agitation and anxiety. Continue non-psychiatric medications for medical conditions as recommended by the medical team. CMP was ordered. Discharge patient to OUTPATIENT services upon a stabilization
--- NOTE | 2020-11-15 11:00 | P.PN ---
Progress Note - Text Progress Note Date: 11/15/20 Patient seen and examined at bedside. When I walked into the room patient was talking to herself with a flight of ideas. Patient states that she was having some abdominal pain earlier which resolved after she was given Maalox. Patient currently denies any acute complaints. She denies chest pain nausea vomiting and diarrhea. General examination - Alert and Oriented 3 in NAD Heart - + S1S2 no murmurs Lungs - Clear to auscultation Abdomen soft NT ND +ve BS Extremities - No edema ROAD ADVISOR - Moving all 4 extremities spontaneously Psych - psychotic Assessment and plan GERD -Resume Maalox as needed Schizophrenia -Your psychiatric management I have reviewed patient's labs from 11/13/2020 which are unremarkable. Vital signs are stable Chronic conditions Seizure disorder: seizure precautions COPD: Herman MACKEY Thank you for allowing us to participate in the care of this patient. We will follow peripherally. Do not hesitate to contact us with questions. Someone can reach from [facility], [facility] at all hours of the day at .
--- NOTE | 2020-11-15 13:50 | P.PN ---
Progress Note - Text Progress Note Date: 11/15/20 Interval History: Patient was seen standing near her room this morning and was agreeable to speak to filing writer briefly in the hallway. She appeared to be mildly more directable during conversation however continues to be bizarre and complained of difficulties hearing filing writer. She was asking for water repeatedly during the conversation. She does not appear to be responding to internal stimuli today. She was laughing inappropriately at times. She did look bizarre at times and had bizarre gestures. Patient started taking her medications today. Mental Status Exam: General Appearance: Patient appears to be impuslive, stated age is alert, more cooperative. Patient appears to have mildly improving hygiene and grooming. Behavior: Patient is laying in her bed and is cooperative. inappropriately laughing at times. Speech: Patient's speech is fluent and nonpressured. Mood/Affect: Unable to assess Suicidality/Homicidality: Unable to assess Perceptions: Denies hearing any voices or visual hallucinations. Though content/process: unable to asses Memory and concentration: unable to asses Judgment and insight: poor Assessment Schizophrenia Cannabis use disorder Plan: -Patient continues to meet criteria for inpatient psychiatric admission for symptom stabilization and safety. Patient has not signed adult voluntary form and medication consent and was placed in patient's chart. -Medications: Continue with paliperidone 6 mg daily at bedtime for psychosis. Patient will likely need to be transitioned onto Invega Sustenna to ensure compliance. Just started taking medications today. -When necessary Ativan and Haldol for agitation/aggression. -NRT - not needed as patient does not smoke -SW on board for discharge planning. Encouraged the patient to participate in milieu. Patient's court hearing was adjourned due to patient not being able to hear the yarn conditioner. Will await court scheduled for 11/17 and 9 AM with patient being picked up from the mental health unit to appear in court in person.
[2020-11-15] MEDS: PALIPERIDONE 6 MG TAB.ER.24 PO SCH (22:37)
--- NOTE | 2020-11-16 09:27 | P.PN ---
Progress Note - Text Progress Note Date: 11/16/20 Interval History: Patient was seen standing near her room this morning and was agreeable to speak to blog writer briefly in the hallway. She appeared to be fairly distracted today and proceeded to be walking towards the nurse's desk. She spoke about "being hungry". She appeared to be mildly more directable. She refuses her medications this morning. She does not appear to be responding to internal stimuli today. She did look bizarre at times and had bizarre gestures. Mental Status Exam: General Appearance: Patient appears to be impuslive, stated age is alert, more cooperative. Patient appears to have mildly improving hygiene and grooming. Behavior: Patient is standing in the hallway and is cooperative. Inappropriately laughing at times Speech: Patient's speech is fluent and nonpressured. Mood/Affect: Unable to assess Suicidality/Homicidality: Unable to assess Perceptions: Denies hearing any voices or visual hallucinations. Though content/process: unable to asses Memory and concentration: unable to asses Judgment and insight: poor Assessment Schizophrenia Cannabis use disorder Plan: -Patient continues to meet criteria for inpatient psychiatric admission for symptom stabilization and safety. Patient has not signed adult voluntary form and medication consent and was placed in patient's chart. -Medications: Continue with paliperidone 6 mg daily at bedtime for psychosis. Patient will likely need to be transitioned onto Invega Sustenna to ensure compliance. -When necessary Ativan and Haldol for agitation/aggression. -NRT - not needed as patient does not smoke -SW on board for discharge planning. Encouraged the patient to participate in milieu. \\Will await court scheduled for 11/17 and 9 AM with patient being picked up from the mental health unit to appear in court in person.
[2020-11-16] MEDS: HALOPERIDOL LACTATE 5 MG/ML 1 ML VIAL IM PRN (19:06)
[2020-11-16] MEDS: LORazepam 2 MG/ML INJ IM PRN (19:07)
[2020-11-16] MEDS: PALIPERIDONE 6 MG TAB.ER.24 PO SCH (21:19)
--- NOTE | 2020-11-17 09:49 | P.PN ---
Progress Note - Text Progress Note Date: 11/17/20 Interval History: Patient was seen laying in her room this morning and was awoken briefly by moises koch. She turned her face proposal lead writer and asked him "where's my breakfast". She continues to have a difficult time comprehending proposal lead writer however appeared to be fairly distracted and not following commands. She has been noted by staff to be yelling in the hallways and talking to herself. She continues to appear bizarre and disorganized. She refuses her medications this morning. She refused to go to court this morning. Mental Status Exam: General Appearance: Patient appears to be impuslive, stated age is alert, more cooperative. Patient appears to have mildly improving hygiene and grooming. Behavior: Patient is laying in her bed and is uncooperative. bizarre Speech: Patient's speech is fluent and nonpressured. Mood/Affect: Unable to assess Suicidality/Homicidality: Unable to assess Perceptions: Denies hearing any voices or visual hallucinations. Though content/process: unable to asses Memory and concentration: unable to asses Judgment and insight: poor Assessment Schizophrenia Cannabis use disorder Plan: -Patient continues to meet criteria for inpatient psychiatric admission for symptom stabilization and safety. Patient has not signed adult voluntary form and medication consent and was placed in patient's chart. -Medications: Continue with paliperidone 6 mg daily at bedtime for psychosis. Patient will likely need to be transitioned onto Invega Sustenna to ensure compliance. -When necessary Ativan and Haldol for agitation/aggression. -NRT - not needed as patient does not smoke -SW on board for discharge planning. Encouraged the patient to participate in milieu. Will await court scheduled for today. Patient refused to go to court this morning.
[2020-11-17] MEDS: LORazepam 2 MG/ML INJ IM PRN (15:27)
[2020-11-17] MEDS: HALOPERIDOL LACTATE 5 MG/ML 1 ML VIAL IM PRN (15:28)
[2020-11-17] MEDS ORDERED: PALIPERIDONE 3 MG TAB.ER.24 PO SCH (21:00)
--- NOTE | 2020-11-18 11:21 | P.PN ---
Progress Note - Text Progress Note Date: 11/18/20 Interval History: Patient was seen laying in her room this morning sitting at the table in the [facility] waiting for activity group. She acknowledges development writer when she attempted to speak with her however patient was not directable today. Medical Operations Supervisor wrote down several questions for patient however she did not respond appropriately and began crying when development writer asked her how she was doing. She continues to appear bizarre and disorganized. She received a court order yesterday and began taking her medications last night. She required a Haldol and Ativan IM for agitation yesterday afternoon. Mental Status Exam: General Appearance: Patient appears to be impuslive, stated age is alert, more cooperative. Patient appears to have mildly improving hygiene and grooming. Behavior: Patient is laying in her bed and is uncooperative. bizarre Speech: Patient's speech is fluent and nonpressured. Mood/Affect: Unable to assess Suicidality/Homicidality: Unable to assess Perceptions: Denies hearing any voices or visual hallucinations. Though content/process: unable to asses Memory and concentration: unable to asses Judgment and insight: poor Assessment Schizophrenia Cannabis use disorder Plan: -Patient continues to meet criteria for inpatient psychiatric admission for symptom stabilization and safety. Patient has not signed adult voluntary form and medication consent and was placed in patient's chart. -Medications: increased paliperidone 6 mg daily at bedtime for psychosis. Patient will likely need to be transitioned onto Invega Sustenna to ensure compliance. Patient to receive IM Haldol if she refuses by mouth medications. -When necessary Ativan and Haldol for agitation/aggression. -NRT - not needed as patient does not smoke -SW on board for discharge planning. Encouraged the patient to participate in milieu. Patient ended up receiving a court order for treatment on 11/17/20.
[2020-11-18] MEDS: PALIPERIDONE 6 MG TAB.ER.24 PO SCH (21:28)
[2020-11-18] MEDS: HALOPERIDOL LACTATE 5 MG/ML 1 ML VIAL IM PRN (21:28)
--- NOTE | 2020-11-19 11:26 | P.PN ---
Progress Note - Text Progress Note Date: 11/19/20 Interval History: Patient was seen sitting in a chair near the activity room today before group. She appears to be less labile today and was directable early on when sba underwriter approached her. She continues to have poor eyesight and impulse control. She asked sba underwriter several times "what do you want". She appears to be mildly more appropriate and staff is claiming that patient has been yelling less and less bizarre on the unit. She required a Haldol IM yesterday when she refused her paliperidone by mouth as per her court order Mental Status Exam: General Appearance: Patient appears to be impuslive, stated age is alert, more cooperative. Patient appears to have mildly improving hygiene and grooming. Behavior: Patient is laying in her bed and is uncooperative. bizarre, mildly improving Speech: Patient's speech is fluent and nonpressured. Mood/Affect: Unable to assess Suicidality/Homicidality: Unable to assess Perceptions: Denies hearing any voices or visual hallucinations. Though content/process: unable to asses Memory and concentration: unable to asses Judgment and insight: poor, improving mildly Assessment Schizophrenia Cannabis use disorder Plan: -Patient continues to meet criteria for inpatient psychiatric admission for symptom stabilization and safety. Patient has not signed adult voluntary form and medication consent and was placed in patient's chart. -Medications: paliperidone 6 mg daily at bedtime for psychosis. Patient will likely need to be transitioned onto Invega Sustenna to ensure compliance. Patient to receive IM Haldol if she refuses by mouth medications. -When necessary Ativan and Haldol for agitation/aggression. -NRT - not needed as patient does not smoke -SW on board for discharge planning. Encouraged the patient to participate in milieu. Patient ended up receiving a court order for treatment on 11/17/20. Will continue to encourage patient to take her meds and will observe for any improvement and once she is improving then will end up transitioning patient onto [facility].
[2020-11-19] MEDS: HALOPERIDOL LACTATE 5 MG/ML 1 ML VIAL IM PRN (21:58)
[2020-11-19] MEDS: PALIPERIDONE 6 MG TAB.ER.24 PO SCH (21:59)
--- NOTE | 2020-11-20 19:43 | PN ---
PROGRESS NOTE DATE OF SERVICE: 11/20/2020 CHIEF COMPLAINT: The patient was sleeping poorly. She had auditory and visual hallucinations. She was pointing a knife at people. She had not been taking her prescribed medication. INTERVAL HISTORY: Patient has been doing fair. She continues with ups and downs in her mood. She had some episodes yesterday where she would get into agitation and would yell. She tends to keep to herself, though she does come out in the day area some. She will wander about. She has been declining taking her Invega in spite of being on a court order. She has received IM Haldol as a p.r.n. for acute agitation. The patient slept fairly well last night. Today she spent a fair amount of time in her room. She has had some periods of coming out of her room. She will come up to the desk an ask appropriately for water. She can seem to be in a pretty good mood some of the time, though every once in a while seems to get angry at one thing or another and may yell. It is not exactly clear what bothers the patient. When I talked to her today she did not have any immediate complaints or concerns. She has tolerated the IM Haldol and has continued to be encouraged to take oral medication. MENTAL STATUS: Patient gave fairly good eye contact. She smiled quite a bit of the time. She would make a few comments. Even when I talked loudly to her she did not really answer any questions directly. She had a reasonable range of affect. Her mood was even. She did not appear to be distressed. Difficult to assess for thought disorder. She indicated no thoughts of harm. She was oriented to her circumstances and environment. ASSESSMENT: I will continue the current diagnosis and treatment plan. We will continue with an order for Invega 6 mg at bedtime. The patient has been declining to take the medication thought we continue to encourage her in that direction. She does have p.r.n. Haldol available IM along with Ativan. There would be consideration for a long- acting injectable and at this point the only choice likely would be Haldol. We will focus on stabilization and discharge planning. MMODL / RAMÓNN: [id number] /
[2020-11-20] MEDS: LORazepam 2 MG/ML INJ IM PRN (21:49)
[2020-11-20] MEDS: HALOPERIDOL LACTATE 5 MG/ML 1 ML VIAL IM PRN (21:49)
[2020-11-20] MEDS: PALIPERIDONE 6 MG TAB.ER.24 PO SCH (23:41)
[2020-11-21 11:49] LABS: ALT 21 U/L (4-34); AST 41 U/L (14-36); African American GFR (CKD) >90 (>60 ml/min/1.73 sqM); Albumin 4.2 g/dL (3.5-5.0); Alkaline Phosphatase 69 U/L (38-126); Anion Gap 9 mmol/L; Blood Urea Nitrogen 10 mg/dL (7-17); Calcium 9.8 mg/dL (8.4-10.2); Carbon Dioxide 29 mmol/L (22-30); Chloride 95 mmol/L (98-107); Glucose 68 mg/dL (74-99); Non-African American GFR(CKD) >90 (>60 ml/min/1.73 sqM); Potassium 4.3 mmol/L (3.5-5.1); Sodium 133 mmol/L (137-145); Total Bilirubin 0.4 mg/dL (0.2-1.3); Total Protein 6.9 g/dL (6.3-8.2)
[2020-11-21] MEDS: PALIPERIDONE 6 MG TAB.ER.24 PO SCH (14:24)
[2020-11-22] MEDS ORDERED: PALIPERIDONE IM 234 MG/1.5 ML SYG IM STA (12:14)
--- NOTE | 2020-11-22 12:19 | P.PN ---
Progress Note - Text Progress Note Date: 11/22/20 Interval History: Patient was seen sitting in a chair near the activity room today before group and patient was working on a puzzle. She pleasantly smiled at comic writer and attempted to interact with them. She appeared to have mild improvement in her impulse control and also her concentration. She continues to be difficult to communicate with due to her lack of comprehension and also hearing impairment. She appears to be less labile today and was directable. He states that her mood is "okay". She did not endorse any auditory hallucinations and did not appear to be responding to internal stimuli. Staff has been commenting claiming that patient has been overall improving over the weekend. Mental Status Exam: General Appearance: Patient appears to be less impuslive, stated age is alert, more cooperative. Patient appears to have mildly improving hygiene and grooming. Behavior: Patient is laying in her bed and is more cooperative. less bizarre Speech: Patient's speech is fluent and nonpressured. Mood/Affect: Unable to assess Suicidality/Homicidality: Unable to assess Perceptions: Denies hearing any voices or visual hallucinations. Though content/process: unable to asses Memory and concentration: unable to asses Judgment and insight: poor, improving mildly Assessment Schizophrenia Cannabis use disorder Plan: -Patient continues to meet criteria for inpatient psychiatric admission for symptom stabilization and safety. Patient has not signed adult voluntary form and medication consent and was placed in patient's chart. -Medications: paliperidone 6 mg daily at bedtime for psychosis. Patient will lbe given Invega Sustenna 234 mg loading dose IM today to ensure compliance. Patient to receive IM Haldol if she refuses by mouth medications. -When necessary Ativan and Haldol for agitation/aggression. -NRT - not needed as patient does not smoke -SW on board for discharge planning. Encouraged the patient to participate in milieu. Patient ended up receiving a court order for treatment on 11/17/20. Will continue to encourage patient to take her meds and will observe for any improvement and once she is improving then will end up transitioning patient onto DE LA FUENTE. Likely discharge towards the end of the week once patient can safely be discontinued off of oral meds and given her second long-acting injection.
--- NOTE | 2020-11-22 12:33 | PN ---
PROGRESS NOTE DATE OF SERVICE: 11/21/2020 CHIEF COMPLAINT: The patient was sleeping poorly. She had auditory and visual hallucination. She was pointing a knife at people. She has not been taking her prescribed medication. Overall, the patient has been doing pretty much the same. Yesterday she had a quiet day. She came out in the day area. She would wander about. She will make various comments though it is not clear exactly what she is trying to communicate. She will respond some to staff. A fair amount of the time when people approached her she will have a smile though at times she can present with an angry manner. She can get loud in her voice, though she has been more in an even mood than not. She did not attend groups yesterday. She slept fairly well last night. Today she has been up. She comes out in the day area. She continues to do the same. When I talked to her today, I was fairly assertive about the idea that she should take her Invega. She came to the medication window and wanted to look at the package an the medicine. After she looked at the pills, she did take her dose of Invega. She did not seem to voice any complaints or concerns. MENTAL STATUS: Patient gave fair eye contact. She made a few comments. She was somewhat restless. She was accepting the idea of taking medication and did not put up too much fuss about it. Her affect was in a reasonable range. Her mood was even. She smiled some. She did not appear to be distressed. ASSESSMENT: I will continue the current diagnosis and treatment plan. Overall, the patient continues to do about the same. She did take Invega 6 mg today. I would anticipate her receiving a long-acting injectable. I would continue to encourage staff to be somewhat assertive about her taking Invega. We will focus on stabilization and discharge planning. MMODL / IJN: [id number] /
[2020-11-22] MEDS: PALIPERIDONE 6 MG TAB.ER.24 PO SCH (20:40)
--- NOTE | 2020-11-23 09:30 | P.PN ---
Progress Note - Text Progress Note Date: 11/23/20 Interval History: Patient was seen laying down this morning in her bed and was difficult to awaken by movie writer. Patient once she woke up turned and looked at movie writer and stated "what?". She continues to have difficulty comprehending movie writer however showed improvement in her impulse control and attempted more to interact with movie writer. Patient also had improvement in her concentration and did not appear to be responding to internal stimuli. He states that her mood is "fine" then proceeded to ask movie writer about breakfast. She did not endorse any auditory hallucinations. Mental Status Exam: General Appearance: Patient appears to be, stated age is alert, more cooperative. More directable. Patient appears to have mildly improving hygiene and grooming. Behavior: Patient is laying in her bed and is more cooperative. less bizarre Speech: Patient's speech is fluent and nonpressured. Mood/Affect: Unable to assess Suicidality/Homicidality: Unable to assess Perceptions: Denies hearing any voices or visual hallucinations. Though content/process: unable to asses Memory and concentration: unable to asses Judgment and insight: chronically poor, improving mildly Assessment Schizophrenia Cannabis use disorder Plan: -Patient continues to meet criteria for inpatient psychiatric admission for symptom stabilization and safety. Patient has not signed adult voluntary form and medication consent and was placed in patient's chart. -Medications: decreased paliperidone 3 mg daily at bedtime for psychosis. She received Invega Sustenna 234 mg loading dose IM on 11/22 and will be due for the 156mg IM dose on 11/26. Patient to receive IM Haldol if she refuses by mouth medications. -When necessary Ativan and Haldol for agitation/aggression. -NRT - not needed as patient does not smoke -SW on board for discharge planning. Encouraged the patient to participate in milieu. Patient ended up receiving a court order for treatment on 11/17/20. Will continue to encourage patient to take her meds and will observe for any improvement. Likely discharge towards the end of the week once patient can s afely be discontinued off of oral meds and given her second long-acting injection.
[2020-11-23] MEDS ORDERED: PALIPERIDONE 3 MG TAB.ER.24 PO SCH (21:00)
--- NOTE | 2020-11-24 11:31 | P.PN ---
Progress Note - Text Progress Note Date: 11/24/20 Interval History: Patient was seen laying down this morning however appeared to have an improvem ent in her affect today and greeted account underwriter when he walked into the room. She smiled and said hello. She attempted to answer all questions however had difficult he comprehending once again. She claims that she is doing "fine" and was denying any depression today. She states that she is sleeping fine overnight. When asked about her medications she claims that she does not need to take them. Today she does not appear to be responding to internal stimuli. She did not endorse any auditory hallucinations. Mental Status Exam: General Appearance: Patient appears to be, stated age is alert, more cooperative. More directable. Patient appears to have mildly improving hygiene and grooming. Behavior: Patient is laying in her bed and is more cooperative. Less bizarre Speech: Patient's speech is fluent and nonpressured. Mood/Affect: She claims her mood is "fine" and her affect is congruent and appears to be brighter today. Suicidality/Homicidality: Unable to assess Perceptions: Denies hearing any voices or visual hallucinations. Though content/process: unable to asses Memory and concentration: unable to asses Judgment and insight: chronically poor, improving mildly Assessment Schizophrenia Cannabis use disorder Plan: -Patient continues to meet criteria for inpatient psychiatric admission for symptom stabilization and safety. Patient has not signed adult voluntary form and medication consent and was placed in patient's chart. -Medications: paliperidone 3 mg daily at bedtime for psychosis then to be discontinued after her last dose on night. She received Invega Sustenna 234 mg loading dose IM on 11/22 and will be due for the 156mg IM dose on 11/26. Patient to receive IM Haldol if she refuses by mouth medications. -When necessary Ativan and Haldol for agitation/aggression. -NRT - not needed as patient does not smoke -SW on board for discharge planning. Encouraged the patient to participate in milieu. Patient ended up receiving a court order for treatment on 11/17/20. Will continue to encourage patient to take her meds and will observe for any improvement. Discharge back home on sunday after patient receives her second DE LA FUENTE dose.
[2020-11-24] MEDS: PALIPERIDONE 3 MG TAB.ER.24 PO SCH (20:48)
--- NOTE | 2020-11-25 20:37 | PN ---
PROGRESS NOTE DATE OF SERVICE: 11/25/2020. CHIEF COMPLAINT: The patient was sleeping poorly. She had auditory and visual hallucinations. She was pointing a knife at people. She had not been taking her prescribed medication. INTERVAL HISTORY: Patient continues to do the same. She will come out in the day area some. She does not interact much with others. Her main issues as far as socialization is her being hard of hearing. She attended one group yesterday though was not able to engage in any productive way in the group. She did stay for the entire group. However, she spends a fair amount of time in her room. She slept fairly well last night. Today she has been up. She has spent much of her time today in bed. Nursing indicated that she slept poorly last night and assessed her as sleeping 2 hours up to 6 in the morning. Staff noted that she remained in bed, though was observed talking loudly to herself and laughing inappropriately. Today, she has spent most of the time in her room. She has been eating okay. She does not seem to voice any significant concerns or complaints. She tolerates her psychotropic medications. MENTAL STATUS: Patient was in her room sitting on her bed. She did not give much eye contact, though she did look in my direction when she answered some questions. She had difficulty understanding the questions, though was able to say that she was doing "okay." She said she had eaten lunch. She said no when I asked her if she was having problems with her medication. She smiled a little. Her affect otherwise was somewhat constricted. She had a reserved mood. She did not appear to be distressed. It was difficult to assess for thought disorder. She showed no indications of self-harmful thoughts or behavior. ASSESSMENT: I will continue the current diagnosis and treatment plan. We will continue psychotropic medications the same. The primary issue is for the patient to receive her followup dose of Invega Sustenna. Once that has been achieved, the patient would be ready to be discharged. We will focus on stabilization and discharge planning. MMANGIEL / CHRISTINA: [id number] /
[2020-11-25] MEDS: PALIPERIDONE 3 MG TAB.ER.24 PO SCH (21:01)
[2020-11-25] MEDS: LORazepam 1 MG TAB PO PRN (21:01)
[2020-11-26 01:08] VITALS: BP 133/59; PULSE 130; RESP 18; TEMP 97.6
[2020-11-26] MEDS ORDERED: PALIPERIDONE IM 156 MG/ML SYG IM ONE (09:00)
--- NOTE | 2020-11-26 12:43 | DS ---
DISCHARGE SUMMARY DATE OF SERVICE: 11/26/2020. DATE OF ADMISSION: 11/03/2020 DATE OF DISCHARGE: 11/26/2020 ADMISSION AND DISCHARGE DIAGNOSES: 1. Schizophrenia. 2. Cannabis use disorder. HISTORY OF PRESENTING ILLNESS: The patient is a 55-year-old female, she was admitted on petition by her guardian who is her daughter. The petition indicated the patient was not sleeping for a week, she was having hallucinations including hearing voices and seeing people pulling knives on other people. She had not been taking her medications. She had last seen [facility] followup in July. She had been previously on Zyprexa and Invega. Her last psychiatric hospitalization was October 2019. Urine drug screen was positive for THC. She was admitted for further evaluation. MENTAL STATUS EXAM: The patient was irritable. She was alert, though uncooperative. Hygiene and grooming were felt to be poor. Speech was fluent and non-pressured. It was difficult to assess for mood, perceptions, or thought process. COURSE OF HOSPITALIZATION: The patient was admitted for comprehensive medical psychiatric and psychosocial evaluation. We made efforts to engage the patient in individual and group therapeutic activities. One significant issue the patient has id she is very hard of hearing, so communication was quite limited. She was started on Invega 3 mg a day. She would spend quite a bit of time in her room early during her hospital stay. She was quite distressed, she would have episodes of yelling and demanding to leave the hospital. She occasionally attended group activities. Her Invega was titrated up to 6 mg a day. As her hospitalization progressed, the patient showed gradual improvement. She was calmer in her disposition. She would interact more appropriately with staff. Sometimes she would come out in the day area. She often would have a broad smile and make some brief comment, though it was often difficult to be clear what she was referring to. She continued to struggle with hearing what others were saying, though she would respond to questions. Often her responses were not in line with the question, though were appropriate in terms of her current situation. An example would be staff would after how she was doing and her response might be "I ate lunch today." In regard to the petition process, the patient ultimately received a treatment order. She was started on Invega Sustenna and received an initial dose of 234 mg on 11/22/2020. She received a followup dose of Invega Sustenna 156 mg IM on 11/26/2020. The patient was cooperative with care. CONDITION AT DISCHARGE: Patient was stable. Her mood was improved. She tolerated her psychotropic medication. RECOMMENDATIONS AND FOLLOWUP: She will continue on Invega Sustenna as her only psychotropic medication. She would be due for Invega Sustenna 234 mg IM on 12/21/2020. For placement and followup plans, please refer to the discharge packet for details. MMODL / IJN: [id number] /
== END 2020-11-26 16:05 | disposition home or self-care (01) | DRG 885 ==
LOC: EC 10:46 → 3MHU 16:01
PROVIDERS: ADMIT Psychiatry & Neurology Psychiatry; ATTEND Psychiatry & Neurology Psychiatry
DX: F20.9 Schizophrenia, unspecified (principal); E87.1 Hypo-osmolality and hyponatremia; F31.9 Bipolar disorder, unspecified; G40.909 Epilepsy, unspecified, not intractable, without status epilepticus; H91.90 Unspecified hearing loss, unspecified ear; J44.9 Chronic obstructive pulmonary disease, unspecified; G43.909 Migraine, unspecified, not intractable, without status migrainosus; K21.9 Gastro-esophageal reflux disease without esophagitis; G35 Multiple sclerosis; Z20.822 Contact with and (suspected) exposure to COVID-19; F12.10 Cannabis abuse, uncomplicated; Z82.49 Family history of ischemic heart disease and other diseases of the circulatory system; Z87.11 Personal history of peptic ulcer disease; Z87.891 Personal history of nicotine dependence; Z91.14 Patient's other noncompliance with medication regimen; Z91.19 Patient's noncompliance with other medical treatment and regimen; Z81.8 Family history of other mental and behavioral disorders; Z98.890 Other specified postprocedural states
CPT/HCPCS: 80053; 82075; 84443; 85025; 87635; 96372; 99285

== ENCOUNTER 2020-12-31 13:13 | Emergency (ER) | payer MEDICAID, MEDICARE ==
[2020-12-31 13:21] VITALS: BP 134/84; PULSE 80; RESP 16; TEMP 98.4
--- NOTE | 2020-12-31 13:30 | ED ---
General Adult HPI - General Chief complaint: Psychiatric Symptoms Stated complaint: Mental Health Time Seen by Provider: 12/31/20 13:19 Source: EMS, RN notes reviewed, old records reviewed Mode of arrival: EMS Limitations: language barrier (pt very hard of hearing) - History of Present Illness Initial comments: 55-year-old female brought in by EMS for mental health evaluation. History of multiple admissions for mental health. History is very limited the patient herself is not able to person 5 any history, history is from EMS that indicates the patient has not been taking her medication. She was admitted to this institution approximately one month ago for mental health evaluation and treatment. - Related Data Home Medications Medication Instructions Recorded Confirmed Paliperidone IM [Invega Sustenna] 234 mg IM Q28D 12/31/20 12/31/20 Previous Rx's Medication Instructions Recorded Ipratropium-Albuterol Nebulize 3 ml INHALATION RT-QID PRN ml 11/26/20 [Duoneb 0.5 mg-3 mg/3 ml Soln] Allergies Allergy/AdvReac Type Severity Reaction Status Date / Time No Known Allergies Allergy Verified 12/31/20 13:56 Review of Systems ROS Statement: Those systems with pertinent positive or pertinent negative responses have been documented in the HPI. ROS Other: All systems not noted in ROS Statement are negative. Past Medical History Past Medical History: COPD, GERD/Reflux, GI Bleed, Seizure Disorder Additional Past Medical History / Comment(s): MS, hearing impaired, seizures when in her 30s last 2yrs ago, migraines, Upper GI bleed, peptic ulcer disease, developmentally delayed, hypotension, UTI History of Any Multi-Drug Resistant Organisms: None Reported Past Surgical History: Ear Surgery Additional Past Surgical History / Comment(s): cyst removed from coccyx, multiple bilateral ear surgeries. Past Anesthesia/Blood Transfusion Reactions: No Reported Reaction Past Psychological History: Anxiety, Bipolar, Depression, Schizophrenia Smoking Status: Former smoker Past Alcohol Use History: None Reported, Heavy Past Drug Use History: Marijuana - Past Family History Father Additional Family Medical History / Comment(s): Father at age 70 from myocardial infarction. Mother Additional Family Medical History / Comment(s): Patient's mother is alive at age 70. Patient does not know her medical history. Brother(s) Additional Family Medical History / Comment(s): Patient has 1 brother committed suicide at 48. Sister(s) Additional Family Medical History / Comment(s): Patient has 2 sisters with no major medical problems. General Exam Limitations: no limitations General appearance: alert, in no apparent distress Head exam: Present: atraumatic, normocephalic Eye exam: Present: normal appearance, PERRL Respiratory exam: Present: normal lung sounds bilaterally. Absent: respiratory distress, wheezes Cardiovascular Exam: Present: regular rate, normal rhythm GI/Abdominal exam: Present: soft. Absent: distended, tenderness, guarding Extremities exam: Present: normal inspection, normal capillary refill Neurological exam: Present: alert, motor sensory deficit (Patient moving all extremities symmetrically) Psychiatric exam: Present: flat affect Skin exam: Present: warm, dry, intact. Absent: cyanosis, diaphoretic Course Vital Signs 12/31/20 13:15 Temperature 98.4 F Pulse Rate 80 Respiratory 16 Rate Blood Pressure 134/84 O2 Sat by Pulse 98 Oximetry - Reevaluation(s) Reevaluation #1: 12/31/20 13:30 Patient cleared for EPS. Medical Decision Making - Medical Decision Making Patient was evaluated by EPS. The case had been discussed with both [facility] and with the patient's daughter. Ultimately the patient is able to be discharged home into the care of her daughter who is her guardian. Patient is not suicidal or homicidal, she is at her baseline. - Lab Data Lab Results 12/31/20 Range/Units 13:27 Urine Opiates Screen Not Detected (NotDetected) Ur Oxycodone Screen Not Detected (NotDetected) Urine Methadone Screen Not Detected (NotDetected) Ur Propoxyphene Screen Not Detected (NotDetected) Ur Barbiturates Screen Not Detected (NotDetected) U Tricyclic Antidepress Not Detected (NotDetected) Ur Phencyclidine Scrn Not Detected (NotDetected) Ur Amphetamines Screen Not Detected (NotDetected) U Methamphetamines Scrn Not Detected (NotDetected) U Benzodiazepines Scrn Not Detected (NotDetected) Urine Cocaine Screen Not Detected (NotDetected) U Marijuana (THC) Screen Detected H (NotDetected) Disposition Clinical Impression: Schizophrenia Disposition: HOME SELF-CARE Condition: Fair Instructions (If sedation given, give patient instructions): Schizophrenia (ED) Is patient prescribed a controlled substance at d/c from ED?: No Referrals: None,Stated [Primary Care Provider] - 1-2 days Time of Disposition: 15:39
[2020-12-31 14:18] LABS: Amphetamine Screen,Urine Not Detected (NotDetected); Barbiturate Screen,Urine Not Detected (NotDetected); Benzodiazepines Screen,Urine Not Detected (NotDetected); Cocaine Screen,Urine Not Detected (NotDetected); Methadone Screen, Urine Not Detected (NotDetected); Opiate Screen,Urine Not Detected (NotDetected); Oxycodone Screen, Urine Not Detected (NotDetected); Phencyclidine Screen,Urine Not Detected (NotDetected); Tricyclic Antidepressant,Urine Not Detected (NotDetected); Urn Cannabinoid Scrn Detected (NotDetected)
== END 2020-12-31 17:45 | disposition home or self-care (01) ==
LOC: EC 13:13
DX: F20.9 Schizophrenia, unspecified (principal); J44.9 Chronic obstructive pulmonary disease, unspecified; F31.9 Bipolar disorder, unspecified; F41.9 Anxiety disorder, unspecified; F12.90 Cannabis use, unspecified, uncomplicated; Z79.899 Other long term (current) drug therapy; Z87.891 Personal history of nicotine dependence
CPT/HCPCS: 80306; 99284

== ENCOUNTER 2021-04-20 09:38 | Inpatient (IN) | payer MEDICARE, MEDICAID ==
--- NOTE | 2021-04-20 10:16 | ED ---
General Adult HPI - General Chief complaint: Psychiatric Symptoms Stated complaint: Pick-up Order Time Seen by Provider: 04/20/21 09:52 Source: police Mode of arrival: ambulatory Limitations: language barrier - History of Present Illness Initial comments: Dictation was produced using [employer] dictation software. please excuse any grammatical, word or spelling errors. Chief Complaint: 55-year-old female past medical history of psychiatric illness presents to the emergency department after moss picker order History of Present Illness: She is 55-year-old female she has a court petition moss picker order. She has past medical history of schizophrenia and cannabis use disorder. Patient is hard of hearing. She has no complaints at this time. She does not know why she is here. According to moss picker order there is been concerned about patient's well-being. Nurse were received report from prehospital providers reports that he has not been compliant with her medications. The ROS documented in this emergency department record has been reviewed and confirmed by me. Those systems with pertinent positive or negative responses have been documented in the HPI. All other systems are other negative and/or noncontributory. PHYSICAL EXAM: General Impression: Alert and oriented x3, not in acute distress, malodorous HEENT: Normocephalic atraumatic, extra-ocular movements intact, pupils equal and reactive to light bilaterally, mucous membranes moist. Cardiovascular: Heart regular rate and rhythm Chest: Able to complete full sentences, no retractions, no tachypnea Musculoskeletal: Pulses present and equal in all extremities, no peripheral edema Motor: no focal deficits noted Neurological: CN II-XII grossly intact, no focal motor or sensory deficits noted Skin: Intact with no visualized rashes Psych: Normal affect and mood ED course: 55-year-old pleasant female presents to the emergency department. There was a court petition moss picker order for the patient. His concerns patient not been compliant with her psychiatric medications. Vital signs upon arrival are within acceptable limits. Physical examination is benign. Patient medically cleared for EPS. Patient is invited by EPS and we'll have patient mid to inpatient psychiatry. - Related Data Home Medications Medication Instructions Recorded Confirmed Paliperidone IM [Invega Sustenna] 234 mg IM Q28D 12/31/20 04/20/21 Allergies Allergy/AdvReac Type Severity Reaction Status Date / Time No Known Allergies Allergy Verified 04/20/21 10:44 Review of Systems ROS Statement: Those systems with pertinent positive or pertinent negative responses have been documented in the HPI. ROS Other: All systems not noted in ROS Statement are negative. Past Medical History Past Medical History: COPD, GERD/Reflux, GI Bleed, Seizure Disorder Additional Past Medical History / Comment(s): MS, hearing impaired, seizures when in her 30s last 2yrs ago, migraines, Upper GI bleed, peptic ulcer disease, developmentally delayed, hypotension, UTI History of Any Multi-Drug Resistant Organisms: None Reported Past Surgical History: Ear Surgery Additional Past Surgical History / Comment(s): cyst removed from coccyx, multiple bilateral ear surgeries. Past Anesthesia/Blood Transfusion Reactions: No Reported Reaction Past Psychological History: Anxiety, Bipolar, Depression, Schizophrenia Smoking Status: Former smoker Past Alcohol Use History: None Reported, Heavy Past Drug Use History: Marijuana - Past Family History Father Additional Family Medical History / Comment(s): Father at age 70 from myocardial infarction. Mother Additional Family Medical History / Comment(s): Patient's mother is alive at age 70. Patient does not know her medical history. Brother(s) Additional Family Medical History / Comment(s): Patient has 1 brother committed suicide at 48. Sister(s) Additional Family Medical History / Comment(s): Patient has 2 sisters with no major medical problems. General Exam Limitations: language barrier Course Vital Signs 04/20/21 09:42 Temperature 98.3 F Pulse Rate 93 Respiratory 18 Rate Blood Pressure 123/86 O2 Sat by Pulse 99 Oximetry Medical Decision Making - Lab Data Lab Results 04/20/21 Range/Units 12:04 Urine Opiates Screen Not Detected (NotDetected) Ur Oxycodone Screen Not Detected (NotDetected) Urine Methadone Screen Not Detected (NotDetected) Ur Propoxyphene Screen Not Detected (NotDetected) Ur Barbiturates Screen Not Detected (NotDetected) U Tricyclic Antidepress Not Detected (NotDetected) Ur Phencyclidine Scrn Not Detected (NotDetected) Ur Amphetamines Screen Not Detected (NotDetected) U Methamphetamines Scrn Not Detected (NotDetected) U Benzodiazepines Scrn Not Detected (NotDetected) Urine Cocaine Screen Not Detected (NotDetected) U Marijuana (THC) Screen Detected H (NotDetected) Disposition Clinical Impression: Noncompliance with medication regimen Disposition: ADMITTED IP TO THIS [facility] Condition: Fair Referrals: None,Stated [Primary Care Provider] - 1-2 days
[2021-04-20 12:34] LABS: Urn Cannabinoid Scrn Detected (NotDetected)
[2021-04-20 12:35] LABS: Amphetamine Screen,Urine Not Detected (NotDetected); Barbiturate Screen,Urine Not Detected (NotDetected); Benzodiazepines Screen,Urine Not Detected (NotDetected); Cocaine Screen,Urine Not Detected (NotDetected); Methadone Screen, Urine Not Detected (NotDetected); Opiate Screen,Urine Not Detected (NotDetected); Oxycodone Screen, Urine Not Detected (NotDetected); Phencyclidine Screen,Urine Not Detected (NotDetected); Tricyclic Antidepressant,Urine Not Detected (NotDetected)
[2021-04-20] MEDS ORDERED: LORazepam 1 MG TAB PO PRN (14:36)
[2021-04-20] MEDS ORDERED: ACETAMINOPHEN TAB 325 MG TAB PO PRN (14:36)
[2021-04-20] MEDS ORDERED: MAG HYDROX/AL HYDROX/SIMETH 30 ML CUP PO PRN (14:36)
[2021-04-20] MEDS ORDERED: MAGNESIUM HYDROXIDE 2,400 MG/10 ML CUP PO PRN (14:36)
[2021-04-20] MEDS ORDERED: LORazepam 2 MG/ML INJ IM PRN (14:42)
[2021-04-20] MEDS ORDERED: haloperidoL 5 MG TAB PO PRN (14:42)
[2021-04-20] MEDS ORDERED: HALOPERIDOL LACTATE 5 MG/ML 1 ML VIAL IM PRN (14:45)
[2021-04-20] MEDS ORDERED: PALIPERIDONE 3 MG TAB.ER.24 PO SCH (21:00)
--- NOTE | 2021-04-21 10:36 | P.HP ---
Psychiatric H&P - . H&P Date: 04/21/21 History & Physical: Allergies Allergy/AdvReac Type Severity Reaction Status Date / Time No Known Allergies Allergy Verified 04/20/21 10:44 Vital Signs Temp 98.4 F 04/20/21 16:25 Pulse 94 04/20/21 16:25 Resp 18 04/20/21 16:25 BP 110/76 04/20/21 16:25 Pulse Ox 98 04/20/21 16:25 Intake & Output 04/20/21 04/21/21 04/21/21 18:59 06:59 18:59 Weight 63.503 kg 52.3 kg Laboratory Last Values Urine Opiates Screen Not Detected (NotDetected) 04/20/21 12:04 Ur Oxycodone Screen Not Detected (NotDetected) 04/20/21 12:04 Urine Methadone Screen Not Detected (NotDetected) 04/20/21 12:04 Ur Propoxyphene Screen Not Detected (NotDetected) 04/20/21 12:04 Ur Barbiturates Screen Not Detected (NotDetected) 04/20/21 12:04 U Tricyclic Antidepress Not Detected (NotDetected) 04/20/21 12:04 Ur Phencyclidine Scrn Not Detected (NotDetected) 04/20/21 12:04 Ur Amphetamines Screen Not Detected (NotDetected) 04/20/21 12:04 U Methamphetamines Scrn Not Detected (NotDetected) 04/20/21 12:04 U Benzodiazepines Scrn Not Detected (NotDetected) 04/20/21 12:04 Urine Cocaine Screen Not Detected (NotDetected) 04/20/21 12:04 U Marijuana (THC) Screen Detected (NotDetected) H 04/20/21 12:04 Coronavirus (PCR) Not Detected (Not Detectd) 04/20/21 13:21 04/21/21 10:28 IDENTIFYING DATA: Patient is a 55-year-old female with a history of schizophrenia who currently has a guardian. HPI: Patient presented to the hospital yesterday to the ER on a pickup order. Patient has an active treatment order which expires in May 2021. Patient apparently was noncompliant with her medications according to ER report and there was significant concern about her well-being. Patient apparently has been following up at [facility] however has missed her last dose of Invega Sustenna IM on 04/13 which was 234 mg monthly dose. Patient's UDS is positive for THC. Patient was seen by EPS last night in the ER and appeared to be disheveled and had a body odor. She is reporting poor sleep and had admitted to not following up and getting her injection. Patient was seen today by keno writer/runner at the bedside and patient appeared to be impulsive and bizarre at times. She was hard of hearing. She was tearful at times and appeared to be labile. She claims that she got kicked out of her house. She appeared to have very poor insight into her condition however did state that she has not been taking her medications. She also believes that she is being "poisoned by someone". She states that her sleep has been poor and appetite is been fair. PAtient denied any SI or HI or any auditory or visual hallucinations. Patient admits to cannabis use only. PAST PSYCHIATRIC HISTORY: Patient has a significant history for schizophrenia. Patient was previously on Invega sustenna 234 mg IM monthly dose and last dose that was given was on 03/14 and missed dose at [facility] on 04/13. Patient has been psychiatrically hospitalized in the past and her last hospitalization was in November 2020. She is followed up at [facility] with her nurse practitioner PMH: COPD, GERD, seizures, MS, hearing impairment ALLERGIES: as per EMR CHEMICAL DEPENDENCY HISTORY: as per HPI FAMILY PSYCHIATRIC/SUBSTANCE USE HISTORY: Unable to obtain SOCIAL HISTORY: Unable to obtain. MENTAL STATUS EXAM: General Appearance: Patient appears to be irritable, stated age is alert, attempts to be cooperative. Patient appears to have poor hygiene and grooming. Behavior: Patient is laying in her bed and attempts to be cooperative. impulsive Speech: Patient's speech is fluent and nonpressured. Mood/Affect: mood is "not good". labile affect Suicidality/Homicidality: denies Perceptions: denies Though content/process: concrete, delusional/paranoia. illogical at times. Memory and concentration: AOX3, fair attention span. Judgment and insight: poor/impulsive STRENGTHS/WEAKNESSES: strength is that patient is resilient. Weakness is that patient has poor judgment and is impulsive INTELLECT: average IMPRESSIONS: Schizophrenia chronic with acute exacerbation Cannabis use disorder PLAN: -Patient is admitted under involuntary status to [facility] for stabilization of psychiatric symptoms and safety. Patient has not signed [adult voluntary form and medication consent and is placed in patient's chart. She is currently on an active treatment order which expires on may 2021 -Medications : Will start patient on Invega 6mg qhs for psychosis. She will be given her monthly dose of Invega Sustenna today as well 234 mg IM. -Ativan and Haldol PRN for agitation/aggression -Internal Medicine consult to perform medical evaluation and physical. -NRT - not needed as patient does not smoke -SW on board for discharge planning. Encourage patient to participate in groups to work on coping skills. 04/21/21 10:34
[2021-04-21] MEDS ORDERED: PALIPERIDONE IM 234 MG/1.5 ML SYG IM ONE (12:00)
[2021-04-21 13:49] LABS: Basophils # (A) 0.1 k/uL (0-0.2); Basophils % (A) 1 %; Eosinophils # (A) 0.1 k/uL (0-0.7); Eosinophils % (A) 1 %; HCT 44.6 % (34.0-46.0); HGB 14.2 gm/dL (11.4-16.0); Lymphocytes # (A) 1.6 k/uL (1.0-4.8); Lymphocytes % (A) 14 %; MCV 93.9 fL (80.0-100.0); Mean Platelet Volume 6.6; Monocytes # (A) 0.3 k/uL (0-1.0); Monocytes % (A) 3 %; Neutrophils # (A) 9.6 k/uL (1.3-7.7); Neutrophils % (A) 81 %; Platelet Count 554 k/uL (150-450); RBC 4.75 m/uL (3.80-5.40); RDW 12.7 % (11.5-15.5); WBC 11.8 k/uL (3.8-10.6)
[2021-04-21 13:59] LABS: ALT 15 U/L (4-34); AST 22 U/L (14-36); African American GFR (CKD) >90 (>60 ml/min/1.73 sqM); Albumin 3.9 g/dL (3.5-5.0); Alkaline Phosphatase 84 U/L (38-126); Anion Gap 11 mmol/L; Blood Urea Nitrogen 9 mg/dL (7-17); Calcium 9.6 mg/dL (8.4-10.2); Carbon Dioxide 21 mmol/L (22-30); Chloride 100 mmol/L (98-107); Glucose 153 mg/dL (74-99); Non-African American GFR(CKD) >90 (>60 ml/min/1.73 sqM); Potassium 3.9 mmol/L (3.5-5.1); Sodium 132 mmol/L (137-145); Total Bilirubin 0.5 mg/dL (0.2-1.3)
[2021-04-21] MEDS ORDERED: PALIPERIDONE 6 MG TAB.ER.24 PO SCH (21:00)
[2021-04-21 21:18] LABS: Chol/HDL Ratio 2.89 Ratio; LDL Cholesterol,Calculated 92.1 mg/dL (0.0-131.0)
--- NOTE | 2021-04-22 00:50 | P.PN ---
Progress Note - Text Progress Note Date: 04/22/21 notified of new consult , however, patient currently sleeping
--- NOTE | 2021-04-22 10:11 | P.PN ---
Progress Note - Text Progress Note Date: 04/22/21 Interval History: Patient was seen today for psychiatric follow up. Patient was seen laying down in her room today and was agreeable to speak to the sports writer. She was tearful at times and continues to be somewhat labile in her affect. She spoke repeatedly about wanting to go home. She spoke replete about her dog. Her speech was difficult to understand and comprehend. She denied any overnight complaints and states that she slept fairly. She received Invega Sustenna monthly dose of 234 mg IM yesterday and did not endorse any problems. She states that she has been showering and eating however has not been going to any groups. she continues to be impulsive at times. At this time patient denies any suicidal or homical ideations, intent or plan. Patient denies any auditory, visual hallucinations. Patient denies any side effects from the medications and has been compliant with meds. Mental Status Exam: General Appearance: Patient appears to be irritable, stated age is alert, attempts to be cooperative. Patient appears to have improving hygiene and grooming. Behavior: Patient is laying in her bed and attempts to be cooperative. impulsive Speech: Patient's speech is difficult to comprehend. Mood/Affect: mood is "same". labile affect, tearful Suicidality/Homicidality: denies Perceptions: denies Though content/process: concrete, delusional/paranoia. illogical at times. focused on discharge. Memory and concentration: AOX3, fair attention span. Judgment and insight: poor/impulsive, improving mildly Assessment Schizophrenia chronic with acute exacerbation Cannabis use disorder Plan: -Patient continues to meet criteria for inpatient psychiatric admission for symptom stabilization and safety. Patient has not signed adult voluntary form and medication consent and was placed in patient's chart. -Medications: invega 6 mg hs for tonight then decrease down to 3 mg hs for the weekend. Patient received Invega Sustenna IM 234 mg on 04/21 and will be due for her next monthly dose on 05/19. Added lithium 300 mg daily at bedtime for mood stabilization. -When necessary Ativan and Haldol for agitation/aggression. -NRT -not needed as patient does not smoke -SW on board for discharge planning. Encouraged the patient to participate in milieu.
[2021-04-22] MEDS: LITHIUM CARBONATE 300 MG CAP PO SCH (20:27)
[2021-04-22] MEDS ORDERED: PALIPERIDONE 6 MG TAB.ER.24 PO ONE (21:00)
--- NOTE | 2021-04-23 13:53 | PN ---
PROGRESS NOTE DATE OF SERVICE: 04/23/2021. CHIEF COMPLAINT: The patient had disorganized behavior. She was not following through with psychotropic med medications. She had delusions. INTERVAL HISTORY: Patient has been doing fair. She had a quiet day yesterday. She comes out on the unit. She will wander about. She does not interact much with others. Part of the issue obviously is that she is hard of hearing. She did not attend groups, which also likely relates to her hearing difficulties if nothing else. She slept fairly well last night. Today she has been up. Mostly she has been in her room. She has been out in the day area some. She does not pay too much attention to things going on around her. She will approach staff with one concern or another. For the most part she has been appropriate in her behavior. When I talked to her today she did not voice any complaints. She asked a few questions about some food. She appears to tolerate her psychotropic medications. MENTAL STATUS: Patient gave fairly good eye contact. She was somewhat restless. She answered questions with brief responses. She had trouble hearing quite a few of the questions, though would make some comments about concerns she had that were generally appropriate. Her affect was somewhat blunted. She did smile a little. She had a friendly manner. Her mood was reserved though not clearly down or depressed. She did not appear to be distressed. There was no immediate indication that she was responding to internal stimuli. She was oriented to circumstances and surroundings. ASSESSMENT: I will continue the current diagnosis and treatment plan. I will continue psychotropic medications the same. She is on a decreasing dose of oral Invega. She has received Invega Sustenna. She has started on lithium. It is unclear to what extent the patient has had any options towards various interventions that could help with her hearing. It would be appropriate for Social Work to investigate that, as there is a range of devices that might benefit her. We will focus on stabilization and discharge planning. MMODL / IJN: [id number] /
[2021-04-23] MEDS: PALIPERIDONE 3 MG TAB.ER.24 PO SCH (21:21)
[2021-04-23] MEDS: LITHIUM CARBONATE 300 MG CAP PO SCH (21:21)
--- NOTE | 2021-04-24 02:42 | P.CONS ---
History of Present Illness - Reason for Consult Consult date: 04/24/21 - History of Present Illness The patient is a 55-year-old female with a PMH of multiple psychiatric illnesses who was brought to the emergency room under police custody for noncompliance with her psychiatric medications. The patient was admitted to mental health unit where she was seen and evaluated with a mental health unit RN. The patient is extremely hard of hearing and the interview was thereby performed by writing. The patient noted that she does not know why she is here. She however denied any active complaints. She denied chest discomfort, subsequent fever, chills, cough, nausea, vomiting, abdominal pain, diarrhea. The patient did endorse smoking marijuana but denied tobacco or alcohol use. Review of systems: Pertinent positives and negatives as discussed in HPI, a complete review of systems was performed and all other systems are negative. Physical examination: General: non toxic, no distress, appears older than stated age, normal weight Derm: no unusual rashes/lesions no unusual ecchymoses, warm, dry Head: atraumatic, normocephalic, symmetric Eyes: EOMI, no lid lag, anicteric sclera, pupils equal round reactive to light ENT: Nose and ears atraumatic, no thrush, no pharyngeal erythema Neck: No thyromegaly, no cervical lymphadenopathy, trachea midline, supple Mouth: no lip lesion, mucus membranes moist Cardiovascular: S1S2 reg, no murmur, positive posterior tibial pulse bilateral, no edema, capillary refill less than 2 seconds Lungs: CTA bilateral, no rhonchi, no rales , no accessory muscle use Abdominal: soft, nontender to palpation, no guarding, no appreciable organomegaly, normal bowel sounds Ext: no gross muscle atrophy, muscle strength 5 out of 5 in all 4 extremities grossly, no contractures, Neuro: No gross focal deficits noted, Psych: Alert, oriented, appropriate affect Assessment/plan Marijuana abuse -Advised on importance of cessation Leukocytosis -Likely secondary to acute stress -No signs of active infection at this time Psychosis -As per psychiatry Thank you for allowing us to participate in the care of this patient. We will follow peripherally. Do not hesitate to contact us with questions. Someone can be reached from the [facility] hospitalist group at all hours of the day at [phone]. Past Medical History Past Medical History: COPD, GERD/Reflux, GI Bleed, Seizure Disorder Additional Past Medical History / Comment(s): MS, hearing impaired, seizures when in her 30s last 2yrs ago, migraines, Upper GI bleed, peptic ulcer disease, developmentally delayed, hypotension, UTI History of Any Multi-Drug Resistant Organisms: None Reported Past Surgical History: Ear Surgery Additional Past Surgical History / Comment(s): cyst removed from coccyx, multiple bilateral ear surgeries. Past Anesthesia/Blood Transfusion Reactions: No Reported Reaction Smoking Status: Current every day smoker - Past Family History Father Additional Family Medical History / Comment(s): Father at age 70 from myocardial infarction. Mother Additional Family Medical History / Comment(s): Patient's mother is alive at age 70. Patient does not know her medical history. Brother(s) Additional Family Medical History / Comment(s): Patient has 1 brother committed suicide at 48. Sister(s) Additional Family Medical History / Comment(s): Patient has 2 sisters with no major medical problems. Medications and Allergies Home Medications Medication Instructions Recorded Confirmed Type Paliperidone IM [Invega Sustenna] 234 mg IM Q28D 12/31/20 04/20/21 History Allergies Allergy/AdvReac Type Severity Reaction Status Date / Time No Known Allergies Allergy Verified 04/20/21 10:44 Physical Exam Vitals: Vital Signs Temp Pulse BP 04/23/21 18:47 98.4 F 95 120/73 Results CBC & Chem 7: 04/21/21 13:34 04/21/21 13:34
[2021-04-24 07:05] VITALS: RESP 18; TEMP 97.8
--- NOTE | 2021-04-24 14:12 | PN ---
PROGRESS NOTE DATE OF SERVICE: 04/24/2021. CHIEF COMPLAINT: The patient has disorganized behavior. She was not following through with psychotropic medications. She had delusions. INTERVAL HISTORY: The patient overall has been doing about the same. She continues with ups and downs in her mood. She has periods where she will wander about the unit and have a smile on her face. At times she will approach staff with one apparent concern or another. At other times she will be seeing wandering about the unit where she is talking loudly and making various negative comments. Given the speech impediment she has, sometimes it is hard to know what she is trying to communicate. She has been generally cooperative with most aspects of care. She was documented as sleeping 5-1/2 hours last night and seemed to be in a calm mood throughout the night. Today she has been up and pretty much in the same mental state. I both saw her and heard her earlier in the day when she was on the unit. She walked around making very various distressing comments; on the other hand, a few different times she walked past the office and had a smile on her face. When I talked to her, she did not have any specific complaints or concerns. She appears to tolerate her psychotropic medications. MENTAL STATUS: Patient was showing some restlessness. She continues to have ups and downs in her mood with periods where she gets moderately distressed. Her affect is intense, her mood generally dysphoric, though she does show periods of an apparent positive mood. It is difficult to assess for thought disorder. She has shown no indications of thoughts towards harm. She is oriented to circumstances and surroundings. ASSESSMENT: I will continue the current diagnosis and treatment plan. I will continue psychotropic medications the same. She has received Invega Sustenna and is on a tapering dose of oral Invega. [place] has been added 300 mg at bedtime. We will focus on stabilization and discharge planning. We will coordinate with [facility] for treatment and aftercare. LALITA / CHRISTINA: [id number] /
[2021-04-24] MEDS: LITHIUM CARBONATE 300 MG CAP PO SCH (21:48)
[2021-04-24] MEDS: PALIPERIDONE 3 MG TAB.ER.24 PO SCH (21:48)
[2021-04-25 03:56] VITALS: BP 102/64; PULSE 115
--- NOTE | 2021-04-25 10:23 | P.DS ---
Providers Date of admission: 04/20/21 14:21 Expected date of discharge: 04/25/21 Attending physician: Kj Braxton MD Consults: 04/20/21 14:36 Consult Physician Routine Consulting Provider: Kelsey French Consult Reason/Comments: history and physical/medical management Do you want consulting provider notified?: Yes Primary care physician: Stated None - Discharge Diagnosis(es) (1) Schizophrenia, chronic with acute exacerbation Current Visit: Yes Status: Acute Priority: High (2) Cannabis abuse Current Visit: Yes Status: Acute Priority: Medium Hospital Course: Admission HPI: Admission note was completed by justowriter operator "Patient is a 55-year-old female with a history of schizophrenia who currently has a guardian. Patient presented to the hospital yesterday to the ER on a pickup order. Patient has an active treatment order which expires in May 2021. Patient apparently was noncompliant with her medications according to ER report and there was si gnificant concern about her well-being. Patient apparently has been following up at [facility] however has missed her last dose of Invega Sustenna IM on 04/13 which was 234 mg monthly dose. Patient's UDS is positive for THC. Patient was seen by EPS last night in the ER and appeared to be disheveled and had a body odor. She is reporting poor sleep and had admitted to not following up and getting her injection. Patient was seen today by justowriter operator at the bedside and patient appeared to be impulsive and bizarre at times. She was hard of hearing. She was tearful at times and appeared to be labile. She claims that she got kicked out of her house. She appeared to have very poor insight into her condition however did state that she has not been taking her medications. She also believes that she is being "poisoned by someone". She states that her sleep has been poor and appetite is been fair. PAtient denied any SI or HI or any auditory or visual hallucinations. Patient admits to cannabis use only." Hospital course: Upon admission to the unit patient was admitted involuntarily on an active court order for treatment. Patient followed unit protocol however mainly isolated in her room for most of her hospital stay. Patient was compliant with the medications and denied any side effects throughout hospital course. Patient was started on Invega PO as supplementation and received her monthly Invega Sustenna 234 mg IM on 04/21/21 and will be due for her next monthly dose on 05/19/21. Patient spoke of her stressors and engaged in therapy both group and individual. Patient was also seen by medical team for history and physical exam. Throughout the course of the hospitalization patient gradually improved with regards to mood, anxiety, sleep and returned back to their baseline level of functioning. On the day of discharge patient denied any suicidal or homicidal ideations intent or plan denied any auditory or visual hallucinations. The patient denied any access to guns or weapons. Patient denied any paranoia and did not endorse any delusions. Patient does have a significant history of substance abuse and was counseled on abstaining from all substances including alcohol and marijuana. Patient elected to do outpatient substance use treatment program through [facility]. Patient was also counseled on the medications and need for regular compliance and was encouraged to follow-up with their outpatient appointment for mental health and also for primary care. Prior to discharge a family meeting will be arranged by social sciences lecturer to answer any questions and ensure safety upon discharge. Mental status exam: General Appearance: Patient appears to be older than stated age is alert, pleasant, and attempts to be cooperative. Patient is in no acute distress and has improved hygiene and grooming Behavior: Patient is calmly seated without any agitated behavior. Speech: Patient's speech is difficult to comprehend at times. patient is hard of hearing Mood/Affect: Patient reports their mood is "ok", affect is congruent and euthymic. Suicidality/Homicidality: Patient denies having any suicidal or homicidal ideation intent or plan. Perceptions: Patient denies any auditory or visual hallucinations. Though content/process: There is no evidence of any delusional thought content. concrete. logical Memory and concentration: AOX3, grossly intact for the purposes of this session. Judgment and insight: chronically poor, however has improved with guarded prognosis Impression: Schizophrenia chronic with acute exacerbation Cannabis use disorder Plan: -Continue with discharge today as patient has improved and stabilized psychiatrically and is not currently an imminent threat to herself and/or others. -Continue medications: Invega Sustenna 234 mg IM was given on 04/21/21 and will be due for her next monthly dose on 05/19/21. -Patient was counseled on the need for medication compliance and appropriate follow-up at mental health and also primary care for medical issues. Patient verbalized understanding and agreed. -Social work to arrange for and conduct family meeting to ensure safety upon discharge and answer any questions/concerns. Social work also to arrange for patients follow up appointments with [facility] for psychiatric care along with follow up with primary care provider. -Patient counseled on abstaining from recreational drugs and marijuana and alcohol. Was informed/educated on the adverse effects on their physical and mental health. Patient verbally agreed and understood. -Patient was instructed to return to the hospital or seek immediate medical care if their psychiatric or medical symptoms do worsen or reoccur. Allergies Allergy/AdvReac Type Severity Reaction Status Date / Time No Known Allergies Allergy Verified 04/20/21 10:44 Laboratory Results WBC 11.8 k/uL (3.8-10.6) H 04/21/21 13:34 RBC 4.75 m/uL (3.80-5.40) 04/21/21 13:34 Hgb 14.2 gm/dL (11.4-16.0) 04/21/21 13:34 Hct 44.6 % (34.0-46.0) 04/21/21 13:34 MCV 93.9 fL (80.0-100.0) 04/21/21 13:34 MCH 30.0 pg (25.0-35.0) 04/21/21 13:34 MCHC 32.0 g/dL (31.0-37.0) 04/21/21 13:34 RDW 12.7 % (11.5-15.5) 04/21/21 13:34 Plt Count 554 k/uL (150-450) H 04/21/21 13:34 MPV 6.6 04/21/21 13:34 Neutrophils % 81 % 04/21/21 13:34 Lymphocytes % 14 % 04/21/21 13:34 Monocytes % 3 % 04/21/21 13:34 Eosinophils % 1 % 04/21/21 13:34 Basophils % 1 % 04/21/21 13:34 Neutrophils # 9.6 k/uL (1.3-7.7) H 04/21/21 13:34 Lymphocytes # 1.6 k/uL (1.0-4.8) 04/21/21 13:34 Monocytes # 0.3 k/uL (0-1.0) 04/21/21 13:34 Eosinophils # 0.1 k/uL (0-0.7) 04/21/21 13:34 Basophils # 0.1 k/uL (0-0.2) 04/21/21 13:34 Sodium 132 mmol/L (137-145) L 04/21/21 13:34 Potassium 3.9 mmol/L (3.5-5.1) 04/21/21 13:34 Chloride 100 mmol/L (98-107) 04/21/21 13:34 Carbon Dioxide 21 mmol/L (22-30) L 04/21/21 13:34 Anion Gap 11 mmol/L 04/21/21 13:34 BUN 9 mg/dL (7-17) 04/21/21 13:34 Creatinine 0.72 mg/dL (0.52-1.04) 04/21/21 13:34 Est GFR (CKD-EPI)AfAm >90 (>60 ml/min/1.73 sqM) 04/21/21 13:34 Est GFR (CKD-EPI)NonAf >90 (>60 ml/min/1.73 sqM) 04/21/21 13:34 Glucose 153 mg/dL (74-99) H 04/21/21 13:[address] Glu mg/dL 105 04/21/21 13:34 Hemoglobin A1c 5.3 % (4.0-6.0) 04/21/21 13:34 Calcium 9.6 mg/dL (8.4-10.2) 04/21/21 13:34 Total Bilirubin 0.5 mg/dL (0.2-1.3) 04/21/21 13:34 AST 22 U/L (14-36) 04/21/21 13:34 ALT 15 U/L (4-34) 04/21/21 13:34 Alkaline Phosphatase 84 U/L (38-126) 04/21/21 13:34 Total Protein 7.0 g/dL (6.3-8.2) 04/21/21 13:34 Albumin 3.9 g/dL (3.5-5.0) 04/21/21 13:34 Triglycerides 105.00 mg/dL (0.00-149.00) 04/21/21 13:34 Cholesterol 173.00 mg/dL (0.00-200.00) 04/21/21 13:34 LDL Cholesterol, Calc 92.1 mg/dL (0.0-131.0) 04/21/21 13:34 VLDL Cholesterol, Calc 21.00 mg/dL (5.00-40.00) 04/21/21 13:34 HDL Cholesterol 59.90 mg/dL (40.00-60.00) 04/21/21 13:34 Cholesterol/HDL Ratio 2.89 Ratio 04/21/21 13:34 TSH 0.618 mIU/L (0.465-4.680) 04/21/21 13:34 Urine Opiates Screen Not Detected (NotDetected) 04/20/21 12:04 Ur Oxycodone Screen Not Detected (NotDetected) 04/20/21 12:04 Urine Methadone Screen Not Detected (NotDetected) 04/20/21 12:04 Ur Propoxyphene Screen Not Detected (NotDetected) 04/20/21 12:04 Ur Barbiturates Screen Not Detected (NotDetected) 04/20/21 12:04 U Tricyclic Antidepress Not Detected (NotDetected) 04/20/21 12:04 Ur Phencyclidine Scrn Not Detected (NotDetected) 04/20/21 12:04 Ur Amphetamines Screen Not Detected (NotDetected) 04/20/21 12:04 U Methamphetamines Scrn Not Detected (NotDetected) 04/20/21 12:04 U Benzodiazepines Scrn Not Detected (NotDetected) 04/20/21 12:04 Urine Cocaine Screen Not Detected (NotDetected) 04/20/21 12:04 U Marijuana (THC) Screen Detected (NotDetected) H 04/20/21 12:04 Coronavirus (PCR) Not Detected (Not Detectd) 04/20/21 13:21 Vital Signs Temp 97.8 F 04/25/21 03:55 Pulse 115 H 04/25/21 03:55 Resp 18 04/25/21 03:55 BP 102/64 04/25/21 03:55 Pulse Ox 96 04/22/21 20:38 Patient Condition at Discharge: Stable Plan - Discharge Summary New Discharge Prescriptions: New Acetaminophen Tab [Tylenol] 650 mg PO Q4HR PRN tab PRN Reason: Pain/Discomfort Continue Paliperidone IM [Invega Sustenna] 234 mg IM Q28D #1 ml Discharge Medication List Acetaminophen Tab [Tylenol] 650 mg PO Q4HR PRN tab 04/25/21 [Rx] Paliperidone IM [Invega Sustenna] 234 mg IM Q28D #1 ml 04/25/21 [Rx] Follow up Appointment(s)/Referral(s): [facility] [Outside] - 05/02/21 1:00 pm (05-02-21 @ 1:00 with Carolyne Bass 05-04-21 @ 1:[address] Vigil at [facility] via [employer]) None,Stated [Primary Care Provider] - 1-2 days Activity/Diet/Wound Care/Special Instructions: Activity and diet as tolerated. Avoid the use of street drugs and alcohol. Take all medications as prescribed. When you are in need of refills on your medications please contact your medical provider and/or outpatient psychiatrist to have this done. Please go to scheduled outpatient appointment for aftercare treatment. If symptoms return or become worse, call the crisis line at and/or go to the nearest emergency room for evaluation. Discharge Disposition: HOME SELF-CARE
== END 2021-04-25 16:20 | disposition home or self-care (01) | DRG 885 ==
LOC: EC 09:38 → 3MHU 14:21
PROVIDERS: ADMIT Psychiatry & Neurology Psychiatry; ATTEND Psychiatry & Neurology Psychiatry
DX: F20.9 Schizophrenia, unspecified (principal); F31.9 Bipolar disorder, unspecified; D72.829 Elevated white blood cell count, unspecified; F12.10 Cannabis abuse, uncomplicated; F17.200 Nicotine dependence, unspecified, uncomplicated; F41.9 Anxiety disorder, unspecified; G40.909 Epilepsy, unspecified, not intractable, without status epilepticus; H91.90 Unspecified hearing loss, unspecified ear; J44.9 Chronic obstructive pulmonary disease, unspecified; Z20.822 Contact with and (suspected) exposure to COVID-19; Z91.14 Patient's other noncompliance with medication regimen; Z82.49 Family history of ischemic heart disease and other diseases of the circulatory system; Z87.11 Personal history of peptic ulcer disease
CPT/HCPCS: 80053; 80061; 80306; 82075; 83036; 84443; 85025; 87635; 99285

== ENCOUNTER 2021-06-28 10:12 | Inpatient (IN) | payer MEDICARE, MEDICAID ==
--- NOTE | 2021-06-28 12:07 | ED ---
General Adult HPI - General Chief complaint: Psychiatric Symptoms Stated complaint: Mental Health Time Seen by Provider: 06/28/21 11:20 Source: family Mode of arrival: ambulatory Limitations: no limitations - History of Present Illness Initial comments: 55-year-old female with a past medical history of deafness, COPD, seizure disorder, schizophrenia, bipolar disorder, depression, anxiety presents to the emergency room for psychotic episode. Patient is brought in by her daughter who petitioned her. She reports that patient has not had any of her medications for 2 months now and refuses to take them. States that she started "pulling knives" on them again and is acting like she is in a psychotic break. She states she has had several admissions here and feels the patient needs to be admitted again as she is a danger to others around her. At this time patient is a poor historian and is crying not cooperating with conversation.Patient has no other complaints at this time including shortness of breath, chest pain, abdominal pain, nausea or vomiting, headache, or visual changes. - Related Data Previous Rx's Medication Instructions Recorded Paliperidone IM [Invega Sustenna] 234 mg IM Q28D #1 ml 04/25/21 Allergies Allergy/AdvReac Type Severity Reaction Status Date / Time No Known Allergies Allergy Verified 06/28/21 13:53 Review of Systems ROS Statement: Those systems with pertinent positive or pertinent negative responses have been documented in the HPI. ROS Other: All systems not noted in ROS Statement are negative. Past Medical History Past Medical History: COPD, GERD/Reflux, GI Bleed, Seizure Disorder Additional Past Medical History / Comment(s): MS, hearing impaired, seizures when in her 30s last 2yrs ago, migraines, Upper GI bleed, peptic ulcer disease, developmentally delayed, hypotension, UTI History of Any Multi-Drug Resistant Organisms: None Reported Past Surgical History: Ear Surgery Additional Past Surgical History / Comment(s): cyst removed from coccyx, multiple bilateral ear surgeries. Past Anesthesia/Blood Transfusion Reactions: No Reported Reaction Past Psychological History: Anxiety, Bipolar, Depression, Schizophrenia Smoking Status: Current every day smoker Past Alcohol Use History: None Reported Past Drug Use History: Marijuana - Past Family History Father Additional Family Medical History / Comment(s): Father at age 70 from myocardial infarction. Mother Additional Family Medical History / Comment(s): Patient's mother is alive at age 70. Patient does not know her medical history. Brother(s) Additional Family Medical History / Comment(s): Patient has 1 brother committed suicide at 48. Sister(s) Additional Family Medical History / Comment(s): Patient has 2 sisters with no major medical problems. General Exam Limitations: no limitations General appearance: alert, anxious Head exam: Present: atraumatic Eye exam: Present: normal appearance, PERRL, EOMI. Absent: scleral icterus, conjunctival injection ENT exam: Present: normal exam, mucous membranes moist Neck exam: Present: normal inspection, full ROM. Absent: tenderness Respiratory exam: Present: normal lung sounds bilaterally. Absent: respiratory distress, wheezes Cardiovascular Exam: Present: regular rate, normal rhythm, normal heart sounds. Absent: systolic murmur, diastolic murmur, rubs, gallop, clicks GI/Abdominal exam: Present: soft, normal bowel sounds. Absent: distended, tenderness, guarding, rebound, rigid Neurological exam: Present: alert Course Vital Signs 06/28/21 10:34 Temperature 98.0 F Pulse Rate 111 H Respiratory 20 Rate Blood Pressure 110/78 O2 Sat by Pulse 96 Oximetry Medical Decision Making - Lab Data Lab Results 06/28/21 06/28/21 06/28/21 Range/Units 12:09 12:09 13:40 Urine Color Yellow Urine Appearance Cloudy H (Clear) Urine pH 6.0 (5.0-8.0) Ur Specific [place] 1.011 (1.001-1.035) Urine Protein Trace H (Negative) Urine Glucose (UA) Negative (Negative) Urine Ketones Negative (Negative) Urine Blood Moderate H (Negative) Urine Nitrite Positive H (Negative) Urine Bilirubin Negative (Negative) Urine Urobilinogen <2.0 (<2.0) mg/dL Ur Leukocyte Esterase Large H (Negative) Urine RBC 11 H (0-5) /hpf Urine WBC >182 H (0-5) /hpf Ur Squamous Epith Cells 1 (0-4) /hpf Urine Bacteria Occasional H (None) /hpf Urine Mucus Rare H (None) /hpf Urine Opiates Screen Not Detected (NotDetected) Ur Oxycodone Screen Not Detected (NotDetected) Urine Methadone Screen Not Detected (NotDetected) Ur Propoxyphene Screen Not Detected (NotDetected) Ur Barbiturates Screen Not Detected (NotDetected) U Tricyclic Antidepress Not Detected (NotDetected) Ur Phencyclidine Scrn Not Detected (NotDetected) Ur Amphetamines Screen Not Detected (NotDetected) U Methamphetamines Scrn Not Detected (NotDetected) U Benzodiazepines Scrn Not Detected (NotDetected) Urine Cocaine Screen Not Detected (NotDetected) U Marijuana (THC) Screen Detected H (NotDetected) Coronavirus (PCR) Not Detected (Not Detectd) Disposition Clinical Impression: Acute psychosis Disposition: ADMITTED IP TO THIS HOSP Is patient prescribed a controlled substance at d/c from ED?: No Time of Disposition: 17:35
[2021-06-28 12:46] LABS: Amphetamine Screen,Urine Not Detected (NotDetected); Barbiturate Screen,Urine Not Detected (NotDetected); Benzodiazepines Screen,Urine Not Detected (NotDetected); Cocaine Screen,Urine Not Detected (NotDetected); Methadone Screen, Urine Not Detected (NotDetected); Opiate Screen,Urine Not Detected (NotDetected); Oxycodone Screen, Urine Not Detected (NotDetected); Phencyclidine Screen,Urine Not Detected (NotDetected); Tricyclic Antidepressant,Urine Not Detected (NotDetected); Urn Cannabinoid Scrn Detected (NotDetected)
[2021-06-28 13:08] LABS: Appearance,Urine Cloudy (Clear); Bacteria,Urine Occasional /hpf; Bilirubin,Urine Negative (Negative); Blood,Urine Moderate (Negative); Color,Urine Yellow; Glucose,Urine (UA) Negative (Negative); Ketones,Urine Negative (Negative); Leukocyte Esterase,Urine Large (Negative); Mucus,Urine Rare /hpf; Nitrite,Urine Positive (Negative); Protein,Urine Trace (Negative); RBC,Urine 11 /hpf (0-5); Specific Gravity,Urine 1.011 (1.001-1.035); Squamous Epithelial Cell,Urine 1 /hpf (0-4); Urobilinogen,Urine <2.0 mg/dL (<2.0); WBC,Urine >182 /hpf (0-5)
[2021-06-28] MEDS ORDERED: MAG HYDROX/AL HYDROX/SIMETH 30 ML CUP PO PRN (15:49)
[2021-06-28] MEDS ORDERED: MAGNESIUM HYDROXIDE 2,400 MG/10 ML CUP PO PRN (15:49)
[2021-06-28] MEDS: NICOTINE 14MG/24HR PATCH TRANSDERM SCH (16:44)
[2021-06-29] MEDS: NICOTINE 14MG/24HR PATCH TRANSDERM SCH (07:42)
[2021-06-29 07:52] LABS: Basophils % (A) 0 %; Eosinophils # (A) 0.2 k/uL (0-0.7); Eosinophils % (A) 1 %; HCT 43.7 % (34.0-46.0); HGB 14.2 gm/dL (11.4-16.0); Lymphocytes # (A) 1.3 k/uL (1.0-4.8); Lymphocytes % (A) 10 %; MCH 30.6 pg (25.0-35.0); MCHC 32.6 g/dL (31.0-37.0); MCV 93.8 fL (80.0-100.0); Mean Platelet Volume 6.5; Monocytes # (A) 0.6 k/uL (0-1.0); Monocytes % (A) 5 %; Neutrophils % (A) 83 %; Platelet Count 542 k/uL (150-450); RBC 4.66 m/uL (3.80-5.40); RDW 13.5 % (11.5-15.5); WBC 13.3 k/uL (3.8-10.6)
[2021-06-29 08:02] LABS: ALT 19 U/L (4-34); AST 20 U/L (14-36); African American GFR (CKD) >90 (>60 ml/min/1.73 sqM); Albumin 3.8 g/dL (3.5-5.0); Alkaline Phosphatase 114 U/L (38-126); Anion Gap 7 mmol/L; Blood Urea Nitrogen 8 mg/dL (7-17); Calcium 9.6 mg/dL (8.4-10.2); Carbon Dioxide 25 mmol/L (22-30); Chloride 101 mmol/L (98-107); Glucose 98 mg/dL (74-99); Non-African American GFR(CKD) >90 (>60 ml/min/1.73 sqM); Potassium 3.9 mmol/L (3.5-5.1); Sodium 133 mmol/L (137-145); Total Bilirubin 0.8 mg/dL (0.2-1.3)
[2021-06-29] MEDS ORDERED: cefTRIAXone 1,000 MG VIAL (IM USE) IM STA (09:00)
--- NOTE | 2021-06-29 09:04 | P.PN ---
Progress Note - Text Progress Note Date: 06/29/21 I was contacted by patient nurse for sodium of 133 and WBC 13.3. I reviewed patient labs. Her UA is positive for UTI. Will give patient one time dose of IM rocephin 1g and then start keflex 500mg PO BID x 4 days. Full consult will be completed by diving fisher
--- NOTE | 2021-06-29 10:41 | P.HP ---
Psychiatric H&P - . H&P Date: 06/29/21 History & Physical: Allergies Allergy/AdvReac Type Severity Reaction Status Date / Time No Known Allergies Allergy Verified 06/28/21 13:53 Vital Signs Temp 97.7 F 06/28/21 16:33 Pulse 103 H 06/28/21 16:33 Resp 18 06/28/21 16:33 BP 132/77 06/28/21 16:33 Pulse Ox 95 06/28/21 16:33 Intake & Output 06/28/21 06/29/21 06/29/21 18:59 06:59 18:59 Weight 50.3 kg Laboratory Last Values WBC 13.3 k/uL (3.8-10.6) H 06/29/21 07:20 RBC 4.66 m/uL (3.80-5.40) 06/29/21 07:20 Hgb 14.2 gm/dL (11.4-16.0) 06/29/21 07:20 Hct 43.7 % (34.0-46.0) 06/29/21 07:20 MCV 93.8 fL (80.0-100.0) 06/29/21 07:20 MCH 30.6 pg (25.0-35.0) 06/29/21 07:20 MCHC 32.6 g/dL (31.0-37.0) 06/29/21 07:20 RDW 13.5 % (11.5-15.5) 06/29/21 07:20 Plt Count 542 k/uL (150-450) H 06/29/21 07:20 MPV 6.5 06/29/21 07:20 Neutrophils % 83 % 06/29/21 07:20 Lymphocytes % 10 % 06/29/21 07:20 Monocytes % 5 % 06/29/21 07:20 Eosinophils % 1 % 06/29/21 07:20 Basophils % 0 % 06/29/21 07:20 Neutrophils # 11.0 k/uL (1.3-7.7) H 06/29/21 07:20 Lymphocytes # 1.3 k/uL (1.0-4.8) 06/29/21 07:20 Monocytes # 0.6 k/uL (0-1.0) 06/29/21 07:20 Eosinophils # 0.2 k/uL (0-0.7) 06/29/21 07:20 Basophils # 0.0 k/uL (0-0.2) 06/29/21 07:20 Sodium 133 mmol/L (137-145) L 06/29/21 07:20 Potassium 3.9 mmol/L (3.5-5.1) 06/29/21 07:20 Chloride 101 mmol/L (98-107) 06/29/21 07:20 Carbon Dioxide 25 mmol/L (22-30) 06/29/21 07:20 Anion Gap 7 mmol/L 06/29/21 07:20 BUN 8 mg/dL (7-17) 06/29/21 07:20 Creatinine 0.70 mg/dL (0.52-1.04) 06/29/21 07:20 Est GFR (CKD-EPI)AfAm >90 (>60 ml/min/1.73 sqM) 06/29/21 07:20 Est GFR (CKD-EPI)NonAf >90 (>60 ml/min/1.73 sqM) 06/29/21 07:20 Glucose 98 mg/dL (74-99) 06/29/21 07:20 Calcium 9.6 mg/dL (8.4-10.2) 06/29/21 07:20 Total Bilirubin 0.8 mg/dL (0.2-1.3) 06/29/21 07:20 AST 20 U/L (14-36) 06/29/21 07:20 ALT 19 U/L (4-34) 06/29/21 07:20 Alkaline Phosphatase 114 U/L (38-126) 06/29/21 07:20 Total Protein 7.0 g/dL (6.3-8.2) 06/29/21 07:20 Albumin 3.8 g/dL (3.5-5.0) 06/29/21 07:20 TSH 0.760 mIU/L (0.465-4.680) 06/29/21 07:20 Urine Color Yellow 06/28/21 12:09 Urine Appearance Cloudy (Clear) H 06/28/21 12:09 Urine pH 6.0 (5.0-8.0) 06/28/21 12:09 Ur Specific [place] 1.011 (1.001-1.035) 06/28/21 12:09 Urine Protein Trace (Negative) H 06/28/21 12:09 Urine Glucose (UA) Negative (Negative) 06/28/21 12:09 Urine Ketones Negative (Negative) 06/28/21 12:09 Urine Blood Moderate (Negative) H 06/28/21 12:09 Urine Nitrite Positive (Negative) H 06/28/21 12:09 Urine Bilirubin Negative (Negative) 06/28/21 12:09 Urine Urobilinogen <2.0 mg/dL (<2.0) 06/28/21 12:09 Ur Leukocyte Esterase Large (Negative) H 06/28/21 12:09 Urine RBC 11 /hpf (0-5) H 06/28/21 12:09 Urine WBC >182 /hpf (0-5) H 06/28/21 12:09 Ur Squamous Epith Cells 1 /hpf (0-4) 06/28/21 12:09 Urine Bacteria Occasional /hpf (None) H 06/28/21 12:09 Urine Mucus Rare /hpf (None) H 06/28/21 12:09 Urine Opiates Screen Not Detected (NotDetected) 06/28/21 12:09 Ur Oxycodone Screen Not Detected (NotDetected) 06/28/21 12:09 Urine Methadone Screen Not Detected (NotDetected) 06/28/21 12:09 Ur Propoxyphene Screen Not Detected (NotDetected) 06/28/21 12:09 Ur Barbiturates Screen Not Detected (NotDetected) 06/28/21 12:09 U Tricyclic Antidepress Not Detected (NotDetected) 06/28/21 12:09 Ur Phencyclidine Scrn Not Detected (NotDetected) 06/28/21 12:09 Ur Amphetamines Screen Not Detected (NotDetected) 06/28/21 12:09 U Methamphetamines Scrn Not Detected (NotDetected) 06/28/21 12:09 U Benzodiazepines Scrn Not Detected (NotDetected) 06/28/21 12:09 Urine Cocaine Screen Not Detected (NotDetected) 06/28/21 12:09 U Marijuana (THC) Screen Detected (NotDetected) H 06/28/21 12:09 Coronavirus (PCR) Not Detected (Not Detectd) 06/28/21 13:40 06/29/21 10:38 IDENTIFYING DATA The patient is a 55-year-old female. She resides with family. She presented to the ED on a pickup order with petition for involuntary hospitalization CHIEF COMPLAINT The patient was delusional and confused. She did not recognize family. She was becoming aggressive towards her children. HISTORY OF PRESENTING ILLNESS The patient declined to provide any information. She did not respond to questions about her current state. The following was documented by in the ED: "55-year-old female with a past medical history of deafness, COPD, seizure disorder, schizophrenia, bipolar disorder, depression, anxiety presents to the emergency room for psychotic episode. Patient is brought in by her daughter who petitioned her. She reports that patient has not had any of her medications for 2 months now and refuses to take them. States that she started "pulling knives" on them again and is acting like she is in a psychotic break. She states she has had several admissions here and feels the patient needs to be admitted again as she is a danger to others around her. At this time patient is a poor historian and is crying not cooperating with conversation.Patient has no other complaints at this time including shortness of breath, chest pain, abdominal pain, nausea or vomiting, headache, or visual changes." The patient was petitioned by her daughter/guardian, Madelyn Paris. The fol lowing was documented in the petition: "She is extremely paranoid, does not recognize anyone, she is becoming violent towards myself and children she is also pulling knifes out ! My sons tell me she is going after them when I am at work. She is pulling knifes out on their dad also" According to the progress note of Dr. Vigil of 06/08/2021 the following was documented: "The appointment was conducted via telephone with Faye's daughter who is her guardian. She remains uncooperative and refuses to get the injection or take meds. When her behavior gets too far out of control, her daughter takes her to the hospital hoping that she'll receive the injection. She said that she won't talk with her instead starts yelling and doesn't let her say anything to her so the hospital is her last resort. She hopes [facility] can help facilitate her getting the injection or admitted depending upon how out of control her mother's behavior is she said that her mother continues to be difficult having mostly bad days and doesn't take the oral medications. She remains difficult and delusional and her daughter says she won't even make eye contact with her to try to talk about her medications. Still psychotic, delusional and uncooperative. She will come to the phone. Police brought her in on a pickup order today, 04/20/2021, she had told on she isn't taking her meds. She is open with [facility], didn't get her in Invega Sustenna 04/13/2021 and (last dose 03/14/21). She is disheveled, has a body odor, not eating, doesn't think her daughter is her real daughter. Oriented to person and place. Daughter said she is really bad, going out at 3 AM, opening the doors, turning on the stove, going after her son, hiding knives in her room, sleeping only one to 2 hours a night." She was last admitted to the psychiatric unit 04/20 -- 04/25/2021. Her admission was on similar circumstances to the present. Discharge medications include Invega Sustenna 234 mg IM, next dose 05/19/2021. I refer the reader to Dr. Braxton admission note and other records for details. She is admitted for further evaluation SUBSTANCE USE HISTORY Urine drug screen positive for marijuana PAST MEDICAL HISTORY COPD, GERD/Reflux, GI Bleed, Seizure Disorder FAMILY/SOCIAL HISTORY Refer the reader to previous admission notes for details. MENTAL STATUS EXAM The patient was in her room laying down. She gave fair eye contact. She declined to come out of the bed or come out of her room. She did not respond to any questions. Her affect was constricted. Her mood reserved. She appeared somewhat distressed. It was difficult to assess for thought disorder or thoughts of harm. She did not respond to formal cognitive questions. PHYSICAL EXAM As per medical consultation ASSESSMENT The patient is readmitted with a diagnosis of schizophrenia with apparent primary precipitating factors being her medication noncompliance. Strengths include her general health. Weakness includes her mental health condition and substance use. DIAGNOSIS 1. Schizophrenia with acute exacerbation 2. Cannabis use disorder 3. COPD 4. GERD/reflux 5. GI bleed 6. Seizure disorder RECOMMENDATIONS The patient will be admitted for comprehensive medical, psychiatric and psychosocial evaluation. We will make efforts to engage the patient in individual and group therapeutic activities. We will coordinate with community mental health for further assessment and treatment planning. When necessary medications including Haldol and Ativan are available for issues with the patient safety. She will likely be restarted on a long-acting injectable antipsychotic medication. We will focus on stabilization and discharge planning. 06/29/21 13:58
--- NOTE | 2021-06-29 14:07 | P.MDCNMH ---
History of Present Illness H&P Date: 06/29/21 Chief Complaint: medical management 55 year old woman with history of deafness, COPD, seizure disorder, bipolar disorder, schizophrenia presented to the ER for psychotic episode and admitted to the [facility] for further management. Medicine consulted for medical management. Pt herself has no complaints and ROS is negative for fevers, chills, nausea, vomiting, chest pain, palpitations, syncope, presyncope, abdominal pain, constipation, diarrhea, dysuria, dyschezia, nocturia, frequency, numbness/weakness of extremities. On exam, she is afebrile, 132/77, heart rate 103, 95% on room air. CBC has mild leukocytosis to 13.3, chemistries are remarkable for mild hyponatremia to 133, LFTs are otherwise unremarkable. UA is grossly positive with a positive nitrite, greater than 182 white blood cells, large leukocyte esterase with occasional bacteria. No imaging to review. Review of Systems Gen: awake, alert HEENT: normocephalic, atraumatic, good hearing acuity, moist mucous membranes Resp: good air exchange, breathing comfortably with no accessory muscle use CVS: good distal perfusion x 4, GI: soft, NTTP, ND : no SPT, no CVAT, galindo catheter not present MSK: no pitting edema, no clubbing Neuro: non-focal, moving all extremities Psych: cooperative, euthymic mood Past Medical History Past Medical History: COPD, GERD/Reflux, GI Bleed, Seizure Disorder Additional Past Medical History / Comment(s): MS, hearing impaired, seizures when in her 30s last 2yrs ago, migraines, Upper GI bleed, peptic ulcer disease, developmentally delayed, hypotension, UTI History of Any Multi-Drug Resistant Organisms: None Reported Past Surgical History: Ear Surgery Additional Past Surgical History / Comment(s): cyst removed from coccyx, multiple bilateral ear surgeries. Past Anesthesia/Blood Transfusion Reactions: No Reported Reaction Past Psychological History: Anxiety, Bipolar, Depression, Schizophrenia Smoking Status: Current every day smoker Past Alcohol Use History: None Reported Past Drug Use History: Marijuana - Past Family History Father Additional Family Medical History / Comment(s): Father at age 70 from myocardial infarction. Mother Additional Family Medical History / Comment(s): Patient's mother is alive at age 70. Patient does not know her medical history. Brother(s) Additional Family Medical History / Comment(s): Patient has 1 brother committed suicide at 48. Sister(s) Additional Family Medical History / Comment(s): Patient has 2 sisters with no major medical problems. Medications and Allergies Home Medications Medication Instructions Recorded Confirmed Type Paliperidone IM [Invega Sustenna] 234 mg IM Q28D #1 ml 04/25/21 06/28/21 Rx Allergies Allergy/AdvReac Type Severity Reaction Status Date / Time No Known Allergies Allergy Verified 06/28/21 13:53 Physical Exam Osteopathic Statement: *. No significant issues noted on an osteopathic structural exam other than those noted in the History and Physical/Consult. Vitals: Vital Signs Temp Pulse Resp BP Pulse Ox 06/28/21 16:33 97.7 F 103 H 18 132/77 95 Intake and Output 06/28/21 06/29/21 06/29/21 22:59 06:59 14:59 Other: Weight 50.3 kg Cranial Nerve Examination - Cranial Nerves Cranial Nerve II- Optic: Intact Cranial Nerve III- Oculomotor: Intact Cranial Nerve IV- Trochlear: Intact Cranial Nerve V- Trigeminal: Intact Cranial Nerve - Abducens: Intact Cranial Nerve VII- Facial: Intact Cranial Nerve VIII- Auditory: Intact Cranial Nerve IX- Glossopharyngeal: Intact Cranial Nerve X- Vagus: Intact Cranial Nerve XI- Accessory: Intact Cranial Nerve XII- Hypoglossal: Intact Results CBC & Chem 7: 06/29/21 07:20 06/29/21 07:20 Labs: Abnormal Lab Results - Last 24 Hours (Table) 06/29/21 06/29/21 Range/Units 07:20 07:20 WBC 13.3 H (3.8-10.6) k/uL Plt Count 542 H (150-450) k/uL Neutrophils # 11.0 H (1.3-7.7) k/uL Sodium 133 L (137-145) mmol/L Assessment and Plan Assessment: Asymptomatic bacteriuria versus uncomplicated urinary tract infection -rec'd ceftriaxone 1000mg IM + cephalexin 500mg BID x 4 days -f/u UCx COPD in Active Smoker Seizure Disorder Bipolar Disorder Schizophrenia - patient is not taking any medications at home, but appears to be stable at this time in terms of her vitals. I will not add any nebulizer treatments for her reported COPD at this time since she is not in exacerbation and i do not have access to her PFTs proving this diagnosis or its severity. Pt may f/u with PCP outpatient for appropriate work up, or, should she develop exacerbation, then please reach out to us for further recommendations.
[2021-06-29 14:44] LABS: Chol/HDL Ratio 2.47 Ratio; LDL Cholesterol,Calculated 82.4 mg/dL (0.0-131.0); VLDL Calculation 15.24 mg/dL (5.00-40.00)
[2021-06-29] MEDS: ACETAMINOPHEN TAB 325 MG TAB PO PRN (16:58)
[2021-06-30] MEDS: ACETAMINOPHEN TAB 325 MG TAB PO PRN ×3 (00:51→17:12)
[2021-06-30] MEDS: NICOTINE 14MG/24HR PATCH TRANSDERM SCH (08:44)
[2021-06-30] MEDS: CEPHALEXIN 500 MG CAP PO SCH ×2 (08:44→19:59)
--- NOTE | 2021-06-30 13:49 | P.PN ---
Progress Note - Text Progress Note Date: 06/30/21 Interval History: Patient was seen wandering the hallways after lunch and appeared to be respond ing to internal stimuli. Patient was difficult to redirect and did not want to speak to communications writer. She was hard of hearing and asked communications writer to repeat his question several times. She appeared to be laughing and when asked why she was laughing she stated above "they're trying to poison me". She claims that she does not want to take medications and does not believe that she needs them. She has very poor insight and judgment. She appears to be impulsive. Difficult to engage with. She walked away from communications writer and refused to answer any other questions. At this time patient denies any suicidal or homical ideations, intent or plan. Patient denies any auditory, visual hallucinations Mental Status Exam: General Appearance: Patient appears to be disheveled in appearance, stated age is alert, difficult to redirect. Uncooperative. Behavior: Patient is not agitated behavior. Responding to internal stimuli Speech: Patient's speech is fluent and nonpressured. Mood/Affect: Unable to be assessed. Suicidality/Homicidality: Patient denies having any suicidal or homicidal ideation intent or plan. Perceptions: Patient denies any visual hallucinations and denies any auditory hallucinations Though content/process: Patient is delusional, poverty of content. Bizarre. Memory and concentration: Unable to assess Judgment and insight: Chronically poor Assessment Schizophrenia Cannabis use disorder Nicotine dependence Plan: -Patient continues to meet criteria for inpatient psychiatric admission for symptom stabilization and safety. Patient has not signed adult voluntary form and medication consent and was placed in patient's chart. -Medications: Paliperidone 3 mg daily at bedtime for mood stabilization/psychosis. Plan will be to transition patient [facility] once she has been given the court order. -When necessary Ativan and Haldol for agitation/aggression. -continue with abx for UTI -NRT - nicotine patch -SW on board for discharge planning. Encouraged the patient to participate in milieu. Currently awaiting deferral with estate attorney and court date.
[2021-06-30] MEDS: LORazepam 1 MG TAB PO PRN (19:59)
[2021-06-30] MEDS: haloperidoL 5 MG TAB PO PRN (20:57)
[2021-06-30] MEDS ORDERED: PALIPERIDONE 3 MG TAB.ER.24 PO SCH (21:00)
[2021-07-01] MEDS: NICOTINE 14MG/24HR PATCH TRANSDERM SCH (08:45)
[2021-07-01] MEDS: CEPHALEXIN 500 MG CAP PO SCH ×2 (08:45→21:09)
[2021-07-01] MEDS: LORazepam 1 MG TAB PO PRN (10:11)
[2021-07-01] MEDS: haloperidoL 5 MG TAB PO PRN (10:11)
--- NOTE | 2021-07-01 10:22 | P.PN ---
Progress Note - Text Progress Note Date: 07/01/21 Interval History: Patient was seen wandering the hallways this morning. She continues to be res ponding to internal stimuli and laughing inappropriately. Field Traffic Investigator approached patient to speak with her however patient kept on walking. She approached nurse and took a sandwich and a drink from her and then turned away and turned down story writer for an interview and continued to walk away not wanting to talk to him. It appears the patient took her paliperidone last night. She did not respond to any other questions. Mental Status Exam: General Appearance: Patient appears to be disheveled in appearance, stated age is alert, difficult to redirect. Uncooperative. Behavior: Patient is not agitated behavior. Responding to internal stimuli Speech: Patient's speech is fluent and nonpressured. Mood/Affect: Unable to be assessed. Suicidality/Homicidality: Unable to assess Perceptions: Unable to assess Though content/process: poverty of content. Bizarre. Memory and concentration: Unable to assess Judgment and insight: Chronically poor Assessment Schizophrenia Cannabis use disorder Nicotine dependence Plan: -Patient continues to meet criteria for inpatient psychiatric admission for symptom stabilization and safety. Patient has not signed adult voluntary form and medication consent and was placed in patient's chart. -Medications: Increase Paliperidone 6 mg daily at bedtime for mood stabilization/psychosis. [facility] once she has been given the court order. -When necessary Ativan and Haldol for agitation/aggression. -continue with abx for UTI -NRT - nicotine patch -SW on board for discharge planning. Encouraged the patient to participate in milieu. Currently awaiting deferral with united states attorney and court date. Patient will need to be given [place] prior to discharge
[2021-07-01] MEDS: PALIPERIDONE 6 MG TAB.ER.24 PO SCH (21:09)
[2021-07-02] MEDS: CEPHALEXIN 500 MG CAP PO SCH (08:57)
[2021-07-02] MEDS: NICOTINE 14MG/24HR PATCH TRANSDERM SCH (08:58)
[2021-07-02] MEDS: LORazepam 1 MG TAB PO PRN ×2 (12:00→19:08)
[2021-07-02] MEDS: haloperidoL 5 MG TAB PO PRN ×2 (12:00→19:08)
--- NOTE | 2021-07-02 12:48 | P.PN ---
Progress Note - Text Progress Note Date: 07/02/21 Interval History: Patient was seen wandering the hallways and was directable and agreeable to speak with ad writer. She has difficulty with hearing and has been crying spontaneously. She stated "I am God". Patient is a grossly psychotic and does not appear to show any side effects of the medication. Mental Status Exam: General Appearance: Patient appears to be stated age is alert, directable, and cooperative. Behavior: Patient does not show any agitated behavior. Speech: Patient's speech is nonsensical. Mood/Affect: Mood is blank and affect is constricted. Suicidality/Homicidality: Patient denies having any suicidal or homicidal ideation intent or plan. Perceptions: Patient denies any visual hallucinations and denies any auditory hallucinations Though content/process: There is clear evidence of disorder of thought process. Memory and concentration: I could not assess her level of concentration and memory problems. Judgment and insight: Poor Assessment Patient continues to be grossly psychotic and is in need of hospitalization. Plan: -Patient continues to meet criteria for inpatient psychiatric admission for symptom stabilization and safety. -Medications: Continue medication as before -When necessary Ativan and Haldol for agitation/aggression. -SW on board for discharge planning. Encouraged the patient to participate in milieu.
[2021-07-03] MEDS: PALIPERIDONE 6 MG TAB.ER.24 PO SCH ×2 (04:25→20:31)
[2021-07-03] MEDS: CEPHALEXIN 500 MG CAP PO SCH ×3 (04:25→20:30)
[2021-07-03] MEDS: NICOTINE 14MG/24HR PATCH TRANSDERM SCH (08:04)
--- NOTE | 2021-07-03 11:45 | P.PN ---
Progress Note - Text Progress Note Date: 07/03/21 Interval History: Patient was seen in her room and was not directable or agreeable to speak with global technical writer. She is quiet and is laying in the bed and there are paper cups scattered all over her room.The patient declined to provide any information. She did not respond to questions about her current state.. At this time patient denies any suicidal or homical ideations, intent or plan. Patient appears to be responding to unknown internal stimuli . Mental Status Exam: General Appearance: Patient appears to be stated age.. Behavior: Patient is calmly seated without any agitated behavior. Speech: Patient's speech is non fluent and nonpressured. Mood/Affect: Mood is not improving compared to yesterday, affect is congruent and constricted. Suicidality/Homicidality: Patient just stated quiet. Perceptions: Patient appears to be responding to some unknown internal stimuli. Though content/process: Patient could not be assessed for any delusions however she was noted to be talking to herself . Memory and concentration: Her attention span is a poor and memory functions could not be assessed . Judgment and insight: Insight and her judgment continues to be poor. Assessment This patient continues to show symptoms of psychosis Plan: -Patient continues to meet criteria for inpatient psychiatric admission for symptom stabilization and safety. -Medications: Continue medications as before -When necessary Ativan and Haldol for agitation/aggression. -SW on board for discharge planning. Encouraged the patient to participate in milieu.
[2021-07-03 11:51] LABS: ALT 16 U/L (4-34); AST 23 U/L (14-36); African American GFR (CKD) >90 (>60 ml/min/1.73 sqM); Albumin 4.2 g/dL (3.5-5.0); Alkaline Phosphatase 101 U/L (38-126); Anion Gap 9 mmol/L; Blood Urea Nitrogen 10 mg/dL (7-17); Calcium 9.8 mg/dL (8.4-10.2); Carbon Dioxide 23 mmol/L (22-30); Chloride 98 mmol/L (98-107); Glucose 102 mg/dL (74-99); Non-African American GFR(CKD) >90 (>60 ml/min/1.73 sqM); Potassium 4.5 mmol/L (3.5-5.1); Sodium 130 mmol/L (137-145); Total Bilirubin 0.7 mg/dL (0.2-1.3); Total Protein 7.6 g/dL (6.3-8.2)
[2021-07-03] MEDS: LORazepam 1 MG TAB PO PRN ×2 (15:07→23:38)
[2021-07-03] MEDS: haloperidoL 5 MG TAB PO PRN ×2 (15:07→23:38)
[2021-07-04] MEDS: CEPHALEXIN 500 MG CAP PO SCH ×2 (08:20→19:47)
[2021-07-04] MEDS: NICOTINE 14MG/24HR PATCH TRANSDERM SCH (08:21)
--- NOTE | 2021-07-04 10:40 | P.PN ---
Progress Note - Text Progress Note Date: 07/04/21 Interval History: Patient was seen lying in her bed this morning and appeared to be responding to internal stimuli. Patient was laughing repeatedly and was attempted to be interviewed by writer editor. Patient acknowledges writer editor briefly and began laughing at him. She states that she remembers him however did not say anything meaningful afterwards. She did not respond to any other questions. She is denying any auditory or visual hallucinations. She has not been taking her oral paliperidone over the weekend. Mental Status Exam: General Appearance: Patient appears to be disheveled in appearance, stated age is alert, difficult to redirect. Uncooperative. Laughing. Behavior: Patient is not agitated behavior. Responding to internal stimuli. Laughing. Speech: Patient's speech is fluent and nonpressured. Mood/Affect: Unable to assess Suicidality/Homicidality: Unable to assess Perceptions: Unable to assess Though content/process: poverty of content. Bizarre. Memory and concentration: Unable to assess Judgment and insight: Chronically poor Assessment Schizophrenia Cannabis use disorder Nicotine dependence Plan: -Patient continues to meet criteria for inpatient psychiatric admission for symptom stabilization and safety. Patient has not signed adult voluntary form and medication consent and was placed in patient's chart. -Medications: Paliperidone 6 mg daily at bedtime for mood stabilization/psychosis. Plan will be to transition patient onto [facility] once she has been given the court order. -When necessary Ativan and Haldol for agitation/aggression. -continue with abx for UTI -NRT - nicotine patch -SW on board for discharge planning. Encouraged the patient to participate in milieu. Currently awaiting deferral with civil attorney and court date. Patient will need to be given [place] prior to discharge
[2021-07-04] MEDS: HALOPERIDOL LACTATE 5 MG/ML 1 ML VIAL IM PRN (19:04)
[2021-07-04] MEDS: LORazepam 2 MG/ML INJ IM PRN (19:04)
[2021-07-04] MEDS: ACETAMINOPHEN TAB 325 MG TAB PO PRN (19:44)
[2021-07-04] MEDS: PALIPERIDONE 6 MG TAB.ER.24 PO SCH (19:47)
[2021-07-05] MEDS: NICOTINE 14MG/24HR PATCH TRANSDERM SCH (09:06)
[2021-07-05] MEDS: CEPHALEXIN 500 MG CAP PO SCH ×2 (09:06→23:25)
[2021-07-05] MEDS: LORazepam 1 MG TAB PO PRN (09:09)
--- NOTE | 2021-07-05 11:07 | P.PN ---
Progress Note - Text Progress Note Date: 07/05/21 Interval History: Patient was seen near the nurse's desk requesting water several times. Patient is currently on fluid restrictions. Patient appeared to be more directable during conversation today and spoke briefly to content writer. She answered some questions and was mildly more appropriate today. She claims that she has been taking her medications. She states that she feels "thirsty". She continues to have very poor insight and judgment. She was not responding to internal stimuli today. She claims that she slept fairly. She is denying any auditory or visual hallucinations and denying any suicidal or homicidal ideations intent or plan. Mental Status Exam: General Appearance: Patient appears to be disheveled in appearance, stated age is alert, more directable today. Behavior: Patient is not agitated behavior. Not responding to internal stimuli. Speech: Patient's speech is fluent and nonpressured. Mood/Affect: Patient claims her mood is "fine", affect congruent. Suicidality/Homicidality: Denies Perceptions: Denies Though content/process: poverty of content. Bizarre at times. More appropriate. Memory and concentration: Unable to assess Judgment and insight: Chronically poor, improving mildly Assessment Schizophrenia Cannabis use disorder Nicotine dependence Plan: -Patient continues to meet criteria for inpatient psychiatric admission for symptom stabilization and safety. Patient has not signed adult voluntary form and medication consent and was placed in patient's chart. -Medications: Paliperidone 6 mg daily at bedtime for mood stabilization/psychosis. Plan will [facility] once she has been given the court order. -When necessary Ativan and Haldol for agitation/aggression. -continue with abx for UTI -NRT - nicotine patch -SW on board for discharge planning. Encouraged the patient to participate in milieu. Court hearing scheduled for tomorrow. Patient will need to be given DE LA FUENTE prior to discharge
[2021-07-05] MEDS: LORazepam 2 MG/ML INJ IM PRN (16:52)
[2021-07-05] MEDS: HALOPERIDOL LACTATE 5 MG/ML 1 ML VIAL IM PRN (16:53)
[2021-07-05] MEDS: PALIPERIDONE 6 MG TAB.ER.24 PO SCH (23:25)
[2021-07-06] MEDS: LORazepam 1 MG TAB PO PRN ×3 (04:26→18:59)
[2021-07-06] MEDS: PALIPERIDONE 6 MG TAB.ER.24 PO SCH (04:26)
[2021-07-06] MEDS: CEPHALEXIN 500 MG CAP PO SCH (08:10)
[2021-07-06] MEDS: NICOTINE 14MG/24HR PATCH TRANSDERM SCH (08:10)
--- NOTE | 2021-07-06 10:00 | P.PN ---
Progress Note - Text Progress Note Date: 07/06/21 Interval History: Patient was seen sitting in the back hallway eating her breakfast at the table. She was agreeable to speak to publications writer briefly. She appeared to be mildly more directable today during conversation. She continues to laugh at times inappropriately however did not appear to be responding to internal stimuli. She offered no overnight complaints. She states that she has been taking her medications. She states that she slept fairly. She has a fair appetite. She is denying any depression. She continues to have very poor insight and judgment which is chronic. She claims that she slept fairly. She is denying any auditory or visual hallucinations and denying any suicidal or homicidal ideations intent or plan. Mental Status Exam: General Appearance: Patient appears to be disheveled in appearance, stated age is alert, more directable today. Behavior: Patient is not agitated behavior. Not responding to internal stimuli. However laughing at times. Speech: Patient's speech is fluent and nonpressured. Mood/Affect: Patient claims her mood is "ok", affect congruent. Suicidality/Homicidality: Denies Perceptions: Denies Though content/process: poverty of content. Bizarre at times. More appropriate. Memory and concentration: Unable to assess Judgment and insight: Chronically poor, improving mildly Assessment Schizophrenia Cannabis use disorder Nicotine dependence Plan: -Patient continues to meet criteria for inpatient psychiatric admission for symptom stabilization and safety. Patient has not signed adult voluntary form and medication consent and was placed in patient's chart. -Medications: Paliperidone 6 mg daily at bedtime for mood stabilization/psych osis. Plan will be to transition patient onto [facility] once she has been given the court order. -When necessary Ativan and Haldol for agitation/aggression. -continue with abx for UTI -NRT - nicotine patch -SW on board for discharge planning. Encouraged the patient to participate in milieu. Court hearing adjourned and set for sunday. Patient will need to be given DE LA FUENTE prior to discharge. likely discharge sunday back home after receiving DE LA FUENTE.
[2021-07-06] MEDS: haloperidoL 5 MG TAB PO PRN (13:59)
[2021-07-06] MEDS ORDERED: OLANZapine 10 MG VIAL IM STA (16:51)
[2021-07-07] MEDS: PALIPERIDONE 6 MG TAB.ER.24 PO SCH ×2 (04:29→21:26)
[2021-07-07] MEDS: CEPHALEXIN 500 MG CAP PO SCH ×2 (04:29→08:09)
[2021-07-07] MEDS: NICOTINE 14MG/24HR PATCH TRANSDERM SCH (08:09)
--- NOTE | 2021-07-07 10:52 | P.PN ---
Progress Note - Text Progress Note Date: 07/07/21 Interval History: Patient was seen near the nurse's desk with a couple water wandering the hallw ays. She was more directable today to speak with designer/writer. She answered some questions appropriately. She was laughing less today during the interview. She denied any depression. She claims that she is taking her medications. She pointed to her legs and stated "it hurts" and then began speaking about other things. She claims that she slept poorly last night. She has been having her meals. She continues to have very poor insight and judgment which is chronic. She is denying any auditory or visual hallucinations and denying any suicidal or homicidal ideations intent or plan. Patient did receive Zyprexa 5mg IM yesteray for agitation as she was not redirectable. Mental Status Exam: General Appearance: Patient appears to be disheveled in appearance, stated age is alert, more directable today. Behavior: Patient is not agitated behavior. Not responding to internal stimuli. laughing at times. Speech: Patient's speech is fluent and nonpressured. Mood/Affect: Patient claims her mood is "ok", affect congruent. Suicidality/Homicidality: Denies Perceptions: Denies Though content/process: poverty of content. Bizarre at times. More appropriate. Memory and concentration: Unable to assess Judgment and insight: Chronically poor Assessment Schizophrenia Cannabis use disorder Nicotine dependence Plan: -Patient continues to meet criteria for inpatient psychiatric admission for symp marcy stabilization and safety. Patient has not signed adult voluntary form and medication consent and was placed in patient's chart. -Medications: Paliperidone 6 mg daily at bedtime for mood stabilizat ion/psychosis. Plan will be [facility] once she has been given the court order. -When necessary Ativan and Haldol for agitation/aggression. -continue with abx for UTI -NRT - nicotine patch -SW on board for discharge planning. Encouraged the patient to participate in milieu. Court hearing adjourned and set for sunday. Patient will need to be given DE LA FUENTE prior to discharge. likely discharge sunday back home after receiving DE LA FUENTE.
[2021-07-07] MEDS ORDERED: PALIPERIDONE 6 MG TAB.ER.24 PO STA (12:15)
[2021-07-07 14:45] LABS: Calcium 9.3 mg/dL (8.4-10.2); Potassium 4.4 mmol/L (3.5-5.1)
[2021-07-07] MEDS: LORazepam 1 MG TAB PO PRN (21:26)
[2021-07-07] MEDS: haloperidoL 5 MG TAB PO PRN (21:26)
[2021-07-08] MEDS: NICOTINE 14MG/24HR PATCH TRANSDERM SCH (08:55)
[2021-07-08 12:00] VITALS: BMI 20.2
--- NOTE | 2021-07-08 12:11 | P.DS ---
Providers Date of admission: 06/28/21 14:55 Expected date of discharge: 07/08/21 Attending physician: Kj Braxton MD Consults: 06/28/21 15:49 Consult Physician Routine Consulting Provider: Kelsey Physician Consult Reason/Comments: H&P and medical Do you want consulting provider notified?: Yes Primary care physician: Stated None - Discharge Diagnosis(es) (1) Schizophrenia Current Visit: Yes Status: Acute Priority: High (2) Cannabis use disorder, mild, abuse Current Visit: Yes Status: Acute Priority: Medium (3) Nicotine dependence Current Visit: Yes Status: Acute Priority: Low Hospital Course: Admission HPI: Admission note was completed by Dr Diop "The patient is a 55-year-old female. She resides with family. She presented to the ED on a pickup order with petition for involuntary hospitalization. The patient was delusional and confused. She did not recognize family. She was becoming aggressive towards her children. The patient declined to provide any information. She did not respond to questions about her current state. The following was documented by in the ED: "55-year-old female with a past medical history of deafness, COPD, seizure disorder, schizophrenia, bipolar disorder, depression, anxiety presents to the emergency room for psychotic episode. Patient is brought in by her daughter who petitioned her. She reports that patient has not had any of her medications for 2 months now and refuses to take them. States that she started "pulling knives" on them again and is acting like she is in a psychotic break. She states she has had several admissions here and feels the patient needs to be admitted again as she is a danger to others around her. At this time patient is a poor historian and is crying not cooperating with conversation.Patient has no other complaints at this time including shortness of breath, chest pain, abdominal pain, nausea or vomiting, headache, or visual changes." The patient was petitioned by her daughter/guardian, Madelyn Paris. The following was documented in the petition: "She is extremely paranoid, does not recognize anyone, she is becoming violent towards myself and children she is also pulling knifes out ! My sons tell me she is going after them when I am at work. She is pulling knifes out on their dad also". According to the progress note of Dr. Vigil of 06/08/2021 the following was documented: "The appointment was conducted via telephone with Faye's daughter who is her guardian. She remains uncooperative and refuses to get the injection or take meds. When her behavior gets too far out of control, her daughter takes her to the hospital hoping that she'll receive the injection. She said that she won't talk with her instead starts yelling and doesn't let her say anything to her so the hospital is her last resort. She hopes [facility] can help facilitate her getting the injection or admitted depending upon how out of control her mother's behavior is she said that her mother continues to be difficult having mostly bad days and doesn't take the oral medications. She remains difficult and delusional and her daughter says she won't even make eye contact with her to try to talk about her medications. Still psychotic, delusional and uncooperative. She will come to the phone. Police brought her in on a pickup order today, 04/20/2021, she had told on she isn't taking her meds. She is open with [facility], didn't get her in Invega Sustenna 04/13/2021 and (last dose 03/14/21). She is disheveled, has a body odor, not eating, doesn't think her daughter is her real daughter. Oriented to person and place. Daughter said she is really bad, going out at 3 AM, opening the doors, turning on the stove, going after her son, hiding knives in her room, sleeping only one to 2 hours a night." She was last admitted to the psychiatric unit 04/20 -- 04/25/2021. Her admission was on similar circumstances to the present. Discharge medications include Invega Sustenna 234 mg IM, next dose 05/19/2021. I refer the reader to Dr. Braxton admission note and other records for details. She is admitted for further evaluation" Hospital course: Upon admission to the unit patient was admitted involuntarily on a petition and certificate and a second certificate was completed and faxed with the courts. Patient did not defer and ended up going through to the court hearing today on day of discharge. Patient got along well with other patients on the unit and followed unit protocol. Patient was compliant with the medications and denied any side effects throughout hospital course. Patient was started on paliperidone 6 mg daily at bedtime for psychosis/mood stabilization. Patient has very poor chronic insight into her condition and the decision was made to transition patient on 2 Invega Sustenna and resume her long-acting injection dose and will be given 234 mg IM today and as patient did not get her monthly dose through [facility] for over 6 weeks, patient will need a second dose of 234 mg IM to be given on 07/15 as an outpatient. Patient did not go to many groups at all during her hospitalization. Patient was also seen by medical team for history and physical exam. patient was found to have uti and took abx for it which improved signs and sx. Throughout the course of the hospitalization patient gradually improved with regards to psychosis and mood stability, sleep and returned back to their baseline level of functioning however has continued chronically poor insight and judgment. On the day of discharge patient denied any suicidal or homicidal ideations intent or plan denied any auditory or visual hallucinations. Patient does have a significant history of substance abuse and was counseled on abstaining from all substances including alcohol and marijuana. Patient was also counseled on the medications and need for regular compliance and was encouraged to follow-up with their outpatient appointment for mental health and also for primary care. Prior to discharge a family meeting will be arranged by director of social services to answer any questions and ensure safety upon discharge. Patient will be discharged with close [facility] follow-up and discharged to the care of her daughter. Mental status exam: General Appearance: Patient appears to have long hair, stated age is alert, directable and attempts to be cooperative. Patient is in no acute distress and has improved hygiene and grooming Behavior: Patient is calmly seated without any agitated behavior. not responding to internal stimuli. Speech: Patient's speech is mumbled at times. Mood/Affect: Patient reports their mood is "ok", affect is congruent Suicidality/Homicidality: Patient denies having any suicidal or homicidal ideation intent or plan. Perceptions: Patient denies any auditory or visual hallucinations. Though content/process: concrete, not endorsing paranoia. poverty of content Memory and concentration: AOX3, grossly intact for the purposes of this session. Judgment and insight: chronically poor, however has improved with guarded prognosis Impression: Schizophrenia Cannabis use disorder Nicotine dependence Plan: -Continue with discharge today as patient has improved and stabilized psychiatrically and is not currently an imminent threat to herself and/or others. [Patient will remain at chronically elevated risk for harm to self and/or others due to her impulsivity and chronically poor insight and judgment. -Continue medications: Continue with paliperidone 6 mg by mouth for 5 more days then to be discontinued. Patient will receive 234 mg IM of Invega Sust[facility] today after her court hearing. She will be due for her next dose of 234 mg on 07/15 and her monthly dose of 234 mg IM 28 days after that. -Patient was counseled on the need for medication compliance and appropriate follow-up at mental health and also primary care for medical issues. Patient verbalized understanding and agreed. -Social work to arrange for and conduct family meeting to ensure safety upon discharge and answer any questions/concerns. Social work also to arrange for patients follow up appointments with [facility] for psychiatric care along with follow up with primary care provider. -Patient counseled on abstaining from recreational drugs and marijuana and alcohol. Was informed/educated on the adverse effects on their physical and mental health. Patient verbally agreed and understood. -Patient was instructed to return to the hospital or seek immediate medical care if their psychiatric or medical symptoms do worsen or reoccur. Allergies Allergy/AdvReac Type Severity Reaction Status Date / Time No Known Allergies Allergy Verified 07/02/21 12:05 Laboratory Results WBC 13.3 k/uL (3.8-10.6) H 06/29/21 07:20 RBC 4.66 m/uL (3.80-5.40) 06/29/21 07:20 Hgb 14.2 gm/dL (11.4-16.0) 06/29/21 07:20 Hct 43.7 % (34.0-46.0) 06/29/21 07:20 MCV 93.8 fL (80.0-100.0) 06/29/21 07:20 MCH 30.6 pg (25.0-35.0) 06/29/21 07:20 MCHC 32.6 g/dL (31.0-37.0) 06/29/21 07:20 RDW 13.5 % (11.5-15.5) 06/29/21 07:20 Plt Count 542 k/uL (150-450) H 06/29/21 07:20 MPV 6.5 06/29/21 07:20 Neutrophils % 83 % 06/29/21 07:20 Lymphocytes % 10 % 06/29/21 07:20 Monocytes % 5 % 06/29/21 07:20 Eosinophils % 1 % 06/29/21 07:20 Basophils % 0 % 06/29/21 07:20 Neutrophils # 11.0 k/uL (1.3-7.7) H 06/29/21 07:20 Lymphocytes # 1.3 k/uL (1.0-4.8) 06/29/21 07:20 Monocytes # 0.6 k/uL (0-1.0) 06/29/21 07:20 Eosinophils # 0.2 k/uL (0-0.7) 06/29/21 07:20 Basophils # 0.0 k/uL (0-0.2) 06/29/21 07:20 Sodium 130 mmol/L (137-145) L 07/07/21 14:20 Potassium 4.4 mmol/L (3.5-5.1) 07/07/21 14:20 Chloride 99 mmol/L (98-107) 07/07/21 14:20 Carbon Dioxide 20 mmol/L (22-30) L 07/07/21 14:20 Anion Gap 11 mmol/L 07/07/21 14:20 BUN 14 mg/dL (7-17) 07/07/21 14:20 Creatinine 0.97 mg/dL (0.52-1.04) 07/07/21 14:20 Est GFR (CKD-EPI)AfAm 77 (>60 ml/min/1.73 sqM) 07/07/21 14:20 Est GFR (CKD-EPI)NonAf 67 (>60 ml/min/1.73 sqM) 07/07/21 14:20 Glucose 112 mg/dL (74-99) H 07/07/21 14:[address] Glu mg/dL 117 06/29/21 07:20 Hemoglobin A1c 5.7 % (0.0-6.0) 06/29/21 07:20 Calcium 9.3 mg/dL (8.4-10.2) 07/07/21 14:20 Total Bilirubin 0.7 mg/dL (0.2-1.3) 07/03/21 11:20 AST 23 U/L (14-36) 07/03/21 11:20 ALT 16 U/L (4-34) 07/03/21 11:20 Alkaline Phosphatase 101 U/L (38-126) 07/03/21 11:20 Total Protein 7.6 g/dL (6.3-8.2) 07/03/21 11:20 Albumin 4.2 g/dL (3.5-5.0) 07/03/21 11:20 Triglycerides 76.20 mg/dL (0.00-149.00) 06/29/21 07:20 Cholesterol 164.00 mg/dL (0.00-200.00) 06/29/21 07:20 LDL Cholesterol, Calc 82.4 mg/dL (0.0-131.0) 06/29/21 07:20 VLDL Cholesterol, Calc 15.24 mg/dL (5.00-40.00) 06/29/21 07:20 HDL Cholesterol 66.40 mg/dL (40.00-60.00) H 06/29/21 07:20 Cholesterol/HDL Ratio 2.47 Ratio 06/29/21 07:20 TSH 0.760 mIU/L (0.465-4.680) 06/29/21 07:20 Urine Color Yellow 06/28/21 12:09 Urine Appearance Cloudy (Clear) H 06/28/21 12:09 Urine pH 6.0 (5.0-8.0) 06/28/21 12:09 Ur Specific [place] 1.011 (1.001-1.035) 06/28/21 12:09 Urine Protein Trace (Negative) H 06/28/21 12:09 Urine Glucose (UA) Negative (Negative) 06/28/21 12:09 Urine Ketones Negative (Negative) 06/28/21 12:09 Urine Blood Moderate (Negative) H 06/28/21 12:09 Urine Nitrite Positive (Negative) H 06/28/21 12:09 Urine Bilirubin Negative (Negative) 06/28/21 12:09 Urine Urobilinogen <2.0 mg/dL (<2.0) 06/28/21 12:09 Ur Leukocyte Esterase Large (Negative) H 06/28/21 12:09 Urine RBC 11 /hpf (0-5) H 06/28/21 12:09 Urine WBC >182 /hpf (0-5) H 06/28/21 12:09 Ur Squamous Epith Cells 1 /hpf (0-4) 06/28/21 12:09 Urine Bacteria Occasional /hpf (None) H 06/28/21 12:09 Urine Mucus Rare /hpf (None) H 06/28/21 12:09 Urine Opiates Screen Not Detected (NotDetected) 06/28/21 12:09 Ur Oxycodone Screen Not Detected (NotDetected) 06/28/21 12:09 Urine Methadone Screen Not Detected (NotDetected) 06/28/21 12:09 Ur Propoxyphene Screen Not Detected (NotDetected) 06/28/21 12:09 Ur Barbiturates Screen Not Detected (NotDetected) 06/28/21 12:09 U Tricyclic Antidepress Not Detected (NotDetected) 06/28/21 12:09 Ur Phencyclidine Scrn Not Detected (NotDetected) 06/28/21 12:09 Ur Amphetamines Screen Not Detected (NotDetected) 06/28/21 12:09 U Methamphetamines Scrn Not Detected (NotDetected) 06/28/21 12:09 U Benzodiazepines Scrn Not Detected (NotDetected) 06/28/21 12:09 Urine Cocaine Screen Not Detected (NotDetected) 06/28/21 12:09 U Marijuana (THC) Screen Detected (NotDetected) H 06/28/21 12:09 Coronavirus (PCR) Not Detected (Not Detectd) 06/28/21 13:40 Vital Signs Temp 97.4 F L 07/07/21 09:46 Pulse 104 H 07/07/21 09:46 Resp 16 07/07/21 09:46 BP 92/59 07/07/21 09:46 Pulse Ox 96 07/07/21 09:46 Intake & Output 07/07/21 07/08/21 07/08/21 18:59 06:59 18:59 Weight 50.3 kg Patient Condition at Discharge: Stable Plan - Discharge Summary Discharge Rx Participant: No New Discharge Prescriptions: New Nicotine 14Mg/24Hr Patch [Habitrol] 1 patch TRANSDERM DAILY 14 Days patch Paliperidone [Invega] 6 mg PO HS 5 Days tablet Acetaminophen Tab [Tylenol] 650 mg PO Q4HR PRN tab PRN Reason: Pain/Discomfort Continue Paliperidone IM [Invega Sustenna] 234 mg IM Q28D #1 ml Discharge Medication List Acetaminophen Tab [Tylenol] 650 mg PO Q4HR PRN tab 07/08/21 [Rx] Nicotine 14Mg/24Hr Patch [Habitrol] 1 patch TRANSDERM DAILY 14 Days patch 07/08/21 [Rx] Paliperidone IM [Invega Sustenna] 234 mg IM Q28D #1 ml 07/08/21 [Rx] Paliperidone [Invega] 6 mg PO HS 5 Days tablet 07/08/21 [Rx] Follow up Appointment(s)/Referral(s): [facility] [Outside] - 07/14/21 1:00 pm (07-14-21 @ 1:[address] Vigil at [facility] 07-18-21 @ 2:00 with Carolyne Bass at [facility]) None,Stated [Primary Care Provider] - 1-2 days Activity/Diet/Wound Care/Special Instructions: Activity and diet as tolerated. Avoid the use of street drugs and alcohol. Take all medications as prescribed. When you are in need of refills on your medications please contact your medical provider and/or outpatient psychiatrist to have this done. Please go to scheduled outpatient appointment for aftercare treatment. If symptoms return or become worse, call the crisis line at and/or go to the nearest emergency room for evaluation Discharge Disposition: HOME SELF-CARE
[2021-07-08] MEDS ORDERED: PALIPERIDONE IM 234 MG/1.5 ML SYG IM ONE (16:00)
[2021-07-08] MEDS: PALIPERIDONE 6 MG TAB.ER.24 PO SCH (22:30)
[2021-07-08] MEDS: LORazepam 1 MG TAB PO PRN (22:32)
[2021-07-09] MEDS: haloperidoL 5 MG TAB PO PRN ×2 (00:46→19:58)
[2021-07-09 00:51] VITALS: RESP 18
[2021-07-09] MEDS: NICOTINE 14MG/24HR PATCH TRANSDERM SCH (08:19)
--- NOTE | 2021-07-09 19:11 | P.PN ---
Progress Note - Text Progress Note Date: 07/09/21 CHIEF COMPLAINT The patient was delusional and confused. She did not recognize family. She was becoming aggressive toward her children. INTERVAL HISTORY The patient has been doing fair. She had a difficult day yesterday relating to her court issues. She is very resistant to going home with her daughter. She was resistant to the idea of taking a shot for her medications in order to be able to be discharged. Due to the difficulty she was having the anticipated discharge was deferred and she has continued in the hospital. She only slept about 3-1/2 hours last night by nursing report. Today she's been up she wanders about. She spends a fair amount of time in her room. Staff have noted that today she seems to be in a calm her mood overall. She has had just a couple episodes where she will get distressed and start crying. She will make a statement so it's hard to understand what she is trying to communicate. When I talked to her she got into a crying state and simply walked away. Prior to that I had seen her a few different times in the day area and she had a relaxed look on her face and was not showing any signs of distress. She has been taking her oral medications and does not seem to show any difficulties with the medications. She is not seem to show any EPS symptoms related to Invega. MENTAL STATUS EXAM The patient was quite restless. As noted when I saw her in the vega a few different times she seemed to be in a relaxed mood. When I made an effort to talk to her and encouraged her to come to the office she started crying and murmuring some words though it was hard to understand what she was saying. She then just walked away. The distressed mood. She did not show any signs of actions toward self-harm to self or others. ASSESSMENT/PLAN I will continue the current diagnosis and treatment plan. We are waiting on court orders in regards to initiation of the long-acting Invega Sustenna. We will continue to provide support and focus on stabilization and treatment planning.
[2021-07-09] MEDS: PALIPERIDONE 6 MG TAB.ER.24 PO SCH (19:58)
[2021-07-09] MEDS: LORazepam 1 MG TAB PO PRN (19:58)
[2021-07-10] MEDS: LORazepam 1 MG TAB PO PRN ×2 (04:36→20:49)
[2021-07-10] MEDS: NICOTINE 14MG/24HR PATCH TRANSDERM SCH (08:10)
[2021-07-10 08:11] VITALS: BP 103/63; PULSE 110; TEMP 97.7
--- NOTE | 2021-07-10 11:52 | P.PN ---
Progress Note - Text Progress Note Date: 07/10/21 CHIEF COMPLAINT The patient was delusional and confused. She did not recognize family. She was becoming aggressive toward her children. INTERVAL HISTORY The patient has been pretty much at her baseline. She had a quiet day yesterday. Staff noted that overall she seemed to have a fairly good day yesterday. She did have some episodes of becoming tearful. I documented one episode when I saw her in the afternoon. She hadn't another episode around 8 PM where she approached staff feeling distressed. She received a when necessary. At 4:30 this morning she was up and came to staff was saying she couldn't sleep. She stated that she felt Invega keeps her awake. She received Ativan 1 mg. She had stated she wanted 3 tablets and did not believe that 1 mg was enough for her. When I saw her today she was laying down in her room. She declined coming to the office. When I walked into the room she had a smile on her face. She had no specific complaints or concerns. She said she had eaten breakfast. She has not shown any EPS signs related to her in [place]. MENTAL STATUS EXAM The patient was laying in bed. She gave good eye contact. She smiled. She made an effort to answer a few questions with one-word responses. She did not appear to be anxious or distressed. She showed no signs of becoming tearful. She seemed oriented to circumstances and surroundings. ASSESSMENT/PLAN I will continue the current diagnosis and treatment plan. We are waiting on court orders in regards to initiation of the long-acting Invega Sustenna. We will continue to provide support and focus on stabilization and treatment planning.
[2021-07-10] MEDS: PALIPERIDONE 6 MG TAB.ER.24 PO SCH (20:49)
[2021-07-11] MEDS: NICOTINE 14MG/24HR PATCH TRANSDERM SCH (09:14)
[2021-07-11] MEDS ORDERED: PALIPERIDONE IM 234 MG/1.5 ML SYG IM STA (14:14)
--- NOTE | 2021-07-11 14:20 | P.PN ---
Progress Note - Text Progress Note Date: 07/11/21 CHIEF COMPLAINT The patient was delusional and confused. She did not recognize family. She was becoming aggressive toward her children. INTERVAL HISTORY The patient is pretty much at her baseline. She had a quiet day yesterday. She was out on the unit. There were a few times where she got distressed though much of the time she seemed to be in a comfortable mood. He did complain of anxiety and was requesting when necessary medication. At 2044 she received Ativan 1 mg by mouth. She seemed to get good benefit from the medication. She slept well last night. Today she's been out in the unit and continues to same. She wonders about. She will make an effort to communicate to some people. Court issues have been resolved so that she is now able to receive the long- acting injectable antipsychotic medication. She tolerates her psychotropic medications. MENTAL STATUS EXAM The patient was out on the unit. She gave good eye contact. She smiled. She made an effort to answer a few questions with one-word responses. While I encouraged her to come into the office to talk she chose to remain out in the day area. She didn't engage much in conversation with me though did respond to a few questions. She did not appear to be anxious or distressed. She showed no signs of becoming tearful. She seemed oriented to circumstances and surroundings. ASSESSMENT/PLAN I will continue the current diagnosis and treatment plan. The patient will receive Invega Sustenna 234 mg IM today. We will monitor for safety issues. I anticipate the patient being discharged tomorrow. We will continue to provide support and focus on stabilization and treatment planning.
[2021-07-11] MEDS: PALIPERIDONE 6 MG TAB.ER.24 PO SCH (21:50)
[2021-07-11] MEDS: LORazepam 1 MG TAB PO PRN (21:52)
[2021-07-12] MEDS: NICOTINE 14MG/24HR PATCH TRANSDERM SCH (08:15)
[2021-07-12] MEDS: ACETAMINOPHEN TAB 325 MG TAB PO PRN (10:06)
--- NOTE | 2021-07-12 12:01 | P.DS ---
Providers Date of admission: 06/28/21 14:55 Expected date of discharge: 07/12/21 Attending physician: Kj Braxton MD Consults: 06/28/21 15:49 Consult Physician Routine Consulting Provider: Kelsey Physician Consult Reason/Comments: H&P and medical Do you want consulting provider notified?: Yes Primary care physician: Stated None - Discharge Diagnosis(es) (1) Schizophrenia Current Visit: Yes Status: Acute Priority: High (2) Cannabis use disorder, mild, abuse Current Visit: Yes Status: Acute Priority: Medium (3) Nicotine dependence Current Visit: Yes Status: Acute Priority: Low Hospital Course: Admission HPI: Admission note was completed by Dr Diop "The patient is a 55-year-old female. She resides with family. She presented to the ED on a pickup order with petition for involuntary hospitalization. The patient was delusional and confused. She did not recognize family. She was becoming aggressive towards her children. The patient declined to provide any information. She did not respond to questions about her current state. The following was documented by in the ED: "55-year-old female with a past medical history of deafness, COPD, seizure disorder, schizophrenia, bipolar disorder, depression, anxiety presents to the emergency room for psychotic episode. Patient is brought in by her daughter who petitioned her. She reports that patient has not had any of her medications for 2 months now and refuses to take them. States that she started "pulling knives" on them again and is acting like she is in a psychotic break. She states she has had several admissions here and feels the patient needs to be admitted again as she is a danger to others around her. At this time patient is a poor historian and is crying not cooperating with conversation.Patient has no other complaints at this time including shortness of breath, chest pain, abdominal pain, nausea or vomiting, headache, or visual changes." The patient was petitioned by her daughter/guardian, Madelyn Paris. The following was documented in the petition: "She is extremely paranoid, does not recognize anyone, she is becoming violent towards myself and children she is also pulling knifes out ! My sons tell me she is going after them when I am at work. She is pulling knifes out on their dad also". According to the progress note of Dr. Vigil of 06/08/2021 the following was documented: "The appointment was conducted via telephone with Faye's daughter who is her guardian. She remains uncooperative and refuses to get the injection or take meds. When her behavior gets too far out of control, her daughter takes her to the hospital hoping that she'll receive the injection. She said that she won't talk with her instead starts yelling and doesn't let her say anything to her so the hospital is her last resort. She hopes [facility] can help facilitate her getting the injection or admitted depending upon how out of control her mother's behavior is she said that her mother continues to be difficult having mostly bad days and doesn't take the oral medications. She remains difficult and delusional and her daughter says she won't even make eye contact with her to try to talk about her medications. Still psychotic, delusional and uncooperative. She will come to the phone. Police brought her in on a pickup order today, 04/20/2021, she had told on she isn't taking her meds. She is open with [facility], didn't get her in Invega Sustenna 04/13/2021 and (last dose 03/14/21). She is disheveled, has a body odor, not eating, doesn't think her daughter is her real daughter. Oriented to person and place. Daughter said she is really bad, going out at 3 AM, opening the doors, turning on the stove, going after her son, hiding knives in her room, sleeping only one to 2 hours a night." She was last admitted to the psychiatric unit 04/20 -- 04/25/2021. Her admission was on similar circumstances to the present. Discharge medications include Invega Sustenna 234 mg IM, next dose 05/19/2021. I refer the reader to Dr. Braxton admission note and other records for details. She is admitted for further evaluation" Hospital course: Upon admission to the unit patient was admitted involuntarily on a petition and certificate and a second certificate was completed and faxed with the courts. Patient did not defer and ended up going through to the court hearing today on day of discharge. Patient got along well with other patients on the unit and followed unit protocol. Patient was compliant with the medications and denied any side effects throughout hospital course. Patient was started on paliperidone 6 mg daily at bedtime for psychosis/mood stabilization. Patient has very poor chronic insight into her condition and the decision was made to transition patient back onto Invega Sustenna and resume her long-acting injection dose. After being court ordered, patient received 234 mg IM on 07/11 and will need a second dose of 234 mg IM to be given on 07/18 as an outpatient through [facility]. Patient did not go to many groups at all during her hospitalization. Patient was also seen by medical team for history and physical exam. patient was found to have uti and took abx for it which improved signs and sx. Throughout the course of the hospitalization patient gradually improved with regards to psychosis and mood stability, sleep and returned back to their baseline level of functioning however has continued chronically poor insight and judgment. On the day of discharge patient denied any suicidal or homicidal ideations intent or plan denied any auditory or visual hallucinations. Patient does have a significant history of substance abuse and was counseled on abstaining from all substances including alcohol and marijuana. Patient was also counseled on the medications and need for regular compliance and was encouraged to follow-up with their outpatient appointment for mental health and also for primary care. Prior to discharge a family meeting will be arranged by sr. social media & mobile manager to answer any questions and ensure safety upon discharge. Patient will be discharged with close [facility] follow-up and discharged to the care of her daughter. Mental status exam: General Appearance: Patient appears to have long hair, stated age is alert, directable and attempts to be cooperative. Patient is in no acute distress and has improved hygiene and grooming Behavior: Patient is calmly seated without any agitated behavior. not responding to internal stimuli. Speech: Patient's speech is mumbled at times. Mood/Affect: Patient reports their mood is "fine", affect is congruent Suicidality/Homicidality: Patient denies having any suicidal or homicidal ideation intent or plan. Perceptions: Patient denies any auditory or visual hallucinations. Though content/process: concrete, not endorsing paranoia. poverty of content Memory and concentration: AOX3, grossly intact for the purposes of this session. Judgment and insight: chronically poor, has improved with guarded prognosis Impression: Schizophrenia Cannabis use disorder Nicotine dependence Plan: -Continue with discharge today as patient has improved and stabilized psychiatrically and is not currently an imminent threat to herself and/or others. [Patient will remain at chronically elevated risk for harm to self and/or others due to her impulsivity and chronically poor insight and judgment. -Continue medications: Continue with paliperidone 6 mg by mouth for 4 more days then to be discontinued. Patient received 234 mg IM of Invega Sustenna on 07/11 and will be due for next dose on 07/18 of 234 mg IM. She will be due for her next dose of 234 mg IM 28 days after that. -Patient was counseled on the need for medication compliance and appropriate follow-up at mental health and also primary care for medical issues. Patient verbalized understanding and agreed. -Social work to arrange for and conduct family meeting to ensure safety upon discharge and answer any questions/concerns. Social work also to arrange for patients follow up appointments with [facility] for psychiatric care along with follow up with primary care provider. -Patient counseled on abstaining from recreational drugs and marijuana and alcohol. Was informed/educated on the adverse effects on their physical and mental health. Patient verbally agreed and understood. -Patient was instructed to return to the hospital or seek immediate medical care if their psychiatric or medical symptoms do worsen or reoccur. Allergies Allergy/AdvReac Type Severity Reaction Status Date / Time No Known Allergies Allergy Verified 07/02/21 12:05 Laboratory Results WBC 13.3 k/uL (3.8-10.6) H 06/29/21 07:20 RBC 4.66 m/uL (3.80-5.40) 06/29/21 07:20 Hgb 14.2 gm/dL (11.4-16.0) 06/29/21 07:20 Hct 43.7 % (34.0-46.0) 06/29/21 07:20 MCV 93.8 fL (80.0-100.0) 06/29/21 07:20 MCH 30.6 pg (25.0-35.0) 06/29/21 07:20 MCHC 32.6 g/dL (31.0-37.0) 06/29/21 07:20 RDW 13.5 % (11.5-15.5) 06/29/21 07:20 Plt Count 542 k/uL (150-450) H 06/29/21 07:20 MPV 6.5 06/29/21 07:20 Neutrophils % 83 % 06/29/21 07:20 Lymphocytes % 10 % 06/29/21 07:20 Monocytes % 5 % 06/29/21 07:20 Eosinophils % 1 % 06/29/21 07:20 Basophils % 0 % 06/29/21 07:20 Neutrophils # 11.0 k/uL (1.3-7.7) H 06/29/21 07:20 Lymphocytes # 1.3 k/uL (1.0-4.8) 06/29/21 07:20 Monocytes # 0.6 k/uL (0-1.0) 06/29/21 07:20 Eosinophils # 0.2 k/uL (0-0.7) 06/29/21 07:20 Basophils # 0.0 k/uL (0-0.2) 06/29/21 07:20 Sodium 130 mmol/L (137-145) L 07/07/21 14:20 Potassium 4.4 mmol/L (3.5-5.1) 07/07/21 14:20 Chloride 99 mmol/L (98-107) 07/07/21 14:20 Carbon Dioxide 20 mmol/L (22-30) L 07/07/21 14:20 Anion Gap 11 mmol/L 07/07/21 14:20 BUN 14 mg/dL (7-17) 07/07/21 14:20 Creatinine 0.97 mg/dL (0.52-1.04) 07/07/21 14:20 Est GFR (CKD-EPI)AfAm 77 (>60 ml/min/1.73 sqM) 07/07/21 14:20 Est GFR (CKD-EPI)NonAf 67 (>60 ml/min/1.73 sqM) 07/07/21 14:20 Glucose 112 mg/dL (74-99) H 07/07/21 14:[address] Glu mg/dL 117 06/29/21 07:20 Hemoglobin A1c 5.7 % (0.0-6.0) 06/29/21 07:20 Calcium 9.3 mg/dL (8.4-10.2) 07/07/21 14:20 Total Bilirubin 0.7 mg/dL (0.2-1.3) 07/03/21 11:20 AST 23 U/L (14-36) 07/03/21 11:20 ALT 16 U/L (4-34) 07/03/21 11:20 Alkaline Phosphatase 101 U/L (38-126) 07/03/21 11:20 Total Protein 7.6 g/dL (6.3-8.2) 07/03/21 11:20 Albumin 4.2 g/dL (3.5-5.0) 07/03/21 11:20 Triglycerides 76.20 mg/dL (0.00-149.00) 06/29/21 07:20 Cholesterol 164.00 mg/dL (0.00-200.00) 06/29/21 07:20 LDL Cholesterol, Calc 82.4 mg/dL (0.0-131.0) 06/29/21 07:20 VLDL Cholesterol, Calc 15.24 mg/dL (5.00-40.00) 06/29/21 07:20 HDL Cholesterol 66.40 mg/dL (40.00-60.00) H 06/29/21 07:20 Cholesterol/HDL Ratio 2.47 Ratio 06/29/21 07:20 TSH 0.760 mIU/L (0.465-4.680) 06/29/21 07:20 Urine Color Yellow 06/28/21 12:09 Urine Appearance Cloudy (Clear) H 06/28/21 12:09 Urine pH 6.0 (5.0-8.0) 06/28/21 12:09 Ur Specific [place] 1.011 (1.001-1.035) 06/28/21 12:09 Urine Protein Trace (Negative) H 06/28/21 12:09 Urine Glucose (UA) Negative (Negative) 06/28/21 12:09 Urine Ketones Negative (Negative) 06/28/21 12:09 Urine Blood Moderate (Negative) H 06/28/21 12:09 Urine Nitrite Positive (Negative) H 06/28/21 12:09 Urine Bilirubin Negative (Negative) 06/28/21 12:09 Urine Urobilinogen <2.0 mg/dL (<2.0) 06/28/21 12:09 Ur Leukocyte Esterase Large (Negative) H 06/28/21 12:09 Urine RBC 11 /hpf (0-5) H 06/28/21 12:09 Urine WBC >182 /hpf (0-5) H 06/28/21 12:09 Ur Squamous Epith Cells 1 /hpf (0-4) 06/28/21 12:09 Urine Bacteria Occasional /hpf (None) H 06/28/21 12:09 Urine Mucus Rare /hpf (None) H 06/28/21 12:09 Urine Opiates Screen Not Detected (NotDetected) 06/28/21 12:09 Ur Oxycodone Screen Not Detected (NotDetected) 06/28/21 12:09 Urine Methadone Screen Not Detected (NotDetected) 06/28/21 12:09 Ur Propoxyphene Screen Not Detected (NotDetected) 06/28/21 12:09 Ur Barbiturates Screen Not Detected (NotDetected) 06/28/21 12:09 U Tricyclic Antidepress Not Detected (NotDetected) 06/28/21 12:09 Ur Phencyclidine Scrn Not Detected (NotDetected) 06/28/21 12:09 Ur Amphetamines Screen Not Detected (NotDetected) 06/28/21 12:09 U Methamphetamines Scrn Not Detected (NotDetected) 06/28/21 12:09 U Benzodiazepines Scrn Not Detected (NotDetected) 06/28/21 12:09 Urine Cocaine Screen Not Detected (NotDetected) 06/28/21 12:09 U Marijuana (THC) Screen Detected (NotDetected) H 06/28/21 12:09 Coronavirus (PCR) Not Detected (Not Detectd) 06/28/21 13:40 Vital Signs Temp 97.7 F 07/10/21 08:10 Pulse 110 H 07/10/21 08:10 Resp 18 07/10/21 08:10 BP 103/63 07/10/21 08:10 Pulse Ox 99 07/10/21 08:10 Patient Condition at Discharge: Stable Plan - Discharge Summary Discharge Rx Participant: No New Discharge Prescriptions: New Nicotine 14Mg/24Hr Patch [Habitrol] 1 patch TRANSDERM DAILY 14 Days patch Paliperidone IM [Invega Sustenna] 234 mg IM QMONTHLY #1 each Acetaminophen Tab [Tylenol] 650 mg PO Q4HR PRN tab PRN Reason: Pain/Discomfort Paliperidone [Invega] 6 mg PO HS 4 Days tab Discontinued Paliperidone IM [Invega Sustenna] 234 mg IM Q28D #1 ml Discharge Medication List Acetaminophen Tab [Tylenol] 650 mg PO Q4HR PRN tab 07/08/21 [Rx] Nicotine 14Mg/24Hr Patch [Habitrol] 1 patch TRANSDERM DAILY 14 Days patch 07/08/21 [Rx] Paliperidone IM [Invega Sustenna] 234 mg IM QMONTHLY #1 each 07/12/21 [Rx] Paliperidone [Invega] 6 mg PO HS 4 Days tab 07/12/21 [Rx] Follow up Appointment(s)/Referral(s): [facility] [Outside] - 07/14/21 1:00 pm (07-14-21 @ 1:[address] Vigil at [facility] 07-18-21 @ 2:00 with Carolyne Bass at [facility]) None,Stated [Primary Care Provider] - 1-2 days Patient Instructions/Handouts: How to Stop Smoking (DC), Schizophrenia (DC) Activity/Diet/Wound Care/Special Instructions: Activity and diet as tolerated. Avoid the use of street drugs and alcohol. Take all medications as prescribed. When you are in need of refills on your medications please contact your medical provider and/or outpatient psychiatrist to have this done. Please go to scheduled outpatient appointment for aftercare treatment. If symptoms return or become worse, call the crisis line at and/or go to the nearest emergency room for evaluation Discharge Disposition: HOME SELF-CARE
== END 2021-07-12 14:44 | disposition home or self-care (01) | DRG 885 ==
LOC: EC 10:12 → 3MHU 14:55
PROVIDERS: ADMIT Psychiatry & Neurology Psychiatry; ATTEND Psychiatry & Neurology Psychiatry
DX: F20.9 Schizophrenia, unspecified (principal); N39.0 Urinary tract infection, site not specified; E87.1 Hypo-osmolality and hyponatremia; G40.909 Epilepsy, unspecified, not intractable, without status epilepticus; F12.10 Cannabis abuse, uncomplicated; F31.9 Bipolar disorder, unspecified; G35 Multiple sclerosis; J44.9 Chronic obstructive pulmonary disease, unspecified; Z20.822 Contact with and (suspected) exposure to COVID-19; Z91.128 Patient's intentional underdosing of medication regimen for other reason; T50.916A Underdosing of multiple unspecified drugs, medicaments and biological substances, initial encounter; K21.9 Gastro-esophageal reflux disease without esophagitis; F89 Unspecified disorder of psychological development; F41.9 Anxiety disorder, unspecified; H91.90 Unspecified hearing loss, unspecified ear; F17.210 Nicotine dependence, cigarettes, uncomplicated; Z71.6 Tobacco abuse counseling; Z79.899 Other long term (current) drug therapy; Z87.11 Personal history of peptic ulcer disease; Z87.440 Personal history of urinary (tract) infections; Z86.69 Personal history of other diseases of the nervous system and sense organs; Z87.39 Personal history of other diseases of the musculoskeletal system and connective tissue; Z87.19 Personal history of other diseases of the digestive system; Z98.890 Other specified postprocedural states; Z71.41 Alcohol abuse counseling and surveillance of alcoholic; Z71.51 Drug abuse counseling and surveillance of drug abuser; Z82.49 Family history of ischemic heart disease and other diseases of the circulatory system; Z81.8 Family history of other mental and behavioral disorders
CPT/HCPCS: 80048; 80053; 80061; 80306; 81001; 83036; 84443; 85025; 87635; 99285

== ENCOUNTER 2021-08-04 12:01 | Inpatient (IN) | payer MEDICARE, MEDICAID ==
--- NOTE | 2021-08-04 13:11 | ED ---
Psych HPI - General Source: family, RN notes reviewed Mode of arrival: ambulatory <Justino Ann - Last Filed: 08/04/21 13:10> <Manuel Hernadez - Last Filed: 08/04/21 15:54> - General Chief Complaint: Psychiatric Symptoms Stated Complaint: EPS Eval Time Seen by Provider: 08/04/21 12:06 - History of Present Illness Initial Comments: This a 54-year-old female presents emergency Department with chief complaint of needs psychiatric help. Patient's right ear by family stating that she is having increasing bizarre behavior, acute psychosis. Patient has been pulling on knives at home. Patient has been drinking soap family patient has not willing to talk not forthcoming with any information. Patient has a long psychiatric history including schizophrenia. (Justino Ann) - Related Data Previous Rx's Medication Instructions Recorded Acetaminophen Tab [Tylenol] 650 mg PO Q4HR PRN tab 07/08/21 Nicotine 14Mg/24Hr Patch [Habitrol] 1 patch TRANSDERM DAILY 14 Days 07/08/21 patch Paliperidone IM [Invega Sustenna] 234 mg IM QMONTHLY #1 each 07/12/21 Paliperidone [Invega] 6 mg PO HS 4 Days tab 07/12/21 Allergies Allergy/AdvReac Type Severity Reaction Status Date / Time No Known Allergies Allergy Verified 08/04/21 13:04 Review of Systems ROS Other: All systems not noted in ROS Statement are negative. <Justino Ann - Last Filed: 08/04/21 13:10> ROS Other: All systems not noted in ROS Statement are negative. <Manuel Hernadez - Last Filed: 08/04/21 15:54> ROS Statement: Those systems with pertinent positive or pertinent negative responses have been documented in the HPI. Past Medical History Past Medical History: COPD, GERD/Reflux, GI Bleed, Seizure Disorder Additional Past Medical History / Comment(s): MS, hearing impaired, seizures when in her 30s last 2yrs ago, migraines, Upper GI bleed, peptic ulcer disease, developmentally delayed, hypotension, UTI History of Any Multi-Drug Resistant Organisms: None Reported Past Surgical History: Ear Surgery Additional Past Surgical History / Comment(s): cyst removed from coccyx, multiple bilateral ear surgeries. Past Anesthesia/Blood Transfusion Reactions: No Reported Reaction Past Psychological History: Anxiety, Bipolar, Depression, Schizophrenia Smoking Status: Current every day smoker Past Alcohol Use History: None Reported Past Drug Use History: None Reported - Past Family History Father Additional Family Medical History / Comment(s): Father at age 70 from myocardial infarction. na Mother Additional Family Medical History / Comment(s): Patient's mother is alive at age 70. Patient does not know her medical history. Brother(s) Additional Family Medical History / Comment(s): Patient has 1 brother committed suicide at 48. Sister(s) Additional Family Medical History / Comment(s): Patient has 2 sisters with no major medical problems. <Justino Ann - Last Filed: 08/04/21 13:10> General Exam Limitations: no limitations General appearance: alert, in no apparent distress Head exam: Present: atraumatic, normocephalic, normal inspection Eye exam: Present: normal appearance, PERRL, EOMI. Absent: scleral icterus, conjunctival injection, periorbital swelling Neck exam: Present: normal inspection. Absent: tenderness, meningismus, lymphadenopathy Respiratory exam: Present: normal lung sounds bilaterally. Absent: respiratory distress, wheezes, rales, rhonchi, stridor Cardiovascular Exam: Present: regular rate, normal rhythm, normal heart sounds. Absent: systolic murmur, diastolic murmur, rubs, gallop, clicks Neurological exam: Present: alert Psychiatric exam: Present: flat affect <Justino Ann - Last Filed: 08/04/21 13:10> Course Vital Signs 08/04/21 12:02 Temperature 98.3 F Pulse Rate 104 H Respiratory 18 Rate Blood Pressure 105/62 O2 Sat by Pulse 98 Oximetry Medical Decision Making <Manuel Hernadez - Last Filed: 08/04/21 15:54> - Medical Decision Making Patient had been evaluated by EPS and felt to require inpatient psychiatric evaluation and treatment. She will be admitted to this institution. They did request CBC and CMP as the patient has had previous hyponatremia. These tests will be obtained and results are pending. She will be admitted for further psychiatric evaluation and treatment. (Manuel Hernadez) - Lab Data Lab Results 08/04/21 Range/Units 14:06 Urine Opiates Screen Not Detected (NotDetected) Ur Oxycodone Screen Not Detected (NotDetected) Urine Methadone Screen Not Detected (NotDetected) Ur Propoxyphene Screen Not Detected (NotDetected) Ur Barbiturates Screen Not Detected (NotDetected) U Tricyclic Antidepress Not Detected (NotDetected) Ur Phencyclidine Scrn Not Detected (NotDetected) Ur Amphetamines Screen Not Detected (NotDetected) U Methamphetamines Scrn Not Detected (NotDetected) U Benzodiazepines Scrn Not Detected (NotDetected) Urine Cocaine Screen Not Detected (NotDetected) U Marijuana (THC) Screen Not Detected (NotDetected) Disposition <Justino Ann - Last Filed: 08/04/21 13:10> Is patient prescribed a controlled substance at d/c from ED?: No Decision to Admit Reason: Admit from EC Decision Date: 08/04/21 Decision Time: 15:54 <Manuel Hernadez - Last Filed: 08/04/21 15:54> Clinical Impression: Schizophrenia, Acute psychosis Disposition: ADMITTED IP TO THIS [facility] Condition: Stable Referrals: None,Stated [Primary Care Provider] - 1-2 days
[2021-08-04 15:09] LABS: Amphetamine Screen,Urine Not Detected (NotDetected); Cocaine Screen,Urine Not Detected (NotDetected); Opiate Screen,Urine Not Detected (NotDetected); Phencyclidine Screen,Urine Not Detected (NotDetected); Urn Cannabinoid Scrn Not Detected (NotDetected)
[2021-08-04 15:10] LABS: Barbiturate Screen,Urine Not Detected (NotDetected); Benzodiazepines Screen,Urine Not Detected (NotDetected); Methadone Screen, Urine Not Detected (NotDetected); Oxycodone Screen, Urine Not Detected (NotDetected); Tricyclic Antidepressant,Urine Not Detected (NotDetected)
[2021-08-04 16:22] LABS: Basophils % (A) 0 %; Eosinophils # (A) 0.1 k/uL (0-0.7); Eosinophils % (A) 1 %; HCT 42.4 % (34.0-46.0); HGB 14.2 gm/dL (11.4-16.0); Lymphocytes # (A) 1.6 k/uL (1.0-4.8); Lymphocytes % (A) 15 %; MCH 31.3 pg (25.0-35.0); MCHC 33.5 g/dL (31.0-37.0); MCV 93.5 fL (80.0-100.0); Mean Platelet Volume 6.5; Monocytes # (A) 0.4 k/uL (0-1.0); Monocytes % (A) 4 %; Neutrophils # (A) 8.1 k/uL (1.3-7.7); Neutrophils % (A) 77 %; Platelet Count 491 k/uL (150-450); RBC 4.53 m/uL (3.80-5.40); RDW 13.8 % (11.5-15.5); WBC 10.5 k/uL (3.8-10.6)
[2021-08-04 16:42] LABS: ALT 30 U/L (4-34); AST 23 U/L (14-36); African American GFR (CKD) >90 (>60 ml/min/1.73 sqM); Alkaline Phosphatase 103 U/L (38-126); Anion Gap 11 mmol/L; Blood Urea Nitrogen 12 mg/dL (7-17); Calcium 9.4 mg/dL (8.4-10.2); Carbon Dioxide 24 mmol/L (22-30); Chloride 97 mmol/L (98-107); Glucose 118 mg/dL (74-99); Non-African American GFR(CKD) >90 (>60 ml/min/1.73 sqM); Sodium 132 mmol/L (137-145); Total Bilirubin 0.4 mg/dL (0.2-1.3); Total Protein 7.1 g/dL (6.3-8.2)
[2021-08-04] MEDS ORDERED: HALOPERIDOL LACTATE 5 MG/ML 1 ML VIAL IM PRN (20:30)
[2021-08-04] MEDS ORDERED: MAG HYDROX/AL HYDROX/SIMETH 30 ML CUP PO PRN (20:30)
[2021-08-04] MEDS ORDERED: MAGNESIUM HYDROXIDE 2,400 MG/10 ML CUP PO PRN (20:30)
[2021-08-04] MEDS ORDERED: LORazepam 2 MG/ML INJ IM PRN (20:43)
[2021-08-04] MEDS ORDERED: haloperidoL 1 MG TAB PO PRN (20:44)
[2021-08-04] MEDS ORDERED: traZODone HCL 100 MG TAB PO PRN (20:45)
[2021-08-04] MEDS: PALIPERIDONE 6 MG TAB.ER.24 PO SCH (21:52)
[2021-08-04] MEDS: NICOTINE 14MG/24HR PATCH TRANSDERM SCH (21:56)
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
[2021-08-05] MEDS: NICOTINE 14MG/24HR PATCH TRANSDERM SCH (07:40)
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
--- NOTE | 2021-08-05 14:43 | XR ---
EXAMINATION TYPE: XR chest 2V DATE OF EXAM: 08/05/2021 COMPARISON: X-ray dated 04/04/2019 HISTORY: Possible aspiration TECHNIQUE: Frontal and lateral views of the chest are obtained. FINDINGS: The patient is tilted to the right side. Grossly unremarkable lungs. No pleural effusion or pneumotho rax. No cardiomegaly. No gross aggressive bone lesion. IMPRESSION: No acute pulmonary abnormality identified.
[2021-08-05 17:55] LABS: Chol/HDL Ratio 2.33 Ratio; LDL Cholesterol,Calculated 71.4 mg/dL (0.0-131.0)
[2021-08-05] MEDS: PALIPERIDONE 6 MG TAB.ER.24 PO SCH (20:29)
[2021-08-06] MEDS: NICOTINE 14MG/24HR PATCH TRANSDERM SCH (07:44)
--- NOTE | 2021-08-06 08:44 | XR ---
EXAMINATION TYPE: XR chest 2V DATE OF EXAM: 08/06/2021 COMPARISON: 08/05/2021 HISTORY: Shortness of breath TECHNIQUE: Frontal and lateral views of the chest are obtained. FINDINGS: Scattered senescent parenchymal changes noted. Hyperinflation compatible with COPD. No evidence for infiltrate. No evidence for atelectasis. Heart size is stable. Mediastinal structures are stable and grossly unremarkable. No evidence for hilar prominence. Degenerative changes dorsal spine. IMPRESSION: 1. No evidence for acute pulmonary disease.
--- NOTE | 2021-08-06 13:23 | P.PN ---
Progress Note - Text Progress Note Date: 08/06/21 Interval history: Patient was seen in her room and was directable and agreeable to speak with movie writer. Due to her being hard of hearing, movie writer communicated with her with pen and paper. She reported some paranoia and denied agitation.. At this time patient denies any suicidal or homicidal ideations intent or plan. Denies any Auditory or visual hallucinations. Patient denies any side effects from the medications and has been compliant with meds. Mental status exam: General Appearance: [Patient appears to be stated age is alert, directable, and cooperative.] Behavior: [No agitated behavior. Patient is calm and directable] Speech: Patient's speech is fluent and nonpressured. Mood/Affect: Mood is "good" affect is full range Suicidality/Homicidality: Patient denies having any suicidal or homicidal ideation intent or plan. Perceptions: Patient denies any auditory or visual hallucinations. Though content/process: Mild paranoia, linear and goal directed Judgment and insight: improving mildly Assessment/Plan: Continue with current diagnosis. Patient continues to meet criteria for inpatient psychiatric admission for symptom stabilization and safety.[Patient will be maintained on current psychotropic medication regimen.] Monitor for medication compliance and for any psychotropic medication side effects. Will continue to monitor ongoing response to treatment. Encouraged participation in milieu.
[2021-08-06] MEDS: PALIPERIDONE 6 MG TAB.ER.24 PO SCH (21:02)
[2021-08-07] MEDS: NICOTINE 14MG/24HR PATCH TRANSDERM SCH (07:51)
--- NOTE | 2021-08-07 10:17 | P.PN ---
Progress Note - Text Interval history: Patient was seen in her room and was directable and agreeable to speak with bond underwriter. Due to her being hard of hearing, bond underwriter communicated to her with pen and paper. She was observed responding to internal stimuli. She began crying during the interview. Mental status exam: General Appearance: [Patient appears to be stated age is alert, directable, and cooperative.] Behavior: [No agitated behavior. Patient is calm and directable] Speech: Patient's speech is fluent and nonpressured. Mood/Affect: Mood is "ok" affect no congruent with mood, labile, crying Suicidality/Homicidality: no SI/HI elicited Perceptions: RIS Though content/process: [There is no evidence of any delusional thought content and thought process is linear and goal-directed.] Judgment and insight: improving mildly Assessment/Plan: Continue with current diagnosis. Patient continues to meet criteria for inpatient psychiatric admission for symptom stabilization and safety.[Patient will be maintained on current psychotropic medication regimen.] Monitor for medication compliance and for any psychotropic medication side effects. Will continue to monitor ongoing response to treatment. Encouraged participation in milieu.
[2021-08-07] MEDS: PALIPERIDONE 6 MG TAB.ER.24 PO SCH (20:57)
[2021-08-07] MEDS: ACETAMINOPHEN TAB 325 MG TAB PO PRN (21:31)
[2021-08-07] MEDS: LORazepam 1 MG TAB PO PRN (21:31)
[2021-08-08] MEDS ORDERED: PALIPERIDONE IM 234 MG/1.5 ML SYG IM SCH (09:00)
[2021-08-08] MEDS: NICOTINE 14MG/24HR PATCH TRANSDERM SCH (10:23)
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
[2021-08-08] MEDS: PALIPERIDONE 6 MG TAB.ER.24 PO SCH (20:07)
[2021-08-09] MEDS: NICOTINE 14MG/24HR PATCH TRANSDERM SCH (08:47)
--- NOTE | 2021-08-09 12:11 | P.DS ---
Providers Date of admission: 08/04/21 20:23 Expected date of discharge: 08/09/21 Attending physician: Jose Manuel Todd MD Consults: 08/04/21 20:30 Consult Physician Routine Consulting Provider: Kelsey French Consult Reason/Comments: history and physical/medical management Do you want consulting provider notified?: Yes Primary care physician: Stated None - Discharge Diagnosis(es) (1) Schizophrenia Current Visit: Yes Status: Acute Priority: High (2) Nicotine dependence Current Visit: Yes Status: Chronic Priority: Medium Hospital Course: Admission HPI: Patient is a , unemployed, 55-year-old female with significant history of schizophrenia who presented to the hospital with acute psychosis. 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 She has been trying to break out of the house saying that the family is trying to hurt her." Furthermore, the patient has been nonadherent with her oral Invega medication. She is however up-to-date with her Invega injection. It is noted that while evaluated by the EPS nurse, the patient reported "there are other people in my house but I don't know." The patient is currently under court order until 01/04/2022. She was subsequently admitted to the psychiatric unit. Upon evaluation on the psychiatric unit, the patient does admit that she has been putting soap in her food in order to help her with her "pain." The patient states that she has been feeling a lot of pain recently however is unable to identify where exactly. Furthermore, the patient continues to demand water constantly. This is despite the fact that her electrolytes display hyponatremia likely due to dilution from excessive water intake. The patient is currently a poor historian of the events leading up to this hospitalization. She is primarily focused on having her "pain" treated. She is denying any suicidal or homicidal ideation, intention, and/or plan. She is not reporting any auditory or visual hallucinations however continues to endorse some paranoid and bizarre delusions. She believes that if she does certain actions, and will help her with her pain, including ingesting soap. Furthermore, the patient does believe that there are other people in her home that she does not recognize. The patient is reportedly nonadherent with her Invega oral medication. As per chart review, this appears to be a common problem with this patient. She is admitted for further evaluation and management. Patient has a previous diagnosis of schizophrenia and was most recently in our psychiatric unit in late June and was discharged on 07/08/2021. She was discharged on a regimen of Invega Sustenna 234 mg IM administered on 07/08/2021 and oral Invega 6 mg by mouth at bedtime. The patient has been nonadherent with the oral Invega. Chart review, the patient has had numerous trials of psychiatric medications including Zyprexa, Prozac, Remeron, Klonopin, Pristiq, and Seroquel. She has had 4 psychiatric hospitalizations since October 2019. She currently is open with [facility]. Unable to assess previous suicide attempts at this time. Hospital course: Upon admission to the unit patient was initially cooperative however was reporting delusional thoughts with how to manage pain including ingesting soap. Patient was however directable and agreeable to commence treatment. Patient got along well with other patients on the unit and followed unit protocol. Patient was compliant with the medications and denied any side effects throughout hospital course. Patient was started on Invega for psychosis and mood stabilization. The plan is to transition the patient from Invega Sustenna to Risperdal Consta due to concerns for Medicaid spend down as well as for closer f ollow-up in the outpatient setting. Patient spoke of her stressors and engaged in therapy both group and individual. Patient was also seen by medical team for history and physical exam. Over the course of the hospitalization, the patient displayed gradual improvement in regards to her target psychotic symptoms. She no longer endorsed any concerns replacing soap in her food in order to address pain. The patient was also administered Risperdal Consta 50 mg IM for management of schizophrenia on 08/08/2021. She is to receive this medication every 14 days. On the day of discharge, the patient is not reporting any suicidal or homicidal ideation, intention,/or plan. She is not reporting any auditory or visual hallucinations. She has been attending group. She has not had any agitated or bizarre behaviors are noted on the unit. The patient was counseled at length on importance of medication adherence however this provider understands that this patient has difficulty comprehending what is told to her due to severity of her mental illness. Prior to discharge, family meeting will be arranged by social work coordinator to answer any questions and ensure safety. Mental status exam: General Appearance: Patient appears to be stated age is alert, pleasant, and cooperative. Patient is in no acute distress and has fair hygiene and grooming Behavior: Patient is calmly seated without any agitated behavior. Speech: Patient's speech is fluent and nonpressured. Mood/Affect: Patient reports their mood is "no needles please", affect is bright. Suicidality/Homicidality: Patient denies having any suicidal or homicidal ideation intent or plan. Perceptions: Patient denies any auditory or visual hallucinations. Though content/process: There is no evidence of any delusional thought content a nd thought process is linear and goal-directed. Memory and concentration: AOX3, grossly intact for the purposes of this session. Can spell "WORLD" backwards correctly. Judgment and insight: Improved with guarded prognosis Vital Signs Temp 97.4 F L 08/07/21 05:58 Pulse 106 H 08/08/21 20:13 Resp 17 08/08/21 20:13 BP 97/64 08/08/21 20:13 Pulse Ox 95 08/08/21 20:13 Impression: Schizophrenia Nicotine dependence Plan: -Continue with discharge today as patient has improved and stabilized psychiatrically and is not currently an imminent threat to herself and/or others. Patient will remain at chronically elevated risk benefit of the general population due to the severity of her mental illness. -Continue medications: Invega 6 mg by mouth at bedtime for mood stabilization/psychosis Risperdal Consta 50 mg IM every 14 days. Last dose administered on 08/08/2021. Next dose due on 08/22/2021. -Patient was counseled on the need for medication compliance and appropriate follow-up at mental health and also primary care for medical issues. Patient verbalized understanding and agreed. -Social work to arrange for and conduct family meeting to ensure safety upon discharge and answer any questions/concerns. Social work also to arrange for patients follow up appointments with [facility] for psychiatric care along with follow up with primary care provider. -Patient counseled on abstaining from recreational drugs and marijuana and alcohol. Was informed/educated on the adverse effects on their physical and mental health. -Patient was instructed to return to the hospital or seek immediate medical care if their psychiatric or medical symptoms do worsen or reoccur. Allergies Allergy/AdvReac Type Severity Reaction Status Date / Time No Known Allergies Allergy Verified 08/06/21 17:09 Laboratory Results WBC 10.5 k/uL (3.8-10.6) 08/04/21 16:11 RBC 4.53 m/uL (3.80-5.40) 08/04/21 16:11 Hgb 14.2 gm/dL (11.4-16.0) 08/04/21 16:11 Hct 42.4 % (34.0-46.0) 08/04/21 16:11 MCV 93.5 fL (80.0-100.0) 08/04/21 16:11 MCH 31.3 pg (25.0-35.0) 08/04/21 16:11 MCHC 33.5 g/dL (31.0-37.0) 08/04/21 16:11 RDW 13.8 % (11.5-15.5) 08/04/21 16:11 Plt Count 491 k/uL (150-450) H 08/04/21 16:11 MPV 6.5 08/04/21 16:11 Neutrophils % 77 % 08/04/21 16:11 Lymphocytes % 15 % 08/04/21 16:11 Monocytes % 4 % 08/04/21 16:11 Eosinophils % 1 % 08/04/21 16:11 Basophils % 0 % 08/04/21 16:11 Neutrophils # 8.1 k/uL (1.3-7.7) H 08/04/21 16:11 Lymphocytes # 1.6 k/uL (1.0-4.8) 08/04/21 16:11 Monocytes # 0.4 k/uL (0-1.0) 08/04/21 16:11 Eosinophils # 0.1 k/uL (0-0.7) 08/04/21 16:11 Basophils # 0.0 k/uL (0-0.2) 08/04/21 16:11 Sodium 132 mmol/L (137-145) L 08/04/21 16:11 Potassium 4.0 mmol/L (3.5-5.1) 08/04/21 16:11 Chloride 97 mmol/L (98-107) L 08/04/21 16:11 Carbon Dioxide 24 mmol/L (22-30) 08/04/21 16:11 Anion Gap 11 mmol/L 08/04/21 16:11 BUN 12 mg/dL (7-17) 08/04/21 16:11 Creatinine 0.62 mg/dL (0.52-1.04) 08/04/21 16:11 Est GFR (CKD-EPI)AfAm >90 (>60 ml/min/1.73 sqM) 08/04/21 16:11 Est GFR (CKD-EPI)NonAf >90 (>60 ml/min/1.73 sqM) 08/04/21 16:11 Glucose 118 mg/dL (74-99) H 08/04/21 16:[address] Glu mg/dL 110 08/04/21 16:11 Hemoglobin A1c 5.5 % (0.0-6.0) 08/04/21 16:11 Calcium 9.4 mg/dL (8.4-10.2) 08/04/21 16:11 Total Bilirubin 0.4 mg/dL (0.2-1.3) 08/04/21 16:11 AST 23 U/L (14-36) 08/04/21 16:11 ALT 30 U/L (4-34) 08/04/21 16:11 Alkaline Phosphatase 103 U/L (38-126) 08/04/21 16:11 Total Protein 7.1 g/dL (6.3-8.2) 08/04/21 16:11 Albumin 4.0 g/dL (3.5-5.0) 08/04/21 16:11 Triglycerides 105.00 mg/dL (0.00-149.00) 08/04/21 16:11 Cholesterol 162.00 mg/dL (0.00-200.00) 08/04/21 16:11 LDL Cholesterol, Calc 71.4 mg/dL (0.0-131.0) 08/04/21 16:11 VLDL Cholesterol, Calc 21.00 mg/dL (5.00-40.00) 08/04/21 16:11 HDL Cholesterol 69.60 mg/dL (40.00-60.00) H 08/04/21 16:11 Cholesterol/HDL Ratio 2.33 Ratio 08/04/21 16:11 TSH 1.140 uIU/mL (0.350-5.500) 08/04/21 16:11 Urine Opiates Screen Not Detected (NotDetected) 08/04/21 14:06 Ur Oxycodone Screen Not Detected (NotDetected) 08/04/21 14:06 Urine Methadone Screen Not Detected (NotDetected) 08/04/21 14:06 Ur Propoxyphene Screen Not Detected (NotDetected) 08/04/21 14:06 Ur Barbiturates Screen Not Detected (NotDetected) 08/04/21 14:06 U Tricyclic Antidepress Not Detected (NotDetected) 08/04/21 14:06 Ur Phencyclidine Scrn Not Detected (NotDetected) 08/04/21 14:06 Ur Amphetamines Screen Not Detected (NotDetected) 08/04/21 14:06 U Methamphetamines Scrn Not Detected (NotDetected) 08/04/21 14:06 U Benzodiazepines Scrn Not Detected (NotDetected) 08/04/21 14:06 Urine Cocaine Screen Not Detected (NotDetected) 08/04/21 14:06 U Marijuana (THC) Screen Not Detected (NotDetected) 08/04/21 14:06 Coronavirus (PCR) Not Detected (Not Detectd) 08/04/21 15:53 Patient Condition at Discharge: Stable Plan - Discharge Summary Discharge Rx Participant: No New Discharge Prescriptions: New risperiDONE MICROSPHERES [RisperDAL CONSTA] 50 mg IM Q14D #1 each Paliperidone [Invega] 6 mg PO HS 30 Days tablet Discontinued Nicotine 14Mg/24Hr Patch [Habitrol] 1 patch TRANSDERM DAILY 14 Days patch Paliperidone IM [Invega Sustenna] 234 mg IM QMONTHLY #1 each Acetaminophen Tab [Tylenol] 650 mg PO Q4HR PRN tab PRN Reason: Pain/Discomfort Paliperidone [Invega] 6 mg PO HS 4 Days tab Discharge Medication List Paliperidone [Invega] 6 mg PO HS 30 Days tablet 08/09/21 [Rx] risperiDONE MICROSPHERES [RisperDAL CONSTA] 50 mg IM Q14D #1 each 08/09/21 [Rx] Follow up Appointment(s)/Referral(s): [facility] [Outside] - 08/11/21 3:30 pm (08-11-21 at 3:30 with Carolyne Bass at [facility] office) None,Stated [Primary Care Provider] - 1-2 days Activity/Diet/Wound Care/Special Instructions: Activity and diet as tolerated. Avoid the use of street drugs and alcohol. Take all medications as prescribed. When you are in need of refills on your medications please contact your medical provider and/or outpatient psychiatrist to have this done. Please go to scheduled outpatient appointment for aftercare treatment. If symptoms return or become worse, call the crisis line at and/or go to the nearest emergency room for evaluation Discharge Disposition: HOME SELF-CARE
[2021-08-09] MEDS: ACETAMINOPHEN TAB 325 MG TAB PO PRN (18:27)
[2021-08-09] MEDS: PALIPERIDONE 6 MG TAB.ER.24 PO SCH ×2 (20:37→21:33)
[2021-08-10] MEDS: NICOTINE 14MG/24HR PATCH TRANSDERM SCH (08:12)
[2021-08-10] MEDS ORDERED: HALOPERIDOL LACTATE 5 MG/ML 1 ML VIAL IM PRN (09:10)
[2021-08-10] MEDS: ACETAMINOPHEN TAB 325 MG TAB PO PRN (11:18)
--- NOTE | 2021-08-10 12:04 | P.PN ---
Progress Note - Text Progress Note Date: 08/10/21 Interval History: Patient was seen resting in bed comfortably. The patient was initially calm and cooperative and reported no suicidal or homicidal ideation, intention, and/or plan. She reported no auditory or visual hallucinations. She reports that she was able to get up and eat her breakfast. However when the conversation came to her daughter, the patient became very agitated and angry. She began yelling nonsensically. It was difficult to ascertain what the patient was stating however the patient was noted yesterday to make delusional statements about her daughter has not being her daughter and being someone else. Discharge was held yesterday due to her agitated state and her refusal to go with her daughter. The patient did receive Risperdal Consta 50 mg IM on 08/08/2021. She reported no significant side effects of this provider. Mental Status Exam: General Appearance: Patient appears to be stated age is alert, directable, and cooperative. Behavior: Patient is calmly lying down in bed however became agitated when the topic for daughter came up. Speech: Patient's speech is dysarthric, loud in volume, monotone. Mood/Affect: Mood is "okay." Affect is blunted however becomes angry and agitated. Suicidality/Homicidality: Patient denies having any suicidal or homicidal ideation intent or plan. Perceptions: Patient denies any visual hallucinations and denies any auditory hallucinations Though content/process: The patient appears to be delusional and angry at her daughter. Flight of ideas. Memory and concentration: Grossly intact for the purposes of this session Judgment and insight: Poor. Vital Signs Temp 97.6 F 08/10/21 08:26 Pulse 104 H 08/10/21 08:26 Resp 18 08/10/21 08:26 BP 126/72 08/10/21 08:26 Pulse Ox 99 08/10/21 08:26 Assessment Schizophrenia Nicotine dependence Plan: -Patient continues to meet criteria for inpatient psychiatric admission for symptom stabilization and safety. Patient is currently under court order for mental health treatment. -Medications: Risperdal Consta 50 mg IM was administered on 08/08/2021. We will change oral Invega to Risperdal 3 mg at bedtime. As patient is currently court ordered, if the patient refuses oral Risperdal, she is to receive an injection of Haldol lactate 3 mg IM. -When necessary Ativan and Haldol for agitation/aggression. -NRT - nicotine patch -SW on board for discharge planning. Encouraged the patient to participate in milieu.
[2021-08-10] MEDS ORDERED: risperiDONE 1 MG TAB PO SCH (21:00)
[2021-08-11 07:05] VITALS: RESP 16
[2021-08-11] MEDS: NICOTINE 14MG/24HR PATCH TRANSDERM SCH (07:52)
--- NOTE | 2021-08-11 11:33 | P.PN ---
Progress Note - Text Progress Note Date: 08/11/21 Interval History: Patient was seen in the [address] and was asked if she would come into the office for the interview however she became quite tearful and went to her own room instead. She refused to participate in the psychiatric interview and was minimally responsive to attempts by this provider to assess any psychiatric pathology. Last night the patient was noted by staff to sleep for 5.5 hours. She did take her risperdal last night. Mental Status Exam: General Appearance: Patient appears to be stated age is alert, however difficult to direct and uncooperative. Behavior: Patient walks away from this provider and appears tearful. Speech: Patient's speech is nonspontnaeous, minimal today. Mood/Affect: Mood is "sad" Affect is blunted however becomes tearful. Suicidality/Homicidality: Unable to assess Perceptions: Unable to assess Though content/process: Unable to assess Memory and concentration: Grossly intact for the purposes of this session Judgment and insight: Poor. Vital Signs Temp 98.2 F 08/11/21 06:51 Pulse 101 H 08/11/21 06:51 Resp 16 08/11/21 06:51 BP 110/56 08/11/21 06:51 Pulse Ox 99 08/10/21 08:26 Assessment Schizophrenia Nicotine dependence Plan: -Patient continues to meet criteria for inpatient psychiatric admission for symptom stabilization and safety. Patient is currently under court order for mental health treatment. -Medications: Risperdal Consta 50 mg IM was administered on 08/08/2021. Increase risperdal to 4 mg at bedtime. As patient is currently court ordered, if the patient refuses oral Risperdal, she is to receive an injection of Haldol lactate 3 mg IM . -When necessary Ativan and Haldol for agitation/aggression. -NRT - nicotine patch -SW on board for discharge planning. Encouraged the patient to participate in milieu.
[2021-08-11] MEDS: risperiDONE 2 MG TAB PO SCH ×2 (21:00→21:02)
[2021-08-12] MEDS: NICOTINE 14MG/24HR PATCH TRANSDERM SCH (08:02)
[2021-08-12] MEDS ORDERED: HALOPERIDOL LACTATE 5 MG/ML 1 ML VIAL IM PRN (10:22)
--- NOTE | 2021-08-12 10:23 | P.PN ---
Progress Note - Text Progress Note Date: 08/12/21 Interval History: Patient was seen lying in her bed today and return to acknowledge a mortgage or loan underwriter. She appeared to have improvement in her impulse control. She continues to perseverate on water. She believes that staff were "putting things in my food". She was minimally responsive to attempts by this provider to assess any psychiatric pathology. She claims that she slept fairly. She is denying any auditory or visual hallucination. She is denying any suicidal or homicidal ideations intent or plan. Mental Status Exam: General Appearance: Patient appears to be stated age is alert, however difficult to direct and uncooperative, mildly improving. Behavior: She is lying in bed, no agitation. Speech: Patient's speech is nonspontnaeous, minimal today. Mood/Affect: Mood is "sad" Affect is blunted /constricted Suicidality/Homicidality: Denies Perceptions: Denies Though content/process: [place], perseverating on water. Believes that staff are plotting against her. Memory and concentration: Grossly intact for the purposes of this session Judgment and insight: Chronically poor Assessment Schizophrenia Nicotine dependence Plan: -Patient continues to meet criteria for inpatient psychiatric admission for symptom stabilization and safety. Patient is currently under court order for mental health treatment. -Medications: Risperdal Consta 50 mg IM was administered on 08/08/2021. Increase risperdal to 4 mg at bedtime. As patient is currently court ordered, if the patient refuses oral Risperdal, she is to receive an injection of Haldol lactate 3 mg IM. -When necessary Ativan and Haldol for agitation/aggression. -NRT - nicotine patch -SW on board for discharge planning. Encouraged the patient to participate in milieu.
[2021-08-12] MEDS: ACETAMINOPHEN TAB 325 MG TAB PO PRN (14:35)
[2021-08-12] MEDS: risperiDONE 2 MG TAB PO SCH (21:35)
[2021-08-13] MEDS: NICOTINE 14MG/24HR PATCH TRANSDERM SCH (07:56)
[2021-08-13] MEDS ORDERED: HALOPERIDOL LACTATE 5 MG/ML 1 ML VIAL IM STA (21:06)
[2021-08-13] MEDS ORDERED: LORazepam 2 MG/ML INJ IM STA (21:07)
[2021-08-13] MEDS: risperiDONE 2 MG TAB PO SCH (21:24)
[2021-08-14] MEDS: NICOTINE 14MG/24HR PATCH TRANSDERM SCH (08:41)
[2021-08-14] MEDS: LORazepam 1 MG TAB PO PRN (13:40)
--- NOTE | 2021-08-14 18:43 | P.PN ---
Progress Note - Text Progress Note Date: 08/13/21 Interval history: Patient was seen in her room and was directable and agreeable to speak with song writer. She reports mild paranoia. At this time patient denies any suicidal or homicidal ideations intent or plan. Denies any Auditory or visual hallucinations. Patient denies any side effects from the medications and has been refusing her medications Mental status exam: General Appearance: [Patient appears to be older than stated age is alert, directable, and cooperative.] She is malodorous Behavior: [No agitated behavior. Patient is calm and directable] Speech: Patient's speech is fluent and nonpressured. Mood/Affect: Mood is "good" affect is full range Suicidality/Homicidality: Patient denies having any suicidal or homicidal ideation intent or plan. Perceptions: Patient denies any auditory or visual hallucinations. Though content/process: Mild paranoia elicited Memory and concentration: grossly intact for the purposes of this session Judgment and insight: Poor Assessment/Plan: Continue with current diagnosis. Patient continues to meet criteria for inpatient psychiatric admission for symptom stabilization and safety.[Patient will be maintained on current psychotropic medication regimen.] Monitor for medication compliance and for any psychotropic medication side effects. Will continue to monitor ongoing response to treatment. Encouraged participation in milieu.
--- NOTE | 2021-08-14 18:45 | P.PN ---
Progress Note - Text Progress Note Date: 08/14/21 Interval history: Patient was seen sitting on a table in the hallway and was directable and agreeable to speak with adjusto writer operator. She states that people are trying to kill her. At this time patient denies any suicidal or homicidal ideations intent or plan. Denies any Auditory or visual hallucinations. She states that she does not need medications Mental status exam: General Appearance: [Patient appears to be older than stated age is alert, directable, and cooperative.] Behavior: She was calm and directable during the interview. However later in the day she was seen responding to internal stimuli and yelling at the RN Speech: Patient's speech is fluent and nonpressured. Mood/Affect: Labile affect Suicidality/Homicidality: Patient denies having any suicidal or homicidal ideation intent or plan. Perceptions: Responding to internal stimuli Though content/process: Paranoid Memory and concentration: grossly intact for the purposes of this session Judgment and insight: Poor Assessment/Plan: Continue with current diagnosis. Patient continues to meet criteria for inpatient psychiatric admission for symptom stabilization and safety.[Patient will be maintained on current psychotropic medication regimen.] Monitor for medication compliance and for any psychotropic medication side effects. Will continue to monitor ongoing response to treatment. Encouraged participation in milieu.
[2021-08-14] MEDS: risperiDONE 2 MG TAB PO SCH (21:18)
[2021-08-15] MEDS: NICOTINE 14MG/24HR PATCH TRANSDERM SCH (08:18)
[2021-08-15 08:19] VITALS: PULSE 98
[2021-08-15] MEDS: ACETAMINOPHEN TAB 325 MG TAB PO PRN ×3 (09:42→19:59)
--- NOTE | 2021-08-15 11:23 | P.PN ---
Progress Note - Text Progress Note Date: 08/15/21 Interval History: Patient was seen in her room and was asked if she would like to complete the office for interview however patient preferred to stay in bed. Currently the, the patient is not reporting any suicidal or homicidal ideation, intention, and/or plan. She is not reporting any auditory or visual hallucinations but has been noted to respond to some internal stimuli by staff. She is intermittently cooperative with staff. She has been refusing PT evaluation. The patient also has been refusing oral medications. She is not reporting any side effects of medications at this time. She remains minimal and conversation appears to be quite guarded. Mental Status Exam: General Appearance: Patient appears to be stated age is alert, however difficult to direct and uncooperative. Behavior: Patient displays no psychomotor agitation. She is lying in bed comfortably. Speech: Patient's speech is nonspontnaeous, low in volume, minimal today. Mood/Affect: Mood is "sleepy." Affect is blunted. Suicidality/Homicidality: Patient denies any suicidal or homicidal ideation. Perceptions: Patient denies any auditory visual hallucinations. Though content/process: Patient appears to be guarded and somewhat disorganized. Memory and concentration: Grossly intact for the purposes of this session Judgment and insight: Poor. Vital Signs Temp 97.1 F L 08/15/21 08:18 Pulse 98 08/15/21 08:18 Resp 16 08/15/21 08:18 BP 114/70 08/15/21 08:18 Pulse Ox 96 08/15/21 08:18 Intake & Output 08/14/21 08/15/21 08/15/21 18:59 06:59 18:59 Weight 53.127 kg Assessment Schizophrenia Nicotine dependence Plan: -Patient continues to meet criteria for inpatient psychiatric admission for symptom stabilization and safety. Patient is currently under court order for mental health treatment. -We are waiting PT evaluation to see if the patient is able to go up steps. We will also try to confirm with the patient's family whether she was going up steps at home. This is to assess if intermediate is appropriate for this patient. -Medications: Risperdal Consta 50 mg IM was administered on 08/08/2021. Increase risperdal to 4 mg at bedtime. As patient is currently court ordered, if the patient refuses oral Risperdal, she is to receive an injection of Haldol lactate 3 mg IM. -When necessary Ativan and Haldol for agitation/aggression. -NRT - nicotine patch -SW on board for discharge planning. Encouraged the patient to participate in milieu.
[2021-08-15] MEDS: risperiDONE 2 MG TAB PO SCH (19:59)
[2021-08-16 06:51] VITALS: BP 118/70; TEMP 98.2
[2021-08-16] MEDS: NICOTINE 14MG/24HR PATCH TRANSDERM SCH (08:49)
--- NOTE | 2021-08-16 11:44 | P.DS ---
Providers Date of admission: 08/04/21 20:23 Expected date of discharge: 08/16/21 Attending physician: Jose Manuel Todd MD Consults: 08/04/21 20:30 Consult Physician Routine Consulting Provider: Kelsey French Consult Reason/Comments: history and physical/medical management Do you want consulting provider notified?: Yes Primary care physician: Stated None - Discharge Diagnosis(es) (1) Schizophrenia Current Visit: Yes Status: Acute Priority: High (2) Nicotine dependence Current Visit: Yes Status: Chronic Priority: Medium Hospital Course: Admission HPI: Patient is a , unemployed, 55-year-old female with significant history of schizophrenia who presented to the hospital with acute psychosis. 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 She has been trying to break out of the house saying that the family is trying to hurt her." Furthermore, the patient has been nonadherent with her oral Invega medication. She is however up-to-date with her Invega injection. It is noted that while evaluated by the EPS nurse, the patient reported "there are other people in my house but I don't know." The patient is currently under court order until 01/04/2022. She was subsequently admitted to the psychiatric unit. Upon evaluation on the psychiatric unit, the patient does admit that she has bee n putting soap in her food in order to help her with her "pain." The patient states that she has been feeling a lot of pain recently however is unable to identify where exactly. Furthermore, the patient continues to demand water constantly. This is despite the fact that her electrolytes display hyponatremia likely due to dilution from excessive water intake. The patient is currently a poor historian of the events leading up to this hospitalization. She is primarily focused on having her "pain" treated. She is denying any suicidal or homicidal ideation, intention, and/or plan. She is not reporting any auditory or visual hallucinations however continues to endorse some paranoid and bizarre delusions. She believes that if she does certain actions, and will help her with her pain, including ingesting soap. Furthermore, the patient does believe that there are other people in her home that she does not recognize. The patient is reportedly nonadherent with her Invega oral medication. As per chart review, this appears to be a common problem with this patient. She is admitted for further evaluation and management. Patient has a previous diagnosis of schizophrenia and was most recently in our psychiatric unit in late June and was discharged on 07/08/2021. She was discharged on a regimen of Invega Sustenna 234 mg IM administered on 07/08/2021 and oral Invega 6 mg by mouth at bedtime. The patient has been nonadherent with the oral Invega. Chart review, the patient has had numerous trials of psychiatric medications including Zyprexa, Prozac, Remeron, Klonopin, Pristiq, and Seroquel. She has had 4 psychiatric hospitalizations since October 2019. She currently is open with [facility]. Unable to assess previous suicide attempts at this time. Hospital course: Upon admission to the unit patient was initially cooperative however was reporting delusional thoughts with how to manage pain including ingesting soap. Patient was however directable and agreeable to commence treatment. Patient got along well with other patients on the unit and followed unit protocol. Patient was compliant with the medications and denied any side effects throughout hospital course. Patient was started on Invega for psychosis and mood stabilization. The plan is to transition the patient from Invega Sustenna to Risperdal Consta due to concerns for Medicaid spend down as well as for closer follow-up in the outpatient setting. Patient spoke of her stressors and engaged in therapy both group and individual. Patient was also seen by medical team for history and physical exam. Over the course of the hospitalization, the patient displayed gradual improvement in regards to her target psychotic symptoms. She no longer endorsed any concerns replacing soap in her food in order to address pain. The patient was also administered Risperdal Consta 50 mg IM for management of schizophrenia on 08/08/2021. She is to receive this medication every 14 days. Initially, the patient was to be discharged on 08/09/2021 however became very agitated and paranoid towards her daughter. She did not believe her daughter was her daughter and became tearful and angry and refused to return home. The decision was made to hold discharge and instead opt to find correction placement for this patient as her relationship with her daughter. The patient did well on this medication regimen although would have occasional episodes where she would be very upset and tearful. Despite this, the patient would occasionally presented as polite and friendly. She would constantly ask for water however this appears to be the patient's baseline as she has some psychogenic polydipsia which at times leads up to hyponatremia for the patient. The patient was able to be placed in a correction instead of her home with her family. On the day of discharge, the patient is not reporting any suicidal or homicidal ideation, intention, and/or plan. She is denying any auditory or visual hallucinations. She denies any issues regarding her sleep or her appetite. Mental status exam: General Appearance: Patient appears to be stated age is alert, pleasant, and cooperative. Patient is in no acute distress and has fair hygiene and grooming Behavior: Patient is calmly seated without any agitated behavior. Speech: Patient's speech is nonpressured. Loud at times. dysarthric at times. Mood/Affect: Patient reports their mood is "OKAY", affect is bright. Suicidality/Homicidality: Patient denies having any suicidal or homicidal ideation intent or plan. Perceptions: Patient denies any auditory or visual hallucinations. Though content/process: There is no evidence of any delusional thought content and thought process is linear and goal-directed. Memory and concentration: Grossly intact for the purposes of this session. Can spell "WORLD" backwards correctly. Judgment and insight: Improved with guarded prognosis Vital Signs Temp 98.2 F 08/16/21 06:51 Pulse 98 08/16/21 06:51 Resp 16 08/15/21 08:18 BP 118/70 08/16/21 06:51 Pulse Ox 97 08/16/21 06:51 Laboratory Results WBC 10.5 k/uL (3.8-10.6) 08/04/21 16:11 RBC 4.53 m/uL (3.80-5.40) 08/04/21 16:11 Hgb 14.2 gm/dL (11.4-16.0) 08/04/21 16:11 Hct 42.4 % (34.0-46.0) 08/04/21 16:11 MCV 93.5 fL (80.0-100.0) 08/04/21 16:11 MCH 31.3 pg (25.0-35.0) 08/04/21 16:11 MCHC 33.5 g/dL (31.0-37.0) 08/04/21 16:11 RDW 13.8 % (11.5-15.5) 08/04/21 16:11 Plt Count 491 k/uL (150-450) H 08/04/21 16:11 MPV 6.5 08/04/21 16:11 Neutrophils % 77 % 08/04/21 16:11 Lymphocytes % 15 % 08/04/21 16:11 Monocytes % 4 % 08/04/21 16:11 Eosinophils % 1 % 08/04/21 16:11 Basophils % 0 % 08/04/21 16:11 Neutrophils # 8.1 k/uL (1.3-7.7) H 08/04/21 16:11 Lymphocytes # 1.6 k/uL (1.0-4.8) 08/04/21 16:11 Monocytes # 0.4 k/uL (0-1.0) 08/04/21 16:11 Eosinophils # 0.1 k/uL (0-0.7) 08/04/21 16:11 Basophils # 0.0 k/uL (0-0.2) 08/04/21 16:11 Sodium 132 mmol/L (137-145) L 08/04/21 16:11 Potassium 4.0 mmol/L (3.5-5.1) 08/04/21 16:11 Chloride 97 mmol/L (98-107) L 08/04/21 16:11 Carbon Dioxide 24 mmol/L (22-30) 08/04/21 16:11 Anion Gap 11 mmol/L 08/04/21 16:11 BUN 12 mg/dL (7-17) 08/04/21 16:11 Creatinine 0.62 mg/dL (0.52-1.04) 08/04/21 16:11 Est GFR (CKD-EPI)AfAm >90 (>60 ml/min/1.73 sqM) 08/04/21 16:11 Est GFR (CKD-EPI)NonAf >90 (>60 ml/min/1.73 sqM) 08/04/21 16:11 Glucose 118 mg/dL (74-99) H 08/04/21 16:[address] Glu mg/dL 110 03/03/22 16:11 Hemoglobin A1c 5.5 % (0.0-6.0) 08/04/21 16:11 Calcium 9.4 mg/dL (8.4-10.2) 08/04/21 16:11 Total Bilirubin 0.4 mg/dL (0.2-1.3) 08/04/21 16:11 AST 23 U/L (14-36) 08/04/21 16:11 ALT 30 U/L (4-34) 08/04/21 16:11 Alkaline Phosphatase 103 U/L (38-126) 08/04/21 16:11 Total Protein 7.1 g/dL (6.3-8.2) 08/04/21 16:11 Albumin 4.0 g/dL (3.5-5.0) 08/04/21 16:11 Triglycerides 105.00 mg/dL (0.00-149.00) 08/04/21 16:11 Cholesterol 162.00 mg/dL (0.00-200.00) 08/04/21 16:11 LDL Cholesterol, Calc 71.4 mg/dL (0.0-131.0) 08/04/21 16:11 VLDL Cholesterol, Calc 21.00 mg/dL (5.00-40.00) 08/04/21 16:11 HDL Cholesterol 69.60 mg/dL (40.00-60.00) H 08/04/21 16:11 Cholesterol/HDL Ratio 2.33 Ratio 08/04/21 16:11 TSH 1.140 uIU/mL (0.350-5.500) 08/04/21 16:11 Urine Opiates Screen Not Detected (NotDetected) 08/04/21 14:06 Ur Oxycodone Screen Not Detected (NotDetected) 08/04/21 14:06 Urine Methadone Screen Not Detected (NotDetected) 08/04/21 14:06 Ur Propoxyphene Screen Not Detected (NotDetected) 08/04/21 14:06 Ur Barbiturates Screen Not Detected (NotDetected) 08/04/21 14:06 U Tricyclic Antidepress Not Detected (NotDetected) 08/04/21 14:06 Ur Phencyclidine Scrn Not Detected (NotDetected) 08/04/21 14:06 Ur Amphetamines Screen Not Detected (NotDetected) 08/04/21 14:06 U Methamphetamines Scrn Not Detected (NotDetected) 08/04/21 14:06 U Benzodiazepines Scrn Not Detected (NotDetected) 08/04/21 14:06 Urine Cocaine Screen Not Detected (NotDetected) 08/04/21 14:06 U Marijuana (THC) Screen Not Detected (NotDetected) 08/04/21 14:06 Coronavirus (PCR) Not Detected (Not Detectd) 08/04/21 15:53 Impression: Schizophrenia Nicotine dependence Plan: -Continue with discharge today as patient has improved and stabilized psychiatrically and is not currently an imminent threat to herself and/or others. Patient will remain at chronically elevated risk benefit of the general population due to the severity of her mental illness. -Continue medications: Risperdal Consta 50 mg IM every 14 days. Last dose administered on 08/08/2021. Next dose due on 08/22/2021. -Patient was counseled on the need for medication compliance and appropriate follow-up at mental health and also primary care for medical issues. Patient verbalized understanding and agreed. -Social work to arrange for and conduct family meeting to ensure safety upon discharge and answer any questions/concerns. Social work also to arrange for patients follow up appointments with [facility] for psychiatric care along with follow up with primary care provider. -Patient counseled on abstaining from recreational drugs and marijuana and alcohol. Was informed/educated on the adverse effects on their physical and mental health. -Patient was instructed to return to the hospital or seek immediate medical care if their psychiatric or medical symptoms do worsen or reoccur. Allergies Allergy/AdvReac Type Severity Reaction Status Date / Time No Known Allergies Allergy Verified 08/06/21 17:09 Patient Condition at Discharge: Stable Plan - Discharge Summary Discharge Rx Participant: No New Discharge Prescriptions: New risperiDONE MICROSPHERES [RisperDAL CONSTA] 50 mg IM Q14D #1 each Discontinued Nicotine 14Mg/24Hr Patch [Habitrol] 1 patch TRANSDERM DAILY 14 Days patch Paliperidone IM [Invega Sustenna] 234 mg IM QMONTHLY #1 each Acetaminophen Tab [Tylenol] 650 mg PO Q4HR PRN tab PRN Reason: Pain/Discomfort Paliperidone [Invega] 6 mg PO HS 4 Days tab Discharge Medication List risperiDONE MICROSPHERES [RisperDAL CONSTA] 50 mg IM Q14D #1 each 08/09/21 [Rx] Follow up Appointment(s)/Referral(s): [facility] [Outside] - 08/19/21 1:00 pm (08/19 at 1 pm with Carolyne Bass 08/29 at [address] Vigil) [facility] [NON-STAFF] - 1 Week Patient Instructions/Handouts: How to Stop Smoking (DC), Schizophrenia (DC) Activity/Diet/Wound Care/Special Instructions: Activity and diet as tolerated. Avoid the use of street drugs and alcohol. Take all medications as prescribed. When you are in need of refills on your medications please contact your medical provider and/or outpatient psychiatrist to have this done. Please go to scheduled outpatient appointment for aftercare treatment. If symptoms return or become worse, call the crisis line at and/or go to the nearest emergency room for evaluation Discharge Disposition: HOME SELF-CARE
== END 2021-08-16 13:18 | disposition home or self-care (01) | DRG 885 ==
LOC: EC 12:01 → 3MHU 18:05 → UNDOADMIN 18:05 → 3MHU 20:23
PROVIDERS: ADMIT Psychiatry & Neurology Psychiatry; ATTEND Psychiatry & Neurology Psychiatry
DX: F20.9 Schizophrenia, unspecified (principal); E87.1 Hypo-osmolality and hyponatremia; F41.9 Anxiety disorder, unspecified; G40.909 Epilepsy, unspecified, not intractable, without status epilepticus; H91.90 Unspecified hearing loss, unspecified ear; J44.9 Chronic obstructive pulmonary disease, unspecified; R63.1 Polydipsia; Z53.20 Procedure and treatment not carried out because of patient's decision for unspecified reasons; Z56.0 Unemployment, unspecified; Z87.11 Personal history of peptic ulcer disease; D75.839 Thrombocytosis, unspecified; F17.210 Nicotine dependence, cigarettes, uncomplicated; Z20.822 Contact with and (suspected) exposure to COVID-19; Z71.89 Other specified counseling; Z79.899 Other long term (current) drug therapy; R62.50 Unspecified lack of expected normal physiological development in childhood
CPT/HCPCS: 36415; 71046; 80053; 80061; 80306; 82075; 83036; 84443; 85025; 87635; 99285

== ENCOUNTER 2021-08-25 15:06 | Emergency (ER) | payer MEDICARE, OTHER ==
[2021-08-25 15:30] VITALS: BP 112/78; PULSE 55; RESP 18; TEMP 97.5
--- NOTE | 2021-08-25 16:11 | ED ---
Psych HPI - General Chief Complaint: Psychiatric Symptoms Stated Complaint: Petition Time Seen by Provider: 08/25/21 15:36 Source: patient, police, RN notes reviewed, old records reviewed Mode of arrival: ambulatory - History of Present Illness Initial Comments: 55-year-old female history of schizophrenia psychosis also history of COPD GERD seizure disorder who is a smoker who is brought in on petition by [facility] for evaluation and she apparently is been refusing to take her medications from [facility]. Patient has had recent admissions for treatment of the above. No reports of f christen chills nausea vomiting sweats patient has been noted to be talking to herself. No reports of alcohol or drug ingestion. MD Complaint: other - Related Data Previous Rx's Medication Instructions Recorded risperiDONE MICROSPHERES 50 mg IM Q14D #1 each 08/09/21 [RisperDAL CONSTA] Allergies Allergy/AdvReac Type Severity Reaction Status Date / Time No Known Allergies Allergy Verified 08/25/21 16:12 Review of Systems ROS Statement: Those systems with pertinent positive or pertinent negative responses have been documented in the HPI. ROS Other: All systems not noted in ROS Statement are negative. Limitations: ROS unobtainable due to patients medical condition Past Medical History Past Medical History: COPD, GERD/Reflux, GI Bleed, Seizure Disorder Additional Past Medical History / Comment(s): MS, hearing impaired, seizures when in her 30s last 2yrs ago, migraines, Upper GI bleed, peptic ulcer disease, developmentally delayed, hypotension, UTI History of Any Multi-Drug Resistant Organisms: None Reported Past Surgical History: Ear Surgery Additional Past Surgical History / Comment(s): cyst removed from coccyx, multiple bilateral ear surgeries. Past Anesthesia/Blood Transfusion Reactions: No Reported Reaction Past Psychological History: Anxiety, Bipolar, Depression, Schizophrenia Smoking Status: Current every day smoker Past Alcohol Use History: None Reported Past Drug Use History: None Reported - Past Family History Father Additional Family Medical History / Comment(s): Father at age 70 from myocardial infarction. na Mother Additional Family Medical History / Comment(s): Patient's mother is alive at age 70. Patient does not know her medical history. Brother(s) Additional Family Medical History / Comment(s): Patient has 1 brother committed suicide at 48. Sister(s) Additional Family Medical History / Comment(s): Patient has 2 sisters with no major medical problems. General Exam - General Exam Comments Initial Comments: This is a well-developed well-nourished awake alert female noted to be demonstrating flight of ideas in talking randomly to the cheung and to staff Limitations: no limitations General appearance: alert, in no apparent distress Head exam: Present: atraumatic, normocephalic, normal inspection Eye exam: Present: normal appearance, PERRL, EOMI. Absent: scleral icterus, conjunctival injection, periorbital swelling ENT exam: Present: normal exam, mucous membranes moist Neck exam: Present: normal inspection. Absent: tenderness, meningismus, lymphadenopathy Respiratory exam: Present: normal lung sounds bilaterally. Absent: respiratory distress, wheezes, rales, rhonchi, stridor Cardiovascular Exam: Present: normal rhythm, bradycardia, normal heart sounds. Absent: systolic murmur, diastolic murmur, rubs, gallop, clicks GI/Abdominal exam: Present: soft, normal bowel sounds. Absent: distended, tenderness, guarding, rebound, rigid Extremities exam: Present: normal inspection, full ROM, normal capillary refill. Absent: tenderness, pedal edema, joint swelling, calf tenderness Back exam: Present: normal inspection Neurological exam: Present: alert, oriented X3, CN II-XII intact Psychiatric exam: Present: manic, other (Demonstrating flight of ideas) Skin exam: Present: warm, dry, intact, normal color. Absent: rash Course Vital Signs 08/25/21 15:24 Temperature 97.5 F L Pulse Rate 55 L Respiratory 18 Rate Blood Pressure 112/78 O2 Sat by Pulse 100 Oximetry Medical Decision Making - Medical Decision Making The patient did cooperate to get the shot of Risperdal he will be going to [facility] Disposition Clinical Impression: Noncompliance, Schizophrenia Disposition: HOME SELF-CARE Condition: Good Instructions (If sedation given, give patient instructions): Schizophrenia (ED) Is patient prescribed a controlled substance at d/c from ED?: No Referrals: None,Stated [Primary Care Provider] - 1-2 days
== END 2021-08-25 19:15 | disposition home or self-care (01) ==
LOC: EC 15:06
DX: F20.9 Schizophrenia, unspecified (principal); Z91.19 Patient's noncompliance with other medical treatment and regimen; J44.9 Chronic obstructive pulmonary disease, unspecified; F31.9 Bipolar disorder, unspecified; F41.9 Anxiety disorder, unspecified; F17.200 Nicotine dependence, unspecified, uncomplicated
CPT/HCPCS: 82075; 99283; 96372; J2794

== ENCOUNTER 2021-08-25 20:12 | Emergency (ER) | payer MEDICARE, OTHER ==
[2021-08-25 21:41] VITALS: BP 101/69; PULSE 104; RESP 20; TEMP 98
--- NOTE | 2021-08-26 03:48 | ED ---
Psych HPI - General Chief Complaint: Psychiatric Symptoms Stated Complaint: Petition Time Seen by Provider: 08/25/21 23:15 Source: Caregiver Mode of arrival: wheelchair - History of Present Illness Initial Comments: This patient is a 55-year-old woman brought to have evaluation after she had become upset at the prison [facility] she [facility]. I was reported that she had attempted to "backhand" staff member there. When I interview the patient, she states that she was a little upset about some living arrangements. She states she does not have any homicidal or suicidal ideation. She does not believe she needs to be admitted in the hospital. MD Complaint: other -: minutes(s) Quality: resolved prior to arrival Improves With: none Worsens With: none Associated Symptoms: denies other symptoms - Related Data Previous Rx's Medication Instructions Recorded risperiDONE MICROSPHERES 50 mg IM Q14D #1 each 08/09/21 [RisperDAL CONSTA] Allergies Allergy/AdvReac Type Severity Reaction Status Date / Time No Known Allergies Allergy Verified 08/25/21 16:12 Review of Systems ROS Statement: Those systems with pertinent positive or pertinent negative responses have been documented in the HPI. ROS Other: All systems not noted in ROS Statement are negative. Respiratory: Denies: cough, dyspnea Cardiovascular: Denies: chest pain Gastrointestinal: Denies: abdominal pain Musculoskeletal: Denies: back pain Neurological: Denies: headache Psychiatric: Denies: depression, auditory hallucinations, visual hallucinations, homicidal thoughts, suicidal thoughts Past Medical History Past Medical History: COPD, GERD/Reflux, GI Bleed, Seizure Disorder Additional Past Medical History / Comment(s): MS, hearing impaired, seizures when in her 30s last 2yrs ago, migraines, Upper GI bleed, peptic ulcer disease, developmentally delayed, hypotension, UTI History of Any Multi-Drug Resistant Organisms: None Reported Past Surgical History: Ear Surgery Additional Past Surgical History / Comment(s): cyst removed from coccyx, multiple bilateral ear surgeries. Past Anesthesia/Blood Transfusion Reactions: No Reported Reaction Past Psychological History: Anxiety, Bipolar, Depression, Schizophrenia Smoking Status: Current every day smoker Past Alcohol Use History: None Reported Past Drug Use History: None Reported - Past Family History Father Additional Family Medical History / Comment(s): Father at age 70 from m yocardial infarction. na Mother Additional Family Medical History / Comment(s): Patient's mother is alive at age 70. Patient does not know her medical history. Brother(s) Additional Family Medical History / Comment(s): Patient has 1 brother committed suicide at 48. Sister(s) Additional Family Medical History / Comment(s): Patient has 2 sisters with no major medical problems. General Exam Limitations: no limitations General appearance: alert, in no apparent distress Respiratory exam: Present: normal lung sounds bilaterally. Absent: respiratory distress, wheezes, rales, rhonchi, stridor Cardiovascular Exam: Present: regular rate, normal rhythm, normal heart sounds. Absent: systolic murmur, diastolic murmur, rubs, gallop GI/Abdominal exam: Present: soft. Absent: tenderness Neurological exam: Present: alert Psychiatric exam: Absent: agitated, anxious, manic, homicidal ideation, suicidal ideation Skin exam: Present: warm, dry, intact, normal color. Absent: rash Course Vital Signs 08/25/21 21:38 Temperature 98.0 F Pulse Rate 104 H Respiratory 20 Rate Blood Pressure 101/69 O2 Sat by Pulse 99 Oximetry Disposition Clinical Impression: Adjustment reaction of adult life Disposition: HOME SELF-CARE Condition: Good Instructions (If sedation given, give patient instructions): Mood Disorders (ED ) Is patient prescribed a controlled substance at d/c from ED?: No Referrals: None,Stated [Primary Care Provider] - 1-2 days
[2021-08-26] MEDS ORDERED: OLANZapine 7.5 MG TAB PO SCH (09:00)
== END 2021-08-26 06:13 | disposition home or self-care (01) ==
LOC: EC 20:12
DX: F43.20 Adjustment disorder, unspecified (principal); F31.9 Bipolar disorder, unspecified; F41.9 Anxiety disorder, unspecified; F20.9 Schizophrenia, unspecified; F17.200 Nicotine dependence, unspecified, uncomplicated
CPT/HCPCS: 82075; 99283

== ENCOUNTER 2021-08-26 11:36 | Inpatient (IN) | payer MEDICARE, MEDICAID ==
[2021-08-26 13:50] LABS: Amphetamine Screen,Urine Not Detected (NotDetected); Barbiturate Screen,Urine Not Detected (NotDetected); Benzodiazepines Screen,Urine Not Detected (NotDetected); Cocaine Screen,Urine Not Detected (NotDetected); Methadone Screen, Urine Not Detected (NotDetected); Opiate Screen,Urine Not Detected (NotDetected); Oxycodone Screen, Urine Not Detected (NotDetected); Phencyclidine Screen,Urine Not Detected (NotDetected); Tricyclic Antidepressant,Urine Not Detected (NotDetected); Urn Cannabinoid Scrn Not Detected (NotDetected)
--- NOTE | 2021-08-26 14:49 | ED ---
Psych HPI - General Source: patient, RN notes reviewed, old records reviewed Mode of arrival: ambulatory <Mercy Burnett - Last Filed: 08/26/21 14:44> <Manuel Richard - Last Filed: 08/26/21 15:57> - General Chief Complaint: Psychiatric Symptoms Stated Complaint: Mental health Time Seen by Provider: 08/26/21 11:48 - History of Present Illness Initial Comments: Patient is a 55-year-old female with a history of schizophrenia. She presents emergency department for the third time in the past 24 hours with complaints of manic, psychotic episodes. Patient reportedly lives at [facility] and got upset with some of the staff. Patient daughters is her legal guardian and reports that she has believing the [facility] and has been concerned with her safety. Patient has history of being hearing impaired and mainly lip reads. She has no physical complaints. Reportedly Patient has made some homicidal comments. (Mercy Burnett) - Related Data Previous Rx's Medication Instructions Recorded risperiDONE MICROSPHERES 50 mg IM Q14D #1 each 08/09/21 [RisperDAL CONSTA] Allergies Allergy/AdvReac Type Severity Reaction Status Date / Time No Known Allergies Allergy Verified 08/26/21 11:45 Review of Systems ROS Other: All systems not noted in ROS Statement are negative. <Mercy Burnett - Last Filed: 08/26/21 14:44> ROS Other: All systems not noted in ROS Statement are negative. <Manuel Richard - Last Filed: 08/26/21 15:57> ROS Statement: Those systems with pertinent positive or pertinent negative responses have been documented in the HPI. Past Medical History Past Medical History: COPD, GERD/Reflux, GI Bleed, Seizure Disorder Additional Past Medical History / Comment(s): MS, hearing impaired, seizures when in her 30s last 2yrs ago, migraines, Upper GI bleed, peptic ulcer disease, developmentally delayed, hypotension, UTI History of Any Multi-Drug Resistant Organisms: None Reported Past Surgical History: Ear Surgery Additional Past Surgical History / Comment(s): cyst removed from coccyx, multiple bilateral ear surgeries. Past Anesthesia/Blood Transfusion Reactions: No Reported Reaction Past Psychological History: Anxiety, Bipolar, Depression, Schizophrenia Smoking Status: Current every day smoker Past Alcohol Use History: None Reported Past Drug Use History: None Reported - Past Family History Father Additional Family Medical History / Comment(s): Father at age 70 from myocardial infarction. na Mother Additional Family Medical History / Comment(s): Patient's mother is alive at age 70. Patient does not know her medical history. Brother(s) Additional Family Medical History / Comment(s): Patient has 1 brother committed suicide at 48. Sister(s) Additional Family Medical History / Comment(s): Patient has 2 sisters with no major medical problems. <Mercy Burnett - Last Filed: 08/26/21 14:44> General Exam Limitations: language barrier General appearance: alert, in no apparent distress Head exam: Present: atraumatic, normocephalic, normal inspection Eye exam: Present: normal appearance, PERRL, EOMI. Absent: scleral icterus, conjunctival injection, periorbital swelling ENT exam: Present: normal exam, mucous membranes moist Neck exam: Present: normal inspection. Absent: tenderness, meningismus, lymphadenopathy Respiratory exam: Present: normal lung sounds bilaterally. Absent: respiratory distress, wheezes, rales, rhonchi, stridor Cardiovascular Exam: Present: regular rate, normal rhythm, normal heart sounds. Absent: systolic murmur, diastolic murmur, rubs, gallop, clicks GI/Abdominal exam: Present: soft, normal bowel sounds. Absent: distended, tenderness, guarding, rebound, rigid Back exam: Present: normal inspection Neurological exam: Present: alert Psychiatric exam: Present: anxious, other (Patient appears to be anxious, using word salad.). Absent: normal affect, normal mood Skin exam: Present: warm, dry, intact, normal color. Absent: rash <Mercy Burnett - Last Filed: 08/26/21 14:44> - General Exam Comments Initial Comments: 55-year-old female. Alert and oriented. No distress. Patient is hard of hear ing (Mercy Burnett) Course Vital Signs 08/26/21 11:39 Temperature 98.2 F Pulse Rate 112 H Respiratory 16 Rate Blood Pressure 121/73 O2 Sat by Pulse 109 H Oximetry Medical Decision Making <Mercy Burnett - Last Filed: 08/26/21 14:44> - Medical Decision Making Patient 5-year-old female impaired with history of schizophrenia presents with acute psychosis. Reportedly over the past 24 hours she's been to emergency department 3 times for similiar complaints and discharged. She did receive Xyprexa and IM risperdol both times. Her daughter is concerned about her welfare she is unstable and leaving her [facility] unattended. Patient is medically clear for EPS evaluation, and will be admitted at this time. (Mrecy Burnett) - Lab Data Lab Results 08/26/21 08/26/21 Range/Units 13:11 13:59 Urine Opiates Screen Not Detected (NotDetected) Ur Oxycodone Screen Not Detected (NotDetected) Urine Methadone Screen Not Detected (NotDetected) Ur Propoxyphene Screen Not Detected (NotDetected) Ur Barbiturates Screen Not Detected (NotDetected) U Tricyclic Antidepress Not Detected (NotDetected) Ur Phencyclidine Scrn Not Detected (NotDetected) Ur Amphetamines Screen Not Detected (NotDetected) U Methamphetamines Scrn Not Detected (NotDetected) U Benzodiazepines Scrn Not Detected (NotDetected) Urine Cocaine Screen Not Detected (NotDetected) U Marijuana (THC) Screen Not Detected (NotDetected) Coronavirus (PCR) Not Detected (Not Detectd) Disposition <Mercy Burnett - Last Filed: 08/26/21 14:44> <Manuel Richard - Last Filed: 08/26/21 15:57> Clinical Impression: Personality disorder, Schizophrenia, Depression Disposition: TRANSFER TO PSYCH HOSP/UNIT Condition: Fair Referrals: None,Stated [Primary Care Provider] - 1-2 days
[2021-08-26] MEDS ORDERED: MAG HYDROX/AL HYDROX/SIMETH 30 ML CUP PO PRN (20:57)
[2021-08-26] MEDS ORDERED: HALOPERIDOL LACTATE 5 MG/ML 1 ML VIAL IM PRN (20:57)
[2021-08-26] MEDS ORDERED: MAGNESIUM HYDROXIDE 2,400 MG/10 ML CUP PO PRN (20:57)
[2021-08-26] MEDS ORDERED: LORazepam 2 MG/ML INJ IM PRN (21:03)
[2021-08-26 22:10] LABS: Appearance,Urine Clear (Clear); Bilirubin,Urine Negative (Negative); Blood,Urine Negative (Negative); Color,Urine Colorless; Glucose,Urine (UA) Negative (Negative); Ketones,Urine Negative (Negative); Leukocyte Esterase,Urine Negative (Negative); Nitrite,Urine Negative (Negative); Protein,Urine Negative (Negative); Specific Gravity,Urine 1.004 (1.001-1.035); Urobilinogen,Urine <2.0 mg/dL (<2.0)
--- NOTE | 2021-08-27 01:34 | P.PN ---
Progress Note - Text Progress Note Date: 08/26/21 The patient refused to be seen or evaluated.
[2021-08-27] MEDS: NICOTINE 14MG/24HR PATCH TRANSDERM SCH (08:17)
--- NOTE | 2021-08-27 15:46 | P.HP ---
Psychiatric H&P - . H&P Date: 08/27/21 History & Physical: Allergies Allergy/AdvReac Type Severity Reaction Status Date / Time No Known Allergies Allergy Verified 08/26/21 11:45 Vital Signs Temp 98.1 F 08/26/21 21:51 Pulse 97 08/26/21 21:51 Resp 18 08/26/21 21:51 BP 123/66 08/26/21 21:51 Pulse Ox 97 08/26/21 21:51 Intake & Output 08/26/21 08/27/21 08/27/21 18:59 06:59 18:59 Weight 54.431 kg 51.256 kg Laboratory Last Values Urine Color Colorless 08/26/21 13:11 Urine Appearance Clear (Clear) 08/26/21 13:11 Urine pH 6.0 (5.0-8.0) 08/26/21 13:11 Ur Specific [place] 1.004 (1.001-1.035) 08/26/21 13:11 Urine Protein Negative (Negative) 08/26/21 13:11 Urine Glucose (UA) Negative (Negative) 08/26/21 13:11 Urine Ketones Negative (Negative) 08/26/21 13:11 Urine Blood Negative (Negative) 08/26/21 13:11 Urine Nitrite Negative (Negative) 08/26/21 13:11 Urine Bilirubin Negative (Negative) 08/26/21 13:11 Urine Urobilinogen <2.0 mg/dL (<2.0) 08/26/21 13:11 Ur Leukocyte Esterase Negative (Negative) 08/26/21 13:11 Urine HCG, Qual Not Detected (Not Detectd) 08/26/21 13:11 Urine Opiates Screen Not Detected (NotDetected) 08/26/21 13:11 Ur Oxycodone Screen Not Detected (NotDetected) 08/26/21 13:11 Urine Methadone Screen Not Detected (NotDetected) 08/26/21 13:11 Ur Propoxyphene Screen Not Detected (NotDetected) 08/26/21 13:11 Ur Barbiturates Screen Not Detected (NotDetected) 08/26/21 13:11 U Tricyclic Antidepress Not Detected (NotDetected) 08/26/21 13:11 Ur Phencyclidine Scrn Not Detected (NotDetected) 08/26/21 13:11 Ur Amphetamines Screen Not Detected (NotDetected) 08/26/21 13:11 U Methamphetamines Scrn Not Detected (NotDetected) 08/26/21 13:11 U Benzodiazepines Scrn Not Detected (NotDetected) 08/26/21 13:11 Urine Cocaine Screen Not Detected (NotDetected) 08/26/21 13:11 U Marijuana (THC) Screen Not Detected (NotDetected) 08/26/21 13:11 Coronavirus (PCR) Not Detected (Not Detectd) 08/26/21 13:59 08/27/21 15:40 Patient presents to the ED yesterday upset and yelling she tried to attack the staff even when nobody had redirected her set any limits. Pt states she does not want to talk to me. Patient's words are garbled and unclear. Per daughter, she is worried for the patient's safety. Daughter states that her mother has been at [facility], however they will not keep her and they let her wander off. Daughter states the patient is Schizophrenic and does not wish to live with her but cannot take care of herself and needs asset analyst care, which is why she brought her to the ER. The patient is unable to participate in her care she cannot give any kind of history. Past psychiatric history 3 she has been diagnosed in the past with anxiety disorder bipolar disorder major depression and schizophrenia Medically she has a history of COPD/GERD/GI bleed/seizure disorder/multiple sclerosis/seizures when she was younger the last was about 2 years ago/hearing impairment Substance use she is a daily smoker nothing else being used at this time Family history her father at 70 of a heart attack mother is still alive she has a daughter but will not live with her daughter she has 2 sisters and a brother who committed suicide at age 48 Mental status exam: The patient would not get up and leave her room she would not even look at me she is lying in a position in the bed but her feet are moving constantly she does not seem to have teeth and when she talks you can't understand what she says and she responds to every question with "what" rather than with a response but when you repeated herself she just says "what" again. I asked her her name and she said nothing was said is you name Faye she repeated the name Faye. Last here for last name was JIMBO, it seemed clear that she said I do not have a last name. I could not assess gait and station definitely not oriented not cooperative. Assessment is that she is quite psychotic and agitated and unable to participate in her own care. Psychosis NOS probable schizophrenia Plan supportive when necessary's for now and look for a placement
--- NOTE | 2021-08-28 01:29 | P.PN ---
Progress Note - Text Progress Note Date: 08/27/21 Attempted to see the patient at 11 PM on 08/27. The patient refused to be seen or evaluated.
[2021-08-28] MEDS: NICOTINE 14MG/24HR PATCH TRANSDERM SCH (08:27)
--- NOTE | 2021-08-28 09:48 | P.PN ---
Subjective Progress Note Date: 08/28/21 Principal diagnosis: Psychosis NOS/rule out schizophrenia Subjective the patient is unable to give any idea how she is doing. Objective: The patient does not interact with peers or staff she gets angry making irrational angry statements if you try to talk to her she is constantly pacing the halls but does have a decent appetite and eats. She is not dizzy however when she walks she has a very wide base to her walk which is peculiar. No eye contact angry affect. Her speech is filled with cuss words. Assessment: She has quite psychotic unable to take care of herself needs ongoing hospitalization and medication Plan no change at this time Objective - Vital Signs Vital signs: Vital Signs Temp 98.1 F 08/28/21 05:45 Pulse 91 08/28/21 05:45 Resp 16 08/28/21 05:45 BP 109/69 08/28/21 05:45 Pulse Ox 97 08/26/21 21:51 Intake & Output 08/27/21 08/28/21 08/28/21 18:59 06:59 18:59 Weight 53.8 kg
[2021-08-28] MEDS: ACETAMINOPHEN TAB 325 MG TAB PO PRN ×2 (11:07→17:39)
[2021-08-28] MEDS: LORazepam 1 MG TAB PO PRN ×2 (11:08→17:40)
[2021-08-29] MEDS: LORazepam 1 MG TAB PO PRN ×3 (05:54→18:30)
[2021-08-29] MEDS: ACETAMINOPHEN TAB 325 MG TAB PO PRN ×2 (05:54→16:33)
[2021-08-29] MEDS: NICOTINE 14MG/24HR PATCH TRANSDERM SCH (09:34)
[2021-08-29] MEDS ORDERED: flUPHENAZine 2.5 MG/ML (MDV) 10 ML VIAL IM PRN (11:23)
--- NOTE | 2021-08-29 11:27 | P.PN ---
Progress Note - Text Progress Note Date: 08/29/21 Interval History: Patient was seen near the nurse's desk /station and appeared to be waiting for the nurse at the medication window. Patient was approached by group underwriter to speak however patient barely acknowledges group underwriter and began sweaaring and was tangential, illogical and difficult to comprehend. She was difficult to engage with in conversation and did not want to speak to group underwriter. according to staff patient has been impulsive and agitated at times. Mental Status Exam: General Appearance: Patient appears to be disheveled in appearance, stated age is alert, not directable today. Behavior: Patient is not agitated behavior. Not responding to internal stimuli. laughing at times. difficult to redirect Speech: Patient's speech is non fluent and nonpressured. difficult to ocmprehend Mood/Affect: Patient claims her mood is "fine", affect congruent. Suicidality/Homicidality: Denies Perceptions: Denies Though content/process: poverty of content. Bizarre at times. illogical Memory and concentration: Unable to assess Judgment and insight: Chronically poor Assessment Schizophrenia Cannabis use disorder, mild Nicotine dependence Plan: -Patient continues to meet criteria for inpatient psychiatric admission for symptom stabilization and safety. Patient has not signed adult voluntary form and medication consent and was placed in patient's chart. -Medications: will attempt to transition patient onto prolixin, start 2.5 mg bid for psychosis then will transition onto Prolixin D DE LA FUENTE to ensure complaince. Patient cannot refuse PO prolixin and will order IM as back up -When necessary Ativan and Haldol for agitation/aggression. -NRT - nicotine patch -SW on board for discharge planning. Encouraged the patient to participate in milieu. Patient is court ordered. Will look into nursing home placement out of [facility] once patient is improved psychiatricallly.
[2021-08-29 12:08] LABS: Basophils # (A) 0.1 k/uL (0-0.2); Basophils % (A) 1 %; Eosinophils # (A) 0.1 k/uL (0-0.7); Eosinophils % (A) 2 %; HCT 44.7 % (34.0-46.0); HGB 14.1 gm/dL (11.4-16.0); Lymphocytes # (A) 1.2 k/uL (1.0-4.8); Lymphocytes % (A) 15 %; MCH 30.9 pg (25.0-35.0); MCHC 31.5 g/dL (31.0-37.0); MCV 98.3 fL (80.0-100.0); Mean Platelet Volume 7.3; Monocytes # (A) 0.5 k/uL (0-1.0); Monocytes % (A) 6 %; Neutrophils # (A) 5.8 k/uL (1.3-7.7); Neutrophils % (A) 74 %; Platelet Count 344 k/uL (150-450); RBC 4.55 m/uL (3.80-5.40); RDW 13.1 % (11.5-15.5); WBC 7.8 k/uL (3.8-10.6)
[2021-08-29] MEDS: haloperidoL 5 MG TAB PO PRN ×2 (12:30→18:30)
[2021-08-29 12:31] LABS: ALT 22 U/L (4-34); AST 27 U/L (14-36); African American GFR (CKD) >90 (>60 ml/min/1.73 sqM); Alkaline Phosphatase 78 U/L (38-126); Anion Gap 10 mmol/L; Blood Urea Nitrogen 10 mg/dL (7-17); Calcium 9.2 mg/dL (8.4-10.2); Carbon Dioxide 23 mmol/L (22-30); Chloride 98 mmol/L (98-107); Glucose 86 mg/dL (74-99); Non-African American GFR(CKD) >90 (>60 ml/min/1.73 sqM); Potassium 4.4 mmol/L (3.5-5.1); Sodium 131 mmol/L (137-145); Total Bilirubin 0.6 mg/dL (0.2-1.3); Total Protein 7.1 g/dL (6.3-8.2)
[2021-08-30] MEDS: ACETAMINOPHEN TAB 325 MG TAB PO PRN ×4 (03:39→17:45)
[2021-08-30 04:00] LABS: Chol/HDL Ratio 2.51 Ratio; LDL Cholesterol,Calculated 86.6 mg/dL (0.0-131.0)
[2021-08-30] MEDS: NICOTINE 14MG/24HR PATCH TRANSDERM SCH (08:39)
[2021-08-30] MEDS: LORazepam 1 MG TAB PO PRN (08:42)
[2021-08-30] MEDS ORDERED: flUPHENAZine 2.5 MG/ML (MDV) 10 ML VIAL IM PRN (10:30)
--- NOTE | 2021-08-30 10:37 | P.PN ---
Progress Note - Text Progress Note Date: 08/30/21 Interval History: Patient was seen lying in her bed this morning and was difficult to awaken. O nce patient did awake she shook her head several times and appeared to be disinterested in speaking with web content writer. She made some comments towards web content writer telling him to leave her alone and refused to answer any other questions. Patient did refuse her by mouth Prolixin this morning. Mental Status Exam: General Appearance: Patient appears to be disheveled in appearance, stated age is alert, not directable today. Behavior: Patient is not agitated behavior. Not responding to internal stimuli. difficult to redirect Speech: Patient's speech is non fluent and nonpressured. difficult to ocmprehend Mood/Affect: Patient claims her mood is "fine", affect congruent and constricted Suicidality/Homicidality: Denies Perceptions: Denies Though content/process: poverty of content. Bizarre at times. illogical Memory and concentration: Unable to assess Judgment and insight: Chronically poor Assessment Schizophrenia Cannabis use disorder, mild Nicotine dependence Plan: -Patient continues to meet criteria for inpatient psychiatric admission for symptom stabilization and safety. Patient has not signed adult voluntary form and medication consent and was placed in patient's chart. -Medications: Continue with Prolixin 2.5 mg bid for psychosis then will transition onto Prolixin D DE LA FUENTE to ensure complaince. Patient cannot refuse PO prolixin and will order IM as back up -When necessary Ativan and Prolixin for agitation/aggression. -NRT - nicotine patch -SW on board for discharge planning. Encouraged the patient to participate in milieu. Patient is court ordered. Will look into alf placement out of [facility] once patient is improved psychiatricallly.
[2021-08-31] MEDS: ACETAMINOPHEN TAB 325 MG TAB PO PRN ×5 (05:03→21:53)
[2021-08-31] MEDS: LORazepam 1 MG TAB PO PRN ×4 (05:03→21:54)
[2021-08-31] MEDS ORDERED: traZODone HCL 100 MG TAB PO PRN (10:37)
--- NOTE | 2021-08-31 10:41 | P.PN ---
Progress Note - Text Progress Note Date: 08/31/21 Interval History: Patient was seen near the nurse's desk speaking to one of the techs. She was asking for water. She was approached by comic writer and appeared to be showing improvement in her direct ability and also was less impulsive. She claims that she was thirsty and asked for water. She continues to be concrete. Continues to have very poor insight and judgment. She states she has been taking her pills as prescribed. She gave a mixed answer about sleep. She appeared to be more appropriate today. Was not responding to internal stimuli. Denying any auditory or visual hallucinations or any suicidal or homicidal ideations intent or plan. Patient did receive a when necessary Ativan this morning. Mental Status Exam: General Appearance: Patient appears to be improving in appearance, stated age is alert, or directable today. Behavior: Patient is not agitated behavior. Not responding to internal stimuli. Her directable. Speech: Patient's speech is non fluent and nonpressured, clearer Mood/Affect: Patient claims her mood is "ok", affect congruent and constricted Suicidality/Homicidality: Denies Perceptions: Denies Though content/process: poverty of content. Bizarre at times, improving moderately. [place]. Memory and concentration: Unable to assess. Improved attention span Judgment and insight: Chronically poor, improving mildly Assessment Schizophrenia Cannabis use disorder, mild Nicotine dependence Plan: -Patient continues to meet criteria for inpatient psychiatric admission for symptom stabilization and safety. Patient has not signed adult voluntary form and medication consent and was placed in patient's chart. -Medications: Increased Prolixin 3.5 mg bid for psychosis then will transition onto Prolixin D DE LA FUENTE to ensure complaince. Patient cannot refuse PO prolixin and will order IM as back up -When necessary Ativan and Prolixin for agitation/aggression. -NRT - nicotine patch - on board for discharge planning. Encouraged the patient to participate in milieu. Patient is court ordered. Will continue to look into detention placement out of [facility] once patient is improved psychiatricallly. likely discharge early next week after patient is transitioned onto DE LA FUENTE.
[2021-09-01] MEDS: LORazepam 1 MG TAB PO PRN (06:02)
[2021-09-01] MEDS: ACETAMINOPHEN TAB 325 MG TAB PO PRN ×2 (06:02→10:02)
[2021-09-01 07:00] VITALS: RESP 14
[2021-09-01] MEDS ORDERED: flUPHENAZine 2.5 MG/ML (MDV) 10 ML VIAL IM PRN (10:22)
--- NOTE | 2021-09-01 10:22 | P.PN ---
Progress Note - Text Progress Note Date: 09/01/21 Interval History: Patient was seen near the nurse's desk asking for water earlier and then went back to her room. She was seen lying in her bed today and agreeable to speak to food writer briefly. She did not want to get up out of bed. She spoke about getting water earlier. She continues not responding to internal stimuli and was attempting to cooperate as best as she could. She did state that she tried to go to one group. She continues to have very poor insight and judgment. She claims that she has been taking her medications. States that she slept last night. Denying any auditory or visual hallucinations or any suicidal or homicidal ideations intent or plan. Mental Status Exam: General Appearance: Patient appears to be improving in appearance, stated age is alert, or directable today. Behavior: Patient is not agitated behavior. Not responding to internal stimuli. More directable. Speech: Patient's speech is non fluent and nonpressured, clearer Mood/Affect: Patient claims her mood is "good", affect congruent and constricted Suicidality/Homicidality: Denies Perceptions: Denies Though content/process: poverty of content. Bizarre at times, improving moderately. [place]. Memory and concentration: Unable to assess. Improved attention span Judgment and insight: Chronically poor Assessment Schizophrenia Cannabis use disorder, mild Nicotine dependence Plan: -Patient continues to meet criteria for inpatient psychiatric admission for symptom stabilization and safety. Patient has not signed adult voluntary form and medication consent and was placed in patient's chart. -Medications: Increased Prolixin 5 mg bid for psychosis then will transition onto Prolixin D DE LA FUENTE to ensure complaince. Patient cannot refuse PO prolixin and will order IM as back up -When necessary Ativan and Prolixin for agitation/aggression. -NRT - nicotine patch - on board for discharge planning. Encouraged the patient to participate in milieu. Patient is court ordered. Will continue to look into correction placement out of [facility] once patient is improved psychiatricallly. likely disch arge early next week after patient is transitioned onto DE LA FUENTE.
[2021-09-01] MEDS ORDERED: fluPHENAZine DECANOATE 25 MG/ML 5ML MDV IM ONE (11:03)
[2021-09-01 11:25] LABS: Potassium 4.6 mmol/L (3.5-5.1)
[2021-09-02 06:52] VITALS: BP 109/60; PULSE 74; TEMP 97.9
--- NOTE | 2021-09-02 10:23 | P.DS ---
Providers Date of admission: 08/26/21 20:53 Expected date of discharge: 09/02/21 Attending physician: Kj Braxton MD Consults: 08/26/21 20:57 Consult Physician Routine Consulting Provider: Kelsey French Consult Reason/Comments: medical management Do you want consulting provider notified?: Yes Primary care physician: Stated None - Discharge Diagnosis(es) (1) Schizophrenia Current Visit: Yes Status: Acute Priority: High (2) Cannabis use disorder, mild, abuse Current Visit: Yes Status: Acute Priority: Medium (3) Nicotine dependence Current Visit: Yes Status: Acute Priority: Low Hospital Course: Admission HPI: Admission note was completed by Dr Meadows "Patient presents to the ED yesterday upset and yelling she tried to attack the staff even when nobody had redirected her set any limits. Pt states she does not want to talk to me. Patient's words are garbled and unclear. Per daughter, she is worried for the patient's safety. Daughter states that her mother has been at [facility], however they will not keep her and they let her wander off. Daughter states the patient is Schizophrenic and does not wish to live with her but cannot take care of herself and needs [facility] care, which is why she brought her to the ER. The patient is unable to participate in her care she cannot give any kind of history. Past psychiatric history 3 she has been diagnosed in the past with anxiety disorder bipolar disorder major depression and schizophrenia" Hospital course: Upon admission to the unit patient was admitted involuntarily on a petition and certificate and a second certificate was completed and faxed with the courts. Patient got along well with other patients on the unit and followed unit protocol. Patient was compliant with the medications and denied any side effects throughout hospital course. Patient was transitioned off of Risperdal Consta and on to Prolixin. She was increased to a dose of Prolixin 5 mg twice a day for psychosis by mouth and then given Prolixin D 37.5 mg IM on 09/01. She will be due for her next Prolixin D injection on 09/15 and every 2 weeks thereafter. Patient did not participate in any groups while on the unit. Patient was also seen by medical team for history and physical exam. Throughout the course of the hospitalization patient gradually improved with regards to mood, anxiety, sleep and returned back to their baseline level of functioning. On the day of discharge patient denied any suicidal or homicidal ideations intent or plan denied any auditory or visual hallucinations. Patient denied any paranoia and did not endorse any delusions. Patient does have a significant history of substance abuse and was counseled on abstaining from all substances including alcohol and marijuana. Patient was also counseled on the medications and need for regular compliance and was encouraged to follow-up with their out patient appointment for mental health and also for primary care. Prior to discharge a family meeting will be arranged by social media campaign manager to answer any questions and ensure safety upon discharge. ornamental metal worker helper to help coordinate patient to be discharged back to the daughter's house under her care and will be followed closely by [facility] as patient is high risk for rehospitalization. Mental status exam: General Appearance: Patient appears to be stated age is alert, directable and cooperative. Patient is in no acute distress and has improved hygiene and grooming Behavior: Patient is calmly seated without any agitated behavior. More directable today. Speech: Patient's speech is fluent and nonpressured. Mood/Affect: Patient reports their mood is "ok", affect is congruent Suicidality/Homicidality: Patient denies having any suicidal or homicidal ideation intent or plan. Perceptions: Patient denies any auditory or visual hallucinations. Though content/process: [place], positive content, no delusions. Memory and concentration: AOX2-3, grossly intact for the purposes of this session. Judgment and insight: chronically poor, however has improved with guarded prognosis Impression: Schizophrenia Cannabis use disorder mild Nicotine dependence Plan: -Continue with discharge today as patient has improved and stabilized psychiatrically and is not currently an imminent threat to herself and/or others. Patient will remain at chronically elevated risk for harm to self and/or others due to her substance abuse and chronically poor insight and judgment. -Continue medications: Prolixin by mouth 5 mg twice a day for psychosis for 4 more days then to be discontinued. Patient was given Prolixin D 37.5 mg IM on 09/01 and will be due in 2 weeks for next dose on 09/15. -Patient was counseled on the need for medication compliance and appropriate follow-up at mental health and also primary care for medical issues. Patient verbalized understanding and agreed. -Social work to arrange for and conduct family meeting to ensure safety upon discharge and answer any questions/concerns. Social work also to arrange for patients follow up appointments with [facility] for psychiatric care along with follow up with primary care provider. -Patient counseled on abstaining from recreational drugs and marijuana and alcohol. Was informed/educated on the adverse effects on their physical and mental health. Patient verbally agreed and understood. -Patient was instructed to return to the hospital or seek immediate medical care if their psychiatric or medical symptoms do worsen or reoccur. Allergies Allergy/AdvReac Type Severity Reaction Status Date / Time No Known Allergies Allergy Verified 08/26/21 11:45 Laboratory Results WBC 7.8 k/uL (3.8-10.6) 08/29/21 11:00 RBC 4.55 m/uL (3.80-5.40) 08/29/21 11:00 Hgb 14.1 gm/dL (11.4-16.0) 08/29/21 11:00 Hct 44.7 % (34.0-46.0) 08/29/21 11:00 MCV 98.3 fL (80.0-100.0) 08/29/21 11:00 MCH 30.9 pg (25.0-35.0) 08/29/21 11:00 MCHC 31.5 g/dL (31.0-37.0) 08/29/21 11:00 RDW 13.1 % (11.5-15.5) 08/29/21 11:00 Plt Count 344 k/uL (150-450) 08/29/21 11:00 MPV 7.3 08/29/21 11:00 Neutrophils % 74 % 08/29/21 11:00 Lymphocytes % 15 % 08/29/21 11:00 Monocytes % 6 % 08/29/21 11:00 Eosinophils % 2 % 08/29/21 11:00 Basophils % 1 % 08/29/21 11:00 Neutrophils # 5.8 k/uL (1.3-7.7) 08/29/21 11:00 Lymphocytes # 1.2 k/uL (1.0-4.8) 08/29/21 11:00 Monocytes # 0.5 k/uL (0-1.0) 08/29/21 11:00 Eosinophils # 0.1 k/uL (0-0.7) 08/29/21 11:00 Basophils # 0.1 k/uL (0-0.2) 08/29/21 11:00 Sodium 130 mmol/L (137-145) L 09/01/21 10:25 Potassium 4.6 mmol/L (3.5-5.1) 09/01/21 10:25 Chloride 99 mmol/L (98-107) 09/01/21 10:25 Carbon Dioxide 21 mmol/L (22-30) L 09/01/21 10:25 Anion Gap 10 mmol/L 09/01/21 10:25 BUN 10 mg/dL (7-17) 08/29/21 11:00 Creatinine 0.64 mg/dL (0.52-1.04) 08/29/21 11:00 Est GFR (CKD-EPI)AfAm >90 (>60 ml/min/1.73 sqM) 08/29/21 11:00 Est GFR (CKD-EPI)NonAf >90 (>60 ml/min/1.73 sqM) 08/29/21 11:00 Glucose 86 mg/dL (74-99) 08/29/21 11:00 Calcium 9.2 mg/dL (8.4-10.2) 08/29/21 11:00 Total Bilirubin 0.6 mg/dL (0.2-1.3) 08/29/21 11:00 AST 27 U/L (14-36) 08/29/21 11:00 ALT 22 U/L (4-34) 08/29/21 11:00 Alkaline Phosphatase 78 U/L (38-126) 08/29/21 11:00 Total Protein 7.1 g/dL (6.3-8.2) 08/29/21 11:00 Albumin 4.0 g/dL (3.5-5.0) 08/29/21 11:00 Triglycerides 115.00 mg/dL (0.00-149.00) 08/29/21 11:00 Cholesterol 182.00 mg/dL (0.00-200.00) 08/29/21 11:00 LDL Cholesterol, Calc 86.6 mg/dL (0.0-131.0) 08/29/21 11:00 VLDL Cholesterol, Calc 23.00 mg/dL (5.00-40.00) 08/29/21 11:00 HDL Cholesterol 72.40 mg/dL (40.00-60.00) H 08/29/21 11:00 Cholesterol/HDL Ratio 2.51 Ratio 08/29/21 11:00 TSH 0.542 mIU/L (0.465-4.680) 08/29/21 11:00 Urine Color Colorless 08/26/21 13:11 Urine Appearance Clear (Clear) 08/26/21 13:11 Urine pH 6.0 (5.0-8.0) 08/26/21 13:11 Ur Specific [place] 1.004 (1.001-1.035) 08/26/21 13:11 Urine Protein Negative (Negative) 08/26/21 13:11 Urine Glucose (UA) Negative (Negative) 08/26/21 13:11 Urine Ketones Negative (Negative) 08/26/21 13:11 Urine Blood Negative (Negative) 08/26/21 13:11 Urine Nitrite Negative (Negative) 08/26/21 13:11 Urine Bilirubin Negative (Negative) 08/26/21 13:11 Urine Urobilinogen <2.0 mg/dL (<2.0) 08/26/21 13:11 Ur Leukocyte Esterase Negative (Negative) 08/26/21 13:11 Urine HCG, Qual Not Detected (Not Detectd) 08/26/21 13:11 Urine Opiates Screen Not Detected (NotDetected) 08/26/21 13:11 Ur Oxycodone Screen Not Detected (NotDetected) 08/26/21 13:11 Urine Methadone Screen Not Detected (NotDetected) 08/26/21 13:11 Ur Propoxyphene Screen Not Detected (NotDetected) 08/26/21 13:11 Ur Barbiturates Screen Not Detected (NotDetected) 08/26/21 13:11 U Tricyclic Antidepress Not Detected (NotDetected) 08/26/21 13:11 Ur Phencyclidine Scrn Not Detected (NotDetected) 08/26/21 13:11 Ur Amphetamines Screen Not Detected (NotDetected) 08/26/21 13:11 U Methamphetamines Scrn Not Detected (NotDetected) 08/26/21 13:11 U Benzodiazepines Scrn Not Detected (NotDetected) 08/26/21 13:11 Urine Cocaine Screen Not Detected (NotDetected) 08/26/21 13:11 U Marijuana (THC) Screen Not Detected (NotDetected) 08/26/21 13:11 Coronavirus (PCR) Not Detected (Not Detectd) 08/26/21 13:59 Vital Signs Temp 97.9 F 09/02/21 06:51 Pulse 74 09/02/21 06:51 Resp 14 09/02/21 06:51 BP 109/60 09/02/21 06:51 Pulse Ox 97 09/02/21 06:51 Patient Condition at Discharge: Stable Plan - Discharge Summary New Discharge Prescriptions: New fluPHENAZine [Prolixin] 5 mg PO BID 4 Days tab Acetaminophen Tab [Tylenol] 650 mg PO Q4HR PRN tab PRN Reason: Pain/Discomfort fluPHENAZine decanoate [Prolixin Decanoate] 37.5 mg IM [id number] #1 each Discontinued risperiDONE MICROSPHERES [RisperDAL CONSTA] 50 mg IM Q14D #1 each Discharge Medication List Acetaminophen Tab [Tylenol] 650 mg PO Q4HR PRN tab 09/02/21 [Rx] fluPHENAZine [Prolixin] 5 mg PO BID 4 Days tab 09/02/21 [Rx] fluPHENAZine decanoate [Prolixin Decanoate] 37.5 mg IM [id number] #1 each 09/02/21 [Rx] Follow up Appointment(s)/Referral(s): [facility] [Outside] - 09/08/21 1:00 pm (09-08-21 @ 1:00 with Carolyne Bass Doctor appt TBD on Sunday (09/05/21)) None,Stated [Primary Care Provider] - 1-2 days Activity/Diet/Wound Care/Special Instructions: Activity and diet as tolerated. Avoid the use of street drugs and alcohol. Take all medications as prescribed. When you are in need of refills on your medications please contact your medical provider and/or outpatient psychiatrist to have this done. Please go to scheduled outpatient appointment for aftercare treatment. If symptoms return or become worse, call the crisis line at and/or go to the nearest emergency room for evaluation Discharge Disposition: HOME SELF-CARE
== END 2021-09-02 11:30 | disposition home or self-care (01) | DRG 880 ==
LOC: EC 11:36 → 3MHU 20:53
PROVIDERS: ADMIT Psychiatry & Neurology Psychiatry; ATTEND Psychiatry & Neurology Psychiatry
DX: F99 Mental disorder, not otherwise specified (principal); F20.9 Schizophrenia, unspecified; Z20.822 Contact with and (suspected) exposure to COVID-19; F17.210 Nicotine dependence, cigarettes, uncomplicated; Z53.29 Procedure and treatment not carried out because of patient's decision for other reasons; F41.9 Anxiety disorder, unspecified; F60.9 Personality disorder, unspecified; G40.909 Epilepsy, unspecified, not intractable, without status epilepticus; H91.90 Unspecified hearing loss, unspecified ear; J44.9 Chronic obstructive pulmonary disease, unspecified; Z87.11 Personal history of peptic ulcer disease; Z87.440 Personal history of urinary (tract) infections; F12.10 Cannabis abuse, uncomplicated; Z81.8 Family history of other mental and behavioral disorders; G43.909 Migraine, unspecified, not intractable, without status migrainosus; R62.50 Unspecified lack of expected normal physiological development in childhood; Z79.899 Other long term (current) drug therapy
CPT/HCPCS: 80051; 80053; 80061; 80306; 81003; 81025; 82075; 84443; 85025; 87635; 96372; 99284

== ENCOUNTER 2021-12-09 12:51 | Inpatient (IN) | payer MEDICARE, OTHER ==
--- NOTE | 2021-12-09 13:18 | ED ---
General Adult HPI - General Chief complaint: Urogenital Stated complaint: urinary retention Time Seen by Provider: 12/09/21 12:59 Source: patient, EMS, RN notes reviewed Mode of arrival: EMS Limitations: physical limitation - History of Present Illness Initial comments: Patient is a pleasant 56-year-old female with history of MS, schizophrenia and hard of hearing presenting to the emergency Department with urinary urgency. Patient has been having difficulty urinating for the past 3 days. Patient did urinate a large amount in the emergency department. Patient states there is some mild fullness in the pelvic region. Patient does have history of similar symptoms previously. Patient states she has been a little bit fatigued recently. - Related Data Previous Rx's Medication Instructions Recorded Acetaminophen Tab [Tylenol] 650 mg PO Q4HR PRN tab 09/02/21 fluPHENAZine [Prolixin] 5 mg PO BID 4 Days tab 09/02/21 fluPHENAZine decanoate [Prolixin 37.5 mg IM [id number] #1 each 09/02/21 Decanoate] Allergies Allergy/AdvReac Type Severity Reaction Status Date / Time No Known Allergies Allergy Verified 12/09/21 13:13 Review of Systems ROS Statement: Those systems with pertinent positive or pertinent negative responses have been documented in the HPI. ROS Other: All systems not noted in ROS Statement are negative. Constitutional: Denies: fever Eyes: Denies: eye pain ENT: Denies: ear pain Respiratory: Denies: cough Cardiovascular: Denies: chest pain Endocrine: Reports: fatigue Gastrointestinal: Reports: as per HPI Genitourinary: Reports: urgency Musculoskeletal: Denies: back pain Skin: Denies: rash Neurological: Reports: as per HPI Past Medical History Past Medical History: COPD, GERD/Reflux, GI Bleed, Seizure Disorder Additional Past Medical History / Comment(s): MS, hearing impaired, seizures when in her 30s last 2yrs ago, migraines, Upper GI bleed, peptic ulcer disease, developmentally delayed, hypotension, UTI History of Any Multi-Drug Resistant Organisms: None Reported Past Surgical History: Ear Surgery Additional Past Surgical History / Comment(s): cyst removed from coccyx, multiple bilateral ear surgeries. Past Anesthesia/Blood Transfusion Reactions: No Reported Reaction Past Psychological History: Anxiety, Bipolar, Depression, Schizophrenia Smoking Status: Current every day smoker Past Alcohol Use History: None Reported Past Drug Use History: None Reported - Past Family History Father Additional Family Medical History / Comment(s): Father at age 70 from myocardial infarction. na Mother Additional Family Medical History / Comment(s): Patient's mother is alive at age 70. Patient does not know her medical history. Brother(s) Additional Family Medical History / Comment(s): Patient has 1 brother committed suicide at 48. Sister(s) Additional Family Medical History / Comment(s): Patient has 2 sisters with no major medical problems. General Exam Limitations: physical limitation General appearance: alert, in no apparent distress Head exam: Present: normocephalic Eye exam: Present: normal appearance Neck exam: Present: normal inspection Respiratory exam: Present: normal lung sounds bilaterally Cardiovascular Exam: Present: regular rate, normal rhythm GI/Abdominal exam: Present: soft. Absent: tenderness Extremities exam: Present: normal inspection Neurological exam: Present: alert. Absent: motor sensory deficit Psychiatric exam: Present: normal affect, normal mood Skin exam: Present: normal color Course Vital Signs 12/09/21 13:07 Temperature 98.4 F Pulse Rate 88 Respiratory 18 Rate Blood Pressure 131/77 O2 Sat by Pulse 98 Oximetry Medical Decision Making - Medical Decision Making Patient reevaluated. Patient updated. Case discussed with Dr. Reaves, who will admit covering hospital call with neurology consult and does agree with steroid dose - Lab Data Result diagrams: 12/09/21 13:34 12/09/21 13:34 Lab Results 12/09/21 12/09/21 12/09/21 Range/Units 13:34 13:34 13:34 WBC 11.7 H (3.8-10.6) k/uL RBC 4.34 (3.80-5.40) m/uL Hgb 13.7 (11.4-16.0) gm/dL Hct 39.9 (34.0-46.0) % MCV 91.9 (80.0-100.0) fL MCH 31.5 (25.0-35.0) pg MCHC 34.3 (31.0-37.0) g/dL RDW 12.8 (11.5-15.5) % Plt Count 443 (150-450) k/uL MPV 6.8 Neutrophils % 80 % Lymphocytes % 12 % Monocytes % 6 % Eosinophils % 2 % Basophils % 0 % Neutrophils # 9.3 H (1.3-7.7) k/uL Lymphocytes # 1.4 (1.0-4.8) k/uL Monocytes # 0.7 (0-1.0) k/uL Eosinophils # 0.2 (0-0.7) k/uL Basophils # 0.0 (0-0.2) k/uL Sodium 128 L (137-145) mmol/L Potassium 3.7 (3.5-5.1) mmol/L Chloride 99 (98-107) mmol/L Carbon Dioxide 21 L (22-30) mmol/L Anion Gap 8 mmol/L BUN 9 (7-17) mg/dL Creatinine 0.51 L (0.52-1.04) mg/dL Est GFR (CKD-EPI)AfAm >90 (>60 ml/min/1.73 sqM) Est GFR (CKD-EPI)NonAf >90 (>60 ml/min/1.73 sqM) Glucose 109 H (74-99) mg/dL Calcium 8.6 (8.4-10.2) mg/dL Total Bilirubin 0.6 (0.2-1.3) mg/dL AST 31 (14-36) U/L ALT 28 (4-34) U/L Alkaline Phosphatase 95 (38-126) U/L Total Protein 6.5 (6.3-8.2) g/dL Albumin 3.7 (3.5-5.0) g/dL Urine Color Colorless Urine Appearance Clear (Clear) Urine pH 6.5 (5.0-8.0) Ur Specific [place] 1.002 (1.001-1.035) Urine Protein Negative (Negative) Urine Glucose (UA) Negative (Negative) Urine Ketones Negative (Negative) Urine Blood Negative (Negative) Urine Nitrite Negative (Negative) Urine Bilirubin Negative (Negative) Urine Urobilinogen <2.0 (<2.0) mg/dL Ur Leukocyte Esterase Negative (Negative) - Radiology Data Radiology results: image reviewed (Chest x-ray shows no acute process) Disposition Clinical Impression: History of multiple sclerosis, Urinary retention Disposition: ADMITTED IP TO THIS [facility] Is patient prescribed a controlled substance at d/c from ED?: No Referrals: None,Stated [Primary Care Provider] - 1-2 days Time of Disposition: 15:20
--- NOTE | 2021-12-09 13:53 | XR ---
EXAMINATION TYPE: XR chest 2V DATE OF EXAM: 12/09/2021 COMPARISON: Chest x-ray August 06, 2021 HISTORY: Weakness. TECHNIQUE: Frontal and lateral views of the chest are obtained. FINDINGS: Lateral view suboptimal due to oblique orientation There is no suspicious new focal air spa ce opacity, pleural effusion, or pneumothorax seen. The cardiac silhouette size remains within lurdes l limits. The osseous structures are intact. IMPRESSION: No acute pulmonary process. No significant change from prior.
[2021-12-09 14:06] LABS: Basophils % (A) 0 %; Eosinophils # (A) 0.2 k/uL (0-0.7); Eosinophils % (A) 2 %; HCT 39.9 % (34.0-46.0); HGB 13.7 gm/dL (11.4-16.0); Lymphocytes # (A) 1.4 k/uL (1.0-4.8); Lymphocytes % (A) 12 %; MCH 31.5 pg (25.0-35.0); MCHC 34.3 g/dL (31.0-37.0); MCV 91.9 fL (80.0-100.0); Mean Platelet Volume 6.8; Monocytes # (A) 0.7 k/uL (0-1.0); Monocytes % (A) 6 %; Neutrophils # (A) 9.3 k/uL (1.3-7.7); Neutrophils % (A) 80 %; Platelet Count 443 k/uL (150-450); RBC 4.34 m/uL (3.80-5.40); RDW 12.8 % (11.5-15.5); WBC 11.7 k/uL (3.8-10.6)
[2021-12-09 14:24] LABS: ALT 28 U/L (4-34); African American GFR (CKD) >90 (>60 ml/min/1.73 sqM); Anion Gap 8 mmol/L; Blood Urea Nitrogen 9 mg/dL (7-17); Calcium 8.6 mg/dL (8.4-10.2); Carbon Dioxide 21 mmol/L (22-30); Chloride 99 mmol/L (98-107); Glucose 109 mg/dL (74-99); Non-African American GFR(CKD) >90 (>60 ml/min/1.73 sqM); Sodium 128 mmol/L (137-145); Total Bilirubin 0.6 mg/dL (0.2-1.3)
[2021-12-09 14:30] LABS: Appearance,Urine Clear (Clear); Bilirubin,Urine Negative (Negative); Blood,Urine Negative (Negative); Color,Urine Colorless; Glucose,Urine (UA) Negative (Negative); Ketones,Urine Negative (Negative); Leukocyte Esterase,Urine Negative (Negative); Nitrite,Urine Negative (Negative); PH, Urine 6.5 (5.0-8.0); Protein,Urine Negative (Negative); Specific Gravity,Urine 1.002 (1.001-1.035); Urobilinogen,Urine <2.0 mg/dL (<2.0)
[2021-12-09 14:41] LABS: AST 31 U/L (14-36); Albumin 3.7 g/dL (3.5-5.0); Alkaline Phosphatase 95 U/L (38-126); Potassium 3.7 mmol/L (3.5-5.1); Total Protein 6.5 g/dL (6.3-8.2)
[2021-12-09] MEDS ORDERED: SODIUM CHLORIDE 0.9% 500 ML 500 ML IV STA (14:52)
[2021-12-09] MEDS ORDERED: NALOXONE 0.4 MG/ML 1 ML VIAL IV PRN (15:20)
[2021-12-09] MEDS ORDERED: methylPREDNISolone SOD SUCCIN 500 MG in SODIUM CHLORIDE 0.9% 100 ML IVPB STA (15:32)
--- NOTE | 2021-12-09 16:13 | XR ---
EXAMINATION TYPE: XR KUB DATE OF EXAM: 12/09/2021 Comparison: 04/04/2019 Clinical History: 56-year-old female constipation Findings: Lung bases are clear. No evidence for free intraperitoneal air. A solitary mildly distended small bowel loop in the left mid abdomen measuring 3.3 cm in caliber. No differential air-fluid. There is mild to moderate scattered stool particularly in the right side of t he colon. No suspicious calcifications are seen. Impression: 1. Solitary mildly distended small bowel loop in the left mid abdomen measuring 3.3 cm in caliber. Th is could be transient or could represent a regional ileus/enteritis. 2. Overall nonobstructive bowel gas pattern. No free air. 3. Mild to moderate stool burden.
[2021-12-09] MEDS: SODIUM CHLORIDE 0.9% 1,000 ML IV SCH ×2 (16:53→17:58)
--- NOTE | 2021-12-09 17:26 | P.CNNES ---
History of Present Illness Consult date: 12/09/21 Requesting physician: Lamberto Daniels Reason for Consult: MS, urinary retention History of Present Illness: This is 56-year-old with history of multiple sclerosis, very heard of hearing, schizophrenria who comes to emergency department because of urinary retention and bowel incontinence. It was somewhat difficulty to obtain history from patient but per primary team, she has contipation for the past one week and felt urinary retention but today in the ED she was able to urinate. As well as some fatigue. She noticed her symptoms since being on Fluphenazine for her schizophrenia and medications were modified. It is hard to obtain if patient is having any focal weakness or numbness. She is not on any disease modifying therapy for her MS. She has not followed-up with neurologist for some time. Review of Systems Review of system:: Is limited because of her condition. Past Medical History Past Medical History: COPD, GERD/Reflux, GI Bleed, Seizure Disorder Additional Past Medical History / Comment(s): MS, hearing impaired, seizures when in her 30s last 2yrs ago, migraines, Upper GI bleed, peptic ulcer disease, developmentally delayed, hypotension, UTI History of Any Multi-Drug Resistant Organisms: None Reported Past Surgical History: Ear Surgery Additional Past Surgical History / Comment(s): cyst removed from coccyx, mul tiple bilateral ear surgeries. Past Anesthesia/Blood Transfusion Reactions: No Reported Reaction Past Psychological History: Anxiety, Bipolar, Depression, Schizophrenia Smoking Status: Current every day smoker Past Alcohol Use History: None Reported Past Drug Use History: None Reported - Past Family History Father Additional Family Medical History / Comment(s): Father at age 70 from myocardial infarction. na Mother Additional Family Medical History / Comment(s): Patient's mother is alive at age 70. Patient does not know her medical history. Brother(s) Additional Family Medical History / Comment(s): Patient has 1 brother committed suicide at 48. Sister(s) Additional Family Medical History / Comment(s): Patient has 2 sisters with no major medical problems. Medications and Allergies Home Medications Medication Instructions Recorded Confirmed Type Cholecalciferol [Vitamin D3 (125 125 mcg PO MOWEFR 12/09/21 12/09/21 History Mcg = 5000 Iu)] Magnesium Oxide 400 mg PO DAILY 12/09/21 12/09/21 History Pantoprazole [Protonix] 40 mg PO BID 12/09/21 12/09/21 History fluPHENAZine HCl 10 mg PO BID 12/09/21 12/09/21 History fluPHENAZine decanoate [Prolixin 37.5 mg IM Q14D 12/09/21 12/09/21 History Decanoate] Allergies Allergy/AdvReac Type Severity Reaction Status Date / Time No Known Allergies Allergy Verified 12/09/21 16:07 Physical Examination - Vital Signs Vital Signs: Vital Signs Temp Pulse Resp BP Pulse Ox 12/09/21 13:07 98.4 F 88 18 131/77 98 Intake and Output 12/09/21 12/09/21 12/09/21 06:59 14:59 22:59 Other: Weight 63.503 kg GENERAL: The patient is lying in bed and is not in acute distress. CHEST: The heart rate is regular rate rhythm. No murmurs to auscultation. LUNG: Clear to auscultation bilaterally no wheezing noted throughout. Not l abored breathing. ABDOMEN/GI: Bowel sounds present in all 4 quadrants. No tenderness to palpation throughout. PSYCH: Is tearful initially then clapping her hands with samir NEUROLOGICAL: Limited because of her cooperation and is deaf. Higher mental function: The patient is awake, alert. She was able to name pen and watch. Patient is following few simple commands with helps. Has childish behavior and clapping. Cranial nerves: The pupils are round, equal and reactive to light. No facial weakness. Is deaf. Motor: Gait had wide base gait. The strength is hard to assess individual muscle because of her cooperation. But is moving all extremities above garvity. Normal tone and bulk. Cerebellum: Normal finger to nose bilaterally. Sensation: Unable to assess light touch. Reflexes (right/left): Patient refused. Results - Laboratory Findings CBC and BMP: 12/09/21 13:34 12/09/21 13:34 Abnormal Lab Findings: Abnormal Labs 12/09/21 12/09/21 13:34 13:34 WBC 11.7 H Neutrophils # 9.3 H Sodium 128 L Carbon Dioxide 21 L Creatinine 0.51 L Glucose 109 H Assessment and Plan Assessment: * Constipation with urinary retention for past one week: Appears due to medication induced (Fluphenazine which is anticholingergic). Currently was able to urinate in our facility. Cannot rule out MS exacerbation but unable to determine her baseline and could not obtain a good physical exam because of her cooperation. * History of Multiple Sclerosis but not on disease modifying therapy * Very hard of hearing/Deaf * Schizophrenia Plan: I ordered CT of the head and CT cervical spine without. If continues to have symptoms recommend if possible MRI Brain, C- and Thoracic spine to rule out MS exacerbation. Ordered TSH, vitamin B12, folate level. Patient was given IV Solu-Medrol 500 mg once in the ED. I'll also continue the IV Solu-Medrol for tonight and for tomorrow. Recommend sugar control to the primary team. Needs to follow-up with a neurologist as an outpatient. She's currently not on any disease modifying therapy. Every 4 hours neuro checks Consulted PT and OT for gait training Recommend Psychiatry consultation because of medication modification. Patient is fall precaution. We'll defer the rest of the medical management to the primary team. The plan is discussed with primary team and her nurse. Thank you for the consultation. Ari Hanson M.D. Neuro-Hospitalist Time with Patient: Greater than 30
[2021-12-09] MEDS ORDERED: MELATONIN 3 MG TABLET PO PRN (17:34)
[2021-12-09] MEDS ORDERED: ACETAMINOPHEN TAB 325 MG TAB PO PRN (17:34)
[2021-12-09] MEDS ORDERED: ONDANSETRON 4 MG/2 ML VIAL IVP PRN (17:34)
--- NOTE | 2021-12-09 17:41 | P.HPIM ---
History of Present Illness H&P Date: 12/09/21 (delayed charting seen at 1400) Chief Complaint: urinary retention Patient is a 56-year-old female with extensive past medical history including deafness, schizophrenia, multiple sclerosis, and prior GI bleed who presented to the hospital with complaints of being unable to urinate for the last 1 week. On arrival to the ER she underwent an extensive evaluation. Vital signs were within normal limits. White blood cell count 11.7, sodium 128 (which is at b aseline for the patient). Urinalysis was negative. Patient was found have urinary retention in the ER. There is concern for possible MS flare and arrangements were made for observation. Patient seen and examined at bedside. She is very difficult to understand due to all heart. She has. All communication is done through writing questions and the patient answering back. She is also not very aware of her medical history which is obtained from thorough record review including my evaluation of the patient on 10/30/19. She reports that she has not been urinating for about a week. She has now started urinating once arriving in the ER. Her biggest concern now is that she has not had a bowel movement in the last 3-4 days. She denies any nausea, vomiting, abdominal pain. She states she has been eating and drinking well. Her only change in medications is that her psych medication was up from 5-10. She is very anxious about being here and keeps asking for her mother. She denies any recent fevers or chills. She denies any weakness. She denies any difficulty with her left foot that appears to be slightly rotated in. She does admit to a history of multiple sclerosis but states she has not seen a neurologist in years and does not take any injections. She reports frequent falls and states that she fell last night. She does state that she was hurt but that is unable to tell me where she was hurt. Pertinent positives and negatives as discussed in HPI, a complete review of s ystems was performed and all other systems are negative. Vital signs reviewed General: nontoxic, no distress, appears at stated age, distressed Derm: warm, dry Head: atraumatic, normocephalic, symmetric Eyes: EOMI, no lid lag, anicteric sclera, pupils equal round reactive to light ENT: Nose and ears atraumatic, no thrush, no pharyngeal erythema Neck: No thyromegaly, no cervical lymphadenopathy, trachea midline, supple Mouth: no lip lesion, mucus membranes dry Cardiovascular: S1S2 reg, no murmur, positive posterior tibial pulse bilateral, no edema, capillary refill less than 2 seconds Lungs: clear to auscultation bilateral, no rhonchi, no rales, no wheeze, no accessory muscle use Abdominal: soft, +tender to palpation suprapubin with palpable bladder, no guarding, no appreciable organomegaly, normal bowel sounds Ext: no gross muscle atrophy, + slight inawrd rotation of left foot, wide base shuffeling gait Neuro: CN II-XII grossly intact, light touch intact all 4 extremities, finger to nose within normal limits, Psych: Alert, oriented, anxious and tearful. Assessment/Plan: Urinary retention Constipation - Check KUB if not sigs of obstruction then start laxative - nursing to check post void residual - consult neurology - concern that urinary retention could be coming form the anitcholenergic effect of fluphenazine due to retention and wide based gait. Consult psych to see if in agreement that this could be from Frequent falls with side based gait - PT/OT - fall precuations Chronic: COPD without exacerbation GERD Seizure disorder Hearing impaired Developmental delay Tobacco abuse The patient is admitted with an anticipated less than 2 midnight stay for evaluation of urinary retention and constipation. DVT prophylaxis: SCDs Discussed with: PAtient, nursing, ed Dr. Margie marcial Anticipated discharge date: in 1-[address]: home A total of 65 minutes was spent on the care of this complex patient more than 50% of the time was spent in counseling and care coordination. Past Medical History Past Medical History: COPD, GERD/Reflux, GI Bleed, Seizure Disorder Additional Past Medical History / Comment(s): MS, hearing impaired, seizures when in her 30s last 2yrs ago, migraines, Upper GI bleed, peptic ulcer disease, developmentally delayed, hypotension, UTI History of Any Multi-Drug Resistant Organisms: None Reported Past Surgical History: Ear Surgery Additional Past Surgical History / Comment(s): cyst removed from coccyx, multiple bilateral ear surgeries. Past Anesthesia/Blood Transfusion Reactions: No Reported Reaction Past Psychological History: Anxiety, Bipolar, Depression, Schizophrenia Smoking Status: Current every day smoker Past Alcohol Use History: None Reported Past Drug Use History: None Reported - Past Family History Father Additional Family Medical History / Comment(s): Father at age 70 from myocardial infarction. na Mother Additional Family Medical History / Comment(s): Patient's mother is alive at age 70. Patient does not know her medical history. Brother(s) Additional Family Medical History / Comment(s): Patient has 1 brother committed suicide at 48. Sister(s) Additional Family Medical History / Comment(s): Patient has 2 sisters with no major medical problems. Medications and Allergies Home Medications Medication Instructions Recorded Confirmed Type Cholecalciferol [Vitamin D3 (125 125 mcg PO MOWEFR 12/09/21 12/09/21 History Mcg = 5000 Iu)] Magnesium Oxide 400 mg PO DAILY 12/09/21 12/09/21 History Pantoprazole [Protonix] 40 mg PO BID 12/09/21 12/09/21 History fluPHENAZine HCl 10 mg PO BID 12/09/21 12/09/21 History fluPHENAZine decanoate [Prolixin 37.5 mg IM Q14D 12/09/21 12/09/21 History Decanoate] Allergies Allergy/AdvReac Type Severity Reaction Status Date / Time No Known Allergies Allergy Verified 12/09/21 16:07 Physical Exam Osteopathic Statement: *. No significant issues noted on an osteopathic structural exam other than those noted in the History and Physical/Consult. Vitals: Vital Signs Temp Pulse Pulse Resp BP BP Pulse Ox 12/09/21 17:13 98.3 F 88 16 121/79 100 12/09/21 13:07 98.4 F 88 18 131/77 98 Intake and Output 12/09/21 12/09/21 12/09/21 06:59 14:59 22:59 Other: Weight 63.503 kg Results CBC & Chem 7: 12/09/21 13:34 12/09/21 13:34 Labs: Abnormal Lab Results - Last 24 Hours (Table) 12/09/21 12/09/21 Range/Units 13:34 13:34 WBC 11.7 H (3.8-10.6) k/uL Neutrophils # 9.3 H (1.3-7.7) k/uL Sodium 128 L (137-145) mmol/L Carbon Dioxide 21 L (22-30) mmol/L Creatinine 0.51 L (0.52-1.04) mg/dL Glucose 109 H (74-99) mg/dL
[2021-12-09] MEDS: PANTOPRAZOLE 40 MG TABLET PO SCH (18:08)
[2021-12-09] MEDS: IOPAMIDOL CONTRAST (ORAL USE) VIAL PO PRN ×2 (18:08→19:41)
--- NOTE | 2021-12-09 21:31 | CT ---
EXAMINATION TYPE: CT abdomen pelvis wo con DATE OF EXAM: 12/09/2021 COMPARISON: 10/04/2017 HISTORY: colitis/enteritis/urinary retention.hx of MS. pt is AMS CT DLP: 378.50 mGycm Automated exposure control for dose reduction was used. Images obtained from the diaphragm to the floor the pelvis with no IV contrast. There is oral contras t. Lung bases are clear. No pleural effusion. There is moderate hiatal hernia. Heart size is normal. No pericardial effusion. Liver spleen stomach pancreas and bladder appear intact. The bile ducts are not dilated. There is no adrenal mass. Kidneys of normal size and contour. No hydronephrosis. Ureters are not dila shayne. There is no retroperitoneal adenopathy. Bladder distends smoothly. No inguinal hernia. No free f luid in the pelvis. Uterus is anteverted. Lumbar vertebrae have normal alignment. No compression frac ture. There is vacuum disc at L5-S1. The bony pelvis is intact. Hip joints are intact. There is no mesenteric edema. No ascites or free air. No bowel obstruction. There is some contrast in the appendix which appears normal. IMPRESSION: No acute abnormality of the abdomen and pelvis. No evidence of inflammatory bowel disease. Moderate hiatal hernia. No adverse change compared to old exam. Hiatal hernia slightly increased.
--- NOTE | 2021-12-09 23:19 | P.EN ---
patient ripped off her IV access , she is refusing another IV access, she has glucocorticoid dose scheduled at 9pm patient had a dose given around 1800 , she received 500 mg IV of met hylprednisolone. for MS exacerbation . this is ordered q12 hrs. I asked the RN on the case to skip 2100 dose , and try again with IV access in the morning to receive her second dose. if she continues to refuse IV access then will switch to PO dose of prednisone 625 mg BID
[2021-12-09] MEDS: methylPREDNISolone SOD SUCCIN 500 MG in SODIUM CHLORIDE 0.9% 100 ML IVPB SCH (23:31)
--- NOTE | 2021-12-09 23:57 | CT ---
EXAMINATION TYPE: CT brain cspine wo con DATE OF EXAM: 12/09/2021 COMPARISON: CT brain 10/31/2019 HISTORY: hx of MS. pt is AMS CT DLP: 2369.50 mGycm Automated exposure control for dose reduction was used. There is cerebral cortical atrophy. There is moderate patchy hypodensity in the periventricular white matter. There is no mass effect or midline shift. There is no evidence of intracranial hemorrhage. T he calvarium is intact. The cervical vertebra show mild straightening. There is some degenerative disc space narrowing at C5- 6 and C6-7 with spurring of the endplates. Facet joints are intact. No compression fracture. No sublu xation. No evidence of focal bone destruction. IMPRESSION: Cerebral atrophy and extensive white matter changes that could relate to multiple lacunar infarcts or demyelinating disease. No significant change compared to old exam. Spondylotic changes in the lower cervical spine at C5-6 and C6-7. No fracture.
[2021-12-10] MEDS: HEPARIN SODIUM,PORCINE/PF 5,000 UNIT/0.5 ML SYRINGE SQ SCH ×4 (00:26→23:57)
[2021-12-10] MEDS: methylPREDNISolone SOD SUCCIN 500 MG in SODIUM CHLORIDE 0.9% 100 ML IVPB SCH ×2 (08:14→20:48)
[2021-12-10 08:42] LABS: HCT 41.3 % (37.2-46.3); HGB 13.8 g/dL (12.0-15.0); MCH 29.9 pg (27.0-32.0); MCHC 33.4 g/dL (32.0-37.0); MCV 89.6 fL (80.0-97.0); Mean Platelet Volume 8.9 fL (9.5-12.2); NRBC Per 100 WBC 0 /100 WBCS (0.0-0.0); Platelet Count 518 X 10*3/uL (140-440); RBC 4.61 X 10*6/uL (4.10-5.20); RDW 12.8 % (11.5-14.5); WBC 12.83 X 10*3/uL (4.50-10.00)
[2021-12-10] MEDS: NICOTINE 14MG/24HR PATCH TRANSDERM SCH ×2 (09:03→09:06)
[2021-12-10] MEDS: PANTOPRAZOLE 40 MG TABLET PO SCH ×2 (09:03→17:37)
[2021-12-10 10:50] LABS: African American GFR (CKD) 119.8 (60.0-200.0); Albumin/Globulin Ratio 1.67 (1.60-3.17); Anion Gap 12.4 mmol/L (10.00-18.00); BUN/Creat Ratio 13.83 Ratio (12.00-20.00); Blood Urea Nitrogen 8.3 mg/dL (9.0-27.0); Calcium 9.6 mg/dL (8.7-10.3); Carbon Dioxide 22.6 mmol/L (20.0-27.5); Globulin 2.4 g/dL (1.6-3.3); Magnesium 1.8 mg/dL (1.5-2.4); Non-African American GFR(CKD) 103.3 (60.0-200.0); Phosphorus 2.9 mg/dL (2.4-5.1); Potassium 4.5 mmol/L (3.5-5.5); Total Bilirubin 0.4 mg/dL (0.30-1.20); Total Protein 6.4 g/dL (6.2-8.2)
--- NOTE | 2021-12-10 10:59 | CT ---
EXAMINATION TYPE: CT thor lumbar spine wo con DATE OF EXAM: 12/10/2021 COMPARISON: None. HISTORY: urinary retention. rule out obstruction. Pain. History of multiple sclerosis. CT DLP: 865.7 mGycm Automated exposure control for dose reduction was used. FINDINGS: There are 5 lumbar-type vertebra. There is some straightening of the thoracolumbar spine. Mild height loss with sclerosis along the inferior T8 endplate. No acute fracture or dislocation in the thoracol umbar spine. Moderate to severe disc space narrowing and vacuum disc phenomenon and mild to moderate spurring at the lumbosacral junction. Axial images at L4-L5 level show mild/moderate facet arthropathy and ligamentum flavum hypertrophy sl ightly effacing posterior lateral thecal sac along with mild/moderate central disc protrusion effacin g anterior thecal sac. Axial images at L5-S1 level show a right paracentral disc protrusion or spinal canal is preserved. Th ere is mild facet arthropathy bilaterally. There is moderate bilateral neural foraminal narrowing. No additional significant disc herniations in the thoracolumbar spine. There is mild emphysematous ch lynette in the upper lungs identified. There is small to moderate size hiatal hernia. Contrast from rece nt CT still fills portions of colon. Mild to moderately distended bladder is partially imaged. IMPRESSION: As above.
--- NOTE | 2021-12-10 13:06 | P.PN ---
Subjective Progress Note Date: 12/10/21 Hospital Course: ith extensive past medical history including deafness, schizophrenia, multiple sclerosis, and prior GI bleed who presented to the hospital with complaints of being unable to urinate for the last 1 week. On arrival to the ER she underwent an extensive evaluation. Vital signs were within normal limits. White blood cell count 11.7, sodium 128 (which is at baseline for the patient). Urinalysis was negative. Patient was found have urinary retention in the ER. There is concern for possible MS flare and arrangements were made for observation. Patient seen and examined at bedside. She is very difficult to understand due to all heart. She has. All communication is done through writing questions and the patient answering back. She is also not very aware of her medical history which is obtained from thorough record review including my evaluation of the pat ient on 10/30/19. She reports that she has not been urinating for about a week. She has now started urinating once arriving in the ER. Her biggest concern now is that she has not had a bowel movement in the last 3-4 days. She denies any nausea, vomiting, abdominal pain. She states she has been eating and drinking well. Her only change in medications is that her psych medication was up from 5-10. She is very anxious about being here and keeps asking for her mother. She denies any recent fevers or chills. She denies any weakness. She denies any difficulty with her left foot that appears to be slightly rotated in. She does admit to a history of multiple sclerosis but states she has not seen a neurologist in years and does not take any injections. She reports frequent falls and states that she fell last night. She does state that she was hurt but that is unable to tell me where she was hurt. Subjective: Patient seen and evaluated at bedside, today patient does not report any worsening of his breathing or report any new significant chest pain. Patient re armida in no acute distress. Patient questions and concerns addressed at bedside, proper counseling done. Plan discussed with nursing staff. Physical Exam: General: non toxic, no acute distress, alert oriented to time place and person Head: atraumatic, normocephalic, symmetric Eyes: no lid lesion], anicteric sclera Mouth: no lip lesion, mucus membranes moist Cardiovascular: S1S2 reg rate and rhythm, no murmur, no gallop Lungs: Bilateral equal air entry, no wheezing no rhonchi no crackles. Abdominal: soft, nontender to palpation, no guarding, no appreciable organomegaly Ext: no gross muscle atrophy, no edema extremities warm to suppose a positive Neuro: Alert oriented to time place and person, exam grossly nonfocal Psych: Mood and affect appropriate, patient not so certain Skin exam: No rashes no jaundice. Assessment and Plan Urinary retention CT head and CT thoracolumbar spine negative for any acute finding CT abdomen pelvis negative Monitor ins and outs Post vital scans every 6 hours Will consider urology consultation if there is a concern for actual urinary retention History of multiple sclerosis but not on any disease modifying therapy Doesn't seem to be an exacerbation Patient does not take any disease modifying therapy Neurology consulted for evaluation Will need outpatient follow-up History of schizophrenia developmental delay Psychiatric consult for evaluation Constipation CT abdominal and pelvis negative Cont bowel regimen Frequent falls with side based gait - PT/OT - fall precuations Chronic: Seizure disorder COPD without exacerbation Tobacco abuse DVT prophylaxis: SCDs Anticipated discharge date: in 1-[address]: home, pending clinical improvement Objective - Vital Signs Vital signs: Vital Signs Temp 97.7 F 12/10/21 11:52 Pulse 102 H 12/10/21 11:52 Resp 17 12/10/21 11:52 BP 145/88 12/10/21 11:52 Pulse Ox 99 12/10/21 11:52 FiO2 Intake & Output 12/09/21 12/10/21 12/10/21 18:59 06:59 18:59 Intake Total 175 865 Output Total 1475 Balance 175 -610 Weight 63.503 kg 63.503 kg Intake: IV 175 Sodium Chloride 0.9% 1, 75 000 ml @ 75 mls/hr IV . [id number] Rx#:[id number] methylPREDNISolone SOD 100 SUCCIN 500 mg In Sodium Chloride 0.9% 100 ml @ 100 mls/hr IVPB ONCE STA Rx#:[id number] Intake, IV Titration 100 Amount methylPREDNISolone SOD 100 SUCCIN 500 mg In Sodium Chloride 0.9% 100 ml @ 100 mls/hr IVPB ONCE STA Rx#:[id number] Oral 765 Output: Urine 1475 Straight 400 Other: Voiding Method Indwelling Catheter Toilet # Voids 3 1 - Labs CBC & Chem 7: 12/10/21 05:55 12/10/21 05:55 Labs: Abnormal Lab Results - Last 24 Hours (Table) 12/09/21 12/09/21 12/10/21 Range/Units 13:34 13:34 05:55 WBC 11.7 H 12.83 H (3.8-10.6) k/uL Plt Count 518 H (140-440) X 10*3/uL MPV 8.9 L (9.5-12.2) fL Neutrophils # 9.3 H (1.3-7.7) k/uL Sodium 128 L (137-145) mmol/L Carbon Dioxide 21 L (22-30) mmol/L BUN (9.0-27.0) mg/dL Creatinine 0.51 L (0.52-1.04) mg/dL Glucose 109 H (74-99) mg/dL 12/10/21 Range/Units 05:55 WBC (3.8-10.6) k/uL Plt Count (140-440) X 10*3/uL MPV (9.5-12.2) fL Neutrophils # (1.3-7.7) k/uL Sodium 133 L (137-145) mmol/L Carbon Dioxide (22-30) mmol/L BUN 8.3 L (9.0-27.0) mg/dL Creatinine (0.52-1.04) mg/dL Glucose 150 H (74-99) mg/dL
--- NOTE | 2021-12-10 13:28 | P.CN ---
Psychiatric Consult - . Consult date: 12/10/21 Consult:: 12/10/21 13:[address] Sachin Ramirez dictating a psychiatric consultation on Faye CHOI who is a 56-year-old female with a history of schizophrenia past medical history including deafness, schizophrenia, multiple sclerosis, and prior GI bleed who presented to the hospital with complaints of being unable to urinate for the last 1 week. On arrival to the ER she underwent an extensive evaluation. Vital signs were within normal limits. White blood cell count 11.7, sodium 128 (which is at baseline for the patient). Urinalysis was negative. Patient was found have urinary retention in the ER. There is concern for possible MS flare and arrangements were made for observation. Neurology report shows that the patient has started to show some changes after her psychotropic medications were changed Chart reveals that the patient was on fluphenazine dec but the last dose given was in mid September Patient however is on oral fluphenazine 10 mg twice a day She noticed her symptoms since being on Fluphenazine for her schizophrenia and medications were modified. Case was discussed with the nursing staff on the unit where she reports that the patient has been urinating since then after initial catheterization Patient however has been refusing to have any other procedures done and has put out her IVs Further medical details are as per the primary care physician When seen today patient was having her lunch Patient asked who I was and then continues to smile. behavior remains childlike She seemed to be limited in her comprehension where she continued to smile and repeat the same question She she intermittently continues to laugh and continued to keep eating her pasta Her concentration and attention span seems to be rather limited General Appearance: Patient appears to be stated age, Behavior: Patient is uninterested and shows limited curisity Speech: sparse spoke only few words Mood/Affect: Mood is euthymic , affect is congruent with smiling and laughter Suicidality/Homicidality: unable to access but no self abusive behaviors noted Perceptions: Unable to assess. Though content/process: . [place], poverty of content. Memory and concentration: Alert and oriented to person, Judgment and insight: poor Diagnostic impression: Schizoaffective disorder by history Nicotine dependency by history Impression: The patient at this time presents with the urinary retention and appears to have started after the psychotropic medication manipulation There is no other collateral information available from the chart and patient is unable to give any information regarding when the oral fluphenazine was started Would recommend discontinuation of oral fluphenazine and the subsequent psychotropic medication if needed should be a second-generation low potency antipsychotic like Seroquel or Abilify However at this time patient does not appear to be in need of such intervention Would recommend referral back to her psychiatrist for outpatient follow-up and care after discharge If when necessary medications as needed during the hospitalization would recommend providing lorazepam 2 mg by mouth or IM every 4-6 hours for agitation or anxiety or prior to procedures We'll follow this patient along with you Thank you for the referral please refer to contact me with further questions Sachin Alejandro M.D. 12/10/2021
--- NOTE | 2021-12-10 13:37 | P.PN ---
Subjective Progress Note Date: 12/10/21 The patient is seen at bedside and per the patient's nurse the patient has been refusing IV steroids. She is even refusing IV lines. No new focal deficit. Objective - Vital Signs Vital signs: Vital Signs Temp 97.7 F 12/10/21 11:52 Pulse 102 H 12/10/21 11:52 Resp 17 12/10/21 11:52 BP 145/88 12/10/21 11:52 Pulse Ox 99 12/10/21 11:52 FiO2 Intake & Output 12/09/21 12/10/21 12/10/21 18:59 06:59 18:59 Intake Total 175 865 Output Total 1475 Balance 175 -610 Weight 63.503 kg 63.503 kg Intake: IV 175 Sodium Chloride 0.9% 1, 75 000 ml @ 75 mls/hr IV . [id number] Rx#:[id number] methylPREDNISolone SOD 100 SUCCIN 500 mg In Sodium Chloride 0.9% 100 ml @ 100 mls/hr IVPB ONCE STA Rx#:[id number] Intake, IV Titration 100 Amount methylPREDNISolone SOD 100 SUCCIN 500 mg In Sodium Chloride 0.9% 100 ml @ 100 mls/hr IVPB ONCE STA Rx#:[id number] Oral 765 Output: Urine 1475 Straight 400 Other: Voiding Method Indwelling Catheter Toilet # Voids 3 1 - Exam GENERAL: The patient is lying in bed and is not in acute distress. PSYCH: Is tearful initially then clapping her hands with samir NEUROLOGICAL: Limited because of her cooperation and is deaf. Higher mental function: The patient is awake, alert. She was able to name pen and watch. Patient is following few simple commands with helps. Has childish behavior and clapping. Cranial nerves: The pupils are round, equal and reactive to light. No facial weakness. Is deaf. Motor: Gait had wide base gait. The strength is hard to assess individual muscle because of her cooperation. But is moving all extremities above garvity. Normal tone and bulk. Cerebellum: Normal finger to nose bilaterally. Sensation: Unable to assess light touch. Reflexes (right/left): Patient refused. SOME OF THE WORK-UP IN THE HOSPITAL CONSISTED OF: Patient TSH is 0.583 Vitamin B12 is 276 and the repeat is 323. Serum folate is 11.30 CT of the head is reported as cerebral atrophy and extensive white matter changes that could relate to multiple lacunar infarct or demyelinating disease. No significant change compared to old exam. Patient's lesions are due to multiple sclerosis and not stroke. CT cervical spine was reported as spondylitic changes in the lower cervical spine at C5-C6 and C6-C7. No fracture. Today has CT thoracic and lumbar spine which is reported as no acute fracture or dislocation in the thoracolumbar spine. Moderate to severe disc space narrowing and vacuum disc phenomena mild to moderate spurring at the lumbosacral junction. No significant disc herniation in the thoracic or lumbar spine. - Labs CBC & Chem 7: 12/10/21 05:55 12/10/21 05:55 Labs: Abnormal Lab Results - Last 24 Hours (Table) 12/09/21 12/09/21 12/10/21 Range/Units 13:34 13:34 05:55 WBC 11.7 H 12.83 H (3.8-10.6) k/uL Plt Count 518 H (140-440) X 10*3/uL MPV 8.9 L (9.5-12.2) fL Neutrophils # 9.3 H (1.3-7.7) k/uL Sodium 128 L (137-145) mmol/L Carbon Dioxide 21 L (22-30) mmol/L BUN (9.0-27.0) mg/dL Creatinine 0.51 L (0.52-1.04) mg/dL Glucose 109 H (74-99) mg/dL 12/10/21 Range/Units 05:55 WBC (3.8-10.6) k/uL Plt Count (140-440) X 10*3/uL MPV (9.5-12.2) fL Neutrophils # (1.3-7.7) k/uL Sodium 133 L (137-145) mmol/L Carbon Dioxide (22-30) mmol/L BUN 8.3 L (9.0-27.0) mg/dL Creatinine (0.52-1.04) mg/dL Glucose 150 H (74-99) mg/dL Assessment and Plan Assessment: * Constipation with urinary retention for past one week: Appears due to medication induced (Fluphenazine which is anticholingergic). Currently was able to urinate in our facility. Cannot rule out MS exacerbation but unable to determine her baseline and could not obtain a good physical exam because of her cooperation. * Low normal vitamin B12 at 276 * History of Multiple Sclerosis but not on disease modifying therapy * Very hard of hearing/Deaf * Schizophrenia Plan: According to nurse the patient is refusing IV steroids. At skin to be very difficult to obtain MRI of the brain and spinal cord is of her cooperation and if we do see new lesion patient is refusing IV steroids. Therefore there is no use of proceeding with MRI. For low normal vitamin B12 all give the patient IV vitamin B12 1000 g for today and tomorrow that after that by mouth. Needs to follow-up with a neurologist as an outpatient. She's currently not on any disease modifying therapy. Every 4 hours neuro checks Consulted PT and OT for gait training Recommend Psychiatry consultation because of medication modification. Patient is fall precaution. We'll defer the rest of the medical management to the primary team. Otherwise no additional workup is needed from a neurologic perspective. Please notify neurology team if any further concern. We'll sign off. The plan is discussed with primary team and her nurse. Ari Hanson M.D. Neuro-Hospitalist Time with Patient: Less than 30
[2021-12-10] MEDS: CYANOCOBALAMIN 1,000 MCG/ML 1 ML VIAL IM SCH (14:07)
[2021-12-10] MEDS: SODIUM CHLORIDE 0.9% 1,000 ML IV SCH (17:37)
[2021-12-11] MEDS: HEPARIN SODIUM,PORCINE/PF 5,000 UNIT/0.5 ML SYRINGE SQ SCH ×3 (08:25→23:36)
[2021-12-11] MEDS: PANTOPRAZOLE 40 MG TABLET PO SCH ×2 (08:25→17:15)
[2021-12-11] MEDS: CYANOCOBALAMIN 1,000 MCG/ML 1 ML VIAL IM SCH (08:25)
[2021-12-11] MEDS: NICOTINE 14MG/24HR PATCH TRANSDERM SCH (11:17)
[2021-12-11] MEDS: methylPREDNISolone SOD SUCCIN 500 MG in SODIUM CHLORIDE 0.9% 100 ML IVPB SCH ×2 (11:18→19:33)
[2021-12-11] MEDS: SODIUM CHLORIDE 0.9% 1,000 ML IV SCH ×2 (11:18→19:33)
--- NOTE | 2021-12-11 14:00 | P.PN ---
Subjective Progress Note Date: 12/11/21 Hospital Course: 56 years old female with past medical history including deafness, schizophrenia, multiple sclerosis not on any therapy at home, presented to the hospital with complaints of being unable to urinate for the last 1 week, apparently in emergency department she was noted to have urinary retention and there was a concern for MS flare therefore she was admitted to the hospital medicine service, patient was seen by neurology, this time we'll concern for MS flare rather she seems to have flare of her psychiatric symptoms therefore psychiatry was consulted to evaluate if she would qualify for inpatient psychiatric admission for better adjustment of her psychiatric medication to ensure symptom control Subjective: Patient seen and evaluated at bedside, today patient does not report any worsening of his breathing or report any new significant chest pain. Patient remains in no acute distress. Patient questions and concerns addressed at bedside, proper counseling done. Plan discussed with nursing staff. Physical Exam: General: Patient is intermittently confused due to her psychiatric symptoms Head: atraumatic, normocephalic, symmetric Eyes: no lid lesion], anicteric sclera Mouth: no lip lesion, mucus membranes moist Cardiovascular: S1S2 reg rate and rhythm, no murmur, no gallop Lungs: Bilateral equal air entry, no wheezing no rhonchi no crackles. Abdominal: soft, nontender to palpation, no guarding, no appreciable organomegaly Ext: no gross muscle atrophy, no edema extremities warm to suppose a positive Neuro: Examination grossly nonfocal Assessment and Plan Urinary retention CT head and CT thoracolumbar spine negative for any acute finding CT abdomen pelvis negative Monitor ins and outs Post vital scans every 6 hours Will consider urology consultation if there is a concern for actual urinary retention History of schizophrenia developmental delay Psychiatric consult for evaluation History of multiple sclerosis but not on any disease modifying therapy Doesn't seem to be an exacerbation Patient does not take any disease modifying therapy Neurology consulted for evaluation Will need outpatient follow-up Constipation CT abdominal and pelvis negative Cont bowel regimen Frequent falls with side based gait - PT/OT - fall precuations Chronic medical issues: Seizure disorder COPD without exacerbation Tobacco abuse DVT prophylaxis: SCDs Anticipated discharge date: in 1-[address]: Home versus inpatient psych pending further recommendation from psychiatric Objective - Vital Signs Vital signs: Vital Signs Temp 98.2 F 12/11/21 12:15 Pulse 85 12/11/21 12:15 Resp 19 12/11/21 12:15 BP 129/81 07/10/22 12:15 Pulse Ox 99 12/11/21 12:15 FiO2 Intake & Output 12/10/21 12/11/21 12/11/21 18:59 06:59 18:59 Intake Total 180 Balance 180 Weight 63.503 kg Intake: Oral 180 Other: Voiding Method Toilet Toilet Toilet # Voids 1 3 1 # Bowel Movements 0 1 - Labs CBC & Chem 7: 12/10/21 05:55 12/10/21 05:55
--- NOTE | 2021-12-11 16:49 | P.PN ---
Subjective Progress Note Date: 12/11/21 The patient is seen at bedside and per her nurse she continues to refuse IV line. She is about the same. Objective - Vital Signs Vital signs: Vital Signs Temp 98.2 F 12/11/21 12:15 Pulse 85 12/11/21 12:15 Resp 19 12/11/21 12:15 BP 129/81 12/11/21 12:15 Pulse Ox 99 12/11/21 12:15 FiO2 Intake & Output 12/10/21 12/11/21 12/11/21 18:59 06:59 18:59 Intake Total 180 Balance 180 Weight 63.503 kg Intake: Oral 180 Other: Voiding Method Toilet Toilet Toilet # Voids 1 3 1 # Bowel Movements 0 1 - Exam GENERAL: The patient is lying in bed and is not in acute distress. PSYCH: Is tearful initially then clapping her hands with samir NEUROLOGICAL: Limited because of her cooperation and is deaf. Higher mental function: The patient is awake, alert. She was able to name pen and watch. Patient is following few simple commands with helps. Has childish behavior and clapping. Cranial nerves: The pupils are round, equal and reactive to light. No facial weakness. Is deaf. Motor: Gait had wide base gait. The strength is hard to assess individual muscle because of her cooperation. But is moving all extremities above garvity. Normal tone and bulk. Cerebellum: Normal finger to nose bilaterally. Sensation: Unable to assess light touch. Reflexes (right/left): Patient refused. SOME OF THE WORK-UP IN THE HOSPITAL CONSISTED OF: Patient TSH is 0.583 Vitamin B12 is 276 and the repeat is 323. Serum folate is 11.30 CT of the head is reported as cerebral atrophy and extensive white matter changes that could relate to multiple lacunar infarct or demyelinating disease. No significant change compared to old exam. Patient's lesions are due to multiple sclerosis and not stroke. CT cervical spine was reported as spondylitic changes in the lower cervical spine at C5-C6 and C6-C7. No fracture. Today has CT thoracic and lumbar spine which is reported as no acute fracture or dislocation in the thoracolumbar spine. Moderate to severe disc space narrowing and vacuum disc phenomena mild to moderate spurring at the lumbosacral junction. No significant disc herniation in the thoracic or lumbar spine. - Labs CBC & Chem 7: 12/10/21 05:55 12/10/21 05:55 Assessment and Plan Assessment: * Constipation with urinary retention for past one week: Appears due to medication induced (Fluphenazine which is anticholingergic). Currently was able to urinate in our facility. Cannot rule out MS exacerbation but unable to determine her baseline and could not obtain a good physical exam because of her cooperation. * Low normal vitamin B12 at 276 * History of Multiple Sclerosis but not on disease modifying therapy * Very hard of hearing/Deaf * Schizophrenia Plan: According to nurse the patient is refusing IV steroids and IV line. It will be very difficult to obtain MRI of the brain and spinal cord is of her cooperation and if we do see new lesion patient is refusing IV steroids. T herefore there is no use of proceeding with MRI. For low normal vitamin B12 all give the patient IV vitamin B12 1000 g for today and after that after that by mouth. Needs to follow-up with a neurologist as an outpatient. She's currently not on any disease modifying therapy. Every 4 hours neuro checks Consulted PT and OT for gait training Psychiatry is on board. Patient is fall precaution. We'll defer the rest of the medical management to the primary team. Otherwise no additional workup is needed from a neurologic perspective. Please notify neurology team if any further concern. We'll sign off. The plan is discussed with primary team and her nurse. Dr. Kelly will start neurology service tomorrow AM if needed. Ari Hanson M.D. Neuro-Hospitalist Time with Patient: Less than 30
[2021-12-12] MEDS: CYANOCOBALAMIN 500 MCG TAB PO SCH (07:32)
[2021-12-12] MEDS: HEPARIN SODIUM,PORCINE/PF 5,000 UNIT/0.5 ML SYRINGE SQ SCH ×3 (07:33→23:39)
[2021-12-12] MEDS: PANTOPRAZOLE 40 MG TABLET PO SCH ×2 (07:33→17:49)
[2021-12-12] MEDS: NICOTINE 14MG/24HR PATCH TRANSDERM SCH (09:04)
[2021-12-12] MEDS: methylPREDNISolone SOD SUCCIN 500 MG in SODIUM CHLORIDE 0.9% 100 ML IVPB SCH ×2 (09:04→19:56)
[2021-12-12 10:40] LABS: Basophils # (A) 0.09 X 10*3/uL (0.00-0.10); Basophils % (A) 0.7 %; Eosinophils % (A) 0.8 %; HCT 44.9 % (37.2-46.3); HGB 14.7 g/dL (12.0-15.0); Immature Grans, Automated 1.2 %; Lymphocytes # (A) 2.29 X 10*3/uL (0.90-5.00); MCH 29.8 pg (27.0-32.0); MCHC 32.7 g/dL (32.0-37.0); MCV 91.1 fL (80.0-97.0); Mean Platelet Volume 9.2 fL (9.5-12.2); Monocytes # (A) 1.09 X 10*3/uL (0.20-1.00); NRBC Per 100 WBC 0 /100 WBCS (0.0-0.0); Neutrophils # (A) 8.34 X 10*3/uL (1.80-7.70); Neutrophils % (A) 69.3 %; Platelet Count 537 X 10*3/uL (140-440); RBC 4.93 X 10*6/uL (4.10-5.20); RDW 13.2 % (11.5-14.5); WBC 12.05 X 10*3/uL (4.50-10.00)
[2021-12-12 10:49] LABS: African American GFR (CKD) 119.8 (60.0-200.0); Albumin 4.2 g/dL (3.8-4.9); Albumin/Globulin Ratio 1.62 (1.60-3.17); Anion Gap 14.8 mmol/L (10.00-18.00); BUN/Creat Ratio 16.5 Ratio (12.00-20.00); Blood Urea Nitrogen 9.9 mg/dL (9.0-27.0); Calcium 9.4 mg/dL (8.7-10.3); Carbon Dioxide 20.2 mmol/L (20.0-27.5); Globulin 2.6 g/dL (1.6-3.3); Non-African American GFR(CKD) 103.3 (60.0-200.0); Potassium 4.8 mmol/L (3.5-5.5); Total Bilirubin 0.4 mg/dL (0.30-1.20); Total Protein 6.8 g/dL (6.2-8.2)
--- NOTE | 2021-12-12 12:50 | P.PN ---
Subjective Patient was examined at bedside today not complaining of the new symptoms otology. I also did discuss case with RN present at bedside. No urinary retention noted. I also had a meeting with case management recommendations with will have a discussion with family as well. Objective - Vital Signs Vital signs: Vital Signs Temp 98.4 F 12/12/21 11:52 Pulse 90 12/12/21 11:52 Resp 18 12/12/21 11:52 BP 136/90 12/12/21 11:52 Pulse Ox 97 12/12/21 11:52 FiO2 Intake & Output 12/11/21 12/12/21 12/12/21 18:59 06:59 18:59 Intake Total 180 296 Balance 180 296 Intake: Oral 180 296 Other: Voiding Method Toilet Toilet Toilet # Voids 1 4 2 # Bowel Movements 1 - Exam Physical Exam: General: Patient is intermittently confused due to her psychiatric symptoms Head: atraumatic, normocephalic, symmetric Eyes: no lid lesion], anicteric sclera Mouth: no lip lesion, mucus membranes moist Cardiovascular: S1S2 reg rate and rhythm, no murmur, no gallop Lungs: Bilateral equal air entry, no wheezing no rhonchi no crackles. Abdominal: soft, nontender to palpation, no guarding, no appreciable organomegaly Ext: no gross muscle atrophy, no edema extremities warm to suppose a positive Neuro: Examination grossly nonfocal - Labs CBC & Chem 7: 12/12/21 06:20 12/12/21 06:20 Labs: Abnormal Lab Results - Last 24 Hours (Table) 12/12/21 12/12/21 Range/Units 06:20 06:20 WBC 12.05 H (4.50-10.00) X 10*3/uL Plt Count 537 H (140-440) X 10*3/uL MPV 9.2 L (9.5-12.2) fL Immature Gran # 0.14 H (0.00-0.04) X 10*3/uL Neutrophils # 8.34 H (1.80-7.70) X 10*3/uL Monocytes # 1.09 H (0.20-1.00) X 10*3/uL Sodium 127 L (135-145) mmol/L Chloride 92 L (96-109) mmol/L Assessment and Plan Assessment: Urinary retention CT head and CT thoracolumbar spine negative for any acute finding CT abdomen pelvis negative Monitor ins and outs Post vital scans every 6 hours Will consider urology consultation if there is a concern for actual urinary retention - no urinary retention noted today. last bladder scan was <150cc History of schizophrenia developmental delay Psychiatric consult for evaluation History of multiple sclerosis but not on any disease modifying therapy Doesn't seem to be an exacerbation Patient does not take any disease modifying therapy Neurology consulted for evaluation Will need outpatient follow-up Constipation CT abdominal and pelvis negative Cont bowel regimen Frequent falls with side based gait - PT/OT - fall precuations Chronic medical issues: Seizure disorder COPD without exacerbation Tobacco abuse DVT prophylaxis: SCDs Anticipated discharge date: in 1-[address]: PT/OT - 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 Family requesting.
[2021-12-12] MEDS: SODIUM CHLORIDE 0.9% 1,000 ML IV SCH ×2 (12:51→19:57)
[2021-12-12 20:14] VITALS: RESP 16
[2021-12-13 05:13] VITALS: BP 112/79; PULSE 84; TEMP 98.2
[2021-12-13] MEDS: NICOTINE 14MG/24HR PATCH TRANSDERM SCH (10:08)
[2021-12-13] MEDS: methylPREDNISolone SOD SUCCIN 500 MG in SODIUM CHLORIDE 0.9% 100 ML IVPB SCH (10:08)
[2021-12-13] MEDS: CYANOCOBALAMIN 500 MCG TAB PO SCH (11:10)
[2021-12-13] MEDS: PANTOPRAZOLE 40 MG TABLET PO SCH (11:11)
[2021-12-13] MEDS: HEPARIN SODIUM,PORCINE/PF 5,000 UNIT/0.5 ML SYRINGE SQ SCH (11:11)
[2021-12-13] MEDS: SODIUM CHLORIDE 0.9% 1,000 ML IV SCH (12:24)
--- NOTE | 2021-12-13 17:07 | P.PN ---
Subjective Progress Note Date: 12/13/21 Hospital Course: 56 years old female with past medical history including deafness, schizophrenia, multiple sclerosis not on any therapy at home, presented to the hospital with complaints of being unable to urinate for the last 1 week, apparently in emergency department she was noted to have urinary retention and there was a concern for MS flare therefore she was admitted to the hospital medicine service, patient was seen by neurology, this time we'll concern for MS flare rather she seems to have flare of her psychiatric symptoms therefore psychiatry was consulted to evaluate if she would qualify for inpatient psychiatric admission for better adjustment of her psychiatric medication to ensure symptom control Subjective: Patient seen and evaluated at bedside, today patient does not report any worsening of his breathing or report any new significant chest pain. Patient remains in no acute distress. Patient questions and concerns addressed at bedside, proper counseling done. Plan discussed with nursing staff. Physical Exam: General: Patient is intermittently confused due to her psychiatric symptoms Head: atraumatic, normocephalic, symmetric Eyes: no lid lesion], anicteric sclera Mouth: no lip lesion, mucus membranes moist Cardiovascular: S1S2 reg rate and rhythm, no murmur, no gallop Lungs: Bilateral equal air entry, no wheezing no rhonchi no crackles. Abdominal: soft, nontender to palpation, no guarding, no appreciable organomegaly Ext: no gross muscle atrophy, no edema extremities warm to suppose a positive Neuro: Examination grossly nonfocal Assessment and Plan Urinary retention CT head and CT thoracolumbar spine negative for any acute finding CT abdomen pelvis negative Improved after constipation resolved Patient declined Johnson catheter Monitor ins and outs Post vital scans every 6 hours History of schizophrenia developmental delay Psychiatric consult for evaluation History of multiple sclerosis but not on any disease modifying therapy Doesn't seem to be an exacerbation Patient does not take any disease modifying therapy Neurology consulted for evaluation Will need outpatient follow-up Constipation Resolved CT abdominal and pelvis negative Cont bowel regimen Frequent falls with side based gait - PT/OT - fall precuations Chronic medical issues: Seizure disorder COPD without exacerbation Tobacco abuse DVT prophylaxis: SCDs Anticipated discharge date: in 1-[address]: Home versus inpatient psych pending further recommendation from psychiatric Objective - Vital Signs Vital signs: Vital Signs Temp 98.2 F 12/13/21 05:00 Pulse 84 12/13/21 05:00 Resp 16 12/13/21 05:00 BP 112/79 12/13/21 05:00 Pulse Ox 97 12/13/21 05:00 FiO2 Intake & Output 12/12/21 12/13/21 12/13/21 18:59 06:59 18:59 Intake Total 888 590 Output Total 42 Balance 888 548 Intake: Oral 888 590 Output: Post Void Residual 42 Other: Voiding Method Toilet Toilet Toilet # Voids 2 3 - Labs CBC & Chem 7: 12/12/21 06:20 12/12/21 06:20
--- NOTE | 2021-12-14 12:21 | P.DS ---
Providers Date of admission: 12/09/21 15:20 Expected date of discharge: 12/14/21 Attending physician: Cassidy Hill DO Consults: 12/09/21 15:20 Consult Physician Routine Consulting Provider: Ari Hanson Consult Reason/Comments: ms, urine retention Do you want consulting provider notified?: Yes 12/09/21 17:35 Consult Physician Routine Consulting Provider: Kj Braxton Consult Reason/Comments: side effects of fluphenazine Do you want consulting provider notified?: Yes Primary care physician: Stated None Hospital Course: Hospital Course: 56 years old female with past medical history including deafness, schizophrenia, multiple sclerosis not on any therapy at home, presented to the hospital with complaints of being unable to urinate for the last 1 week, apparently in emergency department she was noted to have urinary retention and there was a concern for MS flare therefore she was admitted to the hospital medicine service, patient was seen by neurology, this time we'll concern for MS flare rather she seems to have flare of her psychiatric symptoms therefore psychiatry was consulted to evaluate if she would qualify for inpatient psychiatric admission for better adjustment of her psychiatric medication to ensure symptom control. Hospital course: Urinary retention CT head and CT thoracolumbar spine negative for any acute finding CT abdomen pelvis negative Improved after constipation resolved Patient declined Johnson catheter History of schizophrenia developmental delay Psychiatric consult for evaluation History of multiple sclerosis but not on any disease modifying therapy Doesn't seem to be an exacerbation Patient does not take any disease modifying therapy Neurology consulted for evaluation Will need outpatient follow-up Constipation Resolved CT abdominal and pelvis negative Cont bowel regimen Frequent falls with side based gait - PT/OT - fall precuations Chronic medical issues: Seizure disorder COPD without exacerbation Tobacco abuse Time spent in discharge process 35 minutes Patient Condition at Discharge: Stable Plan - Discharge Summary New Discharge Prescriptions: New Cyanocobalamin [Vitamin B-12] 1,000 mcg PO DAILY #30 tab Continue Magnesium Oxide 400 mg PO DAILY Pantoprazole [Protonix] 40 mg PO BID Cholecalciferol [Vitamin D3 (125 Mcg = 5000 Iu)] 125 mcg PO MOWEFR Discontinued fluPHENAZine HCl 10 mg PO BID fluPHENAZine decanoate [Prolixin Decanoate] 37.5 mg IM Q14D Discharge Medication List Cholecalciferol [Vitamin D3 (125 Mcg = 5000 Iu)] 125 mcg PO MOWEFR 12/09/21 [History] Magnesium Oxide 400 mg PO DAILY 12/09/21 [History] Pantoprazole [Protonix] 40 mg PO BID 12/09/21 [History] Cyanocobalamin [Vitamin B-12] 1,000 mcg PO DAILY #30 tab 12/13/21 [Rx] Follow up Appointment(s)/Referral(s): None,Stated [Primary Care Provider] - 1-2 days Patient Instructions/Handouts: Vitamin B-12 (By mouth), Acute Urinary Retention in Women (ED) Discharge/Stand Alone Forms: Adult Foster Skilled Nursing List, Assisted Living Facilities, Community Resources Discharge Disposition: HOME SELF-CARE
== END 2021-12-13 17:30 | disposition home or self-care (01) | DRG 696 ==
LOC: EC 12:51 → 4SSUR 15:20 → 5NMEDONC 16:16
PROVIDERS: ADMIT Internal Medicine; ATTEND Internal Medicine
DX: R33.0 Drug induced retention of urine (principal); F17.210 Nicotine dependence, cigarettes, uncomplicated; F20.9 Schizophrenia, unspecified; J44.9 Chronic obstructive pulmonary disease, unspecified; R62.50 Unspecified lack of expected normal physiological development in childhood; T43.3X5A Adverse effect of phenothiazine antipsychotics and neuroleptics, initial encounter; Z53.20 Procedure and treatment not carried out because of patient's decision for unspecified reasons; F31.9 Bipolar disorder, unspecified; F41.9 Anxiety disorder, unspecified; M47.892 Other spondylosis, cervical region; M51.37 Other intervertebral disc degeneration, lumbosacral region; G31.89 Other specified degenerative diseases of nervous system; G35 Multiple sclerosis; G43.909 Migraine, unspecified, not intractable, without status migrainosus; G40.909 Epilepsy, unspecified, not intractable, without status epilepticus; H91.90 Unspecified hearing loss, unspecified ear; K21.9 Gastro-esophageal reflux disease without esophagitis; K59.00 Constipation, unspecified; R29.6 Repeated falls; W19.XXXA Unspecified fall, initial encounter; Z79.899 Other long term (current) drug therapy; Z87.11 Personal history of peptic ulcer disease; Z87.19 Personal history of other diseases of the digestive system
CPT/HCPCS: 36415; 51798; 70450; 71046; 72125; 72128; 72131; 74018; 74176; 80053; 81003; 82075; 82607; 82746; 83735; 84100; 84443; 85025; 85027; 99285

== ENCOUNTER 2021-12-13 21:52 | Emergency (ER) | payer MEDICARE, OTHER ==
[2021-12-13 22:07] VITALS: RESP 18
--- NOTE | 2021-12-14 03:42 | ED ---
Psych HPI - General Source: EMS Mode of arrival: EMS - History of Present Illness MD Complaint: other -: unknown Associated Psychiatric Symptoms: delusions Quality: getting worse Improves With: none Worsens With: none <Tristen Cope - Last Filed: 12/14/21 03:27> <Kike Fung - Last Filed: 12/14/21 15:27> - General Chief Complaint: Psychiatric Symptoms Stated Complaint: Mental Health Time Seen by Provider: 12/13/21 21:53 - History of Present Illness Initial Comments: This patient is a 56-year-old woman who is very hard of hearing, who presents to have psychiatric evaluation. The patient's sister had completed petition that the patient has been disturbing neighbors at random times during the day and then loud and belligerent. History is limited as patient is very hard of hearing (Tristen Cope) - Related Data Home Medications Medication Instructions Recorded Confirmed Cholecalciferol [Vitamin D3 (125 125 mcg PO MOWEFR 12/09/21 12/13/21 Mcg = 5000 Iu)] Magnesium Oxide 400 mg PO DAILY 12/09/21 12/13/21 Pantoprazole [Protonix] 40 mg PO BID 12/09/21 12/13/21 Previous Rx's Medication Instructions Recorded Cyanocobalamin [Vitamin B-12] 1,000 mcg PO DAILY #30 tab 12/13/21 Allergies Allergy/AdvReac Type Severity Reaction Status Date / Time No Known Allergies Allergy Verified 12/13/21 23:06 Review of Systems ROS Other: All systems not noted in ROS Statement are negative. Constitutional: Denies: fever Respiratory: Denies: cough, dyspnea Cardiovascular: Denies: chest pain, palpitations Gastrointestinal: Denies: abdominal pain, vomiting Musculoskeletal: Denies: back pain Skin: Denies: rash Neurological: Denies: headache <Tristen Cope - Last Filed: 12/14/21 03:27> ROS Other: All systems not noted in ROS Statement are negative. <Kike Fung - Last Filed: 12/14/21 15:27> ROS Statement: Those systems with pertinent positive or pertinent negative responses have been documented in the HPI. Past Medical History Past Medical History: COPD, GERD/Reflux, GI Bleed, Seizure Disorder Additional Past Medical History / Comment(s): MS, hearing impaired, seizures when in her 30s last 2yrs ago, migraines, Upper GI bleed, peptic ulcer disease, developmentally delayed, hypotension, UTI History of Any Multi-Drug Resistant Organisms: None Reported Past Surgical History: Ear Surgery Additional Past Surgical History / Comment(s): cyst removed from coccyx, multiple bilateral ear surgeries. Past Anesthesia/Blood Transfusion Reactions: No Reported Reaction Past Psychological History: Anxiety, Bipolar, Depression, Schizophrenia Smoking Status: Former smoker Past Alcohol Use History: Unable to Obtain Past Drug Use History: Unable to Obtain - Past Family History Father Additional Family Medical History / Comment(s): Father at age 70 from myocardial infarction. na Mother Additional Family Medical History / Comment(s): Patient's mother is alive at age 70. Patient does not know her medical history. Brother(s) Additional Family Medical History / Comment(s): Patient has 1 brother committed suicide at 48. Sister(s) Additional Family Medical History / Comment(s): Patient has 2 sisters with no major medical problems. <Tristen Cope Last Filed: 12/14/21 03:27> General Exam Limitations: no limitations General appearance: alert, in no apparent distress Eye exam: Present: normal appearance Respiratory exam: Present: normal lung sounds bilaterally. Absent: respiratory distress, wheezes, rales, rhonchi, stridor Cardiovascular Exam: Present: regular rate, normal rhythm, normal heart sounds. Absent: systolic murmur, diastolic murmur, rubs, gallop GI/Abdominal exam: Present: soft. Absent: distended, tenderness, guarding, rebound, rigid Extremities exam: Present: normal inspection Back exam: Present: normal inspection. Absent: CVA tenderness (R), CVA tenderness (L) Neurological exam: Present: alert, normal gait Skin exam: Present: warm, dry, intact, normal color. Absent: rash <Tristen Cope Last Filed: 12/14/21 03:27> Course Vital Signs 12/13/21 12/14/21 22:05 09:00 Temperature 97.8 F 98.0 F Pulse Rate 108 H 82 Respiratory 18 18 Rate Blood Pressure 138/90 136/78 O2 Sat by Pulse 95 96 Oximetry Medical Decision Making - Lab Data Result diagrams: 12/14/21 03:50 12/14/21 03:50 <Kike Fung Filed: 12/14/21 15:27> - Medical Decision Making Patient evaluated by EPS. She's been observed in the emergency department for over 17 hours. EPS recommended discharge. If was evaluated by Dr. Todd at the bedside. outpatient management arranged by EPS. (Kike Fung) - Lab Data Lab Results 12/14/21 12/14/21 12/14/21 Range/Units 03:50 03:50 03:50 WBC 11.9 H (3.8-10.6) k/uL RBC 4.81 (3.80-5.40) m/uL Hgb 14.6 (11.4-16.0) gm/dL Hct 44.1 (34.0-46.0) % MCV 91.6 (80.0-100.0) fL MCH 30.3 (25.0-35.0) pg MCHC 33.1 (31.0-37.0) g/dL RDW 12.9 (11.5-15.5) % Plt Count 502 H (150-450) k/uL MPV 6.6 Neutrophils % 75 % Lymphocytes % 14 % Monocytes % 6 % Eosinophils % 2 % Basophils % 1 % Neutrophils # 8.9 H (1.3-7.7) k/uL Lymphocytes # 1.7 (1.0-4.8) k/uL Monocytes # 0.8 (0-1.0) k/uL Eosinophils # 0.2 (0-0.7) k/uL Basophils # 0.2 (0-0.2) k/uL Sodium 128 L (137-145) mmol/L Potassium 4.7 (3.5-5.1) mmol/L Chloride 98 (98-107) mmol/L Carbon Dioxide 23 (22-30) mmol/L Anion Gap 7 mmol/L BUN 18 H (7-17) mg/dL Creatinine 0.79 (0.52-1.04) mg/dL Est GFR (CKD-EPI)AfAm >90 (>60 ml/min/1.73 sqM) Est GFR (CKD-EPI)NonAf 86 (>60 ml/min/1.73 sqM) Glucose 102 H (74-99) mg/dL Calcium 9.0 (8.4-10.2) mg/dL Total Bilirubin 0.4 (0.2-1.3) mg/dL AST 27 (14-36) U/L ALT 27 (4-34) U/L Alkaline Phosphatase 97 (38-126) U/L Total Protein 6.8 (6.3-8.2) g/dL Albumin 4.1 (3.5-5.0) g/dL Coronavirus (PCR) Not Detected (Not Detectd) Disposition <Tristen Cope - Last Filed: 12/14/21 03:27> Is patient prescribed a controlled substance at d/c from ED?: No <Kike Fung - Last Filed: 12/14/21 15:27> Clinical Impression: Psychiatric complaint Disposition: HOME SELF-CARE Condition: Good Instructions (If sedation given, give patient instructions): Medical Clearance for Psychiatric Care (ED) Additional Instructions: Follow-up with outpatient referrals as directed by emergency psych services. Referrals: None,Stated [Primary Care Provider] - 1-2 days
[2021-12-14 04:04] LABS: Basophils # (A) 0.2 k/uL (0-0.2); Basophils % (A) 1 %; Eosinophils # (A) 0.2 k/uL (0-0.7); Eosinophils % (A) 2 %; HCT 44.1 % (34.0-46.0); HGB 14.6 gm/dL (11.4-16.0); Lymphocytes # (A) 1.7 k/uL (1.0-4.8); Lymphocytes % (A) 14 %; MCH 30.3 pg (25.0-35.0); MCHC 33.1 g/dL (31.0-37.0); MCV 91.6 fL (80.0-100.0); Mean Platelet Volume 6.6; Monocytes # (A) 0.8 k/uL (0-1.0); Monocytes % (A) 6 %; Neutrophils # (A) 8.9 k/uL (1.3-7.7); Neutrophils % (A) 75 %; Platelet Count 502 k/uL (150-450); RBC 4.81 m/uL (3.80-5.40); RDW 12.9 % (11.5-15.5); WBC 11.9 k/uL (3.8-10.6)
[2021-12-14 04:23] LABS: ALT 27 U/L (4-34); AST 27 U/L (14-36); African American GFR (CKD) >90 (>60 ml/min/1.73 sqM); Albumin 4.1 g/dL (3.5-5.0); Alkaline Phosphatase 97 U/L (38-126); Anion Gap 7 mmol/L; Blood Urea Nitrogen 18 mg/dL (7-17); Carbon Dioxide 23 mmol/L (22-30); Chloride 98 mmol/L (98-107); Glucose 102 mg/dL (74-99); Non-African American GFR(CKD) 86 (>60 ml/min/1.73 sqM); Potassium 4.7 mmol/L (3.5-5.1); Sodium 128 mmol/L (137-145); Total Bilirubin 0.4 mg/dL (0.2-1.3); Total Protein 6.8 g/dL (6.3-8.2)
[2021-12-14 09:11] VITALS: BP 136/78; PULSE 82; TEMP 98
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
== END 2021-12-14 17:52 | disposition home or self-care (01) ==
LOC: EC 21:52
DX: F99 Mental disorder, not otherwise specified (principal); J44.9 Chronic obstructive pulmonary disease, unspecified; K21.9 Gastro-esophageal reflux disease without esophagitis; Z79.83 Long term (current) use of bisphosphonates; Z87.891 Personal history of nicotine dependence; Z20.822 Contact with and (suspected) exposure to COVID-19
CPT/HCPCS: 36415; 80053; 82075; 85025; 87635; 99284

== ENCOUNTER 2022-02-02 21:04 | Inpatient (IN) | payer MEDICARE, MEDICAID ==
--- NOTE | 2022-02-02 21:15 | ED ---
Psych HPI - General Source: patient, RN notes reviewed Mode of arrival: EMS - History of Present Illness MD Complaint: other <Manuel Richard - Last Filed: 02/02/22 23:07> <Gavino Reyna - Last Filed: 02/03/22 04:10> - General Stated Complaint: Mental Health Time Seen by Provider: 02/02/22 21:04 - History of Present Illness Initial Comments: 56-year-old female history of psychosis history of schizophrenia also history of being deaf was brought in for evaluation after she was found wandering around reevaluate her again at the pupils pulses. She's had this problem before when she was offered meds really weren't working. She was recently placed on Depakote about 2 weeks ago. This did seem to help for a couple weeks but today she's reverting to her previous status. a trauma no drug or alcohol abuse reported patient is a poor historian due to the deafness. Report taken from paramedics (Manuel Richard) - Related Data Home Medications Medication Instructions Recorded Confirmed Cholecalciferol [Vitamin D3 (125 125 mcg PO MOWEFR 12/09/21 12/13/21 Mcg = 5000 Iu)] Magnesium Oxide 400 mg PO DAILY 12/09/21 12/13/21 Pantoprazole [Protonix] 40 mg PO BID 12/09/21 12/13/21 Previous Rx's Medication Instructions Recorded Cyanocobalamin [Vitamin B-12] 1,000 mcg PO DAILY #30 tab 12/13/21 Allergies Allergy/AdvReac Type Severity Reaction Status Date / Time No Known Allergies Allergy Verified 12/13/21 23:06 Review of Systems ROS Other: All systems not noted in ROS Statement are negative. Limitations: ROS unobtainable due to patients medical condition <Manuel Richard - Last Filed: 02/02/22 23:07> ROS Other: All systems not noted in ROS Statement are negative. <Gavino Reyna - Last Filed: 02/03/22 04:10> ROS Statement: Those systems with pertinent positive or pertinent negative responses have been documented in the HPI. Past Medical History Past Medical History: COPD, GERD/Reflux, GI Bleed, Seizure Disorder Additional Past Medical History / Comment(s): MS, hearing impaired, seizures when in her 30s last 2yrs ago, migraines, Upper GI bleed, peptic ulcer disease, developmentally delayed, hypotension, UTI History of Any Multi-Drug Resistant Organisms: None Reported Past Surgical History: Ear Surgery Additional Past Surgical History / Comment(s): cyst removed from coccyx, multiple bilateral ear surgeries. Past Anesthesia/Blood Transfusion Reactions: No Reported Reaction Past Psychological History: Anxiety, Bipolar, Depression, Schizophrenia Smoking Status: Former smoker Past Alcohol Use History: Unable to Obtain Past Drug Use History: Unable to Obtain - Past Family History Father Additional Family Medical History / Comment(s): Father at age 70 from myocardial infarction. na Mother Additional Family Medical History / Comment(s): Patient's mother is alive at age 70. Patient does not know her medical history. Brother(s) Additional Family Medical History / Comment(s): Patient has 1 brother committed suicide at 48. Sister(s) Additional Family Medical History / Comment(s): Patient has 2 sisters with no major medical problems. <Manuel Richard Filed: 02/02/22 23:07> General Exam Limitations: language barrier General appearance: alert, in no apparent distress Head exam: Present: atraumatic, normocephalic, normal inspection Eye exam: Present: normal appearance, PERRL, EOMI. Absent: scleral icterus, conjunctival injection, periorbital swelling ENT exam: Present: normal exam, mucous membranes moist Neck exam: Present: normal inspection. Absent: tenderness, meningismus, lymphadenopathy Respiratory exam: Present: normal lung sounds bilaterally. Absent: respiratory distress, wheezes, rales, rhonchi, stridor Cardiovascular Exam: Present: regular rate, normal rhythm, normal heart sounds. Absent: systolic murmur, diastolic murmur, rubs, gallop, clicks GI/Abdominal exam: Present: soft, normal bowel sounds. Absent: distended, tenderness, guarding, rebound, rigid Extremities exam: Present: normal inspection, full ROM, normal capillary refill. Absent: tenderness, pedal edema, joint swelling, calf tenderness Back exam: Present: normal inspection Neurological exam: Present: alert, oriented X3, CN II-XII intact Psychiatric exam: Present: flat affect Skin exam: Present: warm, dry, intact, normal color. Absent: rash <Manuel Richard Filed: 02/02/22 23:07> - General Exam Comments Initial Comments: This is a well-developed well-nourished awake alert female (Manuel Richard) Course <Manuel Richard - Last Filed: 02/02/22 23:07> Vital Signs 02/02/22 02/02/22 02/02/22 21:06 21:10 22:10 Temperature 97.8 F Pulse Rate 84 91 88 Respiratory 16 16 16 Rate Blood Pressure 119/82 125/91 121/80 O2 Sat by Pulse 98 98 Oximetry 02/03/22 00:00 Temperature Pulse Rate 81 Respiratory 16 Rate Blood Pressure 115/76 O2 Sat by Pulse 97 Oximetry - Reevaluation(s) Reevaluation #1: 02/02/22 23:08 The patient is pending EPS evaluation and will be endorsed to Dr. Reyna at our shift change. (Manuel Richard) Medical Decision Making <Gavino Reyna - Last Filed: 02/03/22 04:10> - Medical Decision Making Patient was evaluated by EPS. She was signed out to me pending psychiatric evaluation, already medically cleared. Determined that she does meet inpatient criteria. She was petitioned. Certification was completed by myself. Patient will be admitted in stable condition. (Gavino Reyna) - Lab Data Lab Results 02/02/22 02/02/22 Range/Units 21:14 21:45 Urine Opiates Screen Not Detected (NotDetected) Ur Oxycodone Screen Not Detected (NotDetected) Urine Methadone Screen Not Detected (NotDetected) Ur Propoxyphene Screen Not Detected (NotDetected) Ur Barbiturates Screen Not Detected (NotDetected) Valproic Acid 48.0 ug/mL U Tricyclic Antidepress Not Detected (NotDetected) Ur Phencyclidine Scrn Not Detected (NotDetected) Ur Amphetamines Screen Not Detected (NotDetected) U Methamphetamines Scrn Not Detected (NotDetected) U Benzodiazepines Scrn Not Detected (NotDetected) Urine Cocaine Screen Not Detected (NotDetected) U Marijuana (THC) Screen Not Detected (NotDetected) Disposition <Manuel Richard - Last Filed: 02/02/22 23:07> <Gavino Reyna - Last Filed: 02/03/22 04:10> Clinical Impression: Acute psychosis, Encounter for psychiatric assessment Disposition: TRANSFER TO PSYCH HOSP/UNIT Condition: Stable Referrals: None,Stated [Primary Care Provider] - 1-2 days
[2022-02-02 22:09] LABS: Amphetamine Screen,Urine Not Detected (NotDetected); Barbiturate Screen,Urine Not Detected (NotDetected); Benzodiazepines Screen,Urine Not Detected (NotDetected); Cocaine Screen,Urine Not Detected (NotDetected); Methadone Screen, Urine Not Detected (NotDetected); Opiate Screen,Urine Not Detected (NotDetected); Oxycodone Screen, Urine Not Detected (NotDetected); Phencyclidine Screen,Urine Not Detected (NotDetected); Tricyclic Antidepressant,Urine Not Detected (NotDetected); Urn Cannabinoid Scrn Not Detected (NotDetected)
[2022-02-03] MEDS ORDERED: MAGNESIUM HYDROXIDE 2,400 MG/10 ML CUP PO PRN (05:12)
[2022-02-03] MEDS ORDERED: MAG HYDROX/AL HYDROX/SIMETH 30 ML CUP PO PRN (05:12)
[2022-02-03] MEDS ORDERED: HALOPERIDOL LACTATE 5 MG/ML 1 ML VIAL IM PRN (05:12)
[2022-02-03] MEDS ORDERED: LORazepam 2 MG/ML INJ IM PRN (05:15)
[2022-02-03 05:50] LABS: Appearance,Urine Clear (Clear); Bacteria,Urine Rare /hpf; Bilirubin,Urine Negative (Negative); Blood,Urine Negative (Negative); Color,Urine Colorless; Glucose,Urine (UA) Negative (Negative); Ketones,Urine Negative (Negative); Leukocyte Esterase,Urine Large (Negative); Mucus,Urine Rare /hpf; Nitrite,Urine Negative (Negative); PH, Urine 6.5 (5.0-8.0); Protein,Urine Negative (Negative); RBC,Urine 1 /hpf (0-5); Specific Gravity,Urine 1.004 (1.001-1.035); Squamous Epithelial Cell,Urine 4 /hpf (0-4); Urobilinogen,Urine <2.0 mg/dL (<2.0); WBC,Urine 2 /hpf (0-5)
[2022-02-03] MEDS: ACETAMINOPHEN TAB 325 MG TAB PO PRN (08:40)
[2022-02-03] MEDS ORDERED: haloperidoL 5 MG TAB PO PRN (09:00)
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
[2022-02-03] MEDS ORDERED: polyethylene glycoL 3350 17 GM POWD.PACK PO PRN (16:47)
--- NOTE | 2022-02-03 16:49 | P.HPMEDMHU ---
History of Present Illness H&P Date: 02/03/22 Patient is a 56-year-old female with extensive past medical history including deafness, schizophrenia, multiple sclerosis, and prior GI bleed who is on the mental health unit due to psychotic behavior. Patient seen and examined at bedside. She complains of pain in her lower extremities. She states that his typical from her multiple sclerosis. She continues to describe that she feels she is not clearly emptying her bladder and that she has a hard time going to the bathroom. She did have a recent hospital stay in December 2021 and all records were reviewed. At that time she had urinary retention secondary to constipation which improved after her constipation was resolved. She denies any dysuria. She states she was a bowel movement 2-3 days ago. She tells me she is reading my mind that has no other complaints currently. It is difficult to gather medical and surgical history from patient and all history is obtained from thorough record review including recent hospital stay in December 2021. Pertinent positives and negatives as discussed in HPI, a complete review of sys tems was performed and all other systems are negative. Vital signs reviewed General: nontoxic, no distress, appears at stated age Derm: warm, dry Head: atraumatic, normocephalic, symmetric Eyes: EOMI, no lid lag, anicteric sclera, pupils equal round reactive to light, hard of hearing, garbled speech ENT: Nose and ears atraumatic, no thrush, no pharyngeal erythema Neck: No thyromegaly, no cervical lymphadenopathy, trachea midline, supple Mouth: no lip lesion, mucus membranes moist Cardiovascular: S1S2 reg, no murmur, positive posterior tibial pulse bilateral, no edema, capillary refill less than 2 seconds Lungs: clear to auscultation bilateral, no rhonchi, no rales, no wheeze, no accessory muscle use Abdominal: soft, nontender to palpation, no guarding, no appreciable organomegaly, normal bowel sounds Ext: no gross muscle atrophy, muscle strength 5 out of 5 in all 4 extremities, no contractures, no tremors Neuro: CN II-XII grossly intact, light touch intact all 4 extremities, finger to nose within normal limits, Psych: Alert, oriented, blunted affect Assessment/Plan: Possible history of multiple sclerosis however not on any disease modifying agent -Continue outpatient follow-up Recent urinary retention -Nursing to keep track urinary frequency Constipation -When necessary stool softeners Chronic hyponatremia -Check labs in a.m. -2 L fluid restriction -Encourage solute intake Chronic: COPD without exacerbation GERD Seizure disorder Hearing impaired Developmental delay Tobacco abuse Frequent falls with wide based gait Schizophrenia -Your psych management Past Medical History Past Medical History: COPD, GERD/Reflux, GI Bleed, Seizure Disorder Additional Past Medical History / Comment(s): MS, hearing impaired, seizures when in her 30s last 2yrs ago, migraines, Upper GI bleed, peptic ulcer disease, developmentally delayed, hypotension, UTI History of Any Multi-Drug Resistant Organisms: None Reported Past Surgical History: Ear Surgery Additional Past Surgical History / Comment(s): cyst removed from coccyx, multiple bilateral ear surgeries. Past Anesthesia/Blood Transfusion Reactions: No Reported Reaction Past Psychological History: Anxiety, Bipolar, Depression, Schizophrenia Additional Psychological History / Comment(s): Pt resides with her daughter, Madelyn who is also her legal guardian. Smoking Status: Former smoker Past Alcohol Use History: Unable to Obtain Additional Past Alcohol Use History / Comment(s): Patient is a smoker of cigarettes 1 pack per day since she was 17 years of age, patient non-smoker at this time per guardian Madelyn. Guardian reported that her mother was a heavy drinker 20 years ago, but no ETOH use at this time because there is no alcohol in the house. Past Drug Use History: Unable to Obtain Additional Drug Use History / Comment(s): . - Past Family History Father Additional Family Medical History / Comment(s): Father at age 70 from myocardial infarction. na Mother Additional Family Medical History / Comment(s): Patient's mother is alive at age 70. Patient does not know her medical history. Brother(s) Additional Family Medical History / Comment(s): Patient has 1 brother committed suicide at 48. Sister(s) Additional Family Medical History / Comment(s): Patient has 2 sisters with no major medical problems. Medications and Allergies Home Medications Medication Instructions Recorded Confirmed Type Cholecalciferol [Vitamin D3 (125 125 mcg PO MOWEFR 12/09/21 02/03/22 History Mcg = 5000 Iu)] Magnesium Oxide 400 mg PO DAILY 12/09/21 02/03/22 History Pantoprazole [Protonix] 40 mg PO BID 12/09/21 02/03/22 History Cyanocobalamin [Vitamin B-12] 1,000 mcg PO DAILY #30 tab 12/13/21 02/03/22 Rx Allergies Allergy/AdvReac Type Severity Reaction Status Date / Time No Known Allergies Allergy Verified 02/03/22 05:16 Physical Exam Osteopathic Statement: *. No significant issues noted on an osteopathic structural exam other than those noted in the History and Physical/Consult. Vitals: Vital Signs Temp Pulse Pulse Resp BP BP Pulse Ox 02/03/22 06:29 97.9 F 78 15 124/82 97 02/03/22 04:00 78 15 117/76 98 02/03/22 00:00 81 16 115/76 97 02/02/22 22:10 88 16 121/80 98 02/02/22 21:10 91 16 125/91 02/02/22 21:06 97.8 F 84 16 119/82 98 Intake and Output 02/03/22 02/03/22 02/03/22 06:59 14:59 22:59 Other: Weight 53.779 kg Cranial Nerve Examination - Cranial Nerves Cranial Nerve II- Optic: Intact Cranial Nerve III- Oculomotor: Intact Cranial Nerve IV- Trochlear: Intact Cranial Nerve V- Trigeminal: Intact Cranial Nerve - Abducens: Intact Cranial Nerve VII- Facial: Intact Cranial Nerve VIII- Auditory: Impaired Cranial Nerve IX- Glossopharyngeal: Intact Cranial Nerve X- Vagus: Intact Cranial Nerve XI- Accessory: Intact Cranial Nerve XII- Hypoglossal: Intact Results Labs: Abnormal Lab Results - Last 24 Hours (Table) 02/02/22 Range/Units 21:45 Ur Leukocyte Esterase Large H (Negative) Urine Bacteria Rare H (None) /hpf Urine Mucus Rare H (None) /hpf
[2022-02-03] MEDS: DIVALPROEX ER 250 MG TAB.ER.24H PO SCH (19:56)
[2022-02-04 15:43] LABS: Basophils # (A) 0.1 k/uL (0-0.2); Basophils % (A) 1 %; Eosinophils # (A) 0.2 k/uL (0-0.7); Eosinophils % (A) 2 %; HCT 44.7 % (34.0-46.0); HGB 14.6 gm/dL (11.4-16.0); Lymphocytes # (A) 1.2 k/uL (1.0-4.8); Lymphocytes % (A) 11 %; MCH 30.9 pg (25.0-35.0); MCHC 32.6 g/dL (31.0-37.0); MCV 94.8 fL (80.0-100.0); Mean Platelet Volume 8.1; Monocytes # (A) 0.5 k/uL (0-1.0); Monocytes % (A) 5 %; Neutrophils # (A) 8.4 k/uL (1.3-7.7); Neutrophils % (A) 79 %; Platelet Count 357 k/uL (150-450); RBC 4.72 m/uL (3.80-5.40); RDW 12.8 % (11.5-15.5); WBC 10.6 k/uL (3.8-10.6)
[2022-02-04 16:06] LABS: ALT 14 U/L (4-34); AST 23 U/L (14-36); African American GFR (CKD) >90 (>60 ml/min/1.73 sqM); Albumin 4.1 g/dL (3.5-5.0); Alkaline Phosphatase 88 U/L (38-126); Anion Gap 16 mmol/L; Bilirubin, Delta 0.1 mg/dL (0.0-0.2); Bilirubin,Unconjugated 0.5 mg/dL (0.0-1.1); Blood Urea Nitrogen 11 mg/dL (7-17); Calcium 9.3 mg/dL (8.4-10.2); Carbon Dioxide 18 mmol/L (22-30); Chloride 91 mmol/L (98-107); Glucose 128 mg/dL (74-99); Non-African American GFR(CKD) >90 (>60 ml/min/1.73 sqM); Potassium 4.4 mmol/L (3.5-5.1); Sodium 125 mmol/L (137-145); Total Bilirubin 0.6 mg/dL (0.2-1.3)
--- NOTE | 2022-02-04 19:20 | P.PN ---
Progress Note - Text Progress Note Date: 02/04/22 Interval history: Patient was seen laying in her bed with lights off . She appears tearful. She states "what you want", is not able to answer any other questions, appears guarded, withdrawn and scared. She took her Prolixin 3 mg last night but refused it this morning. She appears to be attending to internal stimuli. Staff reports she was upset earlier today regarding her fluid restriction. Labs reviewed today and sodium is low at 125 today. TSH is also low at 0.324. Mental status exam: General Appearance: Patient appears to be older than stated age with poor hygiene. Behavior: No agitated behavior, but is tearful and not able to answer questions. Speech: Patient's speech is mumbled. Mood/Affect: Mood is upset, affect is congruent and constricted, tearful. Suicidality/Homicidality: Not able to assess due to limited cooperation. Perceptions: Appears to be attending to internal stimuli. Though content/process: Not able to fully assess due to limited cooperation. Memory and concentration: Not able to fully assess due to limited cooperation. Judgment and insight: Poor Assessment/Plan: Continue with current diagnosis. Patient continues to meet criteria for inpatient psychiatric admission for symptom stabilization and safety. Increase Prolixin to 5 mg BID for psychosis. Encourage medication compliance. Monitor for medication compliance and for any psychotropic medication side effects. Medical doctor to manage thyroid. BMP ordered for 02/05/22 AM to monitor sodium. Will continue to monitor ongoing response to treatment. Encourage participation in milieu.
[2022-02-05] MEDS: DIVALPROEX ER 250 MG TAB.ER.24H PO SCH ×2 (00:05→19:32)
[2022-02-05] MEDS: ACETAMINOPHEN TAB 325 MG TAB PO PRN ×2 (00:05→16:28)
[2022-02-05 10:29] LABS: African American GFR (CKD) >90 (>60 ml/min/1.73 sqM); Anion Gap 12 mmol/L; Blood Urea Nitrogen 9 mg/dL (7-17); Calcium 9.2 mg/dL (8.4-10.2); Carbon Dioxide 25 mmol/L (22-30); Chloride 92 mmol/L (98-107); Glucose 86 mg/dL (74-99); Non-African American GFR(CKD) >90 (>60 ml/min/1.73 sqM); Potassium 4.6 mmol/L (3.5-5.1); Sodium 129 mmol/L (137-145)
[2022-02-05 11:17] LABS: Estimated Average Glucose UNC
--- NOTE | 2022-02-05 19:32 | P.PN ---
Progress Note - Text Progress Note Date: 02/05/22 Interval history: Patient was seen wandering on the unit several times today, most time she appears to be rambling nonsensically and appears frustrated. It is difficult to engage her in meaningful conversation. On assessment, she again states "what you want", is guarded, is not able to answer any other questions. She took her Prolixin 5 mg last night but refused it this morning. I asked nurse to offer her missed morning dose to her again this afternoon and patient refused it again after multiple attempts. She appears to be attending to internal stimuli. Labs reviewed from this morning and sodium is modestly improved from 125 (yesterday) to 129 today, but still low. Mental status exam: General Appearance: Patient appears to be older than stated age with poor hygiene. Behavior: No agitated behavior, but is tearful and easily frustrated. Speech: Patient's speech is mumbled and mostly incoherent. Mood/Affect: Mood is upset/labile, affect is congruent and constricted. Suicidality/Homicidality: Not able to assess due to limited cooperation. Perceptions: Appears to be attending to internal stimuli. Though content/process: Not able to fully assess due to limited cooperation. Memory and concentration: Not able to fully assess due to limited cooperation. Judgment and insight: Poor Assessment/Plan: Continue with current diagnosis. Patient continues to meet criteria for inpatient psychiatric admission for symptom stabilization and safety. Continue Prolixin 5 mg BID for psychosis. Encourage medication compliance. Monitor for medication compliance and for any psychotropic medication side effects. Medical doctor to manage thyroid. Repeat BMP ordered for tomorrow 02/06/22 AM to continue to monitor sodium level. Will continue to monitor ongoing response to treatment. Encourage participation in milieu.
[2022-02-06 10:11] LABS: African American GFR (CKD) >90 (>60 ml/min/1.73 sqM); Anion Gap 13 mmol/L; Blood Urea Nitrogen 10 mg/dL (7-17); Calcium 9.4 mg/dL (8.4-10.2); Carbon Dioxide 20 mmol/L (22-30); Chloride 98 mmol/L (98-107); Glucose 96 mg/dL (74-99); Non-African American GFR(CKD) >90 (>60 ml/min/1.73 sqM); Potassium 4.8 mmol/L (3.5-5.1); Sodium 131 mmol/L (137-145)
[2022-02-06] MEDS: ACETAMINOPHEN TAB 325 MG TAB PO PRN (11:47)
--- NOTE | 2022-02-06 13:37 | P.PN ---
Progress Note - Text Progress Note Date: 02/06/22 Interval History: Patient was seen wandering the hallways and was directable and agreeable to speak with freelance writer in the office. However once the patient sat in the office, she constantly repeated "I want to go home." She repeated this loudly and refused to answer any questions. The interview was therefore terminated. Mental Status Exam: General Appearance: Patient appears to be older than stated age with poor hygiene. Behavior: No agitated behavior, but is tearful and easily frustrated. Speech: Patient's speech is loud and repetitive. Mood/Affect: Mood is upset/labile, affect is congruent and constricted. Suicidality/Homicidality: Not able to assess due to limited cooperation. Perceptions: Appears to be attending to internal stimuli. Though content/process: Not able to fully assess due to limited cooperation. Memory and concentration: Not able to fully assess due to limited cooperation. Judgment and insight: Poor Vital Signs Temp 97.1 F L 02/05/22 00:19 Pulse 119 H 02/05/22 00:19 Resp 14 02/05/22 00:19 BP 100/70 02/05/22 00:19 Pulse Ox 97 02/03/22 06:29 FiO2 Intake & Output 02/05/22 02/06/22 02/06/22 18:59 06:59 18:59 Intake Total 1000 Balance 1000 Weight 53.4 kg Intake: Oral 1000 Other: # Voids 2 Laboratory Results - Last 24 Hours 02/04/22 02/06/22 15:14 09:41 Sodium 131 L Potassium 4.8 Chloride 98 Carbon Dioxide 20 L Anion Gap 13 BUN 10 Creatinine 0.73 Est GFR (CKD-EPI)AfAm >90 Est GFR (CKD-EPI)NonAf >90 Glucose 96 Hemoglobin A1c CANCELED Calcium 9.4 Assessment Schizophrenia Plan: -Patient continues to meet criteria for inpatient psychiatric admission for symptom stabilization and safety. The patient has been petitioned and certified. -Medications: Continue Prolixin 5 mg by mouth twice a day for schizophrenia. We will transition back to Prolixin Decanoate. Continue Depakote 750 mg by mouth at bedtime for mood stabilization -When necessary Haldol and Ativan for agitation/aggression. -SW on board for discharge planning. Encouraged the patient to participate in milieu.
[2022-02-06] MEDS: DIVALPROEX ER 250 MG TAB.ER.24H PO SCH (20:29)
[2022-02-07] MEDS: ACETAMINOPHEN TAB 325 MG TAB PO PRN (09:34)
[2022-02-07] MEDS: DIVALPROEX ER 250 MG TAB.ER.24H PO SCH (21:05)
[2022-02-08] MEDS: LORazepam 1 MG TAB PO PRN (01:18)
[2022-02-08] MEDS: ACETAMINOPHEN TAB 325 MG TAB PO PRN ×3 (08:31→19:48)
--- NOTE | 2022-02-08 11:16 | P.PN ---
Progress Note - Text Progress Note Date: 02/07/22 Interval History: Patient was seen wandering the hallways and would only speak with the provider in the hallway. The patient vehemently denies any need for continued inpatient psychiatric hospitalization. She states that she wants to leave and go home. She is otherwise not participating in the psychiatric interview. Mental Status Exam: General Appearance: Patient appears to be older than stated age with slightly improved hygiene. Behavior: No agitated behavior, tearful and easily frustrated. Speech: Patient's speech is loud and repetitive. Mood/Affect: Mood is upset/labile, affect is congruent and constricted. Suicidality/Homicidality: Not able to assess due to limited cooperation. Perceptions: Appears to be attending to internal stimuli. Though content/process: Not able to fully assess due to limited cooperation. Memory and concentration: Not able to fully assess due to limited cooperation. Judgment and insight: Poor Assessment Schizophrenia Plan: -Patient continues to meet criteria for inpatient psychiatric admission for symptom stabilization and safety. The patient has been petitioned and certified. -Medications: Continue Prolixin 5 mg by mouth twice a day for schizophrenia. We will transition back to Prolixin Decanoate. Increase Depakote to 1000 mg by mouth at bedtime for mood stabilization -When necessary Haldol and Ativan for agitation/aggression. -SW on board for discharge planning. Encouraged the patient to participate in milieu.
--- NOTE | 2022-02-08 11:18 | P.PN ---
Progress Note - Text Progress Note Date: 02/08/22 Interval History: Patient was seen resting in bed and was agreeable to speak with underwriter in her room. The patient reports no suicidal or homicidal ideation. However when asked about her medications, the patient asked why she is on this medication. She was informed of her diagnosis of schizophrenia to which she replied "I'm not schizophrenic!" She continued to yell this phrase throughout the rest of the interview. Mental Status Exam: General Appearance: Patient appears to be older than stated age with fair hygiene and grooming. Behavior: No agitated behavior, tearful and easily frustrated. Speech: Patient's speech is loud and repetitive. Mood/Affect: Mood is upset/labile, affect is congruent and constricted. Suicidality/Homicidality: Not able to assess due to limited cooperation. Perceptions: Appears to be attending to internal stimuli. Though content/process: Not able to fully assess due to limited cooperation. Memory and concentration: Not able to fully assess due to limited cooperation. Judgment and insight: very poor. Vital Signs Temp 98.2 F 02/08/22 06:40 Pulse 89 02/08/22 06:40 Resp 16 02/08/22 06:40 BP 127/63 02/08/22 06:40 Pulse Ox 99 02/08/22 06:40 FiO2 Intake & Output 02/07/22 02/08/22 02/08/22 18:59 06:59 18:59 Intake Total 100 Balance 100 Intake: Oral 100 Assessment Schizophrenia Plan: -Patient continues to meet criteria for inpatient psychiatric admission for symptom stabilization and safety. The patient has been petitioned and certified. Patient is scheduled to meet with the administrator pesticide today. If the patient defers, we will likely transition the patient back to Prolixin decanoate. -Medications: Continue Prolixin 5 mg by mouth twice a day for schizophrenia. We will transition back to Prolixin Decanoate. Continue Depakote 1000 mg by mouth at bedtime for mood stabilization -When necessary Haldol and Ativan for agitation/aggression. -SW on board for discharge planning. Encouraged the patient to participate in milieu.
[2022-02-08] MEDS: DIVALPROEX ER 250 MG TAB.ER.24H PO SCH (19:48)
--- NOTE | 2022-02-09 11:40 | P.PN ---
Progress Note - Text Progress Note Date: 02/09/22 Interval History: Patient was seen resting in bed and was agreeable to speak with expert medical writer in her room. History continues to be limited by the patient. She becomes upset when approached regarding her mental health diagnosis. She refused to do for mental health court. She is scheduled for for court hearing on 02/15/2022. She is otherwise not reporting any medical issues or concerns at this time. Mental Status Exam: General Appearance: Patient appears to be older than stated age with fair hygiene and grooming. Behavior: No agitated behavior, tearful and easily frustrated. Speech: Patient's speech is loud and repetitive. Mood/Affect: Mood is upset/labile, affect is congruent and constricted. Suicidality/Homicidality: Not able to assess due to limited cooperation. Perceptions: Appears to be attending to internal stimuli. Though content/process: Not able to fully assess due to limited cooperation. Memory and concentration: Not able to fully assess due to limited cooperation. Judgment and insight: very poor. Assessment Schizophrenia Plan: -Patient continues to meet criteria for inpatient psychiatric admission for symptom stabilization and safety. The patient has been petitioned and certified. For court hearing is scheduled for 02/15/2022. -Medications: Continue Prolixin 5 mg by mouth twice a day for schizophrenia. We will transition back to Prolixin Decanoate. Continue Depakote 1000 mg by mouth at bedtime for mood stabilization -When necessary Haldol and Ativan for agitation/aggression. -SW on board for discharge planning. Encouraged the patient to participate in milieu.
[2022-02-09] MEDS: ACETAMINOPHEN TAB 325 MG TAB PO PRN ×3 (12:23→20:29)
[2022-02-09] MEDS: DIVALPROEX ER 250 MG TAB.ER.24H PO SCH (20:29)
[2022-02-10 07:36] LABS: African American GFR (CKD) >90 (>60 ml/min/1.73 sqM); Anion Gap 11 mmol/L; Blood Urea Nitrogen 11 mg/dL (7-17); Calcium 9.3 mg/dL (8.4-10.2); Carbon Dioxide 22 mmol/L (22-30); Chloride 96 mmol/L (98-107); Glucose 78 mg/dL (74-99); Non-African American GFR(CKD) >90 (>60 ml/min/1.73 sqM); Sodium 129 mmol/L (137-145)
[2022-02-10 07:39] LABS: Potassium 4.9 mmol/L (3.5-5.1)
[2022-02-10] MEDS: ACETAMINOPHEN TAB 325 MG TAB PO PRN ×3 (08:04→23:47)
--- NOTE | 2022-02-10 12:30 | P.PN ---
Progress Note - Text Progress Note Date: 02/10/22 Interval History: Patient was seen in the common area and was agreeable to speak with process description writer in the common area with no one else present. History was limited as per patient's presentation. The patient was initially calm and cooperative however when informed that we are awaiting court, the patient constantly yells out repetitively "I'M NOT IN TROUBLE. WHY COURT? I'M NOT IN TROUBLE!." She could not be redirected and therefore history was limited. Mental Status Exam: Grossly unchanged from yesterday General Appearance: Patient appears to be older than stated age with fair hygiene and grooming. Behavior: No agitated behavior, tearful and easily frustrated. Speech: Patient's speech is loud and repetitive. Mood/Affect: Mood is upset/labile, affect is congruent and constricted. Suicidality/Homicidality: Not able to assess due to limited cooperation. Perceptions: Appears to be attending to internal stimuli. Though content/process: Not able to fully assess due to limited cooperation. Memory and concentration: Not able to fully assess due to limited cooperation. Judgment and insight: very poor. Vital Signs Temp 98.3 F 02/10/22 08:05 Pulse 86 02/10/22 08:05 Resp 18 02/10/22 08:05 BP 143/94 02/10/22 08:05 Pulse Ox 99 02/08/22 06:40 FiO2 Laboratory Results - Last 24 Hours 02/10/22 07:05 Sodium 129 L Potassium 4.9 Chloride 96 L Carbon Dioxide 22 Anion Gap 11 BUN 11 Creatinine 0.64 Est GFR (CKD-EPI)AfAm >90 Est GFR (CKD-EPI)NonAf >90 Glucose 78 Calcium 9.3 Assessment Schizophrenia Plan: -Patient continues to meet criteria for inpatient psychiatric admission for symptom stabilization and safety. The patient has been petitioned and certified. For court hearing is scheduled for 02/15/2022. -Medications: Continue Prolixin 5 mg by mouth twice a day for schizophrenia. We will transition back to Prolixin Decanoate. Continue Depakote 1000 mg by mouth at bedtime for mood stabilization. Depakote level will be checked on Sunday. -When necessary Haldol and Ativan for agitation/aggression. -SW on board for discharge planning. Encouraged the patient to participate in milieu.
[2022-02-10] MEDS: DIVALPROEX ER 500 MG TAB.ER.24H PO SCH ×2 (20:40→20:46)
[2022-02-10] MEDS: LORazepam 1 MG TAB PO PRN (23:47)
[2022-02-11] MEDS: ACETAMINOPHEN TAB 325 MG TAB PO PRN ×3 (10:56→20:42)
--- NOTE | 2022-02-11 19:44 | P.PN ---
Progress Note - Text Progress Note Date: 02/11/22 Interval history: Patient was seen wandering the hallways and sobbing "I want to go home". Her mood is labile. She has been compliant with her oral Prolixin, but not her Depakote. She required an Ativan 1 mg po x 1 last night for agitation. She is not able to engage in meaningful assessment due to the severity of her mental health symptoms. Mental status exam: General Appearance: Patient appears to be older than stated age, disheveled, dressed in hospital gown. Behavior: Patient is sobbing loudly "I want to go home". Speech: Patient's speech is at times incoherent and loud. Mood/Affect: Mood is irritable, affect is labile. Suicidality/Homicidality: Not able to fully assess due to limited cooperation Perceptions: Not able to fully assess due to limited cooperation Though content/process: Thought process is concrete, simplistic, incoherent sobbing. Memory and concentration: Not able to fully assess due to limited cooperation Judgment and insight: Poor Assessment/Plan: Continue with current diagnosis. Patient continues to meet criteria for inpatient psychiatric admission for symptom stabilization and safety. Patient will be maintained on current psychotropic medication regimen. Monitor for medication compliance and for any psychotropic medication side effects. Will continue to monitor ongoing response to treatment. Encouraged participation in milieu.
[2022-02-11] MEDS: DIVALPROEX ER 500 MG TAB.ER.24H PO SCH ×2 (20:43→22:38)
[2022-02-12] MEDS: ACETAMINOPHEN TAB 325 MG TAB PO PRN ×3 (08:10→20:35)
--- NOTE | 2022-02-12 16:14 | P.PN ---
Progress Note - Text Progress Note Date: 02/12/22 Interval history: Patient was seen asleep in bed, does not wake to voice, and was left undisturbed to rest since her mood has been quite labile this weekend with frequent sobbing. Respirations are normal. Last night, she took her Depakote 1000 mg QHS which she had refused the night before. She has been compliant with her oral Prolixin. She has not required any PRN medication for agitation so far today. Mental status exam: General Appearance: Patient appears to be older than stated age, disheveled, dressed in hospital gown. Behavior: Patient is asleep in bed and was left undisturbed. Speech: Unable to assess Mood/Affect: Unable to assess Suicidality/Homicidality: Unable to assess Perceptions: Unable to assess Though content/process: Unable to assess Memory and concentration: Unable to assess Judgment and insight: Chronically poor Assessment/Plan: Continue with current diagnosis. Patient continues to meet criteria for inpatient psychiatric admission for symptom stabilization and safety. Patient will be maintained on current psychotropic medication regimen. Encourage medication compliance. Monitor for medication compliance and for any psychotropic medication side effects. Will continue to monitor ongoing response to treatment. Encouraged participation in milieu.
[2022-02-12] MEDS: DIVALPROEX ER 500 MG TAB.ER.24H PO SCH (20:33)
[2022-02-13] MEDS: ACETAMINOPHEN TAB 325 MG TAB PO PRN ×3 (10:07→21:56)
--- NOTE | 2022-02-13 11:16 | P.PN ---
Progress Note - Text Progress Note Date: 02/13/22 Interval History: Patient was seen wandering the hallways however refused to participate in the psychiatric interview. She refused her Prolixin this morning. She is otherwise not able to fully participate in the psychiatric interview and refuses to answer questions. She remains labile with occasional episodes of sobbing and crying on the unit. She continues to desire for discharge and to return home. Mental Status Exam: Grossly unchanged General Appearance: Patient appears to be older than stated age with fair hygiene and grooming. Behavior: Tearful and easily frustrated. Otherwise the patient appears to be wandering the hallways or drink her water or Gatorade. Speech: Patient's speech is loud and repetitive. Otherwise nonspontaneous. Mood/Affect: Mood is upset/labile, affect is congruent and constricted. Suicidality/Homicidality: Not able to assess due to limited cooperation. Perceptions: Unable to assess at this time. Though content/process: Not able to fully assess due to limited cooperation. Memory and concentration: Not able to fully assess due to limited cooperation. Judgment and insight: very poor. Vital Signs Temp 97.7 F 02/13/22 06:23 Pulse 73 02/13/22 06:23 Resp 16 02/13/22 06:23 BP 112/59 02/13/22 06:23 Pulse Ox 95 02/13/22 06:23 FiO2 Assessment Schizophrenia Plan: -Patient continues to meet criteria for inpatient psychiatric admission for symptom stabilization and safety. The patient has been petitioned and certified. For court hearing is scheduled for 02/15/2022. -Medications: Continue Prolixin 5 mg by mouth twice a day for schizophrenia. We will trans ition back to Prolixin Decanoate. Continue Depakote 1000 mg by mouth at bedtime for mood stabilization. Depakote level will be checked on Sunday. -When necessary Haldol and Ativan for agitation/aggression. -SW on board for discharge planning. Encouraged the patient to participate in milieu.
[2022-02-13] MEDS: DIVALPROEX ER 500 MG TAB.ER.24H PO SCH (19:57)
[2022-02-14] MEDS: ACETAMINOPHEN TAB 325 MG TAB PO PRN ×3 (08:00→18:35)
--- NOTE | 2022-02-14 12:20 | P.PN ---
Progress Note - Text Progress Note Date: 02/14/22 Interval History: Patient was seen wandering the hallways however refused to participate in the psychiatric interview. She did take her Prolixin and her Depakote. She is scheduled for court tomorrow. Aside from episodes of crying and desired to go home, the patient has mostly been cooperative and polite on the unit. History continues to be limited. Mental Status Exam: Grossly unchanged General Appearance: Patient appears to be older than stated age with fair hygie ne and grooming. Behavior: Patient does not display any bizarre or agitated behaviors today. Speech: Patient's speech is nonspontaneous and minimal today. Mood/Affect: Mood is "okay." Affect is blunted. Suicidality/Homicidality: Not able to assess due to limited cooperation. Perceptions: Unable to assess at this time. Though content/process: Not able to fully assess due to limited cooperation. Memory and concentration: Not able to fully assess due to limited cooperation. Judgment and insight: very poor. Vital Signs Temp 97.6 F 02/14/22 06:08 Pulse 70 02/14/22 06:08 Resp 16 02/14/22 06:08 BP 117/74 02/14/22 06:08 Pulse Ox 96 02/14/22 06:08 FiO2 Assessment Schizophrenia Plan: -Patient continues to meet criteria for inpatient psychiatric admission for symptom stabilization and safety. The patient has been petitioned and certified. For court hearing is scheduled for 02/15/2022. -Medications: Continue Prolixin 5 mg by mouth twice a day for schizophrenia. We will transition back to Prolixin Decanoate. Continue Depakote 1000 mg by mouth at bedtime for mood stabilization. Depakote level will be checked on Sunday. -When necessary Haldol and Ativan for agitation/aggression. -SW on board for discharge planning. Encouraged the patient to participate in milieu.
[2022-02-14 16:02] VITALS: BMI 22.2
[2022-02-14] MEDS: DIVALPROEX ER 500 MG TAB.ER.24H PO SCH (21:40)
[2022-02-15] MEDS: LORazepam 1 MG TAB PO PRN ×2 (00:23→05:13)
[2022-02-15] MEDS: ACETAMINOPHEN TAB 325 MG TAB PO PRN ×3 (00:23→08:53)
--- NOTE | 2022-02-15 11:32 | P.PN ---
Progress Note - Text Progress Note Date: 02/15/22 Interval History: Patient was seen wandering the hallways and was agreeable to speak in the hallways. She did have court today however refused to participate in her hearing. She has been adherent with the medications. She reports no suicidal or homicidal ideation, intention, and/or plan. She reports no auditory or visual hallucinations. She does continue to be upset when informed she is not going home. She also expresses no desire to be transitioned to long acting injectible medication. She has been endorsing pain issues however remains vague. Mental Status Exam: Grossly unchanged General Appearance: Patient appears to be older than stated age with fair hygiene and grooming. Behavior: Patient does not display any bizarre or agitated behaviors today. Speech: Patient's speech is nonspontaneous and minimal today. Mood/Affect: Mood is "okay." Affect is blunted. Suicidality/Homicidality: Denies Perceptions: Denies Though content/process: Repetitive and concrete. Memory and concentration: Not able to fully assess due to limited cooperation. Judgment and insight: very poor. Vital Signs Temp 97.5 F L 02/15/22 05:17 Pulse 87 02/15/22 05:17 Resp 14 02/15/22 05:17 BP 161/79 02/15/22 05:17 Pulse Ox 96 02/14/22 06:08 FiO2 Intake & Output 02/14/22 02/15/22 02/15/22 18:59 06:59 18:59 Weight 53.4 kg Assessment Schizophrenia Plan: -Patient continues to meet criteria for inpatient psychiatric admission for symptom stabilization and safety. The patient has been petitioned and certified. Court was scheduled today. Patient refused to participate. -Medications: Continue Prolixin 5 mg by mouth twice a day for schizophrenia. We will transition back to Prolixin Decanoate once we receive court order paperwork. Continue Depakote 1000 mg by mouth at bedtime for mood stabilization. Depakote level will be checked on Sunday. -When necessary Haldol and Ativan for agitation/aggression. -SW on board for discharge planning. Encouraged the patient to participate in milieu.
[2022-02-15 16:29] LABS: Glucose,Whole Blood 111 mg/dL (70-110)
--- NOTE | 2022-02-15 17:25 | XR ---
EXAMINATION TYPE: XR shoulder complete LT DATE OF EXAM: 02/15/2022 COMPARISON: NONE HISTORY: Pain TECHNIQUE: 3 views FINDINGS: There is a 1.7 x 1 cm nondisplaced chip fracture of the greater tuberosity of the humerus. No dislocation. The scapula is intact. AC joint is intact. IMPRESSION: Nondisplaced chip fracture of the greater tuberosity of the humerus.
--- NOTE | 2022-02-15 18:58 | P.PN ---
Subjective Progress Note Date: 02/15/22 Patient is a 56-year-old female with extensive past medical history including deafness, schizophrenia, multiple sclerosis, and prior GI bleed who is on the mental health unit due to psychotic behavior. Patient had a fall earlier today and underwent x-ray of the left humerus which showed a chip fracture. Was notified by mental health nursing. Patient seen and examined at bedside. She is very lethargic and has recently been given medications due to aggressive behaviors. Per nursing she was up and walking and slipped on her own urine earlier fall. Was able to arouse patient, she is difficult to communicate with at baseline secondary to her deafness. She does report left shoulder pain. She states it hurts. She denies headache. She denies any eye pain. General: nontoxic, no distress, appears at stated age Derm: warm, dry Head: Ecchymoses with swelling right infraorbital region, laceration right eyelid Eyes: EOMI, no lid lag, anicteric sclera Mouth: no lip lesion, mucus membranes moist, hard of hearing Cardiovascular: S1S2 reg, no murmur, positive posterior tibial pulse bilateral, Lungs: CTA bilateral, no rhonchi, no rales , no accessory muscle use Abdominal: soft, nontender to palpation, no guarding, no appreciable organomegaly Ext: Left upper arm with bruising, tender to palpation, mild swelling Neuro: Pupils equal round reactive to light, extraocular motion intact, cranial nerves II through XII grossly intact, no focal neuro deficits noted-patient with difficulty hearing commands to follow them. Psych: Alert, oriented, agitated Assessment/Plan: nondisplaced chip fracture of the freat tuberosity of the left humerus orbital swelling on the right Fall - CT head review mild hydrocephalus, suspect chronic - consult ortho - pain control - neuro check Possible history of multiple sclerosis however not on any disease modifying agent -Continue outpatient follow-up Chronic hyponatremia -Check labs in a.m. -conitnue with 2 L fluid restriction -Encourage solute intake Objective - Vital Signs Vital signs: Vital Signs Temp 97.5 F L 02/15/22 05:17 Pulse 114 H 02/15/22 16:15 Resp 18 02/15/22 16:15 BP 159/80 02/15/22 16:15 Pulse Ox 99 02/15/22 16:15 FiO2 Intake & Output 0902/15/22 02/15/22 18:59 06:59 18:59 Weight 53.4 kg - Labs CBC & Chem 7: 02/04/22 15:14 02/10/22 07:05 Labs: Abnormal Lab Results - Last 24 Hours (Table) 02/15/22 Range/Units 16:26 POC Glucose (mg/dL) 111 H (70-110) mg/dL
--- NOTE | 2022-02-15 19:58 | CT ---
EXAMINATION TYPE: CT brain wo con DATE OF EXAM: 02/15/2022 COMPARISON: 12/09/2021 HISTORY: fall, laceration and swelling right eye CT DLP: 1064.30 mGycm Automated exposure control for dose reduction was used. There is cerebral cortical atrophy. There is no mass effect or midline shift. There is no evidence of intracranial hemorrhage. There is enlargement of the ventricles. The calvarium is intact. Skull base is intact. Nasal bone is intact. Orbital margins are intact. IMPRESSION: Mild cerebral atrophy. There is some hydrocephalus. Periventricular white matter hypodensity suggesti ve of microvascular ischemia. No acute intracranial abnormality. No fracture seen.
[2022-02-15] MEDS: IBUPROFEN 400 MG TAB PO PRN (20:25)
[2022-02-15] MEDS: DIVALPROEX ER 500 MG TAB.ER.24H PO SCH (20:26)
[2022-02-16] MEDS: ACETAMINOPHEN TAB 325 MG TAB PO PRN ×2 (08:06→15:43)
[2022-02-16] MEDS: LORazepam 1 MG TAB PO PRN (08:06)
[2022-02-16] MEDS ORDERED: hydrOXYzine pamoate 25 MG CAP PO PRN (09:23)
[2022-02-16] MEDS ORDERED: flUPHENAZine 2.5 MG/ML (MDV) 10 ML VIAL IM PRN (09:24)
[2022-02-16] MEDS: traMADol 50 MG TAB PO PRN ×2 (11:12→19:54)
--- NOTE | 2022-02-16 11:22 | P.PN ---
Progress Note - Text Progress Note Date: 02/16/22 Interval History: Patient was resting in bed without any agitated behavior. The patient had a fall yesterday as she was walking and slipped on her own urine. She underwent an x-ray of the left humerus which showed chip fracture. Orthopedics was consulted and recommended tramadol for pain management. The patient has been court ordered for mental health treatment. She continues to endorse significant pain however is denying any suicidal or homicidal ideation. She reports no au ditory or visual hallucinations. She is scheduled for guardianship hearing tomorrow. She has been adherent with medications and is not reporting any significant side effects at this time. Mental Status Exam: General Appearance: Patient appears to be older than stated age with fair hygiene and grooming. Currently resting in bed. Behavior: Patient does not display any bizarre or agitated behaviors today. She is currently sleeping. Speech: Patient's speech is nonspontaneous and minimal today. Mood/Affect: Mood is "it hurts" Affect is somnolent Suicidality/Homicidality: Denies Perceptions: Denies Though content/process: Repetitive and concrete. Memory and concentration: Not able to fully assess due to limited cooperation. Judgment and insight: very poor. Vital Signs Temp 97.9 F 02/16/22 08:11 Pulse 101 H 02/16/22 08:11 Resp 16 02/16/22 08:11 BP 144/60 02/16/22 08:11 Pulse Ox 99 02/15/22 16:15 FiO2 Laboratory Results - Last 24 Hours 02/15/22 16:26 POC Glucose (mg/dL) 111 H POC Glu Weave Room Supervisor ID Shannan Michel Assessment Schizophrenia Plan: -Patient continues to meet criteria for inpatient psychiatric admission for symptom stabilization and safety. The patient has been petitioned and certified. Court ordered for treatment. -Medications: Continue Prolixin 5 mg by mouth twice a day for schizophrenia. As the patient just had a fall, we will hold Prolixin Decanoate today and will likely administer over the next few days. Continue Depakote 1000 mg by mouth at bedtime for mood stabilization. Depakote level will be checked on Sunday. -When necessary Haldol and Ativan have been discontinued and changed to Prolixin and Vistaril for management of anxiety and agitation. -SW on board for discharge planning. Encouraged the patient to participate in milieu.
[2022-02-16 11:54] LABS: African American GFR (CKD) >90 (>60 ml/min/1.73 sqM); Anion Gap 10 mmol/L; Blood Urea Nitrogen 5 mg/dL (7-17); Calcium 9.1 mg/dL (8.4-10.2); Carbon Dioxide 25 mmol/L (22-30); Chloride 95 mmol/L (98-107); Glucose 95 mg/dL (74-99); Non-African American GFR(CKD) >90 (>60 ml/min/1.73 sqM); Potassium 4.4 mmol/L (3.5-5.1); Sodium 130 mmol/L (137-145)
--- NOTE | 2022-02-16 12:53 | P.CNOR ---
History of Present Illness - [facility] Consult date: 02/16/22 Consult reason: fracture (Left humerus fracture) History of present illness: Patient is a 56-year-old female who was evaluated on the with regards to left shoulder pain. Patient hospital for almost 2 weeks due to mental health issues. Apparently she slipped and fell yesterday in her room injury. Initial x-rays were done that demonstrated a fracture involving the greater tuberosity. Our orthopedic team was then consulted. Patient was evaluated today at bedside on the mental health unit, multiple nurses were also available during exam. Patient is very hard of hearing and with her mental status was very difficult to examine the patient and obtain an adequate history of present illness. Review of Systems Constitutional: Reports as per [facility] Past Medical History Past Medical History: COPD, GERD/Reflux, GI Bleed, Seizure Disorder Additional Past Medical History / Comment(s): MS, hearing impaired, seizures when in her 30s last 2yrs ago, migraines, Upper GI bleed, peptic ulcer disease, developmentally delayed, hypotension, UTI History of Any Multi-Drug Resistant Organisms: None Reported Past Surgical History: Ear Surgery Additional Past Surgical History / Comment(s): cyst removed from coccyx, multiple bilateral ear surgeries. Past Anesthesia/Blood Transfusion Reactions: No Reported Reaction Smoking Status: Never smoker - Past Family History Father Additional Family Medical History / Comment(s): Father at age 70 from myocardial infarction. na Mother Additional Family Medical History / Comment(s): Patient's mother is alive at age 70. Patient does not know her medical history. Brother(s) Additional Family Medical History / Comment(s): Patient has 1 brother committed suicide at 48. Sister(s) Additional Family Medical History / Comment(s): Patient has 2 sisters with no major medical problems. Medications and Allergies Home Medications Medication Instructions Recorded Confirmed Type Cholecalciferol [Vitamin D3 (125 125 mcg PO MOWEFR 12/09/21 02/03/22 History Mcg = 5000 Iu)] Magnesium Oxide 400 mg PO DAILY 12/09/21 02/03/22 History Pantoprazole [Protonix] 40 mg PO BID 12/09/21 02/03/22 History Cyanocobalamin [Vitamin B-12] 1,000 mcg PO DAILY #30 tab 12/13/21 02/03/22 Rx Allergies Allergy/AdvReac Type Severity Reaction Status Date / Time No Known Allergies Allergy Verified 02/03/22 05:16 Physical Examination Left upper extremity: No obvious open lesions or sores are visualized throughout the extremity No obvious areas of the erythema or soft tissue swelling present on the extremity Patient demonstrates tenderness with palpation to over the greater tuberosity of the left shoulder, she is nontender with palpation involving the distal humerus, elbow, forearm, wrist, hand Passive range of motion reproduces no significant pain with forward elevation, shoulder abduction, elbow extension, elbow flexion, wrist extension, wrist flexion Sensory exam to light touch is intact throughout the extremity Radial/ulnar pulses are 2+ Results - Labs Labs: Abnormal Lab Results - Last 24 Hours (Table) 02/15/22 02/16/22 Range/Units 16:26 10:51 Sodium 130 L (137-145) mmol/L Chloride 95 L (98-107) mmol/L BUN 5 L (7-17) mg/dL POC Glucose (mg/dL) 111 H (70-110) mg/dL H & H 02/04/22 Range/Units 15:14 Hgb 14.6 (11.4-16.0) gm/dL Hct 44.7 (34.0-46.0) % Result Diagrams: 02/04/22 15:14 02/16/22 10:51 - Diagnostic results Shoulder x-ray: report reviewed, image reviewed (Images and reports of the left shoulder were reviewed. Images demonstrated a nondisplaced left greater tuberosity fracture) Assessment and Plan Assessment: Left shoulder greater tuberosity fracture Status post fall from standing Multiple medical comorbidities Plan: I was able to discuss the case, this included both physical exam findings and imaging studies with my attending Dr. Plasencia. No orthopedic surgical interv ention is recommended at this time Recommended conservative measures, this including icing of the shoulder along with use of an arm sling, and this has been ordered. Basic flexion and extension at the elbow and wrist are okay. Avoid heavy lifting with left upper extremity Pain control, nursing mentioned Tylenol and Motrin not affecting pain, recommending tramadol 50 mg every 6 hours as needed Discharge planning: Orthopedic standpoint the patient is stable, recommend follow-up in the outpatient setting in 2 weeks for x-ray and clinical evaluation Time with Patient: Less than 30
[2022-02-16] MEDS: DIVALPROEX ER 500 MG TAB.ER.24H PO SCH (19:54)
[2022-02-17] MEDS: traMADol 50 MG TAB PO PRN ×4 (00:54→21:44)
[2022-02-17] MEDS: ACETAMINOPHEN TAB 325 MG TAB PO PRN ×2 (02:05→20:22)
[2022-02-17] MEDS: IBUPROFEN 400 MG TAB PO PRN (08:13)
[2022-02-17] MEDS ORDERED: fluPHENAZine DECANOATE 25 MG/ML 5ML MDV IM ONE (11:53)
--- NOTE | 2022-02-17 11:54 | P.PN ---
Progress Note - Text Progress Note Date: 02/17/22 Interval History: Patient was resting in bed without any agitated behavior. Patient was noted to be sleeping well. She was also noted by staff agitated behaviors yesterday. Upon arousal, the patient is minimal in conversation. She expresses that she is tired. She does continue to ask whether she will be going home. Mental Status Exam: General Appearance: Patient appears to be older than stated age with fair hygiene and grooming. Currently resting in bed. Behavior: Patient does not display any bizarre or agitated behaviors today. Patient is currently somnolent. Speech: Patient's speech is nonspontaneous and minimal today. Mood/Affect: Mood is "tired." Affect is somnolent Suicidality/Homicidality: Denies Perceptions: Denies Though content/process: Repetitive and concrete. Memory and concentration: Not able to fully assess due to limited cooperation. Judgment and insight: very poor. Vital Signs Temp 97.6 F 02/17/22 06:19 Pulse 58 L 02/17/22 06:19 Resp 16 02/17/22 06:19 BP 85/49 02/17/22 06:19 Pulse Ox 97 02/17/22 06:19 FiO2 Assessment Schizophrenia Plan: -Patient continues to meet criteria for inpatient psychiatric admission for symptom stabilization and safety. The patient has been petitioned and certified. Court ordered for treatment. -Medications: Continue Prolixin 5 mg by mouth twice a day for schizophrenia. Prolixin Decanoate 25 mg IM ordered today. Continue Depakote 1000 mg by mouth at bedtime for mood stabilization. Depakote level will be checked on Sunday. -When necessary Haldol and Ativan have been discontinued and changed to Prolixin and Vistaril for management of anxiety and agitation. -SW on board for discharge planning. Encouraged the patient to participate in milieu.
[2022-02-17] MEDS: DIVALPROEX ER 500 MG TAB.ER.24H PO SCH (20:20)
[2022-02-18] MEDS: traMADol 50 MG TAB PO PRN ×4 (01:55→19:49)
[2022-02-18] MEDS: ACETAMINOPHEN TAB 325 MG TAB PO PRN ×4 (05:56→23:21)
--- NOTE | 2022-02-18 12:24 | P.PN ---
Progress Note - Text Progress Note Date: 02/18/22 Interval History: Patient was resting comfortable in bed without any agitated behavior. Patient was noted to be sleeping well. She was slow to respond upon arousal. She mentioned her arm injury. She denies any further concerns. She reports eating well and sleeping well. She denies medication concerns or side effects. Although she continues to be disorganized, she denies auditory and visual hallucinations. Mental Status Exam: General Appearance: Patient appears to be older than stated age with fair hygiene and grooming. Currently resting in bed. Behavior: Patient does not display any bizarre or agitated behaviors today. Patient is currently somnolent. Speech: Patient's speech is nonspontaneous and minimal today. Mood/Affect: Mood is "okay." Affect is somnolent Suicidality/Homicidality: Denies Perceptions: Denies Though content/process: Repetitive and concrete. Memory and concentration: Not able to fully assess due to limited cooperation. Judgment and insight: very poor. Assessment Schizophrenia Plan: -Patient continues to meet criteria for inpatient psychiatric admission for symptom stabilization and safety. The patient has been petitioned and certified. Court ordered for treatment. -Medications: Continue Prolixin 5 mg by mouth twice a day for schizophrenia. Might change to nighttime if continues to be somnolent during the day. Prolixin Decanoate 25 mg IM given on 02/17/22 Continue Depakote 1000 mg by mouth at bedtime for mood stabilization. Depakote level will be checked on Sunday. -When necessary Haldol and Ativan have been discontinued and changed to Prolixin and Vistaril for management of anxiety and agitation. -SW on board for discharge planning. Encouraged the patient to participate in milieu.
[2022-02-18] MEDS: IBUPROFEN 400 MG TAB PO PRN (14:19)
--- NOTE | 2022-02-18 19:12 | P.EN ---
Patient with episode of choking, performed by nursing. Seen and examined at bedside with nursing present. She reports that she was having a choking episode but she is fine now got it up. She has no complaints currently. On my assessment of the patient she is up, walking around, and speaking in complete sentences. General: nontoxic, no distress, appears at stated age Derm: warm, dry Head: atraumatic, normocephalic, symmetric Eyes: EOMI, no lid lag, anicteric sclera Mouth: no lip lesion, mucus membranes moist, hard of hearing, slowed speech, no obstruction of airway Cardiovascular: S1S2 reg, no murmur, positive posterior tibial pulse bilateral, Lungs: CTA bilateral, no rhonchi, no rales , no accessory muscle use Neuro: CN II-XI grossly intact, patient has unsteady gait with left foot drag Psych: Alert, oriented, appropriate affect Assessment/plan: Choking episode -Stat chest x-ray -Patient should be monitored while eating for the next 48 hours if additional chocking epsidoes notify sound physicians. For possible modified diet and speech consult.
--- NOTE | 2022-02-18 19:38 | XR ---
EXAMINATION TYPE: XR chest 1V portable DATE OF EXAM: 02/18/2022 COMPARISON: 12/09/2021 HISTORY: Aspiration TECHNIQUE: Single view FINDINGS: Heart is normal. Lungs are clear of consolidation. There are no hilar masses. There is roun ded lucency over the heart that is consistent with hiatal hernia bony thorax is intact. IMPRESSION: There is likely a hiatal hernia. No active cardiopulmonary disease.
[2022-02-18] MEDS: DIVALPROEX ER 500 MG TAB.ER.24H PO SCH (19:51)
[2022-02-19] MEDS: traMADol 50 MG TAB PO PRN ×3 (02:07→16:00)
[2022-02-19] MEDS: ACETAMINOPHEN TAB 325 MG TAB PO PRN ×4 (06:07→21:25)
[2022-02-19] MEDS: IBUPROFEN 400 MG TAB PO PRN ×2 (12:30→23:03)
--- NOTE | 2022-02-19 16:12 | P.PN ---
Progress Note - Text Progress Note Date: 02/19/22 Patient with purulent drainage from the left ear. Patient reports no pain. There is some erythema surrounding the external auditory canal. No tenderness with manipulation of the earlobe. No mastoid process tenderness. We will start the patient on ciprofloxacin/dexamethasone eardrops twice a day.
--- NOTE | 2022-02-19 17:39 | P.PN ---
Progress Note - Text Progress Note Date: 02/19/22 Interval History: Patient was resting comfortable in bed without any agitated behavior. Patient was noted to be sleeping well. She was slow to respond upon arousal. She denies any further concerns and asks about discharge. She reports eating well and sleeping well. She denies medication concerns or side effects. Although she continues to be disorganized, she denies auditory and visual hallucinations. Mental Status Exam: General Appearance: Patient appears to be older than stated age with fair hygiene and grooming. Currently resting in bed. Behavior: Patient does not display any bizarre or agitated behaviors today. Patient is currently somnolent. Speech: Patient's speech is nonspontaneous and minimal today. Mood/Affect: Mood is "okay." Affect is somnolent Suicidality/Homicidality: Denies Perceptions: Denies Though content/process: Repetitive and concrete. Memory and concentration: Not able to fully assess due to limited cooperation. Judgment and insight: very poor. Assessment Schizophrenia Plan: -Patient continues to meet criteria for inpatient psychiatric admission for symptom stabilization and safety. The patient has been petitioned and certified. Court ordered for treatment. -Medications: Change Prolixin to 5 mg qHS. Received Prolixin Decanoate 25 mg IM given on 02/17/22 Continue Depakote 1000 mg by mouth at bedtime for mood stabilization. Depakote level will be checked on Sunday. -When necessary Haldol and Ativan have been discontinued and changed to Prolixin and Vistaril for management of anxiety and agitation. -SW on board for discharge planning. Encouraged the patient to participate in milieu.
[2022-02-19] MEDS: DIVALPROEX ER 500 MG TAB.ER.24H PO SCH (20:13)
[2022-02-19] MEDS: CIPROFLOXACIN-DEXAMETH 0.3-0.1% DROPS 7.5 ML BTL LEFT EAR SCH (20:14)
[2022-02-20] MEDS: traMADol 50 MG TAB PO PRN ×2 (03:03→16:23)
[2022-02-20] MEDS: ACETAMINOPHEN TAB 325 MG TAB PO PRN ×3 (03:04→23:49)
[2022-02-20] MEDS: IBUPROFEN 400 MG TAB PO PRN ×3 (05:57→19:56)
[2022-02-20] MEDS: CIPROFLOXACIN-DEXAMETH 0.3-0.1% DROPS 7.5 ML BTL LEFT EAR SCH ×2 (08:15→20:10)
--- NOTE | 2022-02-20 11:03 | P.PN ---
Progress Note - Text Progress Note Date: 02/20/22 Interval History: Patient was seen resting in bed and was directable and agreeable to speak with the pattern chart writer in her room. History continues to be limited as the patient is very slow to respond and is minimal and conversation. The patient however has been adherent with her medications and diagnostic blood work. She did receive Prolixin Decanoate on 02/17/2022. Patient was informed that should we are anticipating discharge on at [facility]. The patient replied "not okay." However the patient is unable to provide any other responses to this provider. Mental Status Exam: General Appearance: Patient appears to be older than stated age with fair hy giene and grooming. Currently resting in bed. Behavior: Patient does not display any bizarre or agitated behaviors today. Speech: Patient's speech is nonspontaneous and minimal today. Mood/Affect: Mood is "not okay." Affect is flat. Suicidality/Homicidality: Unable to assess Perceptions: Unable to assess Though content/process: Repetitive and concrete. Memory and concentration: Not able to fully assess due to limited cooperation. Judgment and insight: very poor. Vital Signs Temp 97.6 F 02/20/22 06:02 Pulse 92 02/20/22 06:02 Resp 16 02/20/22 06:02 BP 130/76 02/20/22 06:02 Pulse Ox 98 02/20/22 06:02 FiO2 Intake & Output 02/19/22 02/20/22 02/20/22 18:59 06:59 18:59 Intake Total 150 Balance 150 Weight 54.3 kg Intake: Oral 150 Laboratory Results - Last 24 Hours 02/20/22 06:13 Valproic Acid 89.3 Assessment Schizophrenia Plan: -Patient continues to meet criteria for inpatient psychiatric admission for symptom stabilization and safety. Patient has been court ordered for mental health treatment. -Medications: Prolixin decanoate 25 mg IM was administered on 02/17/2022 Prolixin 5 mg by mouth at bedtime for schizophrenia Depakote 1000 mg by mouth at bedtime for mood stabilization -When necessary Prolixin and Vistaril for agitation/aggression. -SW on board for discharge planning. Encouraged the patient to participate in milieu.
[2022-02-20 13:23] LABS: Basophils % (A) 1 %; Eosinophils # (A) 0.3 k/uL (0-0.7); Eosinophils % (A) 4 %; HCT 41.7 % (34.0-46.0); HGB 14.2 gm/dL (11.4-16.0); Lymphocytes # (A) 1.4 k/uL (1.0-4.8); Lymphocytes % (A) 22 %; MCH 32.2 pg (25.0-35.0); MCHC 34.1 g/dL (31.0-37.0); MCV 94.2 fL (80.0-100.0); Mean Platelet Volume 8.9; Monocytes # (A) 0.6 k/uL (0-1.0); Monocytes % (A) 9 %; Neutrophils # (A) 3.8 k/uL (1.3-7.7); Neutrophils % (A) 62 %; Platelet Count 327 k/uL (150-450); RBC 4.42 m/uL (3.80-5.40); RDW 13.1 % (11.5-15.5); WBC 6.2 k/uL (3.8-10.6)
[2022-02-20 13:38] LABS: ALT 21 U/L (4-34); AST 26 U/L (14-36); African American GFR (CKD) >90 (>60 ml/min/1.73 sqM); Albumin 3.8 g/dL (3.5-5.0); Alkaline Phosphatase 80 U/L (38-126); Anion Gap 14 mmol/L; Blood Urea Nitrogen 11 mg/dL (7-17); Calcium 9.4 mg/dL (8.4-10.2); Carbon Dioxide 22 mmol/L (22-30); Chloride 88 mmol/L (98-107); Glucose 75 mg/dL (74-99); Non-African American GFR(CKD) >90 (>60 ml/min/1.73 sqM); Potassium 4.5 mmol/L (3.5-5.1); Sodium 124 mmol/L (137-145); Total Bilirubin 0.4 mg/dL (0.2-1.3); Total Protein 6.6 g/dL (6.3-8.2)
[2022-02-20] MEDS: DIVALPROEX ER 500 MG TAB.ER.24H PO SCH (20:10)
[2022-02-21] MEDS: IBUPROFEN 400 MG TAB PO PRN ×3 (02:36→23:33)
[2022-02-21] MEDS: ACETAMINOPHEN TAB 325 MG TAB PO PRN ×4 (07:46→23:33)
[2022-02-21] MEDS: CIPROFLOXACIN-DEXAMETH 0.3-0.1% DROPS 7.5 ML BTL LEFT EAR SCH ×3 (09:06→20:02)
--- NOTE | 2022-02-21 11:10 | P.PN ---
Progress Note - Text Progress Note Date: 02/21/22 Interval History: Patient was seen resting in bed and was directable and agreeable to speak with the scenario writer in her room. The patient was able to respond albeit in a limited fashion today. The patient is currently denying any suicidal or homicidal ideation, intention, and/or plan. She denies any auditory or visual hallucinations. She denies any paranoia or other delusions. She reports no side effects from medications. The patient also reports that her pain appears t o be well controlled. She denies any issues using the restroom. She has been adherent with her medications. She makes primarily isolative to herself in her room or wandering the hallways. Mental Status Exam: General Appearance: Patient appears to be older than stated age with fair hygiene and grooming. Currently resting in bed. Behavior: Patient does not display any bizarre or agitated behaviors today. Patient is smiling. Speech: Patient's speech is nonspontaneous and minimal today. Mood/Affect: Mood is "okay" Affect is blunted. Suicidality/Homicidality: Patient denies any suicidal or homicidal ideation. Perceptions: Patient denies any auditory or visual hallucinations. Though content/process: Minimal but concrete. Memory and concentration: Grossly intact. Judgment and insight: very poor. Vital Signs Temp 97.6 F 02/20/22 23:57 Pulse 80 02/20/22 23:57 Resp 16 02/20/22 23:57 BP 121/81 02/20/22 23:57 Pulse Ox 99 02/20/22 23:57 FiO2 Intake & Output 02/20/22 02/21/22 02/21/22 18:59 06:59 18:59 Intake Total 100 Balance 100 Intake: Oral 100 Assessment Schizophrenia Plan: -Patient continues to meet criteria for inpatient psychiatric admission for symptom stabilization and safety. Patient has been court ordered for mental health treatment. -Medications: Prolixin decanoate 25 mg IM was administered on 02/17/2022 Prolixin 5 mg by mouth at bedtime for schizophrenia Depakote 1000 mg by mouth at bedtime for mood stabilization -When necessary Prolixin and Vistaril for agitation/aggression. -SW on board for discharge planning. Encouraged the patient to participate in milieu.
[2022-02-21] MEDS: DIVALPROEX ER 500 MG TAB.ER.24H PO SCH (19:54)
[2022-02-21] MEDS: traMADol 50 MG TAB PO PRN (19:54)
[2022-02-22] MEDS: traMADol 50 MG TAB PO PRN ×2 (06:32→19:40)
[2022-02-22] MEDS: CIPROFLOXACIN-DEXAMETH 0.3-0.1% DROPS 7.5 ML BTL LEFT EAR SCH ×2 (09:46→22:27)
[2022-02-22] MEDS: ACETAMINOPHEN TAB 325 MG TAB PO PRN (10:43)
--- NOTE | 2022-02-22 12:47 | P.PN ---
Progress Note - Text Progress Note Date: 02/22/22 Interval History: Patient was seen resting in bed and was directable and agreeable to speak with the rfp writer in her room. The patient participates in a limited fashion today. She initially responded stating that she feels "not okay." However attempts to elicit any reason why she is not okay was met with futility as the patient stated blankly at this provider. She did later smile as interview progressed despite not answering any questions. The patient has been noted by staff to be cooperative in adherent with her medications. The patient appears to be hyponatremic chronically however we will continue to follow closely. Mental Status Exam: General Appearance: Patient appears to be older than stated age with fair hygiene and grooming. Currently resting in bed. Behavior: Patient does not display any bizarre or agitated behaviors today. Patient is smiling. Speech: Patient's speech is nonspontaneous and minimal today. Mood/Affect: Mood is "not okay" Affect is blunted. Suicidality/Homicidality: Could not assess due to patient's limited participation. Perceptions: Could not assess due to patient's limited participation. Though content/process: Could not assess due to patient's limited participation. Memory and concentration: Could not assess due to patient's limited participation. Judgment and insight: very poor. Vital Signs Temp 97.3 F L 02/22/22 06:35 Pulse 99 02/22/22 06:35 Resp 18 02/22/22 06:35 BP 111/70 02/22/22 06:35 Pulse Ox 97 02/22/22 06:35 FiO2 Intake & Output 02/21/22 02/22/22 02/22/22 18:59 06:59 18:59 Intake Total 580 600 Balance 580 600 Intake: Oral 580 600 Laboratory Results - Last 24 Hours 02/22/22 09:23 NT-Pro-B Natriuret Pep 93 Assessment Schizophrenia Plan: -Patient continues to meet criteria for inpatient psychiatric admission for symptom stabilization and safety. Patient has been court ordered for mental health treatment. -[facility] ordered to monitor sodium -Medications: Prolixin decanoate 25 mg IM was administered on 02/17/2022 Prolixin 5 mg by mouth at bedtime for schizophrenia Depakote 1000 mg by mouth at bedtime for mood stabilization -When necessary Prolixin and Vistaril for agitation/aggression. -SW on board for discharge planning. Encouraged the patient to participate in milieu.
[2022-02-22] MEDS: IBUPROFEN 400 MG TAB PO PRN ×2 (13:15→16:49)
[2022-02-22 18:07] LABS: African American GFR (CKD) >90 (>60 ml/min/1.73 sqM); Anion Gap 16 mmol/L; Blood Urea Nitrogen 14 mg/dL (7-17); Calcium 9.5 mg/dL (8.4-10.2); Carbon Dioxide 20 mmol/L (22-30); Chloride 87 mmol/L (98-107); Glucose 102 mg/dL (74-99); Non-African American GFR(CKD) >90 (>60 ml/min/1.73 sqM); Potassium 4.6 mmol/L (3.5-5.1); Sodium 123 mmol/L (137-145)
[2022-02-22] MEDS: DIVALPROEX ER 500 MG TAB.ER.24H PO SCH (19:40)
[2022-02-23] MEDS: IBUPROFEN 400 MG TAB PO PRN (00:44)
[2022-02-23 00:51] VITALS: BP 113/75; PULSE 104; RESP 14; TEMP 97.5
[2022-02-23] MEDS: CIPROFLOXACIN-DEXAMETH 0.3-0.1% DROPS 7.5 ML BTL LEFT EAR SCH (08:16)
[2022-02-23] MEDS: ACETAMINOPHEN TAB 325 MG TAB PO PRN (08:17)
[2022-02-23] MEDS: traMADol 50 MG TAB PO PRN (10:46)
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
== END 2022-02-23 13:09 | disposition home or self-care (01) | DRG 885 ==
LOC: EC 21:04 → 3MHU 02-03 05:07
PROVIDERS: ADMIT Psychiatry & Neurology Psychiatry; ATTEND Psychiatry & Neurology Psychiatry
DX: F20.9 Schizophrenia, unspecified (principal); S42.252A Displaced fracture of greater tuberosity of left humerus, initial encounter for closed fracture; E87.1 Hypo-osmolality and hyponatremia; G91.9 Hydrocephalus, unspecified; F41.9 Anxiety disorder, unspecified; G35 Multiple sclerosis; G40.909 Epilepsy, unspecified, not intractable, without status epilepticus; H91.93 Unspecified hearing loss, bilateral; J44.9 Chronic obstructive pulmonary disease, unspecified; S01.111A Laceration without foreign body of right eyelid and periocular area, initial encounter; W01.0XXA Fall on same level from slipping, tripping and stumbling without subsequent striking against object, initial encounter; T43.3X6A Underdosing of phenothiazine antipsychotics and neuroleptics, initial encounter; R29.6 Repeated falls; R26.89 Other abnormalities of gait and mobility; G43.909 Migraine, unspecified, not intractable, without status migrainosus; K21.9 Gastro-esophageal reflux disease without esophagitis; Y93.01 Activity, walking, marching and hiking; Z20.822 Contact with and (suspected) exposure to COVID-19; Z79.899 Other long term (current) drug therapy; Z87.11 Personal history of peptic ulcer disease; Z87.891 Personal history of nicotine dependence; Z91.83 Wandering in diseases classified elsewhere; Z91.128 Patient's intentional underdosing of medication regimen for other reason; Z28.82 Immunization not carried out because of caregiver refusal; Z71.3 Dietary counseling and surveillance; Z87.440 Personal history of urinary (tract) infections; Z91.81 History of falling; Z81.8 Family history of other mental and behavioral disorders; Z82.49 Family history of ischemic heart disease and other diseases of the circulatory system
CPT/HCPCS: 36415; 70450; 71045; 80048; 80053; 80061; 80164; 80306; 81001; 82075; 82248; 83036; 83880; 84443; 85025; 87635; 99285

== ENCOUNTER 2022-06-23 15:45 | Emergency (ER) | payer MEDICARE, OTHER ==
[2022-06-23 15:58] VITALS: RESP 18; TEMP 98.1
--- NOTE | 2022-06-23 16:12 | ED ---
General Adult HPI - General Chief complaint: Psychiatric Symptoms Stated complaint: EPS eval Time Seen by Provider: 06/23/22 15:54 Source: patient Mode of arrival: ambulatory Limitations: no limitations - History of Present Illness Initial comments: Dictation was produced using [employer] dictation software. please excuse any grammatical, word or spelling errors. Chief Complaint: 56-year-old female presents emergency department for psychiatric evaluation History of Present Illness: Is 56-year-old female presents emergency department for psychiatric evaluation. Patient has psychiatric illness. She's been admitted to inpatient psych in the past. She is a poor historian. She is brought to the ER for refusing to take her medications. Chart review shows that patient has a history of schizophrenia. Patient was last admitted to inpatient psych in our facility in February of last year. Unable to obtain ROS due to tangential speech PHYSICAL EXAM: General Impression: Alert and oriented, not in acute distress, smiling and giggling HEENT: Normocephalic atraumatic, extra-ocular movements intact, pupils equal and reactive to light bilaterally, mucous membranes moist. Cardiovascular: Heart regular rate and rhythm Chest: Able to complete full sentences, no retractions, no tachypnea Musculoskeletal: no peripheral edema Motor: no focal deficits noted Neurological: CN II-XII grossly intact, no focal motor or sensory deficits noted Skin: Intact with no visualized rashes Psych: Smiling and giggling of context ED course: 56-year-old feel past medical history of schizophrenia presents to the ER for psychiatric evaluation. Patient is here to be evaluated due to noncompliance with her medications. She currently lives at assisted living facility. Vital signs upon arrival are within acceptable limits. Discharge summary from 02/23/2022 was reviewed showing the patient was admitted to psych floor for schizophrenia. Nursing notes and chart review was performed Evaluated by EPS. They gave patient a shot of Prolixin and recommended discharge. - Related Data Home Medications Medication Instructions Recorded Confirmed Cholecalciferol [Vitamin D3 (125 125 mcg PO MOWEFR 12/09/21 02/03/22 Mcg = 5000 Iu)] Magnesium Oxide 400 mg PO DAILY 12/09/21 02/03/22 Pantoprazole [Protonix] 40 mg PO BID 12/09/21 02/03/22 Previous Rx's Medication Instructions Recorded Cyanocobalamin [Vitamin B-12] 1,000 mcg PO DAILY #30 tab 12/13/21 Divalproex ER [Depakote ER] 1,000 mg PO HS 30 Days tab 02/23/22 fluPHENAZine decanoate [Prolixin 25 mg IM QMONTHLY #1 each 02/23/22 Decanoate] traMADol HCl [Ultram] 50 mg PO BID 3 Days tab 02/23/22 Allergies Allergy/AdvReac Type Severity Reaction Status Date / Time haloperidol [From Haldol] AdvReac Confusion Verified 02/19/22 00:28 Review of Systems ROS Statement: Those systems with pertinent positive or pertinent negative responses have been documented in the HPI. ROS Other: All systems not noted in ROS Statement are negative. Past Medical History Past Medical History: COPD, GERD/Reflux, GI Bleed, Seizure Disorder Additional Past Medical History / Comment(s): MS, hearing impaired, seizures when in her 30s last 2yrs ago, migraines, Upper GI bleed, peptic ulcer disease, developmentally delayed, hypotension, UTI History of Any Multi-Drug Resistant Organisms: None Reported Past Surgical History: Ear Surgery Additional Past Surgical History / Comment(s): cyst removed from coccyx, multiple bilateral ear surgeries. Past Anesthesia/Blood Transfusion Reactions: No Reported Reaction Past Psychological History: Anxiety, Bipolar, Depression, Schizophrenia Smoking Status: Never smoker Past Alcohol Use History: Unable to Obtain Past Drug Use History: Unable to Obtain - Past Family History Father Additional Family Medical History / Comment(s): Father at age 70 from myocardial infarction. na Mother Additional Family Medical History / Comment(s): Patient's mother is alive at age 70. Patient does not know her medical history. Brother(s) Additional Family Medical History / Comment(s): Patient has 1 brother committed suicide at 48. Sister(s) Additional Family Medical History / Comment(s): Patient has 2 sisters with no major medical problems. General Exam Limitations: no limitations Course Vital Signs 06/23/22 15:50 Temperature 98.1 F Pulse Rate 84 Respiratory 18 Rate Blood Pressure 119/67 O2 Sat by Pulse 96 Oximetry Medical Decision Making - Lab Data Lab Results 06/23/22 Range/Units 16:33 Urine Opiates Screen Not Detected (NotDetected) Ur Oxycodone Screen Not Detected (NotDetected) Urine Methadone Screen Not Detected (NotDetected) Ur Propoxyphene Screen Not Detected (NotDetected) Ur Barbiturates Screen Not Detected (NotDetected) U Tricyclic Antidepress Not Detected (NotDetected) Ur Phencyclidine Scrn Not Detected (NotDetected) Ur Amphetamines Screen Not Detected (NotDetected) U Methamphetamines Scrn Not Detected (NotDetected) U Benzodiazepines Scrn Not Detected (NotDetected) Urine Cocaine Screen Not Detected (NotDetected) U Marijuana (THC) Screen Not Detected (NotDetected) Disposition Clinical Impression: Encounter for psychiatric assessment Disposition: HOME SELF-CARE Condition: Good Is patient prescribed a controlled substance at d/c from ED?: No Referrals: Iftikhar Shepard MD [Primary Care Provider] - 1-2 days Time of Disposition: 18:18
[2022-06-23 17:21] LABS: Amphetamine Screen,Urine Not Detected (NotDetected); Barbiturate Screen,Urine Not Detected (NotDetected); Benzodiazepines Screen,Urine Not Detected (NotDetected); Cocaine Screen,Urine Not Detected (NotDetected); Methadone Screen, Urine Not Detected (NotDetected); Opiate Screen,Urine Not Detected (NotDetected); Oxycodone Screen, Urine Not Detected (NotDetected); Phencyclidine Screen,Urine Not Detected (NotDetected); Tricyclic Antidepressant,Urine Not Detected (NotDetected); Urn Cannabinoid Scrn Not Detected (NotDetected)
[2022-06-23] MEDS ORDERED: fluPHENAZine DECANOATE 25 MG/ML 5ML MDV IM ONE (17:48)
[2022-06-23 19:06] VITALS: BP 121/81; PULSE 82
== END 2022-06-23 19:47 | disposition home or self-care (01) ==
LOC: EC 15:45
DX: Z00.8 Encounter for other general examination (principal); J44.9 Chronic obstructive pulmonary disease, unspecified; K21.9 Gastro-esophageal reflux disease without esophagitis; F41.9 Anxiety disorder, unspecified; F31.9 Bipolar disorder, unspecified; Z88.8 Allergy status to other drugs, medicaments and biological substances; Z79.899 Other long term (current) drug therapy
CPT/HCPCS: 82075; 80306; 99285; 96372; J2680

== ENCOUNTER → 2022-06-30 | Outpatient (CLI) | payer MEDICARE, OTHER ==
--- NOTE | 2022-06-30 11:32 | MM ---
Reason for Exam: Screening (asymptomatic). Last mammogram was performed 6 year(s) and 0 month(s) ago. Patient History: Menarche at age 18. First Full-Term at age 24. Postmenopausal. Risk Values: Kelly 5 year model risk: 0.9%. NCI Lifetime model risk: 6.9%. Prior Study Comparison: 09/06/2012 Bilateral Screening Mammogram, [facility]. 09/12/2012 Bilateral Diagnostic Mammogram, [facility]. 07/28/2013 Bilateral Diagnostic Mammogram, [facility]. 02/18/2014 Left Diagnostic Mammogram, [facility]. 06/27/2016 Bilateral Screening Mammogram, [facility]. Tissue Density: There are scattered fibroglandular densities. Findings: Analyzed By CAD. Exam slightly suboptimal due to patient noncooperation. A few small benign-appearing round calcifications bilaterally are redemonstrated. Well-defined oval 6 mm mass in the upper right breast is stable or slightly smaller in size from prior study. Additional masses near this level are stable or smaller. There is no suspicious new group of microcalcifications or new suspicious mass in either breast. Overall Assessment: Benign, BI-RAD 2 Management: Screening Mammogram of both breasts in 1 year. A clinical breast exam by your physician is recommended on an annual basis and results should be correlated with mammographic findings. Electronically signed and approved by: Yusef Paniagua M.D.
== END | disposition home or self-care (01) ==
LOC: RADMAMWWP 10:49
PROVIDERS: ATTEND General Practice
DX: Z12.31 Encounter for screening mammogram for malignant neoplasm of breast (principal); Z78.0 Asymptomatic menopausal state
CPT/HCPCS: 77063; 77067

== ENCOUNTER → 2024-02-06 | Outpatient (CLI) | payer MEDICARE, OTHER ==
--- NOTE | 2024-02-06 10:19 | MM ---
Reason for Exam: Clinical finding. Last mammogram was performed 1 year(s) and 8 month(s) ago. Indicated Problems: Pain of the left side for 30 Year(s). Patient History: Menarche at age 18. First Full-Term at age 24. Postmenopausal. Risk Values: Kelly 5 year model risk: 1.0%. NCI Lifetime model risk: 6.6%. Prior Study Comparison: 07/28/2013 Bilateral Diagnostic Mammogram, [facility]. 06/27/2016 Bilateral Screening Mammogram, [facility]. 06/30/2022 Bilateral MG 3D screening mammo w/cad, [facility]. Tissue Density: There are scattered areas of fibroglandular density. Findings: Analyzed By CAD. Benign-appearing left breast calcification. The right lateral upper breast as seen on priors has decreased in size. No new suspicious masses, calcifications or distortions. Overall Assessment: Benign, BI-RAD 2 Management: Screening Mammogram of both breasts in 1 year. Results were given to the patient verbally at the time of exam. Patient should continue monthly self-breast exams. A clinical breast exam by your physician is recommended on an annual basis. This exam should not preclude additional follow-up of suspicious palpable abnormalities. Note on Kelly scores and lifetime risk: 1. A Kelly score greater than 3% is considered moderate risk. If this is the case, consider specialist referral to assess eligibility for a risk reducing agent. 2. If overall lifetime risk for the development of breast cancer is 20% or higher, the patient may qualify for future screening with alternating mammogram and breast MRI. Electronically signed and approved by: Manuel Arenas DO
== END | disposition home or self-care (01) ==
LOC: RADMAMWWP 09:29 → EEVIPCON 09:30
PROVIDERS: ATTEND General Practice
DX: N64.4 Mastodynia (principal); Z78.0 Asymptomatic menopausal state; R92.323 Mammographic fibroglandular density, bilateral breasts
CPT/HCPCS: 77066; G0279; 77062